=== PATIENT | male | born 1935 | race Caucasian/White ===

== ENCOUNTER 2017-04-30 13:37 | Emergency (ER) | payer OTHER, BC ==
[~2017-04-30] VITALS: Ht 167.6 cm; Wt 78.9 kg
[~2017-04-30 13:37] MED LIST: ALL300 PO; CARV12.5 PO
[2017-04-30 13:42] VITALS: Ht 167.6 cm; Wt 78.9 kg
[2017-04-30] MEDS ORDERED: CHOL1000 PO (14:23)
[2017-04-30] MEDS ORDERED: ASPI81TA28 PO (14:23)
--- NOTE | 2017-04-30 14:59 | DIAGNOSTIC IMAGING REPORT ---
RIGHT ANKLE MIN 3 VIEWS ROUTINE, RIGHT FOOT MIN 3 VIEWS ROUTINE HISTORY: 81 years Male Right anterior foot pain. No trauma. Hx gout Right COMPARISON: None available TECHNIQUE: 3 views of the right ankle and 3 views of the right foot FINDINGS: ANKLE: Neck mortises well maintained and anatomically positioned. Talar dome is smooth without osteochondral defect. There is mild marginal spurring about the tibiotalar joint. There is prominent spurring of the calcaneus at the plantar insertion site. No acute fracture or dislocation. Vascular calcifications are seen. FOOT: There is severe joint space narrowing with subchondral sclerosis and marginal spurring involving the first metatarsal-phalangeal joint. The bones are mildly demineralized. Interphalangeal degenerative changes are also seen. No evidence of erosive arthropathy. There is however mild soft tissue swelling about the first MTP joint. Vascular calcifications are seen. IMPRESSION: 1. No acute fracture or dislocation. 2. No evidence of erosive arthropathy . 3. 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 4. Peripheral vascular disease. The above report was generated using voice recognition software. It may contain grammatical, syntax or spelling errors. Electronically signed by: Winston Hernandes M.D. 04/30/2017 2:58 PM Dictated Date/Time: 04/30/2017 2:55 PM
--- NOTE | 2017-04-30 15:20 | EMERGENCY ROOM VISIT NOTE ---
ED Visit Note First contact with patient: 14:19 Patient was seen by our PA/[employer] APPLICATIONS MANAGER. I was involved in the patient's care and did evaluate the patient myself. I was involved in the care throughout the ER stay. The patient presents with right foot pain feeling as if he may have a gout flare. Films do not show fracture, there is some arthritis. On exam, there was no evidence for neurovascular compromise or cellulitis. The patient is going to be treated with some prednisone for presumed gout. If worsening, he can return.
[2017-04-30] MEDS ORDERED: PRED20TA2 PO (15:24)
--- NOTE | 2017-04-30 15:26 | EMERGENCY ROOM VISIT NOTE ---
History First contact with patient: 14:19 Chief Complaint: FOOT PAIN Stated Complaint: SWELLING/PAIN TO RIGHT FOOT History of Present Illness The patient is a 81 year old male who presents to the Emergency Room via private vehicle accompanied by with complaints of "swelling/pain in the right foot". The patient states that he has a history of gout, and takes 300 mg of allopurinol daily. He states that about a week ago he developed pain in the top of the right foot and swelling in the right ankle. He states this feels like his typical gout flare, but has never had in this region. He states it is typically in his great toe. He denies any history of blood clot, fevers, chills, chest pain, shortness of breath, calf pain. He has taken Tylenol with some relief. He rates the pain as a 8/10. Review of Systems A complete 10-point Review of Systems was discussed with the patient, with pertinent positives and negatives listed in the History of Present Illness. All remaining Review of Systems questions can be considered negative unless otherwise specified. Past Medical/Surgical History Medical Problems: (1) Heart disease (2) Hypertension Family History FH: cancer FH: hypertension Heart disease Social History Smoking Status: Never Smoker Alcohol Use: occasionally Drug Use: none Marital Status: Housing Status: lives with roommate Occupation Status: retired Current/Historical Medications Scheduled Allopurinol (Allopurinol), 300 MG PO DAILY Aspirin (Aspirin Ec), 81 MG PO DAILY Carvedilol (Coreg), 12.5 MG PO BID Cholecalciferol (Vitamin D3), 1,000 INTER.UNIT PO DAILY Prednisone (Prednisone Tab), 1 TAB PO BID Allergies Coded Allergies: No Known Allergies (Unverified , 04/30/17) Physical Exam Vital Signs Date Time Temp Pulse Resp B/P (MAP) Pulse Ox O2 Delivery O2 Flow Rate FiO2 04/30/17 13:42 36.9 78 18 116/59 94 Room Air Physical Exam VITAL SIGNS - Vital signs and nursing notes were reviewed. Patient is afebrile , normotensive, non-tachycardic and is saturating well on room air 94%. GENERAL -81-year-old male appearing his stated age who is in no acute distress. Communicates well with provider and answers questions appropriately. SKIN - Without rashes. Skin overlying the right ankle and foot is unremarkable. EXTREMITIES - No clubbing or peripheral cyanosis. No pretibial edema present. No excessive warmth or erythema of the right lower extremity. He is neurovascularly intact in this region. +5/5 strength noted in UE/LE bilaterally. Medical Decision & Procedures ER Provider Diagnostic Interpretation: RIGHT ANKLE MIN 3 VIEWS ROUTINE, RIGHT FOOT MIN 3 VIEWS ROUTINE HISTORY: 81 years Male Right anterior foot pain. No trauma. Hx gout Right COMPARISON: None available TECHNIQUE: 3 views of the right ankle and 3 views of the right foot FINDINGS: ANKLE: Neck mortises well maintained and anatomically positioned. Talar dome is smooth without osteochondral defect. There is mild marginal spurring about the tibiotalar joint. There is prominent spurring of the calcaneus at the plantar insertion site. No acute fracture or dislocation. Vascular calcifications are seen. FOOT: There is severe joint space narrowing with subchondral sclerosis and marginal spurring involving the first metatarsal-phalangeal joint. The bones are mildly demineralized. Interphalangeal degenerative changes are also seen. No evidence of erosive arthropathy. There is however mild soft tissue swelling about the first MTP joint. Vascular calcifications are seen. IMPRESSION: 1. No acute fracture or dislocation. 2. No evidence of erosive arthropathy . 3. 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 4. Peripheral vascular disease. The above report was generated using voice recognition software. It may contain grammatical, syntax or spelling errors. Electronically signed by: Winston Hernandse M.D. 04/30/2017 2:58 PM Dictated Date/Time: 04/30/2017 2:55 PM Medical Decision Patient was seen and evaluated as above. After obtaining a thorough history and physical examination radiographs were obtained of the foot and ankle. Results as above. No acute fracture or dislocation. No joint effusion. I suspect the patient is likely experiencing a gout flare, and will add prednisone 20 mg twice a day 7 days to his regimen. He is to take this with food. He is to follow up with his family doctor regarding today's visits. His vital signs are stable. There is no evidence of infection or septic joint. No evidence of blood clot. He was educated upon worrisome symptoms in which to return, had questions as to discharge, and was discharged home in good condition. Patient was also seen and evaluated by my attending, of which the case was also discussed with. In the evaluation and treatment of this patient following differential diagnoses entertained: Degenerative change, gout flare, septic joint, among others. Impression Primary Impression: Gout flare Departure Information Dispostion Home / Self-Care Condition GOOD Prescriptions Prednisone (Prednisone Tab) 20 Mg Tab 1 TAB PO BID for 7 Days, #14 TAB Prov: Osmar Kathleen PA-C 04/30/17 Referrals Sophie Bourne PA-C (PCP) Patient Instructions My [facility] Additional Instructions You have been treated in the Emergency Department for a right foot and ankle pain believed to be a gout flare. You have been prescribed Prednisone 20 mg to be taken orally twice a day for the next 7 days. This is an anti-inflammatory medicine to be used to help minimize your symptoms. You should take the COMPLETE course of the medication. For pain control, you can use the following lwag-bfz-eqinufp medicines (if >12 yo): - Regular strength (325mg/tab) Tylenol (acetaminophen) 2 tabs every 4-6 hours as needed. Do not exceed 12 tablets in a 24 hour period. Avoid taking more than 3 grams (3000 mg) of Tylenol per day. This includes any other sources of acetaminophen you may take on a regular basis. If this is a recent injury (<24 hrs), ice can be applied to the area of pain for the first 3 days to help decrease pain and inflammation. Please schedule follow-up with your family doctor regarding today's visit. Please call them first thing tomorrow morning to schedule appointment. They may need to adjust the steroid dose. Return to the Emergency Department if your current symptoms worsen despite treatment course outlined above, or if you develop any of the following symptoms : Fevers, chills, intractable pain despite aforementioned treatment course or new onset of numbness or tingling of the foot. Please return to emergency department with any new/concerning symptoms.
[2017-04-30 15:51] VITALS: BP 121/57; PULSE 74; TEMP 36.9; O2SAT 94
== END 2017-04-30 15:51 | disposition home or self-care (01) ==
LOC: C.EDB 13:38 → C.EDD 15:51
DX: M10.9 Gout, unspecified (principal); Z79.899 Other long term (current) drug therapy; Z79.82 Long term (current) use of aspirin; I10 Essential (primary) hypertension; Z80.9 Family history of malignant neoplasm, unspecified; Z82.49 Family history of ischemic heart disease and other diseases of the circulatory system

== ENCOUNTER 2024-01-26 20:05 | Observation (INO) ==
--- OUTSIDE RECORDS SUMMARY | 2024-01-26 20:12 | External Medical Summary | Summary of Care ---
Author Name Unknown Organization [facility] Address [address] [place] [address] Phone [phone] Care Team Providers Care Music Autographer Name Role Phone Sophie Bourne Leonid PEOPLES Primary Care Provider [phone] Encounter Details Date Type Department Care Team (Late st Contact Info) Description 08/23/2023 Result Scan Unspecified Department Aashish Boyer MD [address] [place] [address] <No scans attached> Allergies Active Allergy Reactions Criticality Noted Date Comments Miguel Inhibitors Cough 06/10/2002 Losartan 06/21/2021 Dizziness Sulfa Antibiotics Itching 08/16/1999 Sulfamethoxazole-Trimethopr im 06/11/2023 Other Reaction(s): Not available documented as of this encounter (statuses as of 08/23/2023) Medications Medication Sig Dispensed Refills Start Date End Date Status omeprazole (PRILOSEC) 20 MG CPDR Take 1 Capsule by mouth in the morning. 0 Active Aspirin 81 MG TabletIndications: Gout of big toe Take 1 Tablet by mouth in the morning. 0 Active Cholecalciferol 1000 UNITS TBDP Take 2,000 Units by mouth every other day. 0 Active vitamin b 12 (CYANOCOBALAMIN) 1000 MCG TABS Take 1 Tablet by mouth every other day. 0 Active Magnesium Oxide 420 MG TABS Take 1 Tab by mouth daily. 0 Active atorvaSTATin (LIPITOR) 80 MG Tablet Take 0.5 Tablets by mouth in the morning. 30 Tab 0 03/08/2017 Active Fish Oil 1200 MG Oral Capsule Take 1 Cap by mouth 2 times a day. 0 Active Allopurinol 300 MG Oral Tablet (Zyloprim)Indicati ons:Gout of big toe TAKE 1 TABLET BY MOUTH EVERY DAY 90 Tablet 0 05/28/2022 Active Diclofenac Sodium 1 % External Gel (Voltaren) diclofenac 1 % topical gel 0 Active Fluticasone Propionate 50 MCG/ACT Nasal Suspension (Flonase) fluticasone propionate 50 mcg/actuation nasal spray,suspension 0 Active Triamcinolone Acetonide 0.5 % External Cream (Aristocort) Apply topically to affected area 2 times a day. To affected area. 60 g 5 03/01/2023 Active Tamsulosin HCl 0.4 MG Oral Capsule (Flomax) Take 2 Capsules by mouth in the morning. 120 Capsule 5 06/13/2023 Active Finasteride 5 MG Oral Tablet (Proscar) TAKE 1 TABLET BY MOUTH EVERY DAY IN THE MORNING 90 Tablet 1 07/13/2023 Active Metoprolol Succinate ER 25 MG Oral Tablet Extended Release 24 Hour (Toprol XL) Take 1 Tablet by mouth in the morning. 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 Left bundle branch block 11/17/2004 documented as of this encounter (statuses as of 08/23/2023) Resolved Problems Problem Noted Date Diagnosed Date Resolved Date Hypertensive kidney disease with chronic kidney disease stage III 04/08/2019 02/23/2021 Overview: Per CKD protocol Kidney disease, chronic, sta ge III (GFR 30-59 ml/min) 01/21/2018 04/23/2019 Overview: Per CKD protocol #1 Ischemic cardiomyopathy 05/30/201607/14 Chronic right sacroiliac pain 02/28/2013 04/10/2018 Benign neoplasm of colon 08/05/200711/2018 Overview: hyperplastic polyp, repeat in10 years ADVANCE DIRECTIVE INFORMATION 06/04/2005 06/06/2017 Overview: No, Advance Directive brochure offered , patient declined. Syncope and collapse 06/10/2002 017 Ischemic cardiomyopathy 06/10/200207/15 HYPERTENSION NOS 09/05/2009 Overview: Modified per HTN protocol #16. FM [id number] DIS NEC CHR ISCHEMIC HRT DIS NOS documented as of this encounter (statuses as of 08/23/2023) Immunizations Name Administration Dates Next Due COVID-19 mRNA, LNP-s, No Pre serve, 2-Dose Series (Moderna) 09/12/2021,12/12/2020,11/21/2020,2020 H1N1 2009 Influenza, IM 08/15/2009 Pneumococcal Conjugate Vacc, 13 Valent (Prevnar) 04/11/2018 Pneumococcal Vaccine, Unspec ified Formulation 09/21/2003 Seasonal Influenza Virus Vac cine, Unspecified Formulation 07/14/2018 Seasonal Influenza, Quadriva lent Hd (Fluzone Hd) 07/01/2023 Seasonal Influenza, Quadriva lent, No Preserve, IM 06/28/2020,12/12/2017 Seasonal Influenza, Recombin ant, RIV4, PF, (Flublock) 07/02/2020 Seasonal Influenza, Split, I IV3, With Preserve, Inj 07/14/2014,07/07/2013,09/13/2012,2006,07/23/2006 Seasonal Influenza, Trivalen t, Adjuvanted, 65+ yrs 07/22/2019 TD, Preservative Free 03/05/2008 Varicella Zoster Vaccine (Adult) 04/17/2012 documented as of this encounter Social History Tobacco Use Types Packs/Day Years Used Date Smoking Tobacco: Former Cigarettes 1.5 30 Q uit: 10/14/1982 Smokeless Tobacco: Never Alcohol Use Standard Drinks/Week Comments Yes 0 (1 standard drink = 0.6 oz pur e alcohol) very little PHQ-2 Answer Date Recorded PHQ-2 Score 0 03/25/2020 Sex and Gender Information Value Date Recorded Sex Assigned at Not on file Gender Identity Not on file Sexual Orientation Not on file Job Start Date Occupation Industry Not on file Not on file Not on file documented as of this encounter Plan of Treatment Upcoming Encounters Date Type Department Care Team (Late st Contact Info) Description 02/10/2024 11:20 AM EDT Office Visit Neurology [facility] [address] [facility] [place] [address] Srinivasa Whitaker MD [address] [facility] [place] [address] 02/26/2024 10:30 AM EDT Office Visit Urology, [place] [address] [place] [address] Joni Singh PA-C [address] [place], [place] [id number] 03/03/2024 10:30 AM EDT Office Visit Cardiology, [facility] [address] [facility] [place] [address] Sophie Melendez CRNP [address] [facility] [place] [address] 06/26/2024 11:00 AM EDT Cardiac Studies Cardiology, [facility] [address] [facility] [place] [address] Reyes Arriola [address] [place] [address] Health Maintenance Due Date Last Done Comments DTaP,Tdap,and Td Vaccines (1 - Tdap) 03/06/2008 03/05/2008 Zoster Vaccines (2 of 3) 06/12/2012 04/17/2012 Albumin/Creatinine Ratio 03/18/2016 03/18/2015 Pneumococcal Vaccine: 65+ Years (2 - PPSV23 or PCV20) 06/06/2018 04/11/2018 Depression Screening 03/25/2021 03/25/2020 CKD PHOS USE SMARTSET 55023 02/09/2022 02/09/2021 COVID-19 Vaccine ( season) 2023 09/12/2021, 12/12/2020, 11/21/2020, Additional history exists CKD HGB USE SMARTSET 26054 05/21/202405/21, 12/31/2022, 04/11/2021, Additional history exists Influenza Vaccine (FLU shot) Completed , 07/02/2020, 06/28/2020, Additional history exists GARDASIL-HPV IMMUNIZATION SERIES Aged Out No longer eligible based on patient's age to complete this topic Hepatitis B Aged Out No longer eligi ble based on patient's age to complete this topic MENINGOCOCCAL (MENACTRA/MENVEO) Aged Out No longer eligible based on patient's age to complete this topic documented as of this encounter Medical Devices Implanted Type Area Rotary Cutter Feeder Device Identifier Shelf Expiration Date Model / Serial / Lot Lens 21.0 Sn60wf - [id number] Implanted:Qty: 1 on 06/24/2014 at OR [facility] Right: Eye 04/12/2019 SN60WF.210 / [id number] / Lens 21.5 Sn60wf - [id number] Implanted:Qty: 1 on 07/07/2014 at OR [facility] Left: Eye [employer] 04/12/2019 SN60WF.215 / [id number] / [id number] documented as of this encounter Procedures Procedure Name Priority Date/Time Associated Diagnosis Comments CARDIOLOGY SCANNED RESULT 08/23/2023 documented in this encounter Results * CARDIOLOGY SCANNED RESULT (08/23/2023) 08/23/2023 Aashish Boyer MD OTHER documented in this encounter Advance Directives Latest Code Status on File Code Status Date Activated Date Inactivated Comments Full Code 07/07/2014 8:58 AM 07/07/2014 4:23 PM This order reflects the patients wishes and were consensually agreed upon. Code Status History Code Status Date Activated Date Inactivated Comments Full Code 06/24/2014 7:12 AM 06/24/2014 3:01 PM This order reflects the patients wishes and were consensually agreed upon. Care Teams Music Autographer Relationship Specialty Start Date End Date Sophie Bourne PA-C [address] [place] [address] [place] [address] PCP - General Physician Visiting Housekeeper 02/04/19 documented as of this encounter
--- OUTSIDE RECORDS SUMMARY | 2024-01-26 20:12 | External Medical Summary | Summary of Care ---
Author Name Unknown Organization [facility] Address [address] [place] [address] Phone [phone] Care Team Providers Care Bull Ladle Tender Name Role Phone Sophie Bourne Leonid PEOPLES Primary Care Provider [phone] Encounter Details Date Type Department Care Team (Late st Contact Info) Description 12/19/2023 Result Scan Unspecified Department Aashish Boyer MD [address] [place] [address] <No scans attached> Allergies Active Allergy Reactions Criticality Noted Date Comments Miguel Inhibitors Cough 06/10/2002 Losartan 06/21/2021 Dizziness Sulfa Antibiotics Itching 08/16/1999 Sulfamethoxazole-Trimethopr im 06/11/2023 Other Reaction(s): Not available documented as of this encounter (statuses as of 12/19/2023) Medications Medication Sig Dispensed Refills Start Date [...] as of this encounter (statuses as of 12/19/2023) Active Problems Problem Noted Date Diagnosed Date [...] as of this encounter (statuses as of 12/19/2023) Resolved Problems Problem Noted Date Diagnosed Date [...] Overview: Modified per HTN protocol #16. FM [id number] DIS NEC CHR ISCHEMIC HRT DIS NOS documented as of this encounter (statuses as of 12/19/2023) Immunizations Name Administration Dates Next Due COVID-19 [...] Date Smoking Tobacco: Former Cigarettes 1.5 30 0 10/14/1952 - 10/14/1982 Smokeless Tobacco: Never Alcohol Use Standard [...] 02/10/2024 11:20 AM EDT Office Visit Neurology [facility] [address] [facility] [place] [address] Srinivasa Whitaker MD [address] [facility] [place] [address] 02/26/2024 2:30 PM EDT Office Visit Urology, [place] [address] [place] [address] Dilan Pisano PA-C [address] [place] [address] 03/03/2024 10:30 AM EDT Office Visit Cardiology, [facility] [address] [facility] [place] [address] Sophie Melendez CRNP [address] [place] [address] 06/26/2024 11:00 AM EDT Cardiac Studies Cardiology, [facility] [address] [facility] [place] [address] [place], [employer] [address] [place] [address] Health Maintenance Due Date Last Done Comments DTaP,Tdap,and Td Vaccines (1 - Tdap) 03/06/2008 03/05/2008 Zoster Vaccines (2 of 3) 06/12/2012 04/17/2012 Albumin/Creatinine Ratio 03/18/2016 03/18/2015 Pneumococcal Vaccine: 65+ Years (2 of 2 - PPSV23 or PCV20) 06/06/2018 04/11/2018 Depression Screening 03/25/2021 03/25/2020 CKD PHOS USE SMARTSET 12117 02/09/2022 02/09/2021 COVID-19 Vaccine ( season) 2023 09/12/2021, 12/12/2020, 11/21/2020, Additional history exists CKD HGB USE SMARTSET 07650 05/21/202405/21, 12/31/2022, 04/11/2021, Additional history exists Influenza [...] this encounter Medical Devices Implanted Type Area Relocation Commissioner Device Identifier Shelf Expiration Date Model / Serial / Lot Lens 21.0 Sn60wf - [id number] Implanted:Qty: 1 on 06/24/2014 at OR [facility] Right: Eye 04/12/2019 SN60WF.210 / [id number] / Lens 21.5 Sn60wf - [id number] Implanted:Qty: 1 on 07/07/2014 at OR [facility] Left: Eye [employer] 04/12/2019 SN60WF.215 / [id number] / [id number] documented as of this encounter Procedures Procedure Name Priority Date/Time Associated Diagnosis Comments CARDIOLOGY SCANNED RESULT 12/19/2023 documented in this encounter Results * CARDIOLOGY SCANNED RESULT (12/19/2023) 12/19/2023 Aashish Boyer MD OTHER documented in this [...] and were consensually agreed upon. Care Teams Bull Ladle Tender Relationship Specialty Start Date End Date Steffen January RICHELLE Jaquez [address] [facility] [place] [address] PCP - General Physician Hide Sorter 02/04/19 documented as of this encounter
--- OUTSIDE RECORDS SUMMARY | 2024-01-26 20:12 | External Medical Summary | Summary of Care ---
Author Name Unknown Organization [facility] Address [address] [place] [address] Phone [phone] Care Team Providers Care Liquid Yeast Supervisor Name Role Phone Sophie Bourne PA-C Primary Care Provider Reason for Visit * Reason Comments Follow Up Encounter Details Date Type Department Care Team Description 07/30/2023 Office Visit Cardiology, 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 0 Active Aspirin 81 MG TabletIndication s:Gout of big toe Take 1 Tablet by [...] 0 Active Allopurinol 300 MG Oral Tablet (Zyloprim)Indica tions:Gout of big toe TAKE 1 TABLET BY [...] the morning. 90 Tablet 3 07/30/2023 Active Carvedilol 12.5 MG Oral Tablet (Coreg) Take 1 Tablet by mouth in the morning and 1 Tablet before bedtime. 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 Left bundle branch block 11/17/2004 documented as of this encounter (statuses as of 08/01/2023) Resolved Problems Problem Noted Date Resolved Date Hypertensive kidney disease with chronic kidney disease stage III 04/08/2019 02/23/2021 Overview: Per CKD protocol Kidney disease, chronic, stage III (GFR 30-59 ml /min) 01/21/2018 04/23/2019 Overview: Per CKD protocol #1 Ischemic cardiomyopathy 05/30/2016 07/24/20 17 Chronic right sacroiliac pain 02/28/2013 Benign neoplasm of colon 08/05/2007 019 Overview: hyperplastic polyp, repeat in10 years ADVANCE DIRECTIVE INFORMATION 06/04/2005 Overview: No, Advance Directive brochure offered , patient declined. Syncope and collapse 06/10/2002 06/06/2017 Ischemic cardiomyopathy 06/10/2002 08/11/20 12 HYPERTENSION NOS 09/05/2009 Overview: Modified per HTN protocol #16. FM [id number] DIS NEC 017 CHR ISCHEMIC HRT DIS NOS 017 documented as of this encounter (statuses as of 08/01/2023) Immunizations Name Administration Dates Next Due COVID-19 [...] 30 Q uit: 10/14/1982 Smokeless Tobacco: Never Tobacco Cessation:Counseling Given: Not Answered Alcohol Use Standard Drinks/Week Comments Yes 0 (1 standard drink = 0.6 oz pur e alcohol) very little Sex Assigned at Date Recorded Not on file Job Start Date Occupation Industry Not on file Not on file Not on file documented as of this encounter Last Filed Vital Signs Vital Sign Reading Time Taken Comments Blood Pressure 128/78 07/30/2023 11:45 AM EDT Pulse 76 07/30/2023 11:45 AM EDT Temperature - - Respiratory Rate 18 07/30/2023 11:45 AM EDT Oxygen Saturation - - Inhaled Oxygen Concentration - - Weight 70.9 kg (156 lb 3.2 oz) 07/30/2023 11:45 AM EDT Height - - Body Mass Index 27.67 02/12/2023 9:39 AM EDT documented in this encounter Patient Instructions * Patient Instructions* MIAH Flores - 07/30/2023 11:59 AM EDT Start Metoprolol 25 mg once per day in the morning Stop Coreg Switch the prostate medications Proscar and and Flomax to take daily in the evenings Please call if you need anything documented in this encounter Progress Notes * Ade Florence DO - 07/30/2023 12:51 PM EDT I have reviewed the advanced practitioner documentation and agree. I saw and evaluated the patient on date of service referenced in note and have performed the following medically appropriate historyand/or exam: Pt seen in routine EP f/u due to NICM. Pt presents with his today He was seen by general cardiology REEL TENDER and his coreg was slightly increased due to NICM on echo being45% Pt is having dizziness; recommend stopping coreg and starting toprol 25mg daily Recommend changing the proscar and flomax at night time Continue with routine device checks EP f/u in spring when he returns from [place] for the winter Ade Florence DO Department of Cardiology [facility] [place] [address] documented in this encounter Nursing Notes * Michelle Martin LPN - 07/30/2023 11:43 AM EDT Examination Room: 11 Name: Yovanny May Date of : (1935) Reason for Visit: Follow up Interim Hospitalization(s): Denies Problems/Concerns: Denies Chest Pain/SOB: Denies My [facility] is a way you can talk to your provider online through e-mail. Would you like to sign up? I can activate it for you? ALREADY ACTIVE Patient was instructed to not get up on the exam table until directed and assisted by their provider; patient is to remain seated in the chair/ wheelchair/ exam table for fall prevention and safety reasons. Patient is aware to have assistance to step down off exam table with personnel. Patient voiced full comprehension of instructions. documented in this encounter Plan of Treatment Upcoming Encounters Date Type Specialty Care Team Description 02/10/2024 Office Visit Neurology Srinivasa Whitaker MD [address] [place] [address] 02/26/2024 Office Visit Urology Joni Singh PA-Nicolle [address] [place] [address] 03/03/2024 Office Visit Cardiology Sophie Melendez CRNP [address] [facility] [place] [phone] 06/26/2024 Cardiac Studies Cardiology [facility] [address] [facility] [place] [address] Health Maintenance Due Date Last Done Comments DTaP,Tdap,and Td Vaccines (1 - Tdap) 03/06/2008 03/05/2008 Zoster Vaccines (2 of 3) 06/12/2012 04/17/2012 Albumin/Creatinine Ratio 03/18/2016 03/18/2015 Pneumococcal Vaccine: 65+ Years (2 - PPSV23 or PCV20) 06/06/2018 04/11/2018 Depression Screening 03/25/2021 03/25/2020 CKD PHOS USE SMARTSET 45582 02/09/2022 02/09/2021 COVID-19 Vaccine ( season) 2023 09/12/2021, 12/12/2020, 11/21/2020, Additional history exists CKD HGB USE SMARTSET 52506 05/21/202405/21, 12/31/2022, 04/11/2021, Additional history exists Influenza [...] this encounter Medical Devices Implanted Type Area Hand Cloth Cutter Device Identifier Shelf Expiration Date Model / Serial / Lot Lens 21.0 Sn60wf - [id number] Implanted:Qty: 1 on 06/24/2014 at OR [facility] Right: Eye 04/12/2019 SN60WF.210 / [id number] / Lens 21.5 Sn60wf - [id number] Implanted:Qty: 1 on 07/07/2014 at OR [facility] Left: Eye [employer] 04/12/2019 SN60WF.215 / [id number] / [id number] documented as of this encounter Visit Diagnoses Diagnosis Nonischemic cardiomyopathy (HCC)- Primary Other primary cardiomyopathies Biventricular ICD (implantable cardioverter-defibrillator) in place HTN, goal below 140/90 Unspecified essential hypertension Complete atrioventricular block (HCC) Atrioventricular block, complete ICD (implantable cardioverter-defibrillator) battery depletion documented in this encounter Advance Directives Latest [...] and were consensually agreed upon. Care Teams Liquid Yeast Supervisor Relationship Specialty Start Date End Date Sophie Bourne PA-C [address] [place] [address] PCP - General Physician Database Security Administrator 02/04/19 documented as of this encounter
--- OUTSIDE RECORDS SUMMARY | 2024-01-26 20:12 | External Medical Summary | Summary of Care ---
Author Name Unknown Organization [facility] Address [address] [place] [address] Phone [phone] Care Team Providers Care Window Assembler Name Role Phone Sophie Bourne PA-C Primary Care Provider [phone] Reason for Visit * Reason Onset Date Comments Hospital Follow-Up 06/14/2023 Encounter Details Date Type Department Care Team ([facility] st Contact Info) Description 06/14/2023 Telephone Cardiology [facility] [address] [place] [phone] [facility] [phone] [facility] Follow-Up Allergies Active Allergy Reactions Criticality Noted Date Comments Miguel Inhibitors Cough 06/10/2002 Losartan 06/21/2021 Dizziness Sulfa Antibiotics Itching 08/16/1999 Sulfamethoxazole-Trimethopr im 06/11/2023 Other Reaction(s): Not available documented as of this encounter (statuses as of 09/13/2023) Medications Medication Sig Dispensed Refills Start Date End Date Status omeprazole (PRILOSEC) 20 MG CPDR Take 1 Capsule by mouth in the morning. 0 Active Aspirin 81 MG TabletIndicatio ns:Gout of big toe Take 1 Tablet by mouth in the morning. 0 Active Cholecalciferol 1000 UNITS TBDP Take 2,000 Units by mouth every other day. 0 Active vitamin b 12 (CYANOCOBALAMIN ) 1000 MCG TABS Take 1 Tablet by [...] 0 Active Allopurinol 300 MG Oral Tablet (Zyloprim)Indic ations:Gout of big toe TAKE 1 TABLET BY [...] the morning. 120 Capsule 5 06/13/2023 Active Carvedilol 6.25 MG Oral Tablet (Coreg) Take 1 Tablet by mouth in the morning and 1 Tablet before bedtime. 180 Tablet 3 02/05/2023 3 Discontinued Gabapentin 300 MG Oral Capsule (Neurontin)Josephine cations:Post herpetic neuralgia Take 1 Capsule by mouth in the morning and 1 Capsule at noon and 1 Capsule before bedtime. 90 Capsule 11 02/12/2023 3 Discontinued Finasteride 5 MG Oral Tablet (Proscar) Take 1 Tablet by mouth in the morning. 90 Tablet 0 03/25/2023 3 Discontinued documented as of this encounter (statuses as of 09/13/2023) Active Problems Problem Noted Date Diagnosed Date [...] as of this encounter (statuses as of 09/13/2023) Resolved Problems Problem Noted Date Diagnosed Date [...] Overview: Modified per HTN protocol #16. FM [id number] DIS NEC CHR ISCHEMIC HRT DIS NOS documented as of this encounter (statuses as of 09/13/2023) Immunizations Name Administration Dates Next Due COVID-19 mRNA, LNP-s, No Pre serve, 2-Dose Series (Moderna) 09/12/2021,12/12/2020,11/21/2020,2020 H1N1 2009 Influenza, IM 08/15/2009 Pneumococcal Conjugate Vacc, 13 Valent (Prevnar) 04/11/2018 Pneumococcal Vaccine, Unspec ified Formulation 09/21/2003 Seasonal Influenza Virus Vac cine, Unspecified Formulation 07/14/2018 Seasonal Influenza, Quadriva lent, No Preserve, IM [...] on file documented as of this encounter Miscellaneous Notes * Telephone Encounter - Gala Greene OSA - 06/18/2023 3:06 PM EDT See other enc. * Telephone Encounter - Jayne Bean OSA - 06/14/2023 5:08 PM EDT Good Evening, Patient's calling again for a post op appointment with Dr. Florence only. Please advise for a sooner date/time to add patient. Thank you, LESTER Mendoza * Telephone Encounter - Nadja Scott OSA - 06/14/2023 10:46 AM EDT Pt called again looking for an appt with Dr Florence. Post op 06/11 * Telephone Encounter - Nadja Scott OSA - 06/14/2023 10:05 AM EDT Pt is post op 06/11/23 and needs an appt with Dr Florence. I was not able to secure an appt. Please advise, Thank You LESTER Carrasquillo documented in this encounter Plan of Treatment Upcoming Encounters Date Type Department Care Team (Late st Contact Info) Description 02/10/2024 11:20 AM EDT Office Visit Neurology [facility] [address] [facility] [place] [address] Srinivasa Whitaker MD [address] [facility] [place] [address] 02/26/2024 10:30 AM EDT Office Visit Urology, [place] [address] [place] [address] Joni Singh PA-C [address] [place] [address] 03/03/2024 10:30 AM EDT Office Visit Cardiology, [facility] [address] [facility] [place] [address] Sophie Melendez CRNP [address] [facility] [place] [address] 06/26/2024 11:00 AM EDT Cardiac Studies Cardiology, [facility] [address] [facility] [place] [address] [facility] [address] [facility] [place] [address] Health Maintenance Due Date Last Done Comments DTaP,Tdap,and Td Vaccines (1 - Tdap) 03/06/2008 03/05/2008 Zoster Vaccines (2 of 3) 06/12/2012 04/17/2012 Albumin/Creatinine Ratio 03/18/2016 03/18/2015 Pneumococcal Vaccine: 65+ Years (2 - PPSV23 or PCV20) 06/06/2018 04/11/2018 Depression Screening 03/25/2021 03/25/2020 CKD PHOS USE SMARTSET 93421 02/09/2022 02/09/2021 COVID-19 Vaccine ( season) 2023 09/12/2021, 12/12/2020, 11/21/2020, Additional history exists CKD HGB USE SMARTSET 94465 05/21/202405/21, 12/31/2022, 04/11/2021, Additional history exists Influenza [...] this encounter Medical Devices Implanted Type Area Sales Representative Womens Health Device Identifier Shelf Expiration Date Model / Serial / Lot Lens 21.0 Sn60wf - [id number] Implanted:Qty: 1 on 06/24/2014 at OR [facility] Right: Eye 04/12/2019 SN60WF.210 / [id number] / Lens 21.5 Sn60wf - [id number] Implanted:Qty: 1 on 07/07/2014 at OR [facility] Left: Eye [employer] 04/12/2019 SN60WF.215 / [id number] / [id number] documented as of this encounter Advance Directives Latest Code Status [...] and were consensually agreed upon. Care Teams Window Assembler Relationship Specialty Start Date End Date SteffenJanuary RICHELLE Jaquez [address] [place] [address] PCP - General Physician Reviewer Sales 02/04/19 documented as of this encounter
--- OUTSIDE RECORDS SUMMARY | 2024-01-26 20:12 | External Medical Summary | Summary of Care ---
Author Name Unknown Organization [facility] Address [address] [place] [address] Phone [phone] Care Team Providers Care It Program Manager Name Role Phone Sophie Bourne PA-C Primary Care Provider [phone] Reason for Visit * Reason Comments eRx-Medication Refill Encounter Details Date Type Department Care Team (Late st Contact Info) Description 12/27/2023 Refill Family Practice [facility] [place] [address] [facility] [place] [address] Sophie Bourne PA-C [address] [facility] [place] [address] Allergies Active Allergy Reactions Criticality Noted Date Comments Miguel Inhibitors Cough 06/10/2002 Losartan 06/21/2021 Dizziness Sulfa Antibiotics Itching 08/16/1999 Sulfamethoxazole-Trimethopr im 06/11/2023 Other Reaction(s): Not available documented as of this encounter (statuses as of 12/30/2023) Medications Medication Sig Dispensed Refills Start Date [...] the morning. 120 Capsule 5 06/13/2023 Active Metoprolol Succinate ER 25 MG Oral Tablet Extended Release 24 Hour (Toprol XL) Take 1 Tablet by mouth in the morning. 90 Tablet 3 07/30/2023 Active Finasteride 5 MG Oral Tablet (Proscar) TAKE 1 TABLET BY MOUTH EVERY DAY IN THE MORNING 90 Tablet 0 12/30/2023 Active Finasteride 5 MG Oral Tablet (Proscar) TAKE 1 TABLET BY MOUTH EVERY DAY IN THE MORNING 90 Tablet 1 07/13/2023 4 Discontinued documented as of this encounter (statuses as of 12/30/2023) Active Problems Problem Noted Date Diagnosed Date [...] as of this encounter (statuses as of 12/30/2023) Resolved Problems Problem Noted Date Diagnosed Date [...] Overview: Modified per HTN protocol #16. FM [id number] DIS NEC CHR ISCHEMIC HRT DIS NOS documented as of this encounter (statuses as of 12/30/2023) Immunizations Name Administration Dates Next Due COVID-19 [...] encounter Miscellaneous Notes * Telephone Encounter - Lyric Trammell RPh - 12/30/2023 8:52 AM EDT RX authorized. Zero refills given until upcoming OV needed 03/06. Thank you, Lyric Trammell [facility] Clinical Pharmacist TelePharmacy 12/30/23 8:52 AM [phone] * Telephone Encounter - Lyric Trammell RPh - 12/30/2023 8:52 AM EDTSigned Prescriptions: Disp Refills Finasteride 5 MG Oral Tablet (Proscar) 90 Tab*0 Sig: TAKE 1 TABLET BY MOUTH EVERY DAY IN THE MORNING Authorizing Provider: SOPHIE BOURNE Ordering User: LYRIC TRAMMELL documented in this encounter Plan of Treatment Upcoming Encounters Date Type Department Care Team (Late st Contact Info) Description 02/10/2024 11:20 AM EDT [facility] [address] [place] [address] Srinivasa Whitaker MD [address] [place] [address] 02/17/2024 10:30 AM EDT Office Visit Ophthalmology, [facility] [address] [facility] [place] [address] Ben Roberts DO [address] [facility] [place] [address] 02/26/2024 2:30 PM EDT Office Visit Urology, [place] [address] [place], [place] [phone] Dilan Pisano PA-C [address] [place] [address] 03/03/2024 10:30 AM EDT Office Visit Cardiology, [facility] [address] [facility] [place] [address] Sophie Melendez CRNP [address] [facility] [place] [address] 06/26/2024 11:00 AM EDT Cardiac Studies Cardiology, [facility] [address] [facility] [place] [address] [facility] [address] [facility] [place] [address] Health Maintenance Due Date Last Done Comments DTaP,Tdap,and Td Vaccines (1 - Tdap) 03/06/2008 03/05/2008 Zoster Vaccines (2 of 3) 06/12/2012 04/17/2012 Albumin/Creatinine Ratio 03/18/2016 03/18/2015 Pneumococcal Vaccine: 65+ Years (2 of 2 - PPSV23 or PCV20) 06/06/2018 04/11/2018 Depression Screening 03/25/2021 03/25/2020 CKD PHOS USE SMARTSET 93886 02/09/2022 02/09/2021 COVID-19 Vaccine ( season) 2023 09/12/2021, 12/12/2020, 11/21/2020, Additional history exists CKD HGB USE SMARTSET 82288 05/21/202405/21, 12/31/2022, 04/11/2021, Additional history exists Influenza [...] encounter Medical Devices Implanted Type Area Sales Development Associate Device Identifier Shelf Expiration Date Model / Serial / Lot Lens 21.0 Sn60wf - [id number] Implanted:Qty: 1 on 06/24/2014 at OR [facility] Right: Eye 04/12/2019 SN60WF.210 / [id number] / Lens 21.5 Sn60wf - [id number] Implanted:Qty: 1 on 07/07/2014 at OR [facility] Left: Eye [employer] 04/12/2019 SN60WF.215 / [id number] / [id number] documented as of this encounter Advance [...] and were consensually agreed upon. Care Teams It Program Manager Relationship Specialty Start Date End Date Steffen January RICHELLE Jaquez [address] [place] [address] PCP - General Physician Unemployment Benefits Claims Taker 02/04/19 documented as of this encounter
--- OUTSIDE RECORDS SUMMARY | 2024-01-26 20:12 | External Medical Summary | Summary of Care ---
Author Name Unknown Organization [facility] Address [address] [place] [address] Phone [phone] Care Team Providers Care Learning Support Services Director Name Role Phone KaylynSophie moreno Leonid PEOPLES Primary Care Provider [phone] Reason for Visit * Reason Onset Date Comments Advice 12/27/2023 Encounter Details Date Type Department Care Team (Late st Contact Info) Description 12/27/2023 Telephone Neurology [facility] [address] [place], [place] [id number] Specified, Zz No Resource [address] [place] [address] Advice Allergies Active Allergy Reactions Criticality Noted Date Comments Miguel Inhibitors Cough 06/10/2002 Losartan 06/21/2021 Dizziness Sulfa Antibiotics Itching 08/16/1999 Sulfamethoxazole-Trimethopr im 06/11/2023 Other Reaction(s): Not available documented as of this encounter (statuses as of 12/27/2023) Medications Medication Sig Dispensed Refills Start Date [...] as of this encounter (statuses as of 12/27/2023) Active Problems Problem Noted Date Diagnosed Date [...] as of this encounter (statuses as of 12/27/2023) Resolved Problems Problem Noted Date Diagnosed Date [...] Overview: Modified per HTN protocol #16. FM [id number] DIS NEC CHR ISCHEMIC HRT DIS NOS documented as of this encounter (statuses as of 12/27/2023) Immunizations Name Administration Dates Next Due COVID-19 [...] encounter Miscellaneous Notes * Telephone Encounter - Srinivasa Whitaker MD - 12/27/2023 2:39 PM EDT Spoke with patient is declining in terms of back pain gait and memory I have recommended that return from [place] they see their pcp and be assessed and then have appropriate referrals based upon that encounter may need pain management another ct of head cognitive testing etc but the history Iobtained is not indicating a single issue and neurology would only address the cognitive one and the small meningioma Srinivasa Whitaker MD * Telephone Encounter - Gala Camacho OSA - 12/27/2023 12:02 PM EDT Who is calling (not pt) name: manisha relationship: Provider patient is established with: Sherman What is the concern or issue they are having: She asking if repeat imaging is needed for L spine stenosis and head regarding the tumor he has. [place] early [place] How long has the issue been going on: Any additional details to add: no Pts phone number for nurse to call back: [phone] Please make sure you verify pharmacy for anything medication related. Form to be used for established patients only (not new patients) documented in this encounter Plan of Treatment Upcoming Encounters Date Type Department Care Team (Late st Contact Info) Description 02/10/2024 11:20 AM EDT [facility] [address] [place] [address] Srinivasa Whitaker MD 200 [facility] [place] [address] 02/17/2024 10:30 AM EDT Office Visit Ophthalmology, [facility] [address] [facility] [place] [address] Ben Roberts DO 132 [facility] [place] [address] 02/26/2024 2:30 PM EDT Office Visit Urology, [place] [address] [place], [place] [id number] Dilan Pisano PA-C [address] [place], [place] [id number] 03/03/2024 10:30 AM EDT Office Visit Cardiology, [facility] [address] [facility] [place] [address] Sophie Melendez CRNP [address] [place] [address] 06/26/2024 11:00 AM EDT Cardiac Studies Cardiology, [facility] [address] [facility] [place] [address] [facility] [address] [facility] [place] [address] Health Maintenance Due Date Last Done Comments DTaP,Tdap,and Td Vaccines (1 - Tdap) 03/06/2008 03/05/2008 Zoster Vaccines (2 of 3) 06/12/2012 04/17/2012 Albumin/Creatinine Ratio 03/18/2016 03/18/2015 Pneumococcal Vaccine: 65+ Years (2 of 2 - PPSV23 or PCV20) 06/06/2018 04/11/2018 Depression Screening 03/25/2021 03/25/2020 CKD PHOS USE SMARTSET 35008 02/09/2022 02/09/2021 COVID-19 Vaccine ( season) 2023 09/12/2021, 12/12/2020, 11/21/2020, Additional history exists CKD HGB USE SMARTSET 89851 05/21/202405/21, 12/31/2022, 04/11/2021, Additional history exists Influenza [...] this encounter Medical Devices Implanted Type Area Creative Technologist Device Identifier Shelf Expiration Date Model / Serial / Lot Lens 21.0 Sn60wf - [id number] Implanted:Qty: 1 on 06/24/2014 at OR [facility] Right: Eye 04/12/2019 SN60WF.210 / [id number] / Lens 21.5 Sn60wf - [id number] Implanted:Qty: 1 on 07/07/2014 at OR [facility] Left: Eye [employer] 04/12/2019 SN60WF.215 / [id number] / [id number] documented as of this encounter Advance [...] and were consensually agreed upon. Care Teams Learning Support Services Director Relationship Specialty Start Date End Date Steffen January Leonid, RICHELLE [facility] [place] [address] PCP - General Physician Potato Chip Cooker Machine 02/04/19 documented as of this encounter
[2024-01-26] MEDS: SODIUM CHLORIDE 0.9% 500 ML IV ONE (20:57)
[2024-01-26 21:01] LABS: Basophils # (auto) 0.02 K/uL (0.00-0.20); Basophils % (auto) 0.3 %; Eosinophils # (auto) 0.19 K/uL (0.00-0.50); Hematocrit (blood only) 41.2 % (42.0-52.0); Hemoglobin 13.6 g/dl (14.0-18.0); Immature Granulocytes # (auto) 0.02 K/uL (0.01-0.20); Immature Granulocytes % (auto) 0.3 %; Lymphocytes # (auto) 1.88 K/uL (1.20-3.40); Lymphocytes % (auto) 29.5 %; Mean Corpuscular Volume 90.9 fL (80.0-100.0); Mean Platelet Volume 11.8 fL (9.4-12.4); Monocytes # (auto) 0.66 K/uL (0.11-0.59); Monocytes % (auto) 10.3 %; Neutrophils # (auto) 3.61 K/uL (1.40-6.50); Neutrophils % (auto) 56.6 %; Platelet Count 166 K/uL (130-400); RDW Standard Deviation 53.2 fL (36.4-46.3); Red Blood Count 4.53 M/uL (4.70-6.10); White Blood Count 6.38 K/ul (4.8-10.8)
[2024-01-26 21:09] LABS: Albumin Globulin Ratio 1.5 (0.9-2); Albumin Level 4.1 gm/dl (3.4-5.0); Bilirubin,Total 0.4 mg/dl (0.2-1.0); Calcium 9.4 mg/dl (8.6-10.3); Creatinine Clr Calc Pharmacy 35.7 ml/min; Est GFR (Non-African American) 49.2 ml/min; Globulin 2.8 gm/dl (2.5-4.0); Magnesium 2.1 mg/dl (1.7-2.4); Potassium 3.8 mmol/L (3.5-5.1); Total Protein 6.9 gm/dl (6.0-8.3)
[2024-01-26 21:14] LABS: Troponin I High Sensitivity 34.9 pg/ml (0-20)
--- NOTE | 2024-01-26 21:21 | Emergency Department Note ---
Impression & Plan Visual disturbance, Hypertension, Elevated troponin, Carotid stenosis, Stroke- like symptoms ED Provider Note NAME: LILIANA LEON AGE: 88 SEX: M : 1935 ARRIVES VIA: Walk-In INFORMANT: [Patient][family] ED PROVIDER(S): [Anand Wilson MD] CHIEF COMPLAINT: Hypertension, visual disturbance HISTORY OF PRESENT ILLNESS: The patient is an 88-year-old male with macular degeneration. He was riding in a car today and about an hour ago, noticed some change in his vision. Objects were slanted and tilted and they seemed distorted. He noticed a mild headache. No speech slur or difficulty thinking. No arm or leg weakness. No chest pain or shortness of breath. The patient states that this has happened before when his blood pressure has been high. The patient is taking his medications as prescribed. He did take aspirin when the symptoms started. He states his symptoms now seem to be improved, he is seeing normal again. Things seemed to normalize when he arrived here, his blood pressure is now lower though at around 150 systolic. There has been no cough or cold or congestion. He has been in baseline health. He does have a pacemaker/defibrillator. PMHx/PSHx/Social Hx: See Below PHYSICAL EXAM: GENERAL: Patient is in no acute distress. HEENT: No acute trauma, normocephalic atraumatic, mucous membranes moist, no nasal congestion. NECK: No stridor, no adenopathy, no meningismus, trachea is midline. LUNGS: Clear to auscultation bilaterally, no wheeze, no rhonchi, breath sounds equal. HEART: 3/6 systolic murmur, regular rate and rhythm. ABDOMEN: Soft, nontender, no peritonitis. EXTREMITIES: No cyanosis, full range of motion of all the joints without pain or difficulty. NEUROLOGIC: Oriented x 3, no acute motor or sensory deficits, no focal weakness. No extremity drift or cerebellar dysfunction. No speech slur or facial droop. Excellent historian. SKIN: No jaundice, no diaphoresis. DIFFERENTIAL DIAGNOSIS: Stroke, TIA, electrolyte imbalance, dehydration, anemia, dysrhythmia, intracranial bleeding, among others. EMERGENCY DEPARTMENT PROCEDURES: MEDICAL DECISION MAKING: There is no leukocytosis or concerning anemia. There is a normal platelet count. No coagulopathy. No renal failure or significant electrolyte abnormality. ECG showed a ventricular pacemaker. Cardiac enzyme testing x 1 was slightly elevated. This troponin elevation could be secondary to cardiac injury or potentially just mismatch. No concerning liver enzyme elevation. Brain CT shows no acute bleed or mass effect. CTA of the brain and neck were performed. There was no aneurysm, significant stenosis or clot within the brain. There was 80-90% stenosis of the right internal carotid artery. Chest x-ray did not show pneumonia or CHF. Urinalysis result is still pending. On exam, the patient was mildly hypertensive. There were no focal neurologic findings. His lungs were clear. I did detect a cardiac murmur. As the patient's symptoms had resolved, as his stroke scale was 0, he was not a candidate for TNK. The patient given a 500 cc saline bolus. No aspirin was given as he had taken aspirin prior to arrival. The patient presents with some strokelike symptoms. He does have some narrowing of the right carotid artery. His symptoms seem to have resolved at the present but, he states he has had similar symptoms from time to time in the past. Given the possibility of TIA, given the troponin elevation, I do think further workup in the hospital would be warranted. I spoke with the patient and his family. I did speak with case management, the on-call hospitalist was consulted. Prior/Outside records/notes reviewed: None ECG per my interpretation: Indication was possible stroke. The ECG shows a ventricular pacemaker with atrial sensing. The rate is 77. No dysrhythmia, no concerning ST elevation, no PVCs. The QTc is 511. Continuous Cardiac Monitoring per my interpretation: An order was placed for continuous cardiac monitoring. The monitor shows a rate of 72 with a ventricular pacemaker. Imaging/x-ray results per my interpretation: Chest x-ray does not show pneumonia or CHF. Some cardiomegaly was seen. The film looks similar to previous films. Chronic Medical/Social conditions affecting care: Advanced age Care/Management discussed with: Case management, the on-call hospitalist. Level of care consideration(s): After review of the information above and other included data: --I believe the patient requires escalation of care to admission DISPOSITION: Admission Past Med/Surg History Medical History Macular degeneration Social History Smoking Status: Never smoker Tobacco Type: Cigarettes Second Hand Exposure: No; Do You Dip or Chew Tobacco: No; Hx Alcohol Use: Yes Alcohol type: beer Hx Substance Use: No Preferred Language: Paragu[place] Beliefs That Will Affect Care: None Current Living Situation: Spouse Feels Safe at Home: Yes Allergies Allergies Allergy/AdvReac Type Severity Reaction Status Date / Time No Known Allergies Allergy Unverified 04/30/17 14:23 Home Meds Home Medications Medication Instructions Recorded Confirmed Allopurinol 300 mg PO DAILY ##0 09/13/16 CARVEDILOL (COREG) 12.5 mg PO BID #0 tabs 09/13/16 ASPIRIN (ASPIRIN EC) 81 mg PO DAILY ##0 04/30/17 CHOLECALCIFEROL (VITAMIN D3) 1,000 inter.unit PO DAILY #0 tabs 04/30/17 Results & Data (ED) Vital Signs Vital Signs - 24 hr 01/26/24 20:09 01/26/24 20:44 01/26/24 20:59 Temperature 36.5 C Temperature Source Temporal Artery Scan Pulse Rate 83 79 Pulse Rate [Apical] 72 Respiratory Rate 18 21 Respiratory Effort / Characteristics Non-Labored Spontaneous Non-Labored Spontaneous Respiratory Depth Normal Normal Respiratory Pattern Regular Regular Blood Pressure 164/79 H Blood Pressure [Right Arm] 156/89 H Blood Pressure Mean 107 Blood Pressure Mean [Right Arm] 111 Pulse Oximetry 94 96 Oxygen Delivery Method Room Air Room Air Sepsis Recent Fever Within 48 Hours No Sepsis New/Unexplained Change in Mental Status N/A Sepsis Action Taken by Nursing No Action Required 01/26/24 22:00 Temperature Temperature Source Pulse Rate Pulse Rate [Apical] 71 Respiratory Rate 24 Respiratory Effort / Characteristics Non-Labored Spontaneous Respiratory Depth Normal Respiratory Pattern Regular Blood Pressure Blood Pressure [Right Arm] 152/83 H Blood Pressure Mean Blood Pressure Mean [Right Arm] 106 Pulse Oximetry 94 Oxygen Delivery Method Room Air Sepsis Recent Fever Within 48 Hours Sepsis New/Unexplained Change in Mental Status Sepsis Action Taken by [facility] Medications Current Medication List: was personally reviewed by me Laboratory Data Attestation: I reviewed the patient's lab results. 01/26/24 20:30 01/26/24 20:30 Lab Results 01/26/24 Range/Units 20:30 WBC 6.38 (4.8-10.8) K/ul RBC 4.53 L (4.70-6.10) M/uL Hgb 13.6 L (14.0-18.0) g/dl Hct 41.2 L (42.0-52.0) % MCV 90.9 (80.0-100.0) fL MCH 30.0 (25.0-34.0) pg MCHC 33.0 (32.0-36.0) g/dL RDW Std Deviation 53.2 H (36.4-46.3) fL RDW Coeff of Dmitriy 16.0 H (11.5-14.5) % Plt Count 166 (130-400) K/uL MPV 11.8 (9.4-12.4) fL Immature Gran % (Auto) 0.3 % Neut % (Auto) 56.6 % Lymph % (Auto) 29.5 % Maries % (Auto) 10.3 % Eos % (Auto) 3.0 % Baso % (Auto) 0.3 % Neut # (Auto) 3.61 (1.40-6.50) K/uL Lymph # (Auto) 1.88 (1.20-3.40) K/uL Maries # (Auto) 0.66 H (0.11-0.59) K/uL Eos # (Auto) 0.19 (0.00-0.50) K/uL Baso # (Auto) 0.02 (0.00-0.20) K/uL Immature Gran # (Auto) 0.02 (0.01-0.20) K/uL PT 11.4 (9.0-12.0) Seconds INR 1.0 (0.9-1.1) APTT 27 (21-31) Seconds PTT Ratio 1.0 Sodium 142 (136-145) mmol/L Potassium 3.8 (3.5-5.1) mmol/L Chloride 109 H (98-107) mmol/L Carbon Dioxide 24 (21-32) mmol/L Anion Gap 9 (3-11) BUN 31 H (6-23) mg/dl Creatinine 1.29 (0.6-1.4) mg/dl Est Cr Clr Drug Dosing 35.7 ml/min Est GFR ( Amer) 57.0 ml/min Est GFR (Non-Af Amer) 49.2 ml/min BUN/Creatinine Ratio 24.0 H (10-20) Glucose 125 H (70-99(Fasting)) mg/dl Calcium 9.4 (8.6-10.3) mg/dl Magnesium 2.1 (1.7-2.4) mg/dl Total Bilirubin 0.4 (0.2-1.0) mg/dl AST 17 (13-39) U/L ALT 11 (7-52) U/L Alkaline Phosphatase 86 (34-104) U/L Troponin I High Sens 34.9 H (0-20) pg/ml Total Protein 6.9 (6.0-8.3) gm/dl Albumin 4.1 (3.4-5.0) gm/dl Globulin 2.8 (2.5-4.0) gm/dl Albumin/Globulin Ratio 1.5 (0.9-2) Administered Medications Discontinued Medications Sodium Chloride (Nss) 500 mls @ 999 mls/hr IV .Q31M ONE Stop: 01/26/24 21:14 Last Infusion: 01/26/24 22:23 Dose: Infused Documented By: string top sealer: 01/26/24 20:57 Dose: 999 mls/hr Documented By: [employer] Ioversol (Optiray 320 125ml) 119 ml IV ONCE ONE Stop: 01/26/24 21:39 Last Admin: 01/26/24 21:38 Dose: 119 ml Documented By: EDK Imaging Data Radiologist's Impression: Head CT 01/26/24 20:44 Exam(s): CT HEAD Without Contrast EXAM: CT Head Without Intravenous Contrast CLINICAL HISTORY: Reason for exam: neuro deficit, acute stroke suspected. TECHNIQUE: Axial computed tomography images of the head/brain without intravenous contrast. CTDI is 22.8 mGy and DLP is 11.4 mGy-cm. Automated exposure control was utilized for the study. A dose lowering technique was utilized adhering to the principles of ALARA. COMPARISON: No relevant prior studies available. FINDINGS: Brain: No intracranial hemorrhage, mass-effect, or cerebral edema. Dural based mass along the cribriform plate measuring 3.7 x 4.3 x 3.0 cm. Atrophy and chronic microvascular ischemic changes. Ventricles: Unremarkable. Bones/joints: Unremarkable. No fracture. Soft tissues: Unremarkable. Sinuses: No acute sinusitis. Mastoid air cells: Unremarkable as visualized. IMPRESSION: 1. No acute intracranial abnormality. 2. Dural based mass along the cribriform plate measuring 3.7 x 4.3 x 3.0 cm. Meningioma considered most likely. Consider MRI with contrast for further evaluation. 3. Atrophy and chronic microvascular ischemic changes. Electronically signed by: Gio Caruso MD 01/26/24 22:08 PM Head CTA 01/26/24 20:44 Exam(s): CTA HEAD With Contrast IV Amt: 119ml opti 320 EXAM: CT Angiography Head With Intravenous Contrast CLINICAL HISTORY: Reason for exam: neuro deficit, acute stroke suspected. TECHNIQUE: Axial computed tomographic angiography images of the head with intravenous contrast. CTDI is 37.7 mGy and DLP is 997.4 mGy-cm. Automated exposure control was utilized for the study. A dose lowering technique was utilized adhering to the principles of ALARA. MIP reconstructed images were created and reviewed. CONTRAST: Patient received 119ml opti 320 of IV contrast COMPARISON: No relevant prior studies available. FINDINGS: Right internal carotid artery: Atherosclerotic calcifications within the right ICA causing less than 50% stenosis. No aneurysm. Right anterior cerebral artery: Unremarkable. No occlusion or significant stenosis. No aneurysm. Right middle cerebral artery: Unremarkable. No occlusion or significant stenosis. No aneurysm. Right posterior cerebral artery: Unremarkable. No occlusion or significant stenosis. No aneurysm. Right vertebral artery: Unremarkable as visualized. Left internal carotid artery: Atherosclerotic calcifications within the left ICA causing 50% stenosis. No aneurysm. Left anterior cerebral artery: Unremarkable. No occlusion or significant stenosis. No aneurysm. Left middle cerebral artery: Unremarkable. No occlusion or significant stenosis. No aneurysm. Left posterior cerebral artery: Unremarkable. No occlusion or significant stenosis. No aneurysm. Left vertebral artery: Unremarkable as visualized. Basilar artery: Unremarkable. No occlusion or significant stenosis. No aneurysm. IMPRESSION: No arterial occlusion or high-grade stenosis. Electronically signed by: Gio Caruso MD 01/26/24 22:06 PM Neck CTA 01/26/24 20:44 Exam(s): CTA NECK With Contrast IV Amt: 119ml opti 320 EXAM: CT Angiography Neck With Intravenous Contrast CLINICAL HISTORY: Reason for exam: neuro deficit, acute stroke suspected. TECHNIQUE: Routine carotid CT angiography protocol was performed with intravenous contrast. NASCET criteria using the distal ICAs for comparison were used for evaluation of stenoses. CTDI is 12.4 mGy and DLP is 433.5 mGy-cm. Automated exposure control was utilized for the study. A dose lowering technique was utilized adhering to the principles of ALARA. MIP reconstructed images were created and reviewed. CONTRAST: Patient received 119ml opti 320 of IV contrast COMPARISON: None. FINDINGS: VASCULATURE: Right common carotid artery: Unremarkable. No occlusion or significant stenosis. No dissection. Right internal carotid artery: Atherosclerotic calcifications within the right ICA causing 80-90% stenosis. No dissection. Right vertebral artery: Approximately 50% stenosis at the ostia of the right vertebral artery. No dissection. Left common carotid artery: Unremarkable. No occlusion or significant stenosis. No dissection. Left internal carotid artery: Atherosclerotic calcifications within the left ICA causing less than 50% stenosis. No dissection. Left vertebral artery: Unremarkable. No occlusion or significant stenosis. No dissection. NECK: Bones/joints: Severe degenerative changes within the cervical spine. No acute fracture. Soft tissues: Unremarkable. Lung apices: Clear. CAROTID STENOSIS REFERENCE USING NASCET CRITERIA: % ICA stenosis = (1 - narrowest ICA diameter/diameter of distal cervical ICA) x 100. Mild - <50% stenosis. Moderate - 50-69% stenosis. Severe - 70-94% stenosis. Near occlusion - 95-99% stenosis. Occluded - 100% stenosis. IMPRESSION: Atherosclerotic calcifications within the right ICA causing 80-90% stenosis. Electronically signed by: Gio Caruso MD 01/26/24 22:12 PM Discharge Plan Visit Data Chief Complaint: Hypertension Stated Complaint: HYPERTENTION, VISUAL DISTURBANCE/CROOKED ED Provider: Anand Wilson Discharge Problem: Visual disturbance, Hypertension, Elevated troponin, Carotid stenosis, Stroke- like symptoms Patient Disposition: Admitted As Inpatient Condition: Good Forms Stand Alone Forms: [facility] Prescriptions Prescriptions: No Action Allopurinol 300 MG tablet 300 mg PO DAILY Qty: 0 CARVEDILOL (COREG) 12.5 MG tablet 12.5 mg PO BID Qty: 0 ASPIRIN (ASPIRIN EC) 81 MG tablet 81 mg PO DAILY Qty: 0 CHOLECALCIFEROL (VITAMIN D3) 1,000 UNIT tablet 1,000 inter.unit PO DAILY Qty: 0 Referrals Referrals: Sophie Bourne PA-C [Primary Care Provider] - Discharge Problem: Hypertension Qualifiers: Hypertension type: unspecified Qualified Code(s): I10 - Essential (primary) hypertension Carotid stenosis Qualifiers: Laterality: right Qualified Code(s): I65.21 - Occlusion and stenosis of right carotid artery
[2024-01-26 21:29] LABS: Partial Thromboplastin Time 27 Seconds (21-31); Prothrombin Time 11.4 Seconds (9.0-12.0)
[2024-01-26] MEDS: OPTIRAY 320 125ml IV ONE (21:38)
--- NOTE | 2024-01-26 22:07 | CT Scan Report ---
Exam(s): CTA HEAD With Contrast IV Amt: 119ml opti 320 EXAM: CT Angiography Head With Intravenous Contrast CLINICAL HISTORY: Reason for exam: neuro deficit, acute stroke suspected. TECHNIQUE: Axial computed tomographic angiography images of the head with intravenous contrast. CTDI is 37.7 mGy and DLP is 997.4 mGy-cm. Automated exposure control was utilized for the study. A dose lowering technique was utilized adhering to the principles of ALARA. MIP reconstructed images were created and reviewed. CONTRAST: Patient received 119ml opti 320 of IV contrast COMPARISON: No relevant prior studies available. FINDINGS: Right internal carotid artery: Atherosclerotic calcifications within the right ICA causing less than 50% stenosis. No aneurysm. Right anterior cerebral artery: Unremarkable. No occlusion or significant stenosis. No aneurysm. Right middle cerebral artery: Unremarkable. No occlusion or significant stenosis. No aneurysm. Right posterior cerebral artery: Unremarkable. No occlusion or significant stenosis. No aneurysm. Right vertebral artery: Unremarkable as visualized. Left internal carotid artery: Atherosclerotic calcifications within the left ICA causing 50% stenosis. No aneurysm. Left anterior cerebral artery: Unremarkable. No occlusion or significant stenosis. No aneurysm. Left middle cerebral artery: Unremarkable. No occlusion or significant stenosis. No aneurysm. Left posterior cerebral artery: Unremarkable. No occlusion or significant stenosis. No aneurysm. Left vertebral artery: Unremarkable as visualized. Basilar artery: Unremarkable. No occlusion or significant stenosis. No aneurysm. IMPRESSION: No arterial occlusion or high-grade stenosis. Electronically signed by: Gio Caruso MD 01/26/24 22:06 PM
--- NOTE | 2024-01-26 22:08 | CT Scan Report ---
Exam(s): CT HEAD Without Contrast EXAM: CT Head Without Intravenous Contrast CLINICAL HISTORY: Reason for exam: neuro deficit, acute stroke suspected. TECHNIQUE: Axial computed tomography images of the head/brain without intravenous contrast. CTDI is 22.8 mGy and DLP is 11.4 mGy-cm. Automated exposure control was utilized for the study. A dose lowering technique was utilized adhering to the principles of ALARA. COMPARISON: No relevant prior studies available. FINDINGS: Brain: No intracranial hemorrhage, mass-effect, or cerebral edema. Dural based mass along the cribriform plate measuring 3.7 x 4.3 x 3.0 cm. Atrophy and chronic microvascular ischemic changes. Ventricles: Unremarkable. Bones/joints: Unremarkable. No fracture. Soft tissues: Unremarkable. Sinuses: No acute sinusitis. Mastoid air cells: Unremarkable as visualized. IMPRESSION: 1. No acute intracranial abnormality. 2. Dural based mass along the cribriform plate measuring 3.7 x 4.3 x 3.0 cm. Meningioma considered most likely. Consider MRI with contrast for further evaluation. 3. Atrophy and chronic microvascular ischemic changes. Electronically signed by: Gio Caruso MD 01/26/24 22:08 PM
--- NOTE | 2024-01-26 22:13 | CT Scan Report ---
Exam(s): CTA NECK With Contrast IV Amt: 119ml opti 320 EXAM: CT Angiography Neck With Intravenous Contrast CLINICAL HISTORY: Reason for exam: neuro deficit, acute stroke suspected. TECHNIQUE: Routine carotid CT angiography protocol was performed with intravenous contrast. NASCET criteria using the distal ICAs for comparison were used for evaluation of stenoses. CTDI is 12.4 mGy and DLP is 433.5 mGy-cm. Automated exposure control was utilized for the study. A dose lowering technique was utilized adhering to the principles of ALARA. MIP reconstructed images were created and reviewed. CONTRAST: Patient received 119ml opti 320 of IV contrast COMPARISON: None. FINDINGS: VASCULATURE: Right common carotid artery: Unremarkable. No occlusion or significant stenosis. No dissection. Right internal carotid artery: Atherosclerotic calcifications within the right ICA causing 80-90% stenosis. No dissection. Right vertebral artery: Approximately 50% stenosis at the ostia of the right vertebral artery. No dissection. Left common carotid artery: Unremarkable. No occlusion or significant stenosis. No dissection. Left internal carotid artery: Atherosclerotic calcifications within the left ICA causing less than 50% stenosis. No dissection. Left vertebral artery: Unremarkable. No occlusion or significant stenosis. No dissection. NECK: Bones/joints: Severe degenerative changes within the cervical spine. No acute fracture. Soft tissues: Unremarkable. Lung apices: Clear. CAROTID STENOSIS REFERENCE USING NASCET CRITERIA: % ICA stenosis = (1 - narrowest ICA diameter/diameter of distal cervical ICA) x 100. Mild - <50% stenosis. Moderate - 50-69% stenosis. Severe - 70-94% stenosis. Near occlusion - 95-99% stenosis. Occluded - 100% stenosis. IMPRESSION: Atherosclerotic calcifications within the right ICA causing 80-90% stenosis. Electronically signed by: Gio Caruso MD 01/26/24 22:12 PM
[2024-01-26 22:58] LABS: Appearance Urine Clear (Clear); Bacteria Urine Automated None Seen (None Seen); Bilirubin Urine Negative (Negative); Blood Urine Negative (Negative); Cast Urine Automated 0-2 /lpf (0-2); Color Urine Yellow; Epithelial Cell Urine Auto 0-2 /hpf (0-2); Glucose Urine UA Negative (Negative); Ketones Urine Negative (Negative); Leukocyte Esterase Urine Negative (Negative); Nitrite Urine Negative (Negative); Protein Urine 1+ (Negative); RBC Urine Automated 0-2 /hpf (0-2); Specific Gravity Urine > 1.045 (1.000-1.030); Urobilinogen Urine Negative (Negative); WBC Urine Automated 0-5 /hpf (0-5)
--- NOTE | 2024-01-27 01:04 | History & Physical Report ---
Date of Service January 27, 2024 Assessment & Plan (1) Stroke-like symptoms: Plan: 88-year-old male with past medical history significant for gout, chronic systolic CHF, left bundle branch block, s/p biventricular ICD, hypertension, benign esophageal stricture, CKD stage III, cervical spinal stenosis of lumbar region, pseudophakia presents with visual disturbance. Patient was riding in car today around 8 PM he noticed change in his vision, objects started slanted and tilted and distorted. It happened a couple of months ago and thought to be from elevated blood pressure. So came to the ER and by time he came to the ER the symptoms resolved. His blood pressure was okay in the ER. Denies any headache. He has some dizziness. Ambulates with a cane. During the episode his speech was okay. No difficulty swallowing. Vision is okay now. Once in a while he gets double vision. Appetite is okay. Sleeps okay. No chest pain or shortness of breath. No nausea. No abdominal pain. Normal bowel and bladder movements. Ambulates with cane. Current resting comfortably and hemodynamically stable. Family in the room. Strokelike symptoms Visual disturbance Currently resolved CT head no acute findings. Possible meningioma 3.7 x 4.3 x 3cm dural based mass along the cribriform plate. CTA head and neck shows right ICA stenosis 80 to 90% Patient had ICD not sure if it is compatible with MRI Will do full stroke workup with MRI, echo, neurochecks speech evaluation and PT OT evaluation Consult neurology in a.m. for further recommendations Patient received aspirin before coming to the hospital Continues home aspirin and statin Will follow lipid profile and HbA1c levels as per protocol Monitor hemodynamics Right ICA stenosis 80 to 90% Will consult vascular surgery Chronic systolic CHF EF was 45% echo done in June 2023 S/p ICD On metoprolol succinate Not on diuretics Monitor for volume overload Hyperlipidemia On statin Hypertension On metoprolol succinate Allow permissive hypertension BPH On finasteride and Flomax Monitor for urinary retention GERD On omeprazole Gout On allopurinol DVT prophylaxis SCDs for now Disposition Telemetry Full code History of Present Illness Chief Complaint: Visual disturbance Primary Care Provider: Sophie Bourne PA-C 88-year-old male with past medical history significant for gout, chronic systolic CHF, left bundle branch block, s/p biventricular ICD, hypertension, benign esophageal stricture, CKD stage III, cervical spinal stenosis of lumbar region, pseudophakia presents with visual disturbance. Patient was riding in car today around 8 PM he noticed change in his vision, objects started slanted and tilted and distorted. It happened a couple of months ago and thought to be from elevated blood pressure. So came to the ER and by time he came to the ER the symptoms resolved. His blood pressure was okay in the ER. Denies any headache. He has some dizziness. Ambulates with a cane. During the episode his speech was okay. No difficulty swallowing. Vision is okay now. Once in a while he gets double vision. Appetite is okay. Sleeps okay. No chest pain or shortness of breath. No nausea. No abdominal pain. Normal bowel and bladder movements. Ambulates with cane. Current resting comfortably and hemodynami harpal stable. Family in the room. Past medical history. As mentioned above Past surgical history. Colonoscopy with biopsy. EGD. S/p ICD placement. Cataract surgery. Social history. . Quit smoking 1982. Smoked 1.5 pack a day for 30 years. Alcohol little as per [facility] Family history. Mother had COPD. Hypertension. Allergies Allergy/AdvReac Type Severity Reaction Status Date / Time No Known Allergies Allergy Unverified 01/26/24 22:42 Home Medications Medication Instructions Recorded Confirmed Type allopurinol 300 mg tablet 300 mg PO DAILY 01/26/24 01/26/24 History aspirin 81 mg tablet,delayed 81 mg PO QAM 01/26/24 01/26/24 History release atorvastatin 80 mg tablet 40 mg PO QAM 01/26/24 01/26/24 History cholecalciferol (vitamin D3) 25 50 mcg PO Q OTHER DAY 01/26/24 01/26/24 History mcg (1,000 unit) tablet (Vitamin D3) cyanocobalamin (vitamin B-12) 1,000 mcg PO Q OTHER DAY 01/26/24 01/26/24 History 1,000 mcg tablet (Vitamin B-12) finasteride 5 mg tablet 5 mg PO QAM 01/26/24 01/26/24 History magnesium oxide 420 mg tablet 420 mg PO DAILY 01/26/24 01/26/24 History metoprolol succinate 25 mg 25 mg PO QAM 01/26/24 01/26/24 History tablet,extended release 24 hr omega [id number]-fish oil 1,200 mg 1 cap PO BID 01/26/24 01/26/24 History (144 mg-216 mg) capsule (Fish Oil) omeprazole 20 mg capsule,delayed 20 mg PO QAM 01/26/24 01/26/24 History release tamsulosin 0.4 mg capsule 0.8 mg PO QAM 01/26/24 01/26/24 History Past Med/Surg History Medical History Macular degeneration Social History Smoking Status: Former smoker Tobacco Type: Cigarettes Second Hand Exposure: No; Do You Dip or Chew Tobacco: No; Hx Alcohol Use: No Hx Substance Use: No Preferred Language: Uzbek Beliefs That Will Affect Care: None Current Living Situation: Spouse Feels Safe at Home: Yes Assistive Devices: Cane, Denture - Upper, Denture - Lower and Hearing Aid - Bilateral Review of Systems Review of Systems: All systems reviewed & are unremarkable except as noted in HPI & below Physical Exam Physical Exam: General- Not in distress Head- atraumatic Eyes- PERRL, EOMI, Vision is ok ENT- oropharynx clear Neck- supple, no JVD. Lungs- clear to auscultation no wheezing or crackles Heart- regular rate and rhythm; no murmur, no gallop. Abdomen- normal bowel sounds, soft, nontender, no distension. Extremities- no pretibial edema, no erythema seen. Neuro- alert, oriented PERRL, EOMI; no facial palsy; no dysarthria; motor 5/5 bilaterally; co ordination of movements normal, no pronator drift, can raise and hold lower extremities, sensations intact. Skin- warm & dry Results & Data Results & Data Vital Signs (Past 12 Hours) Vital Signs Temp Pulse Pulse Resp BP BP Pulse Ox 01/26/24 22:00 71 24 152/83 H 94 01/26/24 20:59 72 21 156/89 H 96 01/26/24 20:44 79 01/26/24 20:09 36.5 C 83 18 164/79 H 94 O2 Del Method 01/26/24 22:00 Room Air 01/26/24 20:59 Room Air 01/26/24 20:44 01/26/24 20:09 Room Air Diagnostic Findings Laboratory Results WBC 6.38 K/ul (4.8-10.8) 01/26/24 20:30 RBC 4.53 M/uL (4.70-6.10) L 01/26/24 20:30 Hgb 13.6 g/dl (14.0-18.0) L 01/26/24 20:30 Hct 41.2 % (42.0-52.0) L 01/26/24 20:30 MCV 90.9 fL (80.0-100.0) 01/26/24 20: MCH 30.0 pg (25.0-34.0) 01/26/24 20: MCHC 33.0 g/dL (32.0-36.0) 01/26/24 20: RDW Std Deviation 53.2 fL (36.4-46.3) H 01/26/24 20:30 RDW Coeff of Dmitriy 16.0 % (11.5-14.5) H 01/26/24 20:30 Plt Count 166 K/uL (130-400) 01/26/24 20:30 MPV 11.8 fL (9.4-12.4) 01/26/24 20:30 Immature Gran % (Auto) 0.3 % 01/26/24 20:30 Neut % (Auto) 56.6 % 01/26/24 20:30 Lymph % (Auto) 29.5 % 01/26/24 20:30 [place] % (Auto) 10.3 % 01/26/24 20:30 Eos % (Auto) 3.0 % 01/26/24 20:30 Baso % (Auto) 0.3 % 01/26/24 20:30 Neut # (Auto) 3.61 K/uL (1.40-6.50) 01/26/24 20:30 Lymph # (Auto) 1.88 K/uL (1.20-3.40) 01/26/24 20:30 [place] # (Auto) 0.66 K/uL (0.11-0.59) H 01/26/24 20:30 Eos # (Auto) 0.19 K/uL (0.00-0.50) 01/26/24 20:30 Baso # (Auto) 0.02 K/uL (0.00-0.20) 01/26/24 20:30 Immature Gran # (Auto) 0.02 K/uL (0.01-0.20) 01/26/24 20:30 PT 11.4 Seconds (9.0-12.0) 01/26/24 20:30 INR 1.0 (0.9-1.1) 01/26/24 20:30 APTT 27 Seconds (21-31) 01/26/24 20:30 PTT Ratio 1.0 01/26/24 20:30 Sodium 142 mmol/L (136-145) 01/26/24 20:30 Potassium 3.8 mmol/L (3.5-5.1) 01/26/24 20:30 Chloride 109 mmol/L (98-107) H 01/26/24 20:30 Carbon Dioxide 24 mmol/L (21-32) 01/26/24 20:30 Anion Gap 9 (3-11) 01/26/24 20:30 BUN 31 mg/dl (6-23) H 01/26/24 20:30 Creatinine 1.29 mg/dl (0.6-1.4) 01/26/24 20:30 Est Cr Clr Drug Dosing 35.7 ml/min 01/26/24 20:30 Est GFR ( Amer) 57.0 ml/min 01/26/24 20:30 Est GFR (Non-Af Amer) 49.2 ml/min 01/26/24 20:30 BUN/Creatinine Ratio 24.0 (10-20) H 01/26/24 20:30 Glucose 125 mg/dl (70-99(Fasting)) H 01/26/24 20:30 Calcium 9.4 mg/dl (8.6-10.3) 01/26/24 20:30 Magnesium 2.1 mg/dl (1.7-2.4) 01/26/24 20:30 Total Bilirubin 0.4 mg/dl (0.2-1.0) 01/26/24 20:30 AST 17 U/L (13-39) 01/26/24 20:30 ALT 11 U/L (7-52) 01/26/24 20:30 Alkaline Phosphatase 86 U/L (34-104) 01/26/24 20:30 Troponin I High Sens 34.9 pg/ml (0-20) H 01/26/24 20:30 Total Protein 6.9 gm/dl (6.0-8.3) 01/26/24 20:30 Albumin 4.1 gm/dl (3.4-5.0) 01/26/24 20:30 Globulin 2.8 gm/dl (2.5-4.0) 01/26/24 20:30 Albumin/Globulin Ratio 1.5 (0.9-2) 01/26/24 20:30 Urine Color Yellow 01/26/24 22:45 Urine Appearance Clear (Clear) 01/26/24 22:45 Urine pH 6.0 (4.5-7.5) 01/26/24 22:45 Ur Specific [place] > 1.045 (1.000-1.030) H 01/26/24 22:45 Urine Protein 1+ (Negative) H 01/26/24 22:45 Urine Glucose (UA) Negative (Negative) 01/26/24 22:45 Urine Ketones Negative (Negative) 01/26/24 22:45 Urine Blood Negative (Negative) 01/26/24 22:45 Urine Nitrite Negative (Negative) 01/26/24 22:45 Urine Bilirubin Negative (Negative) 01/26/24 22:45 Urine Urobilinogen Negative (Negative) 01/26/24 22:45 Ur Leukocyte Esterase Negative (Negative) 01/26/24 22:45 Urine WBC (Auto) 0-5 /hpf (0-5) 01/26/24 22:45 Urine RBC (Auto) 0-2 /hpf (0-2) 01/26/24 22:45 U Hyaline Cast (Auto) 0-2 /lpf (0-2) 01/26/24 22:45 U Epithel Cells (Auto) 0-2 /hpf (0-2) 01/26/24 22:45 Urine Bacteria (Auto) None Seen (None Seen) 01/26/24 22:[address] 01/26/24 20:44 Exam(s): CT HEAD Without Contrast EXAM: CT Head Without Intravenous Contrast CLINICAL HISTORY: Reason for exam: neuro deficit, acute stroke suspected. TECHNIQUE: Axial computed tomography images of the head/brain without intravenous contrast. CTDI is 22.8 mGy and DLP is 11.4 mGy-cm. Automated exposure control was utilized for the study. A dose lowering technique was utilized adhering to the principles of ALARA. COMPARISON: No relevant prior studies available. FINDINGS: Brain: No intracranial hemorrhage, mass-effect, or cerebral edema. Dural based mass along the cribriform plate measuring 3.7 x 4.3 x 3.0 cm. Atrophy and chronic microvascular ischemic changes. Ventricles: Unremarkable. Bones/joints: Unremarkable. No fracture. Soft tissues: Unremarkable. Sinuses: No acute sinusitis. Mastoid air cells: Unremarkable as visualized. IMPRESSION: 1. No acute intracranial abnormality. 2. Dural based mass along the cribriform plate measuring 3.7 x 4.3 x 3.0 cm. Meningioma considered most likely. Consider MRI with contrast for further evaluation. 3. Atrophy and chronic microvascular ischemic changes. Electronically signed by: Gio Caruso MD 01/26/24 22:08 PM Head CTA 01/26/24 20:44 Exam(s): CTA HEAD With Contrast IV Amt: 119ml opti 320 EXAM: CT Angiography Head With Intravenous Contrast CLINICAL HISTORY: Reason for exam: neuro deficit, acute stroke suspected. TECHNIQUE: Axial computed tomographic angiography images of the head with intravenous contrast. CTDI is 37.7 mGy and DLP is 997.4 mGy-cm. Automated exposure control was utilized for the study. A dose lowering technique was utilized adhering to the principles of ALARA. MIP reconstructed images were created and reviewed. CONTRAST: Patient received 119ml opti 320 of IV contrast COMPARISON: No relevant prior studies available. FINDINGS: Right internal carotid artery: Atherosclerotic calcifications within the right ICA causing less than 50% stenosis. No aneurysm. Right anterior cerebral artery: Unremarkable. No occlusion or significant stenosis. No aneurysm. Right middle cerebral artery: Unremarkable. No occlusion or significant stenosis. No aneurysm. Right posterior cerebral artery: Unremarkable. No occlusion or significant stenosis. No aneurysm. Right vertebral artery: Unremarkable as visualized. Left internal carotid artery: Atherosclerotic calcifications within the left ICA causing 50% stenosis. No aneurysm. Left anterior cerebral artery: Unremarkable. No occlusion or significant stenosis. No aneurysm. Left middle cerebral artery: Unremarkable. No occlusion or significant stenosis. No aneurysm. Left posterior cerebral artery: Unremarkable. No occlusion or significant stenosis. No aneurysm. Left vertebral artery: Unremarkable as visualized. Basilar artery: Unremarkable. No occlusion or significant stenosis. No aneurysm. IMPRESSION: No arterial occlusion or high-grade stenosis. Electronically signed by: Gio Caruso MD 01/26/24 22:06 PM Neck CTA 01/26/24 20:44 Exam(s): CTA NECK With Contrast IV Amt: 119ml opti 320 EXAM: CT Angiography Neck With Intravenous Contrast CLINICAL HISTORY: Reason for exam: neuro deficit, acute stroke suspected. TECHNIQUE: Routine carotid CT angiography protocol was performed with intravenous contrast. NASCET criteria using the distal ICAs for comparison were used for evaluation of stenoses. CTDI is 12.4 mGy and DLP is 433.5 mGy-cm. Automated exposure control was utilized for the study. A dose lowering technique was utilized adhering to the principles of ALARA. MIP reconstructed images were created and reviewed. CONTRAST: Patient received 119ml opti 320 of IV contrast COMPARISON: None. FINDINGS: VASCULATURE: Right common carotid artery: Unremarkable. No occlusion or significant stenosis. No dissection. Right internal carotid artery: Atherosclerotic calcifications within the right ICA causing 80-90% stenosis. No dissection. Right vertebral artery: Approximately 50% stenosis at the ostia of the right vertebral artery. No dissection. Left common carotid artery: Unremarkable. No occlusion or significant stenosis. No dissection. Left internal carotid artery: Atherosclerotic calcifications within the left ICA causing less than 50% stenosis. No dissection. Left vertebral artery: Unremarkable. No occlusion or significant stenosis. No dissection. NECK: Bones/joints: Severe degenerative changes within the cervical spine. No acute fracture. Soft tissues: Unremarkable. Lung apices: Clear. CAROTID STENOSIS REFERENCE USING NASCET CRITERIA: % ICA stenosis = (1 - narrowest ICA diameter/diameter of distal cervical ICA) x 100. Mild - <50% stenosis. Moderate - 50-69% stenosis. Severe - 70-94% stenosis. Near occlusion - 95-99% stenosis. Occluded - 100% stenosis. IMPRESSION: Atherosclerotic calcifications within the right ICA causing 80-90% stenosis. Electronically signed by: Gio Caruso MD 01/26/24 22:12 PM ECG Additional Comments: ECG atrial sensed ventricular paced rhythm with rate of 77. Code Status & VTE Plan VTE Prophylaxis Plan VTE Prophylaxis will be ordered: Yes
[2024-01-27] MEDS ORDERED: ACETAMINOPHEN 325 MG TAB PO PRN (01:14)
[2024-01-27] MEDS ORDERED: PHARMACIST DISCHARGE MED REC CONSULT PRN (01:14)
[2024-01-27] MEDS ORDERED: NITROGLYCERIN SL 0.4 MG/TAB TAB SL PRN (01:14)
[2024-01-27] MEDS: SODIUM CHLORIDE 0.9% 1,000 ML IV SCH (03:37)
[2024-01-27 06:52] LABS: Basophils # (auto) 0.02 K/uL (0.00-0.20); Basophils % (auto) 0.3 %; Eosinophils # (auto) 0.24 K/uL (0.00-0.50); Eosinophils % (auto) 3.5 %; Hematocrit (blood only) 38.8 % (42.0-52.0); Hemoglobin 12.5 g/dl (14.0-18.0); Immature Granulocytes # (auto) 0.03 K/uL (0.01-0.20); Immature Granulocytes % (auto) 0.4 %; Lymphocytes # (auto) 1.93 K/uL (1.20-3.40); Lymphocytes % (auto) 28.2 %; Mean Corpuscular Hemoglobin 29.2 pg (25.0-34.0); Mean Corpuscular Hgb Conc 32.2 g/dL (32.0-36.0); Mean Corpuscular Volume 90.7 fL (80.0-100.0); Mean Platelet Volume 11.7 fL (9.4-12.4); Monocytes # (auto) 0.68 K/uL (0.11-0.59); Monocytes % (auto) 9.9 %; Neutrophils # (auto) 3.94 K/uL (1.40-6.50); Neutrophils % (auto) 57.7 %; Platelet Count 153 K/uL (130-400); RDW Standard Deviation 53.4 fL (36.4-46.3); Red Blood Count 4.28 M/uL (4.70-6.10); White Blood Count 6.84 K/ul (4.8-10.8)
[2024-01-27 07:06] LABS: BUN Creatinine Ratio 21.2 (10-20); Calcium 9.1 mg/dl (8.6-10.3); Chol HDL Ratio 4.4 (0-5); Est GFR (African American) 63.5 ml/min; Est GFR (Non-African American) 54.8 ml/min; Potassium 3.6 mmol/L (3.5-5.1)
[2024-01-27 07:12] LABS: Troponin I High Sensitivity 40.9 pg/ml (0-20)
--- NOTE | 2024-01-27 07:17 | XRay Report ---
XR chest 1V portable HISTORY: Weakness. COMPARISON: Chest 09/13/2016. FINDINGS: No pneumothorax. No pleural effusions. Bibasilar linear densities consistent with subsegmen rigoberto atelectasis or scarring. This is similar to the prior study. The heart is borderline enlarged. Is also unchanged. Is left-sided pacemaker/defibrillator. No evidence for pulmonary edema. No pleural e ffusions. No pneumothorax. Right upper lobe nodular density may be due to the patient's overlapping s kinfold and/or calcified pleural plaques. No evidence for a pulmonary nodule within the right upper l obe on the same day neck CTA which likely include this area. IMPRESSION: No significant change compared to the prior study. No acute process. ACT 112: Negative or not required by law. Electronically signed by: Jermaine Roper M.D. 01/27/2024 7:15 AM
[2024-01-27 08:03] LABS: Estimated Average Glucose 126 mg/dl
[2024-01-27] MEDS: MAGNESIUM OXIDE 400 MG TAB PO SCH (08:31)
[2024-01-27] MEDS: FINASTERIDE 5 MG TAB PO SCH (08:31)
[2024-01-27] MEDS: CYANOCOBALAMIN (B-12) 500 MCG TABLET PO SCH (08:31)
[2024-01-27] MEDS: METOPROLOL SUCC 25MG EXT REL TAB PO SCH (08:31)
[2024-01-27] MEDS: CHOLECALCIFEROL 25 MCG (1000 UNITS) TAB PO SCH (08:31)
[2024-01-27] MEDS: TAMSULOSIN HCL 0.4 MG CAP PO SCH (08:32)
[2024-01-27] MEDS: PANTOprazole 40 MG TAB PO SCH (08:33)
[2024-01-27] MEDS: ASPIRIN 81 MG ECTAB PO SCH (08:33)
[2024-01-27] MEDS: allopurinoL 300 MG TAB PO SCH (08:33)
[2024-01-27] MEDS: ATORVASTATIN 40 MG TAB PO SCH (08:33)
--- NOTE | 2024-01-27 08:48 | Electrocardiogram Report ---
Test Reason : Blood Pressure : / mmHG Vent. Rate : 077 BPM Atrial Rate : 077 BPM P-R Int : 138 ms QRS Dur : 148 ms QT Int : 452 ms P-R-T Axes : 040 240 014 degrees QTc Int : 511 ms Atrial-sensed ventricular-paced rhythm Biventricular pacemaker detected Abnormal ECG When compared with ECG of 13-SEP-2016 16:28, Vent. rate has decreased BY 27 BPM Confirmed by Ben Holder ([id number]) on 01/27/2024 8:47:58 AM Referred By: REFERRED SELF Confirmed By:Tom Holder
--- NOTE | 2024-01-27 10:00 | Neurology Consultation ---
Date of Consultation January 27, 2024 Assessment & Plan (1) Stroke-like symptoms: Recommend continued stroke work up to include the following: MRI brain with and without contrast to eval for ischemia and mass type lesion Echocardiogram as part of complete stroke workup Continue frequent neurological assessments Obtain stat CT brain without contrast for any acute neurological decline Continue to monitor/control blood pressure & blood glucose Metabolic workup should include hgbA1c, fasting lipids, homocysteine, TSH, D Dimer Recommend DAPT for at least 3 weeks Recommend high dose statin therapy indefinitely if tolerated Ok from neurology perspective for VTE prophylaxis PT/OT/SLT to eval and treat (2) Visual disturbance: Recommend MRI brain with and without contrast to eval cribiform plate mass type lesion Recommend neurosurgery consultation Telehealth Consultation Telehealth Information Telehealth Information: I performed this visit using a real-time telehealth connection between my location and the patients location ([facility]). After connecting through interactive tele-video, patient was identified by name and date of and/or wristband check.Patient (or authorized healthcare lead generation representative) was informed that this was a telemedicine visit and it was being conducted confidentially over secure lines. My office door was closed and no one else was present in the room with me.Patient (or authorized healthcare lead generation representative) provided consent to proceed with the visit, expressed an understanding of privacy and security of the telemedicine visit, and gave permission to have a hospital lead generation representative in the room in order to assist with the visit and to conduct portions of the visit, as needed. I informed the patient (or authorized healthcare lead generation representative) that I reviewed their record and presented the opportunity for them to ask any questions regarding the visit today. The patient agreed to participate. History of Present Illness Reason for Consultation: Vision changes- concern for stroke like symptoms Requesting Physician: Dr. Ferro Attending Physician: Julio Hein MD History of Present Illness 88yo malewith significant stroke risk factors including HTN, hyperlipidemia, HF wiht implanted pacer device presented with reported visual changes. These changes occurred yesterday prior to arrival to ER he was driving and noticed distorted vision, altered depth perception per his own account and diplopia. Fortunately all symptoms have completely resolved. He has undergone stroke imaging including CT brain without contrast revealing no overt evidence of hemorrhage. On review of CT brain there is an area of mass type lesion highly suspicious for meningioma which could possible illicit visual symptoms. CTA head and neck reveal significant calcified right ICA stenosis. Performed televideo consultation. Able to observe patient eating entire breakfast without difficulty. Due to technical issues with camera/audio. Some of exam performed via assist of RN at bedside on telephone No reported cephalgia or cervicalgia Denies chest pain/palpitations or shortness of breath No reported changes in vision hearing dizziness syncope seizure like activity or paresthesia Denies recent fevers chills nausea vomiting changes in bowels or bladder Denies recent medication changes, recent illness or sick contacts, no reported recent travel Allergies Allergy/AdvReac Type Severity Reaction Status Date / Time No Known Allergies Allergy Unverified 01/26/24 22:42 Home Medications Medication Instructions Recorded Confirmed Type allopurinol 300 mg tablet 300 mg PO DAILY 01/26/24 01/26/24 History aspirin 81 mg tablet,delayed 81 mg PO QAM 01/26/24 01/26/24 History release atorvastatin 80 mg tablet 40 mg PO QAM 01/26/24 01/26/24 History cholecalciferol (vitamin D3) 25 50 mcg PO Q OTHER DAY 01/26/24 01/26/24 History mcg (1,000 unit) tablet (Vitamin D3) cyanocobalamin (vitamin B-12) 1,000 mcg PO Q OTHER DAY 01/26/24 01/26/24 History 1,000 mcg tablet (Vitamin B-12) finasteride 5 mg tablet 5 mg PO QAM 01/26/24 01/26/24 History magnesium oxide 420 mg tablet 420 mg PO DAILY 01/26/24 01/26/24 History metoprolol succinate 25 mg 25 mg PO QAM 01/26/24 01/26/24 History tablet,extended release 24 hr omega 1-ojz-jbu-fish oil 1,200 mg 1 cap PO BID 01/26/24 01/26/24 History (144 mg-216 mg) capsule (Fish Oil) omeprazole 20 mg capsule,delayed 20 mg PO QAM 01/26/24 01/26/24 History release tamsulosin 0.4 mg capsule 0.8 mg PO QAM 01/26/24 01/26/24 History Patient History Medical History Macular degeneration Social History Smoking Status: Former smoker Tobacco Type: Cigarettes Second Hand Exposure: No; Do You Dip or Chew Tobacco: No; Hx Alcohol Use: No Hx Substance Use: No Preferred Language: Mexican Beliefs That Will Affect Care: None Current Living Situation: Spouse Feels Safe at Home: Yes Assistive Devices: Cane, Denture - Upper, Denture - Lower and Hearing Aid - Bilateral Physical Exam Neurological Examination: Mental Status: Awake and alert. Oriented to person, place, and time. Fluency naming repetition and comprehension appear grossly intact. Affect remains appropriate. CN testing: I: Denies changes in ability to smell II:Reports no changes in visual acuity III/IV/: No evidence of gaze preference, hippus, nystagmus or roving eye movements V: Facial sensation reportedly grossly intact to light touch bilaterally VII: Facial movements appear without evidence of asymmetry VIII: Hearing appears grossly intact to loud voice bilaterally IX/X: Palate appears to elevate symmetrically XI: Shoulder shrug appears symmetric/ grossly intact bilaterally XII: Tongue protrudes midline without evidence of biting Motor exam: Strength appears grossly intact/symmetric in all extremities Sensory: Sensation is reportedly grossly intact throughout Coordination: Finger to nose and heel to lee were intact. No apparent evidence of dysmetria or dysdiadochokinesia Reflexes: Deferred Gait: Deferred Results & Data Vital Signs (Past 12 Hours) Vital Signs Pulse Pulse Resp BP BP Pulse Ox Pulse Ox 01/27/24 08:00 66 20 140/67 95 01/27/24 07:26 67 01/27/24 06:00 61 16 140/71 01/27/24 05:30 68 17 130/63 94 01/27/24 05:00 70 18 124/66 94 01/27/24 04:30 66 20 124/66 94 01/27/24 04:03 96 01/27/24 04:00 65 20 152/86 H 96 01/27/24 03:30 64 15 133/66 95 01/27/24 01:30 81 17 155/78 H 89 L 01/27/24 01:00 77 19 142/114 H 95 01/27/24 00:48 68 18 134/78 95 01/27/24 00:31 72 15 134/78 96 01/27/24 00:30 67 25 H 134/78 96 01/27/24 00:30 68 01/27/24 00:00 71 20 148/82 H 94 01/26/24 23:30 71 18 148/91 H 96 01/26/24 23:00 70 21 156/89 H 94 01/26/24 22:30 71 19 164/97 H 96 O2 Del Method O2 Del Method 01/27/24 08:00 Room Air 01/27/24 07:26 01/27/24 06:00 01/27/24 05:30 01/27/24 05:00 01/27/24 04:30 01/27/24 04:03 Room Air 01/27/24 04:00 01/27/24 03:30 Room Air 01/27/24 01:30 01/27/24 01:00 01/27/24 00:48 Room Air 01/27/24 00:31 Room Air 01/27/24 00:30 01/27/24 00:30 01/27/24 00:00 01/26/24 23:30 01/26/24 23:00 01/26/24 22:30 Laboratory Results Abnormal lab results 01/26/24 01/26/24 01/27/24 Range/Units 20:30 22:45 00:10 RBC 4.53 L (4.70-6.10) M/uL Hgb 13.6 L (14.0-18.0) g/dl Hct 41.2 L (42.0-52.0) % RDW Std Deviation 53.2 H (36.4-46.3) fL RDW Coeff of Dmitriy 16.0 H (11.5-14.5) % Emmet # (Auto) 0.66 H (0.11-0.59) K/uL Chloride 109 H (98-107) mmol/L BUN 31 H (6-23) mg/dl BUN/Creatinine Ratio 24.0 H (10-20) Glucose 125 H (70-99(Fasting)) mg/dl Hemoglobin A1c (4.5-5.6) % Troponin I High Sens 34.9 H 35.8 H (0-20) pg/ml Triglycerides (0-150) mg/dl VLDL Cholesterol, Calc (0-30) mg/dl Ur Specific [place] > 1.045 H (1.000-1.030) Urine Protein 1+ H (Negative) 01/27/24 Range/Units 06:17 RBC 4.28 L (4.70-6.10) M/uL Hgb 12.5 L (14.0-18.0) g/dl Hct 38.8 L (42.0-52.0) % RDW Std Deviation 53.4 H (36.4-46.3) fL RDW Coeff of Dmitriy 16.0 H (11.5-14.5) % Emmet # (Auto) 0.68 H (0.11-0.59) K/uL Chloride 112 H (98-107) mmol/L BUN 25 H (6-23) mg/dl BUN/Creatinine Ratio 21.2 H (10-20) Glucose (70-99(Fasting)) mg/dl Hemoglobin A1c 6.0 H (4.5-5.6) % Troponin I High Sens 40.9 H (0-20) pg/ml Triglycerides 231 H (0-150) mg/dl VLDL Cholesterol, Calc 46 H (0-30) mg/dl Ur Specific [place] (1.000-1.030) Urine Protein (Negative) Diagnostic Findings Head CT 01/26/24 20:44 Exam(s): CT HEAD Without Contrast EXAM: CT Head Without Intravenous Contrast CLINICAL HISTORY: Reason for exam: neuro deficit, acute stroke suspected. TECHNIQUE: Axial computed tomography images of the head/brain without intravenous contrast. CTDI is 22.8 mGy and DLP is 11.4 mGy-cm. Automated exposure control was utilized for the study. A dose lowering technique was utilized adhering to the principles of ALARA. COMPARISON: No relevant prior studies available. FINDINGS: Brain: No intracranial hemorrhage, mass-effect, or cerebral edema. Dural based mass along the cribriform plate measuring 3.7 x 4.3 x 3.0 cm. Atrophy and chronic microvascular ischemic changes. Ventricles: Unremarkable. Bones/joints: Unremarkable. No fracture. Soft tissues: Unremarkable. Sinuses: No acute sinusitis. Mastoid air cells: Unremarkable as visualized. IMPRESSION: 1. No acute intracranial abnormality. 2. Dural based mass along the cribriform plate measuring 3.7 x 4.3 x 3.0 cm. Meningioma considered most likely. Consider MRI with contrast for further evaluation. 3. Atrophy and chronic microvascular ischemic changes. Electronically signed by: Gio Caruso MD 01/26/24 22:08 PM Head CTA 01/26/24 20:44 Exam(s): CTA HEAD With Contrast IV Amt: 119ml opti 320 EXAM: CT Angiography Head With Intravenous Contrast CLINICAL HISTORY: Reason for exam: neuro deficit, acute stroke suspected. TECHNIQUE: Axial computed tomographic angiography images of the head with intravenous contrast. CTDI is 37.7 mGy and DLP is 997.4 mGy-cm. Automated exposure control was utilized for the study. A dose lowering technique was utilized adhering to the principles of ALARA. MIP reconstructed images were created and reviewed. CONTRAST: Patient received 119ml opti 320 of IV contrast COMPARISON: No relevant prior studies available. FINDINGS: Right internal carotid artery: Atherosclerotic calcifications within the right ICA causing less than 50% stenosis. No aneurysm. Right anterior cerebral artery: Unremarkable. No occlusion or significant stenosis. No aneurysm. Right middle cerebral artery: Unremarkable. No occlusion or significant stenosis. No aneurysm. Right posterior cerebral artery: Unremarkable. No occlusion or significant stenosis. No aneurysm. Right vertebral artery: Unremarkable as visualized. Left internal carotid artery: Atherosclerotic calcifications within the left ICA causing 50% stenosis. No aneurysm. Left anterior cerebral artery: Unremarkable. No occlusion or significant stenosis. No aneurysm. Left middle cerebral artery: Unremarkable. No occlusion or significant stenosis. No aneurysm. Left posterior cerebral artery: Unremarkable. No occlusion or significant stenosis. No aneurysm. Left vertebral artery: Unremarkable as visualized. Basilar artery: Unremarkable. No occlusion or significant stenosis. No aneurysm. IMPRESSION: No arterial occlusion or high-grade stenosis. Electronically signed by: Gio Caruso MD 01/26/24 22:06 PM Neck CTA 01/26/24 20:44 Exam(s): CTA NECK With Contrast IV Amt: 119ml opti 320 EXAM: CT Angiography Neck With Intravenous Contrast CLINICAL HISTORY: Reason for exam: neuro deficit, acute stroke suspected. TECHNIQUE: Routine carotid CT angiography protocol was performed with intravenous contrast. NASCET criteria using the distal ICAs for comparison were used for evaluation of stenoses. CTDI is 12.4 mGy and DLP is 433.5 mGy-cm. Automated exposure control was utilized for the study. A dose lowering technique was utilized adhering to the principles of ALARA. MIP reconstructed images were created and reviewed. CONTRAST: Patient received 119ml opti 320 of IV contrast COMPARISON: None. FINDINGS: VASCULATURE: Right common carotid artery: Unremarkable. No occlusion or significant stenosis. No dissection. Right internal carotid artery: Atherosclerotic calcifications within the right ICA causing 80-90% stenosis. No dissection. Right vertebral artery: Approximately 50% stenosis at the ostia of the right vertebral artery. No dissection. Left common carotid artery: Unremarkable. No occlusion or significant stenosis. No dissection. Left internal carotid artery: Atherosclerotic calcifications within the left ICA causing less than 50% stenosis. No dissection. Left vertebral artery: Unremarkable. No occlusion or significant stenosis. No dissection. NECK: Bones/joints: Severe degenerative changes within the cervical spine. No acute fracture. Soft tissues: Unremarkable. Lung apices: Clear. CAROTID STENOSIS REFERENCE USING NASCET CRITERIA: % ICA stenosis = (1 - narrowest ICA diameter/diameter of distal cervical ICA) x 100. Mild - <50% stenosis. Moderate - 50-69% stenosis. Severe - 70-94% stenosis. Near occlusion - 95-99% stenosis. Occluded - 100% stenosis. IMPRESSION: Atherosclerotic calcifications within the right ICA causing 80-90% stenosis. Electronically signed by: Gio Caruso MD 01/26/24 22:12 PM Chest X-Ray 01/26/24 22:09 XR chest 1V portable HISTORY: Weakness. COMPARISON: Chest 09/13/2016. FINDINGS: No pneumothorax. No pleural effusions. Bibasilar linear densities consistent with subsegmental atelectasis or scarring. This is similar to the prior study. The heart is borderline enlarged. Is also unchanged. Is left-sided pacemaker/defibrillator. No evidence for pulmonary edema. No pleural effusions. No pneumothorax. Right upper lobe nodular density may be due to the patient's overlapping skinfold and/or calcified pleural plaques. No evidence for a pulmonary nodule within the right upper lobe on the same day neck CTA which likely include this area. IMPRESSION: No significant change compared to the prior study. No acute process. ACT 112: Negative or not required by law. Electronically signed by: Jermaine Roper M.D. 01/27/2024 7:15 AM Medications Administered Home Medications Medication Instructions Recorded Confirmed Last Taken allopurinol 300 mg tablet 300 mg PO DAILY 01/26/24 01/26/24 Unknown aspirin 81 mg tablet,delayed 81 mg PO QAM 01/26/24 01/26/24 Unknown release atorvastatin 80 mg tablet 40 mg PO QAM 01/26/24 01/26/24 Unknown cholecalciferol (vitamin D3) 25 50 mcg PO Q OTHER DAY 01/26/24 01/26/24 Unknown mcg (1,000 unit) tablet (Vitamin D3) cyanocobalamin (vitamin B-12) 1,000 mcg PO Q OTHER DAY 01/26/24 01/26/24 Unknown 1,000 mcg tablet (Vitamin B-12) finasteride 5 mg tablet 5 mg PO QAM 01/26/24 01/26/24 Unknown magnesium oxide 420 mg tablet 420 mg PO DAILY 01/26/24 01/26/24 Unknown metoprolol succinate 25 mg 25 mg PO QAM 01/26/24 01/26/24 Unknown tablet,extended release 24 hr omega 9-sgn-ebl-fish oil 1,200 mg 1 cap PO BID 01/26/24 01/26/24 Unknown (144 mg-216 mg) capsule (Fish Oil) omeprazole 20 mg capsule,delayed 20 mg PO QA 01/26/24 01/26/24 Unknown release tamsulosin 0.4 mg capsule 0.8 mg PO QA 01/26/24 01/26/24 Unknown Active Medications Generic Name Dose Route Start Last Admin Trade Name Freq PRN Reason Stop Dose Admin Allopurinol 300 mg 01/27/24 09:00 01/27/24 08:33 Allopurinol 300 Mg Tab PO 02/26/24 08:59 300 mg DAILY CARLOTTA Administration Aspirin 81 mg 01/27/24 09:00 01/27/24 08:33 Aspirin 81 Mg Ectab PO 02/26/24 08:59 81 mg QAM CARLOTTA Administration Atorvastatin Calcium 40 mg 01/27/24 09:00 01/27/24 08:33 Atorvastatin 40 Mg Tab PO 02/26/24 08:59 40 mg QAM CARLOTTA Administration Cyanocobalamin 1,000 mcg 01/27/24 09:00 01/27/24 08:31 Cyanocobalamin (B-12) 500 Mcg Tablet PO 02/26/24 08:59 1,000 mcg Q48H CARLOTTA Administration Finasteride 5 mg 01/27/24 09:00 01/27/24 08:31 Finasteride 5 Mg Tab PO 02/26/24 08:59 5 mg QAM CARLOTTA Administration Sodium Chloride 1,000 mls @ 50 mls/hr 01/27/24 01:14 01/27/24 08:39 Nss IV 01/27/24 11:13 50 mls/hr .Q20H CARLOTTA Infusion Magnesium Oxide 400 mg 01/27/24 09:00 01/27/24 08:31 Magnesium Oxide 400 Mg Tab PO 02/26/24 08:59 400 mg DAILY CARLOTTA Administration Metoprolol Succinate 25 mg 01/27/24 09:00 01/27/24 08:31 Metoprolol Succ 25mg Ext Rel Tab PO 02/26/24 08:59 25 mg QAM CARLOTTA Administration Pantoprazole Sodium 40 mg 01/27/24 09:00 01/27/24 08:33 Pantoprazole 40 Mg Tab PO 02/26/24 08:59 40 mg QAM CARLOTTA Administration Tamsulosin HCl 0.8 mg 01/27/24 09:00 01/27/24 08:32 Tamsulosin Hcl 0.4 Mg Cap PO 02/26/24 08:59 0.8 mg QAM CARLOTTA Administration Vitamin D 50 mcg 01/27/24 09:00 01/27/24 08:31 Cholecalciferol 25 Mcg (1000 Units) Tab PO 02/26/24 08:59 50 mcg Q48H CARLOTTA Administration
--- NOTE | 2024-01-27 10:14 | Communication Note ---
Date of Service: January 27, 2024 Assessment & Plan (1) Stroke-like symptoms: Recommend continued stroke work up to include the following: MRI brain with and without contrast to eval for ischemia and mass type lesion Echocardiogram as part of complete stroke workup Continue frequent neurological assessments Obtain stat CT brain without contrast for any acute neurological decline Continue to monitor/control blood pressure & blood glucose Metabolic workup should include hgbA1c, fasting lipids, homocysteine, TSH, D Dimer Recommend DAPT for at least 3 weeks Recommend high dose statin therapy indefinitely if tolerated Ok from neurology perspective for VTE prophylaxis PT/OT/SLT to eval and treat (2) Visual disturbance: Recommend MRI brain with and without contrast to eval cribiform plate mass type lesion Recommend neurosurgery consultation (3)Right ICA stenosis Recommend vascular surgery or neuroendovascular consultation
[2024-01-27] MEDS: GADOBUTROL 65ML VIAL IV ONE (12:40)
--- NOTE | 2024-01-27 13:05 | Pharmacy Report ---
- Date of Service January 27, 2024 - Pharmacy CVA/TIA Medication Review Medications to Prevent Stroke handout has been added to the patients discharge packet. Antiplatelet(s) * aspirin 81 mg PO daily + clopidogrel 75 mg PO daily x 3 weeks at least Cholesterol * High intensity statin: atorvastatin 40 mg daily DVT Prophylaxis * SCD thigh Therapeutic Anticoagulation * No history of Afib/Aflutter noted Type 2 Diabetes * Patient does not have T2DM
--- NOTE | 2024-01-27 13:47 | Magnetic Resonance Report ---
MRI OF THE BRAIN WITHOUT AND WITH IV CONTRAST CLINICAL HISTORY: Stroke like symptoms. COMPARISON STUDY: Head CT September 13, 2016. Head CT and CTA head January 26, 2024. TECHNIQUE: Utilizing a 1.5 Doris magnet and dedicated coil, multiplanar, multiecho imaging of the br ain was performed pre and postcontrast administration. IV administration of 7.5 mL of Gadavist contr ast was uneventful. Thin cut T1 post contrast imaging was performed. FINDINGS: There are no foci of restricted diffusion to suggest acute infarct. No acute intracranial h emorrhage is present. Ventricular dilatation is due to central atrophy. Extensive white matter T2 hyp erintense foci suggest small vessel disease. The basal cisterns are patent. There are no extra-axial collections. A 4.1 x 3.6 x 3.1 cm midline extra-axial lesion along the cribriform plate has increased in size since head CT of September 13, 2016 when it measured 2.9 x 2.6 cm. No additional intracranial masses are present. Calvarial signal is normal. There is no evidence for sinusitis. Small mucous rete ntion cyst within the right maxillary sinus is present. There is no mastoid fluid. IMPRESSION: 1. No acute intracranial findings. 2. 4.1 x 3.6 x 3.1 cm midline extra-axial lesion along the cribriform plate, increased in size since head CT of June 14, 2016, as described above. 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 3. Moderate atrophy and small vessel disease. ACT 112: Negative or not required by law. Electronically signed by: Emerson Perez M.D. 01/27/2024 1:46 PM
[2024-01-27] MEDS: CLOPIDOGREL BISULFATE 75 MG TAB PO SCH (14:02)
--- NOTE | 2024-01-27 16:18 | Communication Note ---
Date of Service: January 27, 2024 Patient seen and examined at bedside He is lying on the bed comfortably; not in distress Denies any changes in vision at present time No focal weakness or numbness Vitals are stable. Neurology evaluation appreciated. Recommended DAPT for at least 3 weeks Brain MRI shows 4.1 x 3.6 x 3.1 cm midline extra-axial lesion along the cribriform plate, increased in size since head CT of June 14, 2016, as described above. This is suggestive of a planum sphenoidale meningioma. Discussed with neurology regarding the MRI findings; recommend neurosurgery consultation. Will call the transfer center at [facility] for neurosurgery consultation; awaiting callback. On physical exam; Constitutional: WD/WN, vitals as above, NAD, sitting up in bed, pleasant, conversing easily Respiratory: normal respiratory effort, lungs clear to auscultation, no wheeze, rales, rhonchi. Normal insp/exp effort, no accessory muscle use Cardiovascular: RRR, no murmur, no edema Vessels: no JVD or carotid bruit Chest: normal inspection of chest Abdomen: normal bowel sounds, soft, nontender, no hepatosplenomegaly Musculoskeletal: no cyanosis or clubbing, extremities motor strength 5/5 Skin: no rashes, warm and dry normal turgor Neurologic: Alert oriented x 3; no facial droop. EOMI intact. Grossly moves all extremities. No visual changes. Psychiatric: A+Ox3, euthymic affect
--- NOTE | 2024-01-28 07:48 | Ultrasound Report ---
BILATERAL CAROTID DOPPLER STUDY HISTORY: right ICA stenosis COMPARISON: Neck CTA 01/26/2024. TECHNIQUE: Real-time, grayscale, and color Doppler sonography of the carotid arteries was performed. Imaging reviewed in the transverse and longitudinal planes. All measurements were calculated based on NASCET criteria. FINDINGS: Antegrade flow is seen in the bilateral vertebral arteries. Moderate calcified plaque within the bilateral carotid bifurcations and proximal internal carotid art eries.. The peak systolic velocity within the right ICA is 126 cm/s. The right systolic ratio is 2.1. The peak systolic velocity within the left ICA is 60 cm/s. The left systolic ratio is 1.1. IMPRESSION: 1. Approximately 50-69% stenosis within the proximal right internal carotid artery due to the calcifi ed plaque. 2. No significant stenosis within the left carotid arteries. ACT 112: Negative or not required by law. Electronically signed by: Jermaine Roper M.D. 01/28/2024 7:46 AM
[2024-01-28 08:01] LABS: Basophils # (auto) 0.02 K/uL (0.00-0.20); Basophils % (auto) 0.3 %; Eosinophils # (auto) 0.35 K/uL (0.00-0.50); Eosinophils % (auto) 4.9 %; Hematocrit (blood only) 40.4 % (42.0-52.0); Hemoglobin 13.6 g/dl (14.0-18.0); Immature Granulocytes # (auto) 0.02 K/uL (0.01-0.20); Immature Granulocytes % (auto) 0.3 %; Lymphocytes # (auto) 2.04 K/uL (1.20-3.40); Lymphocytes % (auto) 28.4 %; Mean Corpuscular Hgb Conc 33.7 g/dL (32.0-36.0); Mean Platelet Volume 11.2 fL (9.4-12.4); Monocytes % (auto) 11.1 %; Neutrophils # (auto) 3.96 K/uL (1.40-6.50); Platelet Count 171 K/uL (130-400); RDW Coefficient of Variation 15.9 % (11.5-14.5); RDW Standard Deviation 51.4 fL (36.4-46.3); Red Blood Count 4.54 M/uL (4.70-6.10); White Blood Count 7.19 K/ul (4.8-10.8)
[2024-01-28 08:32] LABS: BUN Creatinine Ratio 18.7 (10-20); Calcium 9.8 mg/dl (8.6-10.3); Creatinine Clr Calc Pharmacy 34.4 ml/min; Est GFR (African American) 54.4 ml/min; Potassium 3.8 mmol/L (3.5-5.1)
--- NOTE | 2024-01-28 10:11 | Consultation ---
Date of Consultation January 28, 2024 Assessment & Plan (1) Carotid stenosis: We discussed the findings of his right internal carotid artery stenosis. He claims that his age unless he develops symptoms he does not want anything done for his carotid artery. Being that he declined either endarterectomy or TCAR at this time we will see him in 6 months for repeat ultrasound and follow-up. If he decides to seek go ahead with any intervention on his carotids we need to address the enlarging meningioma first to see if that needs any treatment prior to endarterectomy or TCAR. Thank you very much for letting us participate in the care of this patient. Laterality: right Qualified Code(s): I65.21 - Occlusion and stenosis of right carotid artery History of Present Illness Reason for Consultation: Right carotid stenosis Attending Physician: Julio Hein MD History of Present Illness This is an 88-year-old gentleman who was in his usual state of health when he developed some visual disturbances on the way up from [place]. He came to the emergency room. During his workup he was found to have a significant right internal carotid artery stenosis. He denies any focal findings of amaurosis fugax, TIAs, or strokes. His visual disturbance slowly cleared up and is much better today. He was also told that he had a mass which may be a meningioma which has enlarged since 2016. He denies any symptoms of claudication. He does have leg discomfort that causes him to use a walker but it is not consistent with claudication discomfort. He denies any ulcerations of his lower extremities. Allergies Allergy/AdvReac Type Severity Reaction Status Date / Time No Known Allergies Allergy Unverified 01/26/24 22:42 Home Medications Medication Instructions Recorded Confirmed Type allopurinol 300 mg tablet 300 mg PO DAILY 01/26/24 01/26/24 History aspirin 81 mg tablet,delayed 81 mg PO QAM 01/26/24 01/26/24 History release atorvastatin 80 mg tablet 40 mg PO QAM 01/26/24 01/26/24 History cholecalciferol (vitamin D3) 25 50 mcg PO Q OTHER DAY 01/26/24 01/26/24 History mcg (1,000 unit) tablet (Vitamin D3) cyanocobalamin (vitamin B-12) 1,000 mcg PO Q OTHER DAY 01/26/24 01/26/24 History 1,000 mcg tablet (Vitamin B-12) finasteride 5 mg tablet 5 mg PO QAM 01/26/24 01/26/24 History magnesium oxide 420 mg tablet 420 mg PO DAILY 01/26/24 01/26/24 History metoprolol succinate 25 mg 25 mg PO QAM 01/26/24 01/26/24 History tablet,extended release 24 hr omega 2-jty-oxd-fish oil 1,200 mg 1 cap PO BID 01/26/24 01/26/24 History (144 mg-216 mg) capsule (Fish Oil) omeprazole 20 mg capsule,delayed 20 mg PO QAM 01/26/24 01/26/24 History release tamsulosin 0.4 mg capsule 0.8 mg PO QAM 01/26/24 01/26/24 History clopidogrel 75 mg tablet 75 mg PO DAILY 20 days #20 tabs 01/28/24 Rx pantoprazole 40 mg tablet,delayed 40 mg PO QAM #20 tabs 01/28/24 Rx release Patient History Medical History Macular degeneration Social History Smoking Status: Former smoker Tobacco Type: Cigarettes Second Hand Exposure: No; Do You Dip or Chew Tobacco: No; Hx Alcohol Use: No Hx Substance Use: No Preferred Language: Georgian Beliefs That Will Affect Care: None Current Living Situation: Spouse Feels Safe at Home: Yes Assistive Devices: Cane, Denture - Upper, Denture - Lower and Hearing Aid - Bilateral Review of Systems Review of Systems: All systems reviewed & are unremarkable except as noted in HPI & below Physical Exam Constitutional: WD/WN, vitals as above Respiratory: normal respiratory effort; no respiratory distress Cardiovascular: Rate/Rhythm: regular rate and regular rhythm Vessels: + carotid bruit (bilateral) Extremities: normal capillary refill Neurologic: CN's II-XI intact bilaterally and moves all extremities Psychiatric: Orientation: alert and oriented x 3 Results & Data Vital Signs (Past 12 Hours) Vital Signs Temp Pulse Pulse Pulse Resp BP Pulse Ox 01/28/24 07:44 61 01/28/24 07:00 36.6 C 73 16 167/81 H 92 01/28/24 03:37 36.9 C 77 16 164/88 H 94 01/27/24 23:37 36.5 C 74 19 152/79 H 95 01/27/24 22:47 73 O2 Del Method 01/28/24 07:44 01/28/24 07:00 Room Air 01/28/24 03:37 Room Air 01/27/24 23:37 Room Air 01/27/24 22:47
[2024-01-28] MEDS ORDERED: STROKE PATIENT DISCHARGE STA (11:03)
--- NOTE | 2024-01-28 15:42 | Discharge Summary ---
Date of Service January 28, 2024 Admission HPI Per Admitting Provider 88-year-old male with past medical history significant for gout, chronic systolic CHF, left bundle branch block, s/p biventricular ICD, hypertension, benign esophageal stricture, CKD stage III, cervical spinal stenosis of lumbar region, pseudophakia presents with visual disturbance. Patient was riding in car today around 8 PM he noticed change in his vision, objects started slanted and tilted and distorted. It happened a couple of months ago and thought to be from elevated blood pressure. So came to the ER and by time he came to the ER the symptoms resolved. His blood pressure was okay in the ER. Denies any headache. He has some dizziness. Ambulates with a cane. During the episode his speech was okay. No difficulty swallowing. Vision is okay now. Once in a while he gets double vision. Appetite is okay. Sleeps okay. No chest pain or shortness of breath. No nausea. No abdominal pain. Normal bowel and bladder movements. Ambulates with cane. Current resting comfortably and hemodynamically stable. Family in the room. Past medical history. As mentioned above Past surgical history. Colonoscopy with biopsy. EGD. S/p ICD placement. Cataract surgery. Social history. . Quit smoking 1982. Smoked 1.5 pack a day for 30 years. Alcohol little as per [facility] Family history. Mother had COPD. Hypertension. Admission Exam Per Admitting Provider General- Not in distress Head- atraumatic Eyes- PERRL, EOMI, Vision is ok ENT- oropharynx clear Neck- supple, no JVD. Lungs- clear to auscultation no wheezing or crackles Heart- regular rate and rhythm; no murmur, no gallop. Abdomen- normal bowel sounds, soft, nontender, no distension. Extremities- no pretibial edema, no erythema seen. Neuro- alert, oriented PERRL, EOMI; no facial palsy; no dysarthria; motor 5/5 bilaterally; co ordination of movements normal, no pronator drift, can raise and hold lower extremities, sensations intact. 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 Cardiovascular: RRR, no murmur, no edema Vessels: no JVD or carotid bruit Chest: normal inspection of chest Abdomen: normal bowel sounds, soft, nontender, no hepatosplenomegaly Musculoskeletal: no cyanosis or clubbing, extremities motor strength 5/5 Skin: no rashes, warm and dry normal turgor Neurologic: PERRL, EOMI, accommodation nl, no face palsy, no dysarthria CN's II- XI intact bilaterally and moves all extremities Psychiatric: A+Ox3, euthymic affect Discharge Data Allergies Allergy/AdvReac Type Severity Reaction Status Date / Time No Known Allergies Allergy Unverified 01/26/24 22:42 Consultations 01/26/24 22:38 ED Decision to Admit Stat 01/27/24 08:00 Consult Neurology Routine Consult Vascular Surgery Routine Ordered Studies 01/26/24 20:44 CT angio head w con Stat CT angio neck with con Stat CT head/brain wo con Stat 01/27/24 01:14 MR brain wo/w con Routine 01/27/24 17:13 US carotid doppler BI Routine Hospital Course (1) Stroke-like symptoms: 88-year-old male with past medical history significant for gout, chronic systolic CHF, left bundle branch block, s/p biventricular ICD, hypertension, benign esophageal stricture, CKD stage III, cervical spinal stenosis of lumbar region, pseudophakia presents with visual disturbance. Patient reports diplopia for several months as well as transient visual loss intermittently. CTAhead no acute findings. Possible meningioma 3.7 x 4.3 x 3cm dural based mass along the cribriform plate. CTA head and neck shows right ICA stenosis 80 to 90% Brain MRI showed 4.1 x 3.6 x 3.1 cm midline extra-axial lesion along the cribriform plate, increased in size since head CT of June 14, 2016, as described above. This is suggestive of a planum sphenoidale meningioma. Neurology was consulted for comanagement. patient was started on Plavix for 3 weeks. Discussion was done with neurosurgery at [facility](Dr. Joseph Herrera); no urgent intervention required. Recommended to follow-up as outpatient Vascular surgery was also consulted for right ICA stenosis; suggested follow-up as outpatient in 6 months with ultrasound. Patient was started on aspirin and Plavix to be taken for 21 days. Patient to follow-up with PCP, neurosurgery and vascular surgery. No neurological deficit were present at discharge. Patient denied any vision loss or diplopia. Please note the above document was generated using voice recognition software. It may contain grammatical, syntax or spelling errors. Any formal questions or concerns about the content, text or information contained within the body of this dictation should be directly addressed to the provider for clarification Total Time Total Time Spent Total Time Spent (In Minutes): 34 Total Time Includes: Examination of the Patient, Discharge Planning, Medication Reconciliation, Communication With Other Providers and Other Discharge Plan Discharge Items Patient Disposition: Home - Self-Care Reason For Visit: STROKE LIKE SYMPTOMS Discharge Diagnosis: Strokelike symptoms planum sphenoidale meningioma. Right internal canal stenosis Condition on Discharge: Good Activity: Resume your previous activity Non-emergency contact: Primary Care Provider Call non-emergency contact if: you have any medication questions and your symptoms worsen Follow-up/Referrals: Srinivasa Whitaker MD [Physician] - (Date & Time 02/10/2024 11:20 AM Provider Srinivasa Whitaker MD Department Neurology [facility] ) Sophie Bourne PA-C [Primary Care Provider] - (Date & Time 01/29/2024 11:00 AM Provider Sophie Bourne PA-C Department Family Practice [facility] ) Ag Jose MD [Physician] - (call to schedule a 6month follow up with ultrasound of carotid arteries Spoke with Johanna at Dr. Jose's office, they will call Pt to schedule.) Diet: Regular Addtl Attending Provider Instructions: You were admitted to the hospital for strokelike symptoms. Your evaluated during the hospitalization with MRI of the brain. It showed 4.1 x 3.6 x 3.1 cm midline extra-axial lesion along the cribriform plate, increased in size since head CT of June 14, 2016, as described above. This finding was discussed with Dr. Joseph Herrera from [facility]. He suggested outpatient follow-up due to the slow-growing nature of the tumor to discuss further options. The CT angio head and neck showed stenosis of the neck vessel. Vascular surgery(Dr. Jose) recommended to see you in 6 months for repeat ultrasound and follow-up. The neurologist recommended Plavix 75 mg once a day for 20 more days. The omep razole has been stopped for the time being due to its interaction with Plavix. You are prescribed Protonix to be taken instead of omeprazole for 20 days while you are taking Plavix. Please follow-up with PCP as scheduled. Pending Studies at Discharge: No Stand-Alone Forms: My [facility], Smoking Cessation, Medications to Prevent Stroke Medications and DC Order Prescriptions: New clopidogrel 75 mg Tablet 75 mg PO DAILY 20 Days Qty: 20 0RF pantoprazole 40 mg Tablet,Delayed Release (Dr/Ec) 40 mg PO QAM Qty: 20 0RF Continued atorvastatin 80 mg tablet 40 mg PO QAM Rx Instructions: 1/2 tablet dose allopurinol 300 mg tablet 300 mg PO DAILY metoprolol succinate 25 mg tablet extended release 24 hr 25 mg PO QAM finasteride 5 mg tablet 5 mg PO QAM aspirin 81 mg Tablet,Delayed Release (Dr/Ec) 81 mg PO QAM cholecalciferol (vitamin D3) [Vitamin D3] 25 mcg (1,000 unit) Tablet 50 mcg PO Q OTHER DAY magnesium oxide 420 mg Tablet 420 mg PO DAILY tamsulosin 0.4 mg capsule 0.8 mg PO QAM omega 4-hui-rjr-fish oil [Fish Oil] 1,200 (144-216) mg Capsule 1 cap PO BID cyanocobalamin (vitamin B-12) [Vitamin B-12] 1,000 mcg Tablet 1,000 mcg PO Q OTHER DAY Discontinued omeprazole 20 mg capsule,delayed release(DR/EC) 20 mg PO QAM Discharge Orders: Discharge Order (Routine); Ordered 01/28/24 Ordered By: Julio Hein Admission Data Admit Date/Time: 01/27/24 00:16 Attending Provider: Julio Hein Admit Provider: Juan Miguel Ferro Primary Care Provider: Sophie Bourne Other Providers: Juan Miguel Ferro; Ade Sosa; Srinivasa Whitaker; Ade Beyer; Malik Huston; Rick Dougherty; Marty Lovell; Subhash Leonardo; Maritza Ferrell; Garfield Skinner; Jonathan Purdy; Alok Churchill; Jose Kang; Sophie Huff; Anna De La Cruz; Subhash Garrett; Ag Jose Other Interventions: Discharge Summary Assessment (RN) Last Done: 01/28/24 11:54
--- NOTE | 2024-01-28 17:00 | Communication Note ---
Date of Service: January 27 By CMS guidelines, a determination that the admission or continued stay is not medically necessary has been made by a member of the UR committee and a physician for this hospital stay, therefore a Code 44 will be completed and the Inpatient admission will be changed to outpatient. , 2023
--- NOTE | 2024-01-30 11:09 | Pharmacy Report ---
Pharmacist Stroke Counseling - Date of Service January 30, 2024 - Scope: Pharmacy has been consulted to provide medication discharge counseling for this patient admitted with internal canal stenosis, stroke like symptoms as per the Pharmacist Discharge Counseling for Stroke Patients Protocol. - Medications on Discharge: Home Medications Medication Instructions Recorded Confirmed allopurinol 300 mg tablet 300 mg PO DAILY 01/26/24 01/26/24 aspirin 81 mg tablet,delayed 81 mg PO QAM 01/26/24 01/26/24 release atorvastatin 80 mg tablet 40 mg PO QAM 01/26/24 01/26/24 cholecalciferol (vitamin D3) 25 50 mcg PO Q OTHER DAY 01/26/24 01/26/24 mcg (1,000 unit) tablet (Vitamin D3) cyanocobalamin (vitamin B-12) 1,000 mcg PO Q OTHER DAY 01/26/24 01/26/24 1,000 mcg tablet (Vitamin B-12) finasteride 5 mg tablet 5 mg PO QAM 01/26/24 01/26/24 magnesium oxide 420 mg tablet 420 mg PO DAILY 01/26/24 01/26/24 metoprolol succinate 25 mg 25 mg PO QAM 01/26/24 01/26/24 tablet,extended release 24 hr omega 3-hlt-tsn-fish oil 1,200 mg 1 cap PO BID 01/26/24 01/26/24 (144 mg-216 mg) capsule (Fish Oil) tamsulosin 0.4 mg capsule 0.8 mg PO QAM 01/26/24 01/26/24 New Rx's Medication Instructions Recorded clopidogrel 75 mg tablet 75 mg PO DAILY 20 days #20 tabs 01/28/24 pantoprazole 40 mg tablet,delayed 40 mg PO QAM #20 tabs 01/28/24 release - Action: The above medications, specifically ones for stroke treatment/prophylaxis, have been reviewed in detail with the patient's over phone call today. This includes indication, common adverse reactions, drug interactions, and medication administration. Medication counseling has been employed using the teach-back method to ensure understanding. - Outcome: The patient screening representative have demonstrated understanding of the medications. Additional comments: Spoke over the phone with patient's today. She said patient was in the shower and she helps to manage his meds. She was receptive to counseling. Reviewed new medications to prevent stroke including Plavix and stopping Prilosec for Protonix due to drug interaction. I briefly went over the discharge packet about the new meds and explained that the Plavix or Clopidogrel is only for 20 days then stop. Discussed why they are being used and common side effects. Reviewed common side effects especially since he will be on two blood thinners for 20 days. Patient's verbalized understanding. Thank you for allowing pharmacy to be involved in the care of this patient. Ple ase call [phone] with any additional questions
== END 2024-01-28 11:56 | disposition home or self-care (01) | DRG 55 ==
LOC: ED 20:05 → INTOOBSV 01-27 00:16 → EDINP 01-27 00:16 → 2S 01-27 01:14

== ENCOUNTER 2025-05-04 10:58 | Inpatient (IN) ==
--- NOTE | 2025-05-04 11:19 | Emergency Department Note ---
Impression & Plan Stroke-like symptoms, Elevated troponin, Acute confusion, CAMERON (acute kidney injury) ED Provider Note NAME: LILIANA LEON AGE: 89 SEX: M : 1935 ARRIVES VIA: Walk-In INFORMANT: [Patient][] ED PROVIDER(S): [Anand Wilson MD] CHIEF COMPLAINT: Stroke symptoms HISTORY OF PRESENT ILLNESS: Patient is an 89-year-old male who has been having months of issues with dizziness and some confusion. As per his , today is his worst day. [place] He believes a third person is living in the house and believes that person slept in the car last night. She states he is very confused. There has been no speech slur. He does cough from time to time but there has been no reported fever. No urinary complaints, no vomiting or diarrhea. The patient does not have any diagnosis of dementia. He does have a meningioma that is known. He has a pacer defibrillator in place. The patient was hospitalized last year for strokelike symptoms, although, no CVA was found. PMHx/PSHx/Social Hx: See Below PHYSICAL EXAM: GENERAL: Patient is in no acute distress. HEENT: No acute trauma, normocephalic atraumatic, mucous membranes moist, no nasal congestion. NECK: No stridor, no adenopathy, no meningismus, trachea is midline. LUNGS: Clear to auscultation bilaterally when listening anterior, no wheeze, no rhonchi, breath sounds equal. HEART: Normal rate, no obvious murmur, slightly irregular rhythm. ABDOMEN: Soft, nontender, no peritonitis. EXTREMITIES: No cyanosis, full range of motion of all the joints without pain or difficulty. NEUROLOGIC: Awake and alert, no speech slur, no obvious focal motor deficit. SKIN: No jaundice, no diaphoresis. DIFFERENTIAL DIAGNOSIS: Liver or renal disease, intracranial bleeding, stroke, intracranial mass, UTI, tickborne illness, dementia, among others. EMERGENCY DEPARTMENT PROCEDURES: MEDICAL DECISION MAKING: There is no leukocytosis or concerning anemia. Platelet count is elevated at 540. No bandemia. No coagulopathy. VBG did not show any acidosis or CO2 retention. Creatinine was elevated consistent with some acute kidney injury and dehydration. No electrolyte abnormality in need of emergent correction. No concerning liver enzyme elevation. Ammonia level was not elevated. ECG showed an AV pacemaker, no obvious ST elevation. Cardiac enzyme testing x 1 is somewhat elevated, this troponin elevation could be secondary to cardiac injury or mismatch. Urinalysis did suggest some dehydration, no infection. Anaplasmosis and Babesia smears were negative. Lyme disease testing was negative. Brain CT showed no acute bleed or mass effect. CT angio of the head and neck were performed. There was some stenosis seen, no clot. On exam, the patient did move all extremities equally. He was not toxic or febrile. There was no speech slur. The patient was clearly not a candidate for TNK as his symptoms have been going on for months. The patient was given IV saline, he received 1 L in total while in the ED. Given his confusion, given the acute kidney injury, given the arterial narrowing on brain and neck imaging, given his elevated troponin, I do think a hospital stay and further workup is warranted. I spoke with the patient and his family, I spoke with case management, the on- call hospitalist was consulted. At this point, the true cause for his complaints is not completely clear. Of note, the radiologist questioned the possibility of a right sided pneumonia. Clinically, the patient does not appear to have pneumonia. This potential finding can be worked up during the patient's stay. Prior/Outside records/notes reviewed: None ECG per my interpretation: Indication was confusion. The ECG shows an AV pacemaker with a rate of 66. There is no acute ST elevation, no PVCs. QTc is 528. Continuous Cardiac Monitoring per my interpretation: An order was placed for continuous cardiac monitoring. The monitor shows a rate of 67 with a paced rhythm. Imaging/x-ray results per my interpretation: Chest x-ray shows atelectasis and a poor inspiratory effort. No obvious focal infiltrate. No CHF. Chronic Medical/Social conditions affecting care: Advanced age. Care/Management discussed with: Case management, the on-call hospitalist. 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 Stenosis of right carotid artery LBBB (left bundle branch block) Chronic systolic CHF (congestive heart failure) Hypertension NICM (nonischemic cardiomyopathy) Carotid stenosis Hypertension Heart disease Macular degeneration Surgical History (Updated 05/04/25 @ 16:28 by Yesi Toledo PA-C) Hx of esophagogastroduodenoscopy Hx of colonoscopy Hx of cataract removal with insertion of prosthetic lens Biventricular ICD (implantable cardioverter-defibrillator) in place Family History (Updated 05/04/25 @ 16:28 by Yesi Toledo PA-C) Mother COPD (chronic obstructive pulmonary disease) Social History Smoking Status: Former smoker Tobacco Type: Cigarettes Second Hand Exposure: No; Do You Dip or Chew Tobacco: No; Hx Alcohol Use: No Hx Substance Use: No Preferred Language: Kazakh Communication Ability: Effective Circuit Design Engineer Required: No Beliefs That Will Affect Care: None Current Living Situation: Spouse Current Living Situation Comment: home with Feels Safe at Home: Yes Safety Concerns: Feels Safe At This Time Assistive Devices: Cane, Denture - Upper, Denture - Lower and Hearing Aid - Bilateral Allergies Allergies Allergy/AdvReac Type Severity Reaction Status Date / Time No Known Allergies Allergy Unverified 01/26/24 22:42 Home Meds Home Medications Medication Instructions Recorded Confirmed allopurinol 300 mg tablet 300 mg PO DAILY 01/26/24 05/04/25 aspirin 81 mg tablet,delayed 81 mg PO QAM 01/26/24 05/04/25 release atorvastatin 80 mg tablet 40 mg PO QAM 01/26/24 05/04/25 cholecalciferol (vitamin D3) 25 2,000 unit PO Q OTHER DAY 01/26/24 05/04/25 mcg (1,000 unit) tablet (Vitamin D3) cyanocobalamin (vitamin B-12) 1,000 mcg PO Q OTHER DAY 01/26/24 05/04/25 1,000 mcg tablet (Vitamin B-12) finasteride 5 mg tablet 5 mg PO QAM 01/26/24 05/04/25 metoprolol succinate 25 mg 25 mg PO QAM 01/26/24 05/04/25 tablet,extended release 24 hr omega 9-grx-flo-fish oil 1,200 mg 1 cap PO BID 01/26/24 05/04/25 (144 mg-216 mg) capsule (Fish Oil) tamsulosin 0.4 mg capsule 0.8 mg PO QAM 01/26/24 05/04/25 Results & Data (ED) Vital Signs Vital Signs - 24 hr 05/04/25 11:01 05/04/25 11:20 05/04/25 11:30 Temperature 36.9 C Temperature Source Temporal Artery Scan Pulse Rate 67 98 H Pulse Rate [Apical] 102 H Pulse Rate from SpO2 Sensor 98 H Pulse Rhythm Regular Respiratory Rate 20 16 20 Respiratory Effort / Characteristics Non-Labored Spontaneous Non-Labored Spontaneous Respiratory Depth Normal Normal Respiratory Pattern Regular Blood Pressure 131/59 L 122/80 Blood Pressure [Left Arm] 161/99 H Blood Pressure Mean 83 97 Blood Pressure Mean [Left Arm] 119 Blood Pressure Position Sitting Pulse Oximetry 92 93 92 Oxygen Delivery Method Room Air Room Air Sepsis Recent Fever Within 48 Hours No Sepsis New/Unexplained Change in Mental Status No Sepsis Action Taken by Nursing No Action Required 05/04/25 11:42 05/04/25 12:00 05/04/25 12:30 Temperature Temperature Source Pulse Rate 99 H 91 H 89 Pulse Rate [Apical] Pulse Rate from SpO2 Sensor 91 H 90 Pulse Rhythm Respiratory Rate 16 24 Respiratory Effort / Characteristics Respiratory Depth Respiratory Pattern Blood Pressure 133/84 130/77 Blood Pressure [Left Arm] Blood Pressure Mean 96 94 Blood Pressure Mean [Left Arm] Blood Pressure Position Pulse Oximetry 92 93 Oxygen Delivery Method Sepsis Recent Fever Within 48 Hours Sepsis New/Unexplained Change in Mental Status Sepsis Action Taken by Nursing 05/04/25 13:00 Temperature Temperature Source Pulse Rate 87 Pulse Rate [Apical] Pulse Rate from SpO2 Sensor 87 Pulse Rhythm Respiratory Rate 16 Respiratory Effort / Characteristics Respiratory Depth Respiratory Pattern Blood Pressure 153/90 H Blood Pressure [Left Arm] Blood Pressure Mean 94 Blood Pressure Mean [Left Arm] Blood Pressure Position Pulse Oximetry 93 Oxygen Delivery Method Sepsis Recent Fever Within 48 Hours Sepsis New/Unexplained Change in Mental Status Sepsis Action Taken by [facility] Medications Current Medication List: was personally reviewed by me Laboratory Data Attestation: I reviewed the patient's lab results. 05/04/25 11:15 05/04/25 11:15 Lab Results 05/04/25 05/04/25 05/04/25 Range/Units 11:14 11:15 11:23 WBC 10.09 (4.8-10.8) K/ul RBC 5.63 (4.70-6.10) M/uL Hgb 15.8 (14.0-18.0) g/dl Hct 47.4 (42.0-52.0) % MCV 84.2 (80.0-100.0) fL MCH 28.1 (25.0-34.0) pg MCHC 33.3 (32.0-36.0) g/dL RDW Std Deviation 50.3 H (36.4-46.3) fL RDW Coeff of Dmitriy 16.9 H (11.5-14.5) % Plt Count 540 H (130-400) K/uL MPV 10.8 (9.4-12.4) fL Immature Gran % (Auto) 0.5 % Neut % (Auto) 77.9 % Lymph % (Auto) 13.1 % [place] % (Auto) 5.1 % Eos % (Auto) 3.2 % Baso % (Auto) 0.2 % Neut # (Auto) 7.87 H (1.40-6.50) K/uL Lymph # (Auto) 1.32 (1.20-3.40) K/uL [place] # (Auto) 0.51 (0.11-0.59) K/uL Eos # (Auto) 0.32 (0.00-0.50) K/uL Baso # (Auto) 0.02 (0.00-0.20) K/uL Immature Gran # (Auto) 0.05 (0.01-0.20) K/uL Peripher Smr Path Cons Cancelled PT 12.1 H (9.0-12.0) Seconds INR 1.1 (0.9-1.1) APTT 29 (21-31) Seconds PTT Ratio 1.1 VBG pH 7.48 H (7.36-7.41) VBG pCO2 37 L (38-50) mmHg VBG pO2 45 mmHg VBG HCO3 28 mmol/L VBG O2 Saturation 79.3 % VBG Base Excess 4.1 mEq/L Sodium 142 (136-145) mmol/L Potassium 4.1 (3.5-5.1) mmol/L Chloride 107 (98-107) mmol/L Carbon Dioxide 26 (21-32) mmol/L Anion Gap 9 (3-11) BUN 23 (6-23) mg/dl Creatinine 1.75 H (0.6-1.4) mg/dl Est Cr Clr Drug Dosing Not Reportable eGFR 36.76 BUN/Creatinine Ratio 13.1 (10-20) Glucose 132 H (70-99(Fasting)) mg/dl POC Glucose 127 H (70-99) mg/dl Calcium 9.9 (8.6-10.3) mg/dl Magnesium 2.0 (1.7-2.4) mg/dl Total Bilirubin 1.1 H (0.2-1.0) mg/dl AST 23 (13-39) U/L ALT 20 (7-52) U/L Alkaline Phosphatase 91 (34-104) U/L Ammonia 35.0 (18-72) umol/L Troponin I High Sens 89.9 H* (0-20) pg/ml Total Protein 7.2 (6.0-8.3) gm/dl Albumin 4.7 (3.4-5.0) gm/dl Globulin 2.5 (2.5-4.0) gm/dl Albumin/Globulin Ratio 1.9 (0.9-2) Urine Color Urine Appearance (Clear) Urine pH (4.5-7.5) Ur Specific [place] (1.000-1.030) Urine Protein (Negative) Urine Glucose (UA) (Negative) Urine Ketones (Negative) Urine Blood (Negative) Urine Nitrite (Negative) Urine Bilirubin (Negative) Urine Urobilinogen (Negative) Ur Leukocyte Esterase (Negative) Urine WBC (Auto) (0-5) /hpf Urine RBC (Auto) (0-2) /hpf U Hyaline Cast (Auto) (0-2) /lpf U Epithel Cells (Auto) (0-2) /hpf Urine Bacteria (Auto) (None Seen) Urine Mucus (None Prsent) Urine Comment Anaplasma Smear See Comment Babesia Smear See Comment Lyme Disease Screen Negative (Negative) 05/04/25 05/04/25 Range/Units 12:58 13:21 WBC (4.8-10.8) K/ul RBC (4.70-6.10) M/uL Hgb (14.0-18.0) g/dl Hct (42.0-52.0) % MCV (80.0-100.0) fL MCH (25.0-34.0) pg MCHC (32.0-36.0) g/dL RDW Std Deviation (36.4-46.3) fL RDW Coeff of Dmitriy (11.5-14.5) % Plt Count (130-400) K/uL MPV (9.4-12.4) fL Immature Gran % (Auto) % Neut % (Auto) % Lymph % (Auto) % [place] % (Auto) % Eos % (Auto) % Baso % (Auto) % Neut # (Auto) (1.40-6.50) K/uL Lymph # (Auto) (1.20-3.40) K/uL [place] # (Auto) (0.11-0.59) K/uL Eos # (Auto) (0.00-0.50) K/uL Baso # (Auto) (0.00-0.20) K/uL Immature Gran # (Auto) (0.01-0.20) K/uL Peripher Smr Path Cons PT (9.0-12.0) Seconds INR (0.9-1.1) APTT (21-31) Seconds PTT Ratio VBG pH (7.36-7.41) VBG pCO2 (38-50) mmHg VBG pO2 mmHg VBG HCO3 mmol/L VBG O2 Saturation % VBG Base Excess mEq/L Sodium (136-145) mmol/L Potassium (3.5-5.1) mmol/L Chloride (98-107) mmol/L Carbon Dioxide (21-32) mmol/L Anion Gap (3-11) BUN (6-23) mg/dl Creatinine (0.6-1.4) mg/dl Est Cr Clr Drug Dosing eGFR BUN/Creatinine Ratio (10-20) Glucose (70-99(Fasting)) mg/dl POC Glucose (70-99) mg/dl Calcium (8.6-10.3) mg/dl Magnesium (1.7-2.4) mg/dl Total Bilirubin (0.2-1.0) mg/dl AST (13-39) U/L ALT (7-52) U/L Alkaline Phosphatase (34-104) U/L Ammonia (18-72) umol/L Troponin I High Sens 76.7 H* D (0-20) pg/ml Total Protein (6.0-8.3) gm/dl Albumin (3.4-5.0) gm/dl Globulin (2.5-4.0) gm/dl Albumin/Globulin Ratio (0.9-2) Urine Color Yellow Urine Appearance Clear (Clear) Urine pH 7.0 (4.5-7.5) Ur Specific [place] 1.039 H (1.000-1.030) Urine Protein 2+ H (Negative) Urine Glucose (UA) Negative (Negative) Urine Ketones Trace H (Negative) Urine Blood Negative (Negative) Urine Nitrite Negative (Negative) Urine Bilirubin Negative (Negative) Urine Urobilinogen Negative (Negative) Ur Leukocyte Esterase Negative (Negative) Urine WBC (Auto) 0-5 (0-5) /hpf Urine RBC (Auto) 0-2 (0-2) /hpf U Hyaline Cast (Auto) 6-10 H (0-2) /lpf U Epithel Cells (Auto) 0-2 (0-2) /hpf Urine Bacteria (Auto) None Seen (None Seen) Urine Mucus Present A (None Prsent) Urine Comment Anaplasma Smear Babesia Smear Lyme Disease Screen (Negative) Administered Medications Discontinued Medications Sodium Chloride (Nss) 500 mls @ 999 mls/hr IV .Q31M ONE Stop: 05/04/25 11:44 Last Infusion: 05/04/25 12:59 Dose: Infused Documented By: Admin: 05/04/25 11:35 Dose: 999 mls/hr Documented By: DARIAN Sodium Chloride (Nss) 500 mls @ 999 mls/hr IV .Q31M ONE Stop: 05/04/25 12:47 Last Infusion: 05/04/25 13:35 Dose: Infused Documented By: Admin: 05/04/25 12:59 Dose: 999 mls/hr Documented By: DARIAN Ioversol (Optiray 320 125ml) 118 ml IV ONCE ONE Stop: 05/04/25 12:15 Last Admin: 05/04/25 12:15 Dose: 118 ml Documented By: JAYLIN Imaging Data Radiologist's Impression: Head CT 05/04/25 11:05 CT head/brain wo con CLINICAL HISTORY: neuro deficit, acute stroke suspected. TECHNIQUE: Multiple axial CT images of the head were obtained without contrast. A dose lowering technique was utilized adhering to the principles of ALARA. COMPARISON: MRI of 01/27/[address] of 01/26/2024 FINDINGS: No intracranial hemorrhage seen. There is a stable 4 cm mass arising from the anterior lower falx consistent with meningioma. There is stable mild to moderate prominence of the ventricles out of proportion to the sulci which could represent cerebral atrophy or normal pressure hydrocephalus. There is stable severe chronic small vessel ischemic change. No midline shift. No skull fracture. Visualized paranasal sinuses and mastoid air cells are clear. IMPRESSION: 1. No acute findings seen. 2. Otherwise as described. ACT 112: Negative or not required by law. The above report was generated using voice recognition software. It may contain grammatical, syntax or spelling errors. Electronically signed by: Malik Desai M.D. 05/04/2025 12:40 PM Head CTA 05/04/25 11:05 CT angio head w con CLINICAL HISTORY: 89 years-old Male with neuro deficit, acute stroke suspected. 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 Images are reviewed in the axial, sagittal, and coronal planes. 3-D MIPS images are created and assessed. IV contrast was administered without complication. All measurements were obtained according to NASCET criteria. A dose lowering technique was utilized adhering to the principles of ALARA. CT DOSE: 1066.47 mGy.cm FINDINGS: CT BRAIN: Dictated separately. Large cribriform plate meningioma redemonstrated. Involutional changes with chronic microvascular ischemic disease. CT ANGIOGRAM OF THE BRAIN: There is atherosclerosis of the distal internal carotid arteries without high- grade stenosis or occlusion. 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 50% stenosis involves the supraclinoid segment left ICA on image 82 series 6. Mild multifocal stenoses of the patent middle cerebral arteries. The anterior cerebral arteries are widely patent. The distal vertebral arteries are patent. Multifocal high-grade stenoses of the bilateral posterior cerebral arteries has progressed from prior, predominantly involving the bilateral P1 segments (please see image 86 series 6 and image 93 series 6 for example). The visualized dural venous sinuses appear patent. IMPRESSION: 1. Age-indeterminate multifocal high-grade stenoses of the bilateral posterior cerebral arteries is new/progressed compared to the 01/26/2024 exam. 2. 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 3. Large cribriform plate meningioma redemonstrated. ACT 112: Negative or not required by law. The above report was generated using voice recognition software. It may contain grammatical, syntax or spelling errors. Electronically signed by: Carlito Hernandes M.D. 05/04/2025 12:51 PM Neck CTA 05/04/25 11:05 CT ANGIOGRAPHY OF THE NECK WITH CONTRAST CLINICAL HISTORY: Neuro deficit, acute stroke suspected. Confusion. Headache. Dizziness. COMPARISON STUDY: Carotid ultrasound January 27, 2024. CTA of the neck January 26, 2024. Technique: CT angiography of the carotid and vertebral arteries was obtained using Optiray and 3D reconstruction on an independent workstation. NASCET criteria was utilized. Automated exposure control was utilized for the study. A dose lowering technique was utilized adhering to the principles of ALARA. Findings: Visualized portions of the lung apices are unremarkable. There are no cervical spine fractures. There is no cervical lymphadenopathy. Left subclavian pacer leads are partially imaged. There is extensive atherosclerotic plaque within the proximal bilateral internal carotid arteries, greater on than right. This plaque results in 90% stenosis of the proximal right internal carotid artery which has mildly progressed since prior CTA of January 26, 2024. There is 50% stenosis of the proximal left internal carotid artery which is slightly progressed. There is moderate to severe stenosis at the origin of the right vertebral artery. Left vertebral artery is patent. No aneurysm or dissection within the neck. CTA of the head will be reported separately. IMPRESSION: 1. Severe (90%) stenosis of the proximal right internal carotid artery due to extensive atherosclerotic plaque. Findings have mildly progressed since prior CTA. 2. 50% stenosis of the proximal left internal carotid artery. 3. Moderate to severe stenosis at the origin of the right vertebral artery. ACT 112: Negative or not required by law. Electronically signed by: Emerson Perez M.D. 05/04/2025 12:49 PM Chest X-Ray 05/04/25 11:52 XR chest 1V portable CLINICAL HISTORY: cough COMPARISON STUDY: 01/26/2024 FINDINGS: Stable pacemaker. Stable cardiomegaly without pulmonary vascular congestion. There is interval faint patchy opacity at the right mid and lower lung. No lobar consolidation or pleural effusion. No pneumothorax. IMPRESSION: Early pneumonia on the right. ACT 112: Negative or not required by law. Electronically signed by: Malik Desai M.D. 05/04/2025 12:30 PM Discharge Plan Visit Data Chief Complaint: TIA Symptoms Stated Complaint: CONFUSED,BALANCE,HEADACHE,DIZZY, ED Provider: Anand Wilson Discharge Problem: Stroke-like symptoms, Elevated troponin, Acute confusion, CAMERON (acute kidney injury) Patient Disposition: Admitted As Inpatient Condition: Fair Discharge Instructions Interventions: ED Discharge Assessment Last Done: 05/04/25 16:09
[2025-05-04 11:31] LABS: Hematocrit (blood only) 47.4 % (42.0-52.0); Hemoglobin 15.8 g/dl (14.0-18.0); Immature Granulocytes # (auto) 0.05 K/uL (0.01-0.20); Immature Granulocytes % (auto) 0.5 %; Mean Corpuscular Hemoglobin 28.1 pg (25.0-34.0); Mean Corpuscular Volume 84.2 fL (80.0-100.0); Platelet Count 540 K/uL (130-400); RDW Standard Deviation 50.3 fL (36.4-46.3); Red Blood Count 5.63 M/uL (4.70-6.10); White Blood Count 10.09 K/ul (4.8-10.8)
[2025-05-04 11:33] LABS: Base Excess VBG 4.1 mEq/L; HCO3 VBG 28 mmol/L; Oxygen Saturation VBG 79.3 %; PCO2 VBG 37 mmHg (38-50); PO2 VBG 45 mmHg; pH VBG 7.48 (7.36-7.41)
[2025-05-04] MEDS: SODIUM CHLORIDE 0.9% 500 ML IV ONE ×2 (11:35→12:59)
[2025-05-04 11:50] LABS: Anion Gap 9 (3-11); Bilirubin,Total 1.1 mg/dl (0.2-1.0); Calcium 9.9 mg/dl (8.6-10.3); Carbon Dioxide 26 mmol/L (21-32); Chloride 107 mmol/L (98-107); Magnesium 2.0 mg/dl (1.7-2.4); Potassium 4.1 mmol/L (3.5-5.1); Sodium 142 mmol/L (136-145)
[2025-05-04 11:56] LABS: Alanine Aminotransferase 20 U/L (7-52); Albumin Globulin Ratio 1.9 (0.9-2); Alkaline Phosphatase 91 U/L (34-104); Blood Urea Nitrogen 23 mg/dl (6-23); Globulin 2.5 gm/dl (2.5-4.0); Glucose 132 mg/dl (70-99(Fasting)); Total Protein 7.2 gm/dl (6.0-8.3)
[2025-05-04 12:06] LABS: INR 1.1 (0.9-1.1); Partial Thromboplastin Time 29 Seconds (21-31); Prothrombin Time 12.1 Seconds (9.0-12.0)
[2025-05-04] MEDS: OPTIRAY 320 125ml IV ONE (12:15)
--- NOTE | 2025-05-04 12:31 | XRay Report ---
XR chest 1V portable CLINICAL HISTORY: cough COMPARISON STUDY: 01/26/2024 FINDINGS: Stable pacemaker. Stable cardiomegaly without pulmonary vascular congestion. There is inter jen faint patchy opacity at the right mid and lower lung. No lobar consolidation or pleural effusion. No pneumothorax. IMPRESSION: Early pneumonia on the right. ACT 112: Negative or not required by law. Electronically signed by: Malik Desai M.D. 05/04/2025 12:30 PM
--- NOTE | 2025-05-04 12:41 | CT Scan Report ---
CT head/brain wo con CLINICAL HISTORY: neuro deficit, acute stroke suspected. TECHNIQUE: Multiple axial CT images of the head were obtained without contrast. A dose lowering tech nique was utilized adhering to the principles of ALARA. COMPARISON: MRI of 01/27/[address] of 01/26/2024 FINDINGS: No intracranial hemorrhage seen. There is a stable 4 cm mass arising from the anterior lowe r falx consistent with meningioma. There is stable mild to moderate prominence of the ventricles out of proportion to the sulci which could represent cerebral atrophy or normal pressure hydrocephalus. T here is stable severe chronic small vessel ischemic change. No midline shift. No skull fracture. Visu alized paranasal sinuses and mastoid air cells are clear. IMPRESSION: 1. No acute findings seen. 2. Otherwise as described. ACT 112: Negative or not required by law. The above report was generated using voice recognition software. It may contain grammatical, syntax o r spelling errors. Electronically signed by: Malik Desai M.D. 05/04/2025 12:40 PM
--- NOTE | 2025-05-04 12:51 | CT Scan Report ---
CT ANGIOGRAPHY OF THE NECK WITH CONTRAST CLINICAL HISTORY: Neuro deficit, acute stroke suspected. Confusion. Headache. Dizziness. COMPARISON STUDY: Carotid ultrasound January 27, 2024. CTA of the neck January 26, 2024. Technique: CT angiography of the carotid and vertebral arteries was obtained using Optiray and 3D rec onstruction on an independent workstation. NASCET criteria was utilized. Automated exposure control was utilized for the study. A dose lowering technique was utilized adhering to the principles of ALA RA. Findings: Visualized portions of the lung apices are unremarkable. There are no cervical spine fractu res. There is no cervical lymphadenopathy. Left subclavian pacer leads are partially imaged. There is extensive atherosclerotic plaque within the proximal bilateral internal carotid arteries, greater on than right. This plaque results in 90% stenosis of the proximal right internal carotid artery which has mildly progressed since prior CTA of January 26, 2024. There is 50% stenosis of the proximal left i nternal carotid artery which is slightly progressed. There is moderate to severe stenosis at the orig in of the right vertebral artery. Left vertebral artery is patent. No aneurysm or dissection within t he neck. CTA of the head will be reported separately. IMPRESSION: 1. Severe (90%) stenosis of the proximal right internal carotid artery due to extensive atherosclerot ic plaque. Findings have mildly progressed since prior CTA. 2. 50% stenosis of the proximal left internal carotid artery. 3. Moderate to severe stenosis at the origin of the right vertebral artery. ACT 112: Negative or not required by law. Electronically signed by: Emerson Perez M.D. 05/04/2025 12:49 PM
--- NOTE | 2025-05-04 12:53 | CT Scan Report ---
CT angio head w con CLINICAL HISTORY: 89 years-old Male with neuro deficit, acute stroke suspected. 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 Images are reviewed in the axial, sagittal, and coronal planes . 3-D MIPS images are created and assessed. IV contrast was administered without complication. All me asurements were obtained according to NASCET criteria. A dose lowering technique was utilized adherin g to the principles of ALARA. CT DOSE: 1066.47 mGy.cm FINDINGS: CT BRAIN: Dictated separately. Large cribriform plate meningioma redemonstrated. 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 CT ANGIOGRAM OF THE BRAIN: There is atherosclerosis of the distal internal carotid arteries without high-grade stenosis or occlu anastasia. 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 50% stenosis involves the supraclinoid segment left ICA on image 82 series 6. M ild multifocal stenoses of the patent middle cerebral arteries. The anterior cerebral arteries are wi nikita patent. The distal vertebral arteries are patent. Multifocal high-grade stenoses of the bilatera l posterior cerebral arteries has progressed from prior, predominantly involving the bilateral P1 seg ments (please see image 86 series 6 and image 93 series 6 for example). The visualized dural venous s inuses appear patent. IMPRESSION: 1. Age-indeterminate multifocal high-grade stenoses of the bilateral posterior cerebral arteries is n ew/progressed compared to the 01/26/2024 exam. 2. 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 3. Large cribriform plate meningioma redemonstrated. ACT 112: Negative or not required by law. The above report was generated using voice recognition software. It may contain grammatical, syntax o r spelling errors. Electronically signed by: Carlito Hernandes M.D. 05/04/2025 12:51 PM
--- NOTE | 2025-05-04 13:24 | History & Physical Report ---
Date of Service May 04, 2025 Assessment & Plan (1) Stroke-like symptoms: (2) NICM (nonischemic cardiomyopathy): Plan Mr. May is an 89 year old gentleman with history of severe right ICA stenosis (followed neurology/neurosurgery historically), leukoencephalopathy, meningioma, lester noncompliant with cpap, polyneuropathy, NICM s/p BIV ICD, chronic LBBB, CAD, BPH who is admitted for evaluation of progressive cognitive decline and concern for stroke like symptoms. Patient is showing signs of progressive dementia given worsening of delirium in morning and evening, worsening short term memory; however, given progression of findings on CTA will order MRI and discuss case with Neuro to see if there is further intervention available or management recommended at this time. 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 #Stroke-like symptoms #Progressive cognitive disturbance #Severe Right ICA stenosis #Gait disturbance #Leukoencephalopathy #meningioma followed with neurosurgery previously, no surgical intervention appropriate CTA with mild progression to 90% Follow neurosurgery 2023, historically reported to not have symptoms related to this however, concern that lightheadedness may be contributory as well as headaches Will consult Neurology to assess if the OLEKSANDR is clinically significant or if there is possibility for any intervention in light of comorbidities MRI ordered PT/OT ordered, speech ordered admit med/tele Orthostats ordered lipid panel & A1C in am #Thrombocytosis noted as op as well smear ordered #Elevated troponin likely demand iso suspected dehydration #CAMERON on CKD reports poor po intake with fluids Cr at 1.75, baseline 1.4 s/p IVF, encourage Po trend BMP #Delirium #LESTER, noncompliant with cpap reported delirium at home, worse in mornings will order nocturnal pulse ox #NICM s/p BiV ICD in 05/2016 with last gent change 05/2023 #Chronic LBBB #CAD s/p C 2000 Continues on Metoprolol, ASA, and statin Device check ordered monitor on tele # BPH, urge incontinence. no taking mirabegron per on finasteride and tamsulosin will reduce flomax from 0.8 to 0.4 iso postural dizziness #HLD continue statin #gout continue allopurinol #polyneuropathy does not take gabapentin DVT ppx heparin DNR DNI per discussion with patient and at bedside Admit to med/tele Dispo likely contingent on PT/OT Admission and Anticipated Discharge Date Admission Date: Time spent evaluating patient, direct bedside care, chart review, placing orders, interpretation of diagnostic studies, discussion with consultants, patient, and family members, as well as other required patient management activities is 80 minutes. History of Present Illness Chief Complaint: Stroke like symptoms Primary Care Provider: Sophie Bourne PA-C Mr. May is an 89 year old gentleman with history of severe right ICA stenosis (followed neurology/neurosurgery historically), leukoencephalopathy, meningioma, lester noncompliant with cpap, polyneuropathy, NICM s/p BIV ICD, chronic LBBB, CAD, BPH who presented to the ED due stroke like symptoms. provided most of history at bedside, patient was able to contribute some as well. states that over the last few months patient has been demonstrating worsening confusion, predominately in the mornings. He is expressing delusions of people being in the home with he and his , of which is not true. He also frequently thinks he is in [place] (they do spend the nash there, but have been in [facility] for some months now). He endorses noticing that his "brain is just giving out" reporting that he is aware of his confusion, and loss of short term memory. states that in the last 2 weeks he has had more speech disturbances marked by word finding difficulty and slurring. also states that sometimes he does cough more with eating. He has history of falls but nothing recent. He uses a cane to ambulate. He denies cough, fevers/chills, chest pain, palpitations, unilateral weakness. He does endorse postural headaches and lightheadedness upon standing which is distressing. He denies syncope. He denies etoh, tobacco, or illicits. In the ED, vitals were notable for BP of 120-160s, HR of 80s, and O2 sat of mid 90s on room air Imaging revealed stable menigioma, no acute ICH, progression of OLEKSANDR to 90% ED interventions: 1L NS Patient to be admitted to med/tele for further evaluation and management of stroke like symptoms Allergies Allergy/AdvReac Type Severity Reaction Status Date / Time No Known Allergies Allergy Unverified 01/26/24 22:42 Home Medications Medication Instructions Recorded Confirmed Type allopurinol 300 mg tablet 300 mg PO DAILY 01/26/24 05/04/25 History aspirin 81 mg tablet,delayed 81 mg PO QAM 01/26/24 05/04/25 History release atorvastatin 80 mg tablet 40 mg PO QAM 01/26/24 05/04/25 History cholecalciferol (vitamin D3) 25 2,000 unit PO Q OTHER DAY 01/26/24 05/04/25 History mcg (1,000 unit) tablet (Vitamin D3) cyanocobalamin (vitamin B-12) 1,000 mcg PO Q OTHER DAY 01/26/24 05/04/25 History 1,000 mcg tablet (Vitamin B-12) finasteride 5 mg tablet 5 mg PO QAM 01/26/24 05/04/25 History metoprolol succinate 25 mg 25 mg PO QAM 01/26/24 05/04/25 History tablet,extended release 24 hr omega 6-van-hkv-fish oil 1,200 mg 1 cap PO BID 01/26/24 05/04/25 History (144 mg-216 mg) capsule (Fish Oil) tamsulosin 0.4 mg capsule 0.8 mg PO QAM 01/26/24 05/04/25 History Past Med/Surg History Problem List (Updated 05/04/25 @ 16:28 by Yesi Toledo PA-C) Stroke-like symptoms Elevated troponin (Acute) Visual disturbance (Acute) Medical History (Updated 05/04/25 @ 16:28 by Yesi Toledo PA-C) Benign esophageal stricture CKD stage 3b, GFR 30-44 ml/min Stenosis of right carotid artery LBBB (left bundle branch block) Chronic systolic CHF (congestive heart failure) Hypertension NICM (nonischemic cardiomyopathy) Carotid stenosis Hypertension Heart disease Macular degeneration Surgical History (Updated 05/04/25 @ 16:28 by Yesi Toledo PA-C) Hx of esophagogastroduodenoscopy Hx of colonoscopy Hx of cataract removal with insertion of prosthetic lens Biventricular ICD (implantable cardioverter-defibrillator) in place Family History (Updated 05/04/25 @ 16:28 by Yesi Toledo PA-C) Mother COPD (chronic obstructive pulmonary disease) Social History Smoking Status: Former smoker Tobacco Type: Cigarettes Second Hand Exposure: No; Do You Dip or Chew Tobacco: No; Hx Alcohol Use: No Hx Substance Use: No Preferred Language: Dutch Beliefs That Will Affect Care: None Current Living Situation: Spouse Feels Safe at Home: Yes Assistive Devices: Cane, Denture - Upper, Denture - Lower and Hearing Aid - Bilateral Review of Systems Review of Systems: Constitutional: (-) fever/chills, (-) recent loss of weight, (-) appetite changes, (-) night sweats. Head: (+) headache, (+) dizziness. Eye: (-) blurring of vision, (-) double vision, (-) redness. Ear: (-) hearing loss, (-) discharge, (-) vertigo Nose: (-) discharge, (-) bleeding, (-) congestion, (-) post nasal drip. Throat: (-) sore throat, (-) hoarseness of voice, (-) odynophagia. Cardiovascular: (-) chest pain, (-) palpitations, (-) syncope, (-) orthopnea, (- ) PND, (-) leg swelling. Respiratory: (-) shortness of breath, (-) cough, (-) wheezing, (-) hemoptysis. Neuro: (+) weakness in extremities, (-) numbness, (-) tingling, (-) tremor. Gastrointestinal: (-) belly pain, (-) belly distension, (-) nausea, (-) vomiting, (-) diarrhea, (-) constipation Genitourinary: (-) hematuria, (-) dysuria, (-) polyuria, (-) hesitancy, (-) frequency, (-) urinary incontinence. Musculoskeletal: (-) myalgia, (-) arthralgia. Skin: (-) rashes. Endocrine: (-) heat/cold intolerance. Psychiatry: (-) depression, (-) hallucination. Physical Exam Physical Exam: GENERAL APPEARANCE: AxOx4, well appearing for age no acute distress. HEENT: NC, AT. MMM. EOMI, clear conjunctiva, oropharynx clear. NECK: Supple without lymphadenopathy. No stiffness or restricted ROM. HEART: Normal rate and regular rhythm, LATASHA+, device pocket without signs of erythema or swelling LUNGS: CTAB, moving air well. No crackles or wheezes are heard. ABDOMEN: Soft, nontender, nondistended with good bowel sounds heard. BACK: No CVAT, no obvious deformity. EXTREMITIES: Without cyanosis, clubbing or edema. NEUROLOGICAL: Grossly nonfocal. Alert and oriented, moving all 4 extremities. CN II-XII intact strength 5/5 Skin: Warm and dry without any rash. Results & Data Results & Data Vital Signs (Past 12 Hours) Vital Signs Temp Pulse Pulse Resp BP BP Pulse Ox 05/04/25 13:00 87 16 153/90 H 93 05/04/25 12:30 89 24 130/77 93 05/04/25 12:00 91 H 16 133/84 92 05/04/25 11:42 99 H 05/04/25 11:30 98 H 20 122/80 92 05/04/25 11:20 102 H 16 161/99 H 93 05/04/25 11:01 36.9 C 67 20 131/59 L 92 O2 Del Method 05/04/25 13:00 05/04/25 12:30 05/04/25 12:00 05/04/25 11:42 05/04/25 11:30 05/04/25 11:20 Room Air 05/04/25 11:01 Room Air Laboratory Results Short CBC 05/04/25 Range/Units 11:15 WBC 10.09 (4.8-10.8) K/ul Hgb 15.8 (14.0-18.0) g/dl Hct 47.4 (42.0-52.0) % Plt Count 540 H (130-400) K/uL BMP 05/04/25 11:15 Sodium 142 Potassium 4.1 Chloride 107 Carbon Dioxide 26 BUN 23 Creatinine 1.75 H Glucose 132 H Calcium 9.9 Liver Function 05/04/25 Range/Units 11:15 Total Bilirubin 1.1 H (0.2-1.0) mg/dl AST 23 (13-39) U/L ALT 20 (7-52) U/L Alkaline Phosphatase 91 (34-104) U/L Albumin 4.7 (3.4-5.0) gm/dl Urine 05/04/25 Range/Units 13:21 Urine Color Yellow Urine Appearance Clear (Clear) Urine pH 7.0 (4.5-7.5) Ur Specific Richardson 1.039 H (1.000-1.030) Urine Protein 2+ H (Negative) Urine Glucose (UA) Negative (Negative) Diagnostic Findings Head CT 05/04/25 11:05 CT head/brain wo con CLINICAL HISTORY: neuro deficit, acute stroke suspected. TECHNIQUE: Multiple axial CT images of the head were obtained without contrast. A dose lowering technique was utilized adhering to the principles of ALARA. COMPARISON: MRI of 01/27/[address] of 01/26/2024 FINDINGS: No intracranial hemorrhage seen. There is a stable 4 cm mass arising from the anterior lower falx consistent with meningioma. There is stable mild to moderate prominence of the ventricles out of proportion to the sulci which could represent cerebral atrophy or normal pressure hydrocephalus. There is stable severe chronic small vessel ischemic change. No midline shift. No skull fracture. Visualized paranasal sinuses and mastoid air cells are clear. IMPRESSION: 1. No acute findings seen. 2. Otherwise as described. ACT 112: Negative or not required by law. The above report was generated using voice recognition software. It may contain grammatical, syntax or spelling errors. Electronically signed by: Malik Desai M.D. 05/04/2025 12:40 PM Head CTA 05/04/25 11:05 CT angio head w con CLINICAL HISTORY: 89 years-old Male with neuro deficit, acute stroke suspected. 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 Images are reviewed in the axial, sagittal, and coronal planes. 3-D MIPS images are created and assessed. IV contrast was administered without complication. All measurements were obtained according to NASCET criteria. A dose lowering technique was utilized adhering to the principles of ALARA. CT DOSE: 1066.47 mGy.cm FINDINGS: CT BRAIN: Dictated separately. Large cribriform plate meningioma redemonstrated. Involutional changes with chronic microvascular ischemic disease. CT ANGIOGRAM OF THE BRAIN: There is atherosclerosis of the distal internal carotid arteries without high- grade stenosis or occlusion. 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 50% stenosis involves the supraclinoid segment left ICA on image 82 series 6. Mild multifocal stenoses of the patent middle cerebral arteries. The anterior cerebral arteries are widely patent. The distal vertebral arteries are patent. Multifocal high-grade stenoses of the bilateral posterior cerebral arteries has progressed from prior, predominantly involving the bilateral P1 segments (please see image 86 series 6 and image 93 series 6 for example). The visualized dural venous sinuses appear patent. IMPRESSION: 1. Age-indeterminate multifocal high-grade stenoses of the bilateral posterior cerebral arteries is new/progressed compared to the 01/26/2024 exam. 2. 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 3. Large cribriform plate meningioma redemonstrated. ACT 112: Negative or not required by law. The above report was generated using voice recognition software. It may contain grammatical, syntax or spelling errors. Electronically signed by: Carlito Hernandes M.D. 05/04/2025 12:51 PM Neck CTA 05/04/25 11:05 CT ANGIOGRAPHY OF THE NECK WITH CONTRAST CLINICAL HISTORY: Neuro deficit, acute stroke suspected. Confusion. Headache. Dizziness. COMPARISON STUDY: Carotid ultrasound January 27, 2024. CTA of the neck January 26, 2024. Technique: CT angiography of the carotid and vertebral arteries was obtained using Optiray and 3D reconstruction on an independent workstation. NASCET criteria was utilized. Automated exposure control was utilized for the study. A dose lowering technique was utilized adhering to the principles of ALARA. Findings: Visualized portions of the lung apices are unremarkable. There are no cervical spine fractures. There is no cervical lymphadenopathy. Left subclavian pacer leads are partially imaged. There is extensive atherosclerotic plaque within the proximal bilateral internal carotid arteries, greater on than right. This plaque results in 90% stenosis of the proximal right internal carotid artery which has mildly progressed since prior CTA of January 26, 2024. There is 50% stenosis of the proximal left internal carotid artery which is slightly progressed. There is moderate to severe stenosis at the origin of the right vertebral artery. Left vertebral artery is patent. No aneurysm or dissection within the neck. CTA of the head will be reported separately. IMPRESSION: 1. Severe (90%) stenosis of the proximal right internal carotid artery due to extensive atherosclerotic plaque. Findings have mildly progressed since prior CTA. 2. 50% stenosis of the proximal left internal carotid artery. 3. Moderate to severe stenosis at the origin of the right vertebral artery. ACT 112: Negative or not required by law. Electronically signed by: Emerson Perez M.D. 05/04/2025 12:49 PM Chest X-Ray 05/04/25 11:52 XR chest 1V portable CLINICAL HISTORY: cough COMPARISON STUDY: 01/26/2024 FINDINGS: Stable pacemaker. Stable cardiomegaly without pulmonary vascular congestion. There is interval faint patchy opacity at the right mid and lower lung. No lobar consolidation or pleural effusion. No pneumothorax. IMPRESSION: Early pneumonia on the right. ACT 112: Negative or not required by law. Electronically signed by: Malik Desai M.D. 05/04/2025 12:30 PM Medications Administered Home Medications Medication Instructions Recorded Confirmed Last Taken allopurinol 300 mg tablet 300 mg PO DAILY 01/26/24 05/04/25 Unknown aspirin 81 mg tablet,delayed 81 mg PO QAM 01/26/24 05/04/25 Unknown release atorvastatin 80 mg tablet 40 mg PO QAM 01/26/24 05/04/25 Unknown cholecalciferol (vitamin D3) 25 2,000 unit PO Q OTHER DAY 01/26/24 05/04/25 Unknown mcg (1,000 unit) tablet (Vitamin D3) cyanocobalamin (vitamin B-12) 1,000 mcg PO Q OTHER DAY 01/26/24 05/04/25 Unknown 1,000 mcg tablet (Vitamin B-12) finasteride 5 mg tablet 5 mg PO QAM 01/26/24 05/04/25 Unknown metoprolol succinate 25 mg 25 mg PO QAM 01/26/24 05/04/25 Unknown tablet,extended release 24 hr omega 7-qvn-wpd-fish oil 1,200 mg 1 cap PO BID 01/26/24 05/04/25 Unknown (144 mg-216 mg) capsule (Fish Oil) tamsulosin 0.4 mg capsule 0.8 mg PO QAM 01/26/24 05/04/25 Unknown
[2025-05-04 13:53] LABS: Appearance Urine Clear (Clear); Bacteria Urine Automated None Seen (None Seen); Epithelial Cell Urine Auto 0-2 /hpf (0-2); Glucose Urine UA Negative (Negative); RBC Urine Automated 0-2 /hpf (0-2); WBC Urine Automated 0-5 /hpf (0-5)
[2025-05-04] MEDS ORDERED: ONDANSETRON INJ 2 MG/ML 2 ML VIAL IV PRN (16:40)
[2025-05-04] MEDS ORDERED: POLYETHYLENE (MIRALAX) 17 GM PACK PO PRN (16:40)
[2025-05-04] MEDS ORDERED: PHARMACIST DISCHARGE MED REC CONSULT PRN (16:40)
--- NOTE | 2025-05-04 18:51 | Neurology Consultation ---
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 Denies stroke symptoms. CTA read as >90% R ICA stenosis but of note this has traditionally been difficult to evaluate due to artifact from heavy calcification and DSA in July of last year found < 65% stenosis. Given his significant neurologic history would recommend MRI to r/o enlarging meningioma v stroke for cause of headache. Telehealth Consultation Telehealth Information Telehealth Information: I performed this visit using a real-time telehealth connection between my location and the patients location ([facility]). After connecting through interactive tele-video, patient was identified by name and date of and/or wristband check.Patient (or authorized healthcare hvac sales representative) was informed that this was a telemedicine visit and it was being conducted confidentially over secure lines. My office door was closed and no one else was present in the room with me.Patient (or authorized healthcare hvac sales representative) provided consent to proceed with the visit, expressed an understanding of privacy and security of the telemedicine visit, and gave permission to have a hospital hvac sales representative in the room in order to assist with the visit and to conduct portions of the visit, as needed. I informed the patient (or authorized healthcare hvac sales representative) that I reviewed their record and presented the opportunity for them to ask any questions regarding the visit today. The patient agreed to participate. History of Present Illness Reason for Consultation: Headache in setting of history of R ICA stenosis and meningioma Requesting Physician: Dr. Dumont Attending Physician: Cate Dumont MD History of Present Illness Pt has a history of R ICA stenosis, sphenoidal meningioma, CKD, NICM who presents for a day of headaches. Unfortunately tele visit was difficult to co mplete due to volume issues. He states he has had a headache all day, denies weakness associated with it. States this is atypical for him. No N/V, dizziness. He has been followed with [facility] with DSA 07/2024 to better evaluate the degree of R ICA stenosis - found at that time to be approximately 65%, A carotid ultrasound in February of this year found less than 50% stenosis. CTA today is read as greater than 90% stenosis. His carotid artery has traditionally been difficult to measure on CTA due to heavy calcified plaque. He had an MRI in March of this year that showed a stable size of meningioma. Allergies Allergy/AdvReac Type Severity Reaction Status Date / Time No Known Allergies Allergy Unverified 01/26/24 22:42 Home Medications Medication Instructions Recorded Confirmed Type allopurinol 300 mg tablet 300 mg PO DAILY 01/26/24 05/04/25 History aspirin 81 mg tablet,delayed 81 mg PO QAM 01/26/24 05/04/25 History release atorvastatin 80 mg tablet 40 mg PO QAM 01/26/24 05/04/25 History cholecalciferol (vitamin D3) 25 2,000 unit PO Q OTHER DAY 01/26/24 05/04/25 History mcg (1,000 unit) tablet (Vitamin D3) cyanocobalamin (vitamin B-12) 1,000 mcg PO Q OTHER DAY 01/26/24 05/04/25 History 1,000 mcg tablet (Vitamin B-12) finasteride 5 mg tablet 5 mg PO QAM 01/26/24 05/04/25 History metoprolol succinate 25 mg 25 mg PO QAM 01/26/24 05/04/25 History tablet,extended release 24 hr omega 7-qyv-uxk-fish oil 1,200 mg 1 cap PO BID 01/26/24 05/04/25 History (144 mg-216 mg) capsule (Fish Oil) tamsulosin 0.4 mg capsule 0.8 mg PO QAM 01/26/24 05/04/25 History Patient History Medical History (Updated 05/04/25 @ 18:59 by Sandra Scott MD) Benign esophageal stricture CKD stage 3b, GFR 30-44 ml/min Stenosis of right carotid artery LBBB (left bundle branch block) Chronic systolic CHF (congestive heart failure) Hypertension NICM (nonischemic cardiomyopathy) Carotid stenosis Hypertension Heart disease Macular degeneration Surgical History (Updated 05/04/25 @ 16:28 by Yesi Toledo PA-C) Hx of esophagogastroduodenoscopy Hx of colonoscopy Hx of cataract removal with insertion of prosthetic lens Biventricular ICD (implantable cardioverter-defibrillator) in place Family History (Updated 05/04/25 @ 16:28 by Yesi Toledo PA-C) Mother COPD (chronic obstructive pulmonary disease) Social History Smoking Status: Former smoker Tobacco Type: Cigarettes Second Hand Exposure: No; Do You Dip or Chew Tobacco: No; Hx Alcohol Use: No Hx Substance Use: No Preferred Language: Moroccan Communication Ability: Effective Commercial Singer Required: No Beliefs That Will Affect Care: None Current Living Situation: Spouse Current Living Situation Comment: home with Feels Safe at Home: Yes Safety Concerns: Feels Safe At This Time Assistive Devices: Cane, Denture - Upper, Denture - Lower and Hearing Aid - Bilateral Review of Systems negative aside from HPI Physical Exam Patient resting in bed comfortably, able to converse appropriately. Alert and oriented x 3, no aphasia. Pupils equal in size and symmetric, EOM intact, no facial droop. Able to lift all extremities against gravity.No ataxia on finger to nose. Results & Data Vital Signs (Past 12 Hours) Vital Signs Temp Pulse Pulse Pulse Resp BP BP 05/04/25 16:40 36.7 C 83 19 172/82 H 05/04/25 16:40 36.7 C 83 19 172/82 H 05/04/25 16:40 05/04/25 16:37 79 05/04/25 13:00 87 16 153/90 H 05/04/25 12:30 89 24 130/77 05/04/25 12:00 91 H 16 133/84 05/04/25 11:42 99 H 05/04/25 11:30 98 H 20 122/80 05/04/25 11:20 102 H 16 161/99 H 05/04/25 11:01 36.9 C 67 20 131/59 L Pulse Ox Pulse Ox O2 Del Method O2 Del Method 05/04/25 16:40 94 Room Air 05/04/25 16:40 94 Room Air 05/04/25 16:40 94 Room Air 05/04/25 16:37 05/04/25 13:00 93 05/04/25 12:30 93 05/04/25 12:00 92 05/04/25 11:42 05/04/25 11:30 92 05/04/25 11:20 93 Room Air 05/04/25 11:01 92 Room Air Laboratory Results Per Chart Diagnostic Findings CT/CTA: stable size of sphenoidal meningioma, heavily calcified R ICA with possibly >90% stenosis.
[2025-05-04] MEDS: GABAPENTIN 100 MG CAP PO SCH (21:27)
[2025-05-04] MEDS: OMEGA-3 (PURIFIED FISH OIL) 1 GM CAP PO SCH (21:28)
[2025-05-04] MEDS: HEPARIN SOD 5,000 UNIT/0.5 ML VIAL SQ SCH (21:28)
[2025-05-04] MEDS: MELATONIN 3 MG TAB PO PRN (21:28)
[2025-05-04] MEDS: ACETAMINOPHEN 325 MG TAB PO PRN (21:28)
[2025-05-05 07:18] LABS: Hematocrit (blood only) 41.4 % (42.0-52.0); Hemoglobin 13.8 g/dl (14.0-18.0); Immature Granulocytes # (auto) 0.04 K/uL (0.01-0.20); Immature Granulocytes % (auto) 0.5 %; Mean Corpuscular Hemoglobin 28.5 pg (25.0-34.0); Mean Corpuscular Volume 85.4 fL (80.0-100.0); Platelet Count 512 K/uL (130-400); RDW Standard Deviation 50.9 fL (36.4-46.3); Red Blood Count 4.85 M/uL (4.70-6.10); White Blood Count 8.04 K/ul (4.8-10.8)
[2025-05-05 07:31] LABS: Anion Gap 7.0 (3-11); Blood Urea Nitrogen 21.0 mg/dl (6-23); Calcium 9.0 mg/dl (8.6-10.3); Carbon Dioxide 26.0 mmol/L (21-32); Chloride 107.0 mmol/L (98-107); Cholesterol 74.0 mg/dl (0-200); Creatinine Clr Calc Pharmacy 33.7 ml/min; Glucose 87.0 mg/dl (70-99(Fasting)); HDL Cholesterol 20.0 mg/dl; Potassium 3.7 mmol/L (3.5-5.1); Sodium 140.0 mmol/L (136-145); Triglycerides 144.0 mg/dl (0-150)
[2025-05-05 07:37] LABS: Hemoglobin A1C 5.8 % (4.5-5.6)
[2025-05-05] MEDS: GADOBUTROL 65ML VIAL IV ONE (08:31)
[2025-05-05] MEDS: CYANOCOBALAMIN (B-12) 500 MCG TABLET PO SCH (09:25)
[2025-05-05] MEDS: ASPIRIN 81 MG ECTAB PO SCH (09:25)
[2025-05-05] MEDS: FINASTERIDE 5 MG TAB PO SCH (09:25)
[2025-05-05] MEDS: ATORVASTATIN 40 MG TAB PO SCH (09:25)
[2025-05-05] MEDS: METOPROLOL SUCC 25MG EXT REL TAB PO SCH (09:26)
[2025-05-05] MEDS: MAGNESIUM OXIDE 400 MG TAB PO SCH (09:26)
[2025-05-05] MEDS: TAMSULOSIN HCL 0.4 MG CAP PO SCH (09:26)
--- NOTE | 2025-05-05 09:28 | Magnetic Resonance Report ---
MR brain wo/w con CLINICAL HISTORY: headache COMPARISON STUDY: Head CTs yesterday and MRI of 01/27/2024 FINDINGS: There is motion artifact. No restricted diffusion seen to suggest acute infarction. Stable moderate diffuse cerebral atrophy. Stable severe patchy periventricular increased T2 signal intensity which is nonspecific but usually represents chronic small vessel ischemic change. Stable mild diffus e paranasal sinus mucosal thickening. There is an enhancing extra-axial mass arising from the anterio r lower falx and cribriform plate. The mass measures 4.1 cm AP by 3.7 cm transverse by 3 cm craniocau dad, stable. It exerts stable mild mass effect on the medial aspect of the lower frontal lobes. It león s morphology consistent with meningioma. No other abnormal enhancement seen at the brain. IMPRESSION: 1. No evidence of acute infarction. 2. 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 3. Otherwise as described. ACT 112: Negative or not required by law. Electronically signed by: Malki Desai M.D. 05/05/2025 9:26 AM
--- NOTE | 2025-05-05 11:50 | Hospitalist Progress Note ---
Date of Service May 05, 2025 Assessment & Plan (1) Stroke-like symptoms: (2) NICM (nonischemic cardiomyopathy): Plan 89 year old gentleman with history of severe right ICA stenosis (followed neurology/neurosurgery historically), leukoencephalopathy, meningioma, LESTER noncompliant with CPAP, polyneuropathy, NICM s/p BIV ICD, chronic LBBB, CAD, BPH who is admitted for evaluation of progressive cognitive decline and concern for stroke like symptoms. Patient is showing signs of progressive dementia given worsening of delirium in morning and evening, worsening short term memory; however, given progression of findings on CTA, MRI was ordered and neuro consulted to help w/ comanagement. 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 LDL 25, A1c 5.8. ECHO w/ EF of 40-45%, severe concentric LVH, no ASD detected. PT/OT/Speech eval. C/w tele. BP drop noted in ortho vitals, will repeat. Neuro evaled, d/w neuro 05/05 after MRI resulted. Recs are to f/u neuro sx and neuro as OP, migraine cocktail as need for headache. Encourage cpap compliance, if not atleast nocturnal O2 recommended (Nocturnal pulse ox from 05/04 reviewed) #Likely pneumonia: pt w/ cough productive of sputum for more than a week per pt's . CXR w/ concern of Rt pna. will initiate rocephin, repeat CXR in 6 weeks to document resolution. #Thrombocytosis: noted as op as well. PBS 05/04 s/o likely reactive thrombocytosis. monitor. 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 Pt denies chest pain. Cr at 1.75, baseline 1.4 s/p IVF, encourage Po Cr down to 1.34 today monitor. #Delirium #LESTER, noncompliant with cpap reported delirium at home, worse in mornings c/t encourage cpap, atleast needs be on nocturnal O2. #NICM s/p BiV ICD in 05/2016 with last gent change 05/2023 #Chronic LBBB #CAD s/p C 2000 Continues on Metoprolol, ASA, and statin monitor on tele # BPH, urge incontinence: no taking mirabegron per . on finasteride and tamsulosin. will reduce flomax from 0.8 to 0.4 iso postural dizziness #HLD: continue statin #gout: continue allopurinol #polyneuropathy: does not take gabapentin DVT ppx heparin DNR DNI Dispo likely contingent on PT/OT Admission and Anticipated Discharge Date Admission Date: May 04, 2025 Subjective Patient was seen and examined at bedside. Patient was lying in bed, on room air, NAD, resting comfortably. Patient's at bedside who was also updated on plan of care. Patient reports intermittent headache, denies currently any headache or dizziness. Patient's mentions that patient is having cough productive of sputum since last week or so. Patient denies any new symptoms since presentation to the hospital. Physical Exam Physical Exam: GENERAL APPEARANCE: AxOx3 (not to T), well appearing for age no acute distress. HEENT: NC, AT. MMM. EOMI, clear conjunctiva, oropharynx clear. NECK: Supple without lymphadenopathy. No stiffness or restricted ROM. HEART: Normal rate and regular rhythm, LATASHA+, device pocket without signs of erythema or swelling LUNGS: CTAB, moving air well. No crackles or wheezes are heard. ABDOMEN: Soft, nontender, nondistended with good bowel sounds heard. BACK: No CVAT, no obvious deformity. EXTREMITIES: Without cyanosis, clubbing or edema. NEUROLOGICAL: Grossly nonfocal. Alert and oriented, moving all 4 extremities. CN II-XII intact strength 5/5 Skin: Warm and dry without any rash. Results & Data Results & Data Vital Signs (Past 12 Hours) Vital Signs Temp Pulse Pulse Pulse Resp BP Pulse Ox 05/05/25 09:47 05/05/25 09:43 66 05/05/25 08:02 36.4 C L 75 20 150/68 H 94 05/05/25 03:46 59 L 05/05/25 03:43 36.3 C L 74 18 132/52 L 93 05/05/25 01:00 05/05/25 00:56 74 05/05/25 00:17 37.0 C 74 20 128/77 91 Pulse Ox O2 Del Method O2 Del Method 05/05/25 09:47 Room Air 05/05/25 09:43 05/05/25 08:02 Room Air 05/05/25 03:46 91 Room Air 05/05/25 03:43 Room Air 05/05/25 01:00 Room Air 05/05/25 00:56 05/05/25 00:17 Room Air
[2025-05-05] MEDS: cefTRIAXone SODIUM 2,000 MG/50 ML BAG IV SCH (12:51)
[2025-05-06 08:10] LABS: Hematocrit (blood only) 47.8 % (42.0-52.0); Hemoglobin 15.1 g/dl (14.0-18.0); Immature Granulocytes # (auto) 0.07 K/uL (0.01-0.20); Immature Granulocytes % (auto) 0.7 %; Mean Corpuscular Hemoglobin 27.5 pg (25.0-34.0); Mean Corpuscular Volume 87.1 fL (80.0-100.0); Platelet Count 525 K/uL (130-400); RDW Standard Deviation 52.2 fL (36.4-46.3); Red Blood Count 5.49 M/uL (4.70-6.10); White Blood Count 9.41 K/ul (4.8-10.8)
[2025-05-06 09:34] LABS: Anion Gap 9.0 (3-11); Blood Urea Nitrogen 30.0 mg/dl (6-23); Calcium 9.5 mg/dl (8.6-10.3); Carbon Dioxide 27.0 mmol/L (21-32); Chloride 106.0 mmol/L (98-107); Creatinine Clr Calc Pharmacy 31.2 ml/min; Glucose 74.0 mg/dl (70-99(Fasting)); Potassium 3.8 mmol/L (3.5-5.1); Sodium 142.0 mmol/L (136-145)
[2025-05-06] MEDS: CHOLECALCIFEROL 25 MCG (1000 UNITS) TAB PO SCH (10:35)
[2025-05-06 11:03] VITALS: BP 114/72; RESP 18; TEMP 98.2; O2SAT 92
--- NOTE | 2025-05-06 13:00 | Discharge Summary ---
Date of Service May 06, 2025 Admission HPI Per Admitting Provider Mr. May is an 89 year old gentleman with history of severe right ICA stenosis (followed neurology/neurosurgery historically), leukoencephalopathy, meningioma, lester noncompliant with cpap, polyneuropathy, NICM s/p BIV ICD, chronic LBBB, CAD, BPH who presented to the ED due stroke like symptoms. provided most of history at bedside, patient was able to contribute some as well. states that over the last few months patient has been demonstrating worsening confusion, predominately in the mornings. He is expressing delusions of people being in the home with he and his , of which is not true. He also frequently thinks he is in [place] (they do spend the nash there, but have been in [facility] for some months now). He endorses noticing that his "brain is just giving out" reporting that he is aware of his confusion, and loss of short term memory. states that in the last 2 weeks he has had more speech disturbances marked by word finding difficulty and slurring. also states that sometimes he does cough more with eating. He has history of falls but nothing recent. He uses a cane to ambulate. He denies cough, fevers/chills, chest pain, palpitations, unilateral weakness. He does endorse postural headaches and lightheadedness upon standing which is distressing. He denies syncope. He denies etoh, tobacco, or illicits. In the ED, vitals were notable for BP of 120-160s, HR of 80s, and O2 sat of mid 90s on room air Imaging revealed stable menigioma, no acute ICH, progression of OLEKSANDR to 90% ED interventions: 1L NS Patient to be admitted to med/tele for further evaluation and management of stroke like symptoms Admission Exam Per Admitting Provider GENERAL APPEARANCE: AxOx3 (not to T), well appearing for age no acute distress. HEENT: NC, AT. MMM. EOMI, clear conjunctiva, oropharynx clear. NECK: Supple without lymphadenopathy. No stiffness or restricted ROM. HEART: Normal rate and regular rhythm, LATASHA+, device pocket without signs of erythema or swelling LUNGS: CTAB, moving air well. No crackles or wheezes are heard. ABDOMEN: Soft, nontender, nondistended with good bowel sounds heard. BACK: No CVAT, no obvious deformity. EXTREMITIES: Without cyanosis, clubbing or edema. NEUROLOGICAL: Grossly nonfocal. Alert and oriented, moving all 4 extremities. CN II-XII intact strength 5/5 Skin: Warm and dry without any rash. Principal Diagnosis #Stroke-like symptoms #Progressive cognitive disturbance #Severe Right ICA stenosis #Gait disturbance #Leukoencephalopathy #Meningioma #Likely pneumonia #CAMERON on CKD Discharge Exam GENERAL APPEARANCE: AxOx4, well appearing for age no acute distress. HEENT: NC, AT. MMM. EOMI, clear conjunctiva, oropharynx clear. NECK: Supple without lymphadenopathy. No stiffness or restricted ROM. HEART: Normal rate and regular rhythm, LATASHA+, device pocket without signs of erythema or swelling LUNGS: CTAB, moving air well. No crackles or wheezes are heard. ABDOMEN: Soft, nontender, nondistended with good bowel sounds heard. BACK: No CVAT, no obvious deformity. EXTREMITIES: Without cyanosis, clubbing or edema. NEUROLOGICAL: Grossly nonfocal. Alert and oriented, moving all 4 extremities. CN II-XII intact strength 5/5 Skin: Warm and dry without any rash. Discharge Data Allergies Allergy/AdvReac Type Severity Reaction Status Date / Time No Known Allergies Allergy Unverified 01/26/24 22:42 Consultations 05/04/25 13:18 ED Decision to Admit Stat 05/04/25 15:52 Consult Neurology Routine Ordered Studies 05/04/25 11:05 CT angio head w con Stat CT angio neck with con Stat CT head/brain wo con Stat 05/05/25 18:59 MR brain wo/w con Routine Hospital Course (1) Stroke-like symptoms: (2) NICM (nonischemic cardiomyopathy): Plan 89 year old gentleman with history of severe right ICA stenosis (followed neurology/neurosurgery historically), leukoencephalopathy, meningioma, LESTER noncompliant with CPAP, polyneuropathy, NICM s/p BIV ICD, chronic LBBB, CAD, BPH who is admitted for evaluation of progressive cognitive decline and concern for stroke like symptoms. Patient is showing signs of progressive dementia given worsening of delirium in morning and evening, worsening short term memory; however, given progression of findings on CTA, MRI was ordered and neuro consulted to help w/ comanagement. 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 LDL 25, A1c 5.8. ECHO w/ EF of 40-45%, severe concentric LVH, no ASD detected. PT/OT/Speech eval. C/w tele. BP drop noted in ortho vitals check. Neuro evaled, d/w neuro 05/05 after MRI resulted. Recs are to f/u neuro sx and neuro as OP, migraine cocktail as need for headache. Encourage cpap compliance, reemphasized the importance, pt did wear CPAP last night. #Likely pneumonia: pt w/ cough productive of sputum for more than a week per pt's . CXR w/ concern of Rt pna. will initiate rocephin, plan for 5 d of atb rx, repeat CXR in 6 weeks to document resolution. #Thrombocytosis: noted as op as well. PBS 05/04 s/o likely reactive thrombocytosis. monitor. 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 Pt denies chest pain. Cr at 1.75, baseline 1.4 s/p IVF, encourage Po Cr down monitor during PCP visit in a week time. #Delirium #LESTER, noncompliant with cpap reported delirium at home, worse in mornings c/t encourage cpap, atleast needs be on nocturnal O2. #NICM s/p BiV ICD in 05/2016 with last gent change 05/2023 #Chronic LBBB #CAD s/p [facility] 2000 Continues on Metoprolol, ASA, and statin monitor on tele # BPH, urge incontinence: no taking mirabegron per . on finasteride and tamsulosin. will reduce flomax from 0.8 to 0.4 iso postural dizziness #HLD: continue statin #gout: continue allopurinol #polyneuropathy: does not take gabapentin DVT ppx heparin DNR DNI Dispo likely contingent on PT/OT Patient is being discharged to acute rehab w/ following instructions at the point of discharge: Follow-up with your primary care physician within a week time and likely you will need labs CBC/CMP/magnesium/phosphorus. You were evaluated for strokelike symptoms, neurology physician evaluated you while in hospital, they recommended that you continue to follow-up with outpatient neurology and neurosurgery. Maintain CPAP compliance upon discharge. You will be discharged on antibiotic to complete 5 days therapy for possible pneumonia. You will need repeat Chest X ray in about 6 weeks time to document resolution of pneumonia. Coordinate with your PCP office to set up the test. Take your medications as prescribed. Please make sure that you are able to get your medications today by calling your pharmacy before you leave the hospital so that your treatment continuity is not broken. Home Health Attestation I certify that this patient is under my care and that I, or a physicians senior assistant manager working with me, had a face to-face encounter that meets the home health [id number] encounter requirements with this patient. The encounter with the patient was in whole, or in part, for the following medical condition, which is the primary reason for home health care (list medical condition): I certify that, based on my findings, the following services are medically necessary home health services: My clinical findings support the need for the above services because: Further, I certify that my clinical findings support that this patient is homebound (i.e. absences from home require considerable and taxing effort and are for medical reasons or hoahaoism services or infrequently or of short duration when for other reasons) because: Certification for Home Health Services: Based on the above findings, I certify that this patient is confined to the home and needs intermittent intermediate care, physical therapy and/or speech therapy or continues to need occupational therapy. The patient is under my care, and I have initiated the establishment of the plan of care. This patient will be followed by a physician who will periodically review the plan of care. Total Time Total Time Spent Total Time Spent (In Minutes): 35 Discharge Plan Discharge Items Patient Disposition: Transfer Inpatient Rehab Fac Reason For Visit: STROKE LIKE SX VS PROGRESSIVE DEMENTIA Discharge Diagnosis: #Stroke-like symptoms #Progressive cognitive disturbance #Severe Right ICA stenosis #Gait disturbance #Leukoencephalopathy #Meningioma #Likely pneumonia #CAMERON on CKD Condition on Discharge: Fair Activity: As commented below Activity Comment: continue w/ physical therapy at rehab Non-emergency contact: Primary Care Provider Call non-emergency contact if: you have any medication questions Follow-up/Referrals: Srinivasa Whitaker MD [Physician] - (Date & Time 05/31/2025 10:00 AM Provider: Srinivasa Whitaker MD Neurology [facility] ) Sophie Bourne PA-C [Primary Care Provider] - Diet: Heart Healthy Addtl Attending Provider Instructions: Follow-up with your primary care physician within a week time and likely you will need labs CBC/CMP/magnesium/phosphorus. You were evaluated for strokelike symptoms, neurology physician evaluated you while in hospital, they recommended that you continue to follow-up with outpatient neurology and neurosurgery. Maintain CPAP compliance upon discharge. You will be discharged on antibiotic to complete 5 days therapy for possible pneumonia. You will need repeat Chest X ray in about 6 weeks time to document resolution of pneumonia. Coordinate with your PCP office to set up the test. Take your medications as prescribed. Please make sure that you are able to get your medications today by calling your pharmacy before you leave the hospital so that your treatment continuity is not broken. Pending Studies at Discharge: No Stand-Alone Forms: [facility], Medications to Prevent Stroke Skilled Items Patient informed of condition?: Yes DNR: Yes Discharge Level of Care: Acute rehab Communicable Disease: No Discharge Prognosis: Stable Lines: None Urinary Catheter: No Medications and DC Order Prescriptions: New tamsulosin 0.4 mg Capsule 0.4 mg PO QAM Qty: 30 0RF magnesium oxide 400 mg (241.3 mg magnesium) Tablet 400 mg PO DAILY Qty: 30 0RF gabapentin 100 mg Capsule 200 mg PO TID Qty: 180 0RF cefdinir 300 mg capsule 300 mg PO BID 3 Days Qty: 6 0RF Continued atorvastatin 80 mg tablet 40 mg PO QAM Rx Instructions: 1/2 tablet dose allopurinol 300 mg tablet 300 mg PO DAILY metoprolol succinate 25 mg tablet extended release 24 hr 25 mg PO QAM finasteride 5 mg tablet 5 mg PO QAM aspirin 81 mg Tablet,Delayed Release (Dr/Ec) 81 mg PO QAM cholecalciferol (vitamin D3) [Vitamin D3] 25 mcg (1,000 unit) Tablet 2,000 unit PO Q OTHER DAY omega 8-wnp-cfl-fish oil [Fish Oil] 1,200 (144-216) mg Capsule 1 cap PO BID cyanocobalamin (vitamin B-12) [Vitamin B-12] 1,000 mcg Tablet 1,000 mcg PO Q OTHER DAY Discontinued tamsulosin 0.4 mg capsule 0.8 mg PO QAM Discharge Orders: Discharge Order (Routine); Ordered 05/06/25 Ordered By: Ama Wong Admission Data Admit Date/Time: 05/04/25 14:27 Attending Provider: Ama Wong Admit Provider: Cate Dumont Primary Care Provider: Sophie Bourne Other Providers: Cate Dumont; Sandra Scott; [facility]
[2025-05-06 14:23] VITALS: PULSE 93
--- NOTE | 2025-05-08 07:00 | Electrocardiogram Report ---
Test Reason : Blood Pressure : */* mmHG Vent. Rate : 66 BPM Atrial Rate : 66 BPM P-R Int : * ms QRS Dur : 126 ms QT Int : 504 ms P-R-T Axes : * 246 73 degrees QTcB Int : 528 ms AV dual-paced rhythm Biventricular pacemaker detected Abnormal ECG When compared with ECG of 26-Jan-2024 20:21, Vent. rate has decreased by 11 bpm Confirmed by Marcus Pratt ([id number]) on 05/08/2025 7:00:41 AM Referred By: REFERRED SELF Confirmed By: Marcus Pratt
== END 2025-05-06 15:10 | DRG 91 ==
LOC: ED 10:58 → SUATTDRO 14:27 → 2W 14:27 → UNDODISIN 05-06 13:44

== ENCOUNTER 2025-06-13 19:44 | Inpatient (IN) ==
[2025-06-13] MEDS: SODIUM CHLORIDE 0.9% 500 ML IV ONE (20:18)
[2025-06-13 20:21] LABS: Hematocrit (blood only) 46.7 % (42.0-52.0); Hemoglobin 15.4 g/dl (14.0-18.0); Immature Granulocytes # (auto) 0.02 K/uL (0.01-0.20); Immature Granulocytes % (auto) 0.2 %; Mean Corpuscular Hemoglobin 27.4 pg (25.0-34.0); Mean Corpuscular Volume 82.9 fL (80.0-100.0); Platelet Count 208 K/uL (130-400); RDW Standard Deviation 51.6 fL (36.4-46.3); Red Blood Count 5.63 M/uL (4.70-6.10); White Blood Count 8.49 K/ul (4.8-10.8)
[2025-06-13 20:37] LABS: Alanine Aminotransferase 14.0 U/L (7-52); Albumin Globulin Ratio 1.4 (0.9-2); Alkaline Phosphatase 94.0 U/L (34-104); Anion Gap 12.0 (3-11); Bilirubin,Total 0.9 mg/dl (0.2-1.0); Blood Urea Nitrogen 31.0 mg/dl (6-23); Calcium 9.8 mg/dl (8.6-10.3); Carbon Dioxide 23.0 mmol/L (21-32); Chloride 102.0 mmol/L (98-107); Creatinine Clr Calc Pharmacy 27.7 ml/min; Globulin 3.2 gm/dl (2.5-4.0); Glucose 141.0 mg/dl (70-99(Fasting)); Lipase 60.0 U/L (11-82); Magnesium 2.1 mg/dl (1.7-2.4); Potassium 3.9 mmol/L (3.5-5.1); Sodium 137.0 mmol/L (136-145); Total Protein 7.6 gm/dl (6.0-8.3)
--- NOTE | 2025-06-13 20:40 | Emergency Department Note ---
Impression & Plan Hypoxia, Aspiration pneumonia, Intractable nausea and vomiting, Generalized weakness ED Provider Note NAME: LILIANA LOEN AGE: 89 SEX: M : 1935 ARRIVES VIA: Ambulance INFORMANT: Patient ED PROVIDER(S): Nghia Fernandez MD CHIEF COMPLAINT: Weakness, nausea vomiting. PLAN: Disposition: Admit MEDICAL DECISION MAKING: The patient is a pleasant 89-year-old gentleman with a past medical history of dementia, hypertension, hyperlipidemia, CVA, GERD, BPH who presents to the emergency department via EMS and accompanied by his and son for evaluation of generalized weakness with nausea vomiting that began this afternoon into the evening. They deny any recent fevers. He has a mild cough which is unclear if it is new or not. Patient has had reported intermittent dizziness and upset stomach over the past week. He had been eating normally up until today. Patient was recently admitted to this facility in April and [facility]. The patient's son notes that the patient has since followed with [facility] and had testing performed related to the patient's elevated platelets in the 500s from his April admission. He understands that a new medication was initiated a couple of weeks ago but that he does not recall the name. On my evaluation the patient is ill-appearing in no distress, afebrile. O2 saturation was low to 86% placed on nasal canula and otherwise with stable vital signs. Appears clinically dry. He exhibits diminished breath sounds of bilateral lung armendariz with lungs otherwise clear with normal respiratory effort. Abdomen is benign. He exhibits generalized weakness without focal deficits. EKG demonstrates paced rhythm without overt acute ischemia. Chest x-ray demonstrates bibasilar infiltrates suspicious for pneumonia per my preliminary independent or potation. WBC within normal limits without neutrophilia or left shift. H/H and platelets within normal limits. Chemistry without metabolic acidosis. Creatinine 1.6, similar to recent range of values. Lactic acid 1.3, within normal limits. Electrolytes and LFTs unremarkable. Initial high-sensitivity troponin 72.5, nonspecific. Lipase is not elevated. Procalcitonin is not elevated. TSH within normal limits. Respiratory BioFire is negative. CT of the head was negative for acute rhinitis. CT of the abdomen pelvis demonstrates lower lung armendariz and further characterizes chest there are findings of bilateral lower lobe pneumonia. Otherwise no acute intra-abdominal process. The patient was treated with gentle IV fluid hydration. Blood cultures were obtained and empiric treatment for possible aspiration pneumonia initiated with IV Zosyn. Case was [facility] with Dr[facility] Fer[facility], [facility], who will evaluate the patient for admission. Further management per admitting team. Triage Nursing notes reviewed and agree them. Prior/external medical records reviewed Vital Signs: reviewed Differential diagnosis: Gastroenteritis, food borne illness, infections, appendicitis, diverticulitis, inflammatory bowel disease, obstruction, GI bleed, biliary pathology, volvulus, as well as other pathologies. ER treatment provided: See below. Diagnostics interpreted by me: ECG: Atrial sensed, ventricular paced rhythm, 105 bpm, no overt acute ischemia. Cardiac Monitoring: An order for continuous cardiac monitoring was placed and demonstrated Atrial sensed, ventricular paced rhythm, 105 bpm, no ectopy. Laboratory studies: See below Imaging studies: See below Consultation(s): Case was discussed with Dr. Ferro, [facility], who will evaluate the patient for admission. HPI: Per MDM. ROS: See above HPI for pertinent positives & negatives. A total of 10 systems reviewed and were otherwise negative. VITALS:See Below PHYSICAL EXAMINATION: GENERAL: Awake, alert, ill-appearing, in no distress HENT: Normocephalic, atraumatic. Oropharynx unremarkable. EYES: Normal conjunctiva. Sclera non-icteric. NECK: Supple. No nuchal rigidity. FROM. No JVD. RESPIRATORY: Diminished breath sounds at base and otherwise clear. CARDIAC: Regular rate, normal rhythm. Extremities warm and well perfused. Pulses equal. ABDOMEN: Soft, non-distended. No tenderness to palpation. No rebound or guarding. No masses. MUSCULOSKELETAL: Chest examination reveals no tenderness. The back is symmetrical on inspection without obvious abnormality. There is no CVA tenderness to palpation. No joint edema. LOWER EXTREMITIES: Calves are equal size bilaterally and non-tender. No edema. No discoloration. NEURO: Generalized weakness without focal extremity weakness. SKIN: No rash or jaundice noted. Nghia Fernandez MD Past Med/Surg History Problem List (Updated 06/14/25 @ 00:30 by Nghia Fernandez MD) Generalized weakness (Acute) Intractable nausea and vomiting (Acute) Aspiration pneumonia (Acute) Hypoxia (Acute) Pneumonia CAMERON (acute kidney injury) (Acute) Acute confusion (Acute) Elevated troponin (Acute) Stroke-like symptoms (Acute) Headache Stroke-like symptoms Elevated troponin (Acute) Visual disturbance (Acute) Medical History Benign esophageal stricture CKD stage 3b, GFR 30-44 ml/min Stenosis of right carotid artery LBBB (left bundle branch block) Chronic systolic CHF (congestive heart failure) Hypertension NICM (nonischemic cardiomyopathy) Carotid stenosis Hypertension Heart disease Macular degeneration Surgical History Hx of esophagogastroduodenoscopy Hx of colonoscopy Hx of cataract removal with insertion of prosthetic lens Biventricular ICD (implantable cardioverter-defibrillator) in place Family History Mother COPD (chronic obstructive pulmonary disease) Social History Smoking Status: Never smoker Tobacco Type: Cigarettes Second Hand Exposure: No; Do You Dip or Chew Tobacco: No; Hx Alcohol Use: No Hx Substance Use: No Preferred Language: Welsh Communication Ability: Effective Search Manager Required: No Beliefs That Will Affect Care: None Current Living Situation: Spouse Current Living Situation Comment: home with Feels Safe at Home: Yes Assistive Devices: Cane and Walker Allergies Allergies Allergy/AdvReac Type Severity Reaction Status Date / Time codeine Allergy Intermediate Hives Verified 06/13/25 21:05 Sulfa (Sulfonamide Allergy Intermediate Itching Verified 06/13/25 21:05 Antibiotics) sulfamethoxazole Allergy Intermediate Itching Verified 06/13/25 21:05 [From Bactrim] trimethoprim [From Bactrim] Allergy Intermediate Itching Verified 06/13/25 21:05 IZABELA Inhibitors AdvReac Intermediate Cough Verified 06/13/25 21:05 losartan AdvReac Intermediate Dizziness Verified 06/13/25 21:05 Home Meds Home Medications Medication Instructions Recorded Confirmed allopurinol 300 mg tablet 300 mg PO DAILY 01/26/24 06/13/25 aspirin 81 mg tablet,delayed 81 mg PO QAM 01/26/24 06/13/25 release cholecalciferol (vitamin D3) 25 2,000 unit PO Q OTHER DAY 01/26/24 06/13/25 mcg (1,000 unit) tablet (Vitamin D3) cyanocobalamin (vitamin B-12) 1,000 mcg PO Q OTHER DAY 01/26/24 06/13/25 1,000 mcg tablet (Vitamin B-12) finasteride 5 mg tablet 5 mg PO QAM 01/26/24 06/13/25 metoprolol succinate 25 mg 25 mg PO QAM 01/26/24 06/13/25 tablet,extended release 24 hr omega 9-fir-kgu-fish oil 1,200 mg 1 cap PO BID 01/26/24 06/13/25 (144 mg-216 mg) capsule (Fish Oil) albendazole 200 mg tablet 400 mg PO QAM 06/13/25 06/13/25 atorvastatin 40 mg tablet 40 mg PO DAILY 06/13/25 06/13/25 diclofenac sodium 1 % topical gel 2 g topical QID PRN Pain 06/13/25 06/13/25 escitalopram oxalate 5 mg tablet 5 mg PO DAILY 06/13/25 06/13/25 (Lexapro) hydroxyurea 500 mg capsule 500 mg PO DAILY 06/13/25 06/13/25 magnesium oxide 420 mg tablet 420 mg PO DAILY 06/13/25 06/13/25 mirabegron 50 mg tablet,extended 50 mg PO DAILY 06/13/25 06/13/25 release 24 hr (Myrbetriq) omeprazole 20 mg capsule,delayed 20 mg PO DAILY 06/13/25 06/13/25 release Previous Rx's Medication Instructions Recorded gabapentin 100 mg capsule 200 mg (2 x 100 mg) PO TID #180 05/06/25 caps tamsulosin 0.4 mg capsule 0.4 mg PO QAM #30 caps 05/06/25 Results & Data (ED) Vital Signs Vital Signs - 24 hr 06/13/25 19:50 06/13/25 19:50 06/13/25 19:52 Temperature 37.0 C Temperature Source Oral Pulse Rate 102 H 103 H Pulse Rate [Apical] Pulse Rhythm Regular Pulse Rhythm [Apical] Pulse Strength Normal Pulse Strength [Apical] Respiratory Rate 22 Respiratory Effort / Characteristics Non-Labored Spontaneous Respiratory Depth Normal Respiratory Pattern Regular Blood Pressure 153/96 H Blood Pressure [Right Arm] Blood Pressure Mean 115 Blood Pressure Mean [Right Arm] Blood Pressure Position Semi-fowlers Blood Pressure Position [Right Arm] Pulse Oximetry 94 86 L Oxygen Delivery Method Nasal Cannula Room Air Oxygen Flow Rate 4 Sepsis Recent Fever Within 48 Hours Yes Sepsis New/Unexplained Change in Mental Status Yes Sepsis Action Taken by Nursing Physician Notified Oxygen Flow Rate - Titration 4 Pulse Oximetry Post Tiitration 95 06/13/25 19:58 06/13/25 21:32 06/13/25 23:00 Temperature 37.3 C Temperature Source Oral Pulse Rate 102 H Pulse Rate [Apical] 94 H 86 Pulse Rhythm Regular Pulse Rhythm [Apical] Regular Regular Pulse Strength Pulse Strength [Apical] Normal Normal Respiratory Rate 22 18 18 Respiratory Effort / Characteristics Non-Labored Spontaneous Non-Labored Spontaneous Respiratory Depth Normal Normal Respiratory Pattern Regular Regular Blood Pressure Blood Pressure [Right Arm] 134/74 136/74 Blood Pressure Mean Blood Pressure Mean [Right Arm] 94 94 Blood Pressure Position Blood Pressure Position [Right Arm] Semi-fowlers Semi-fowlers Pulse Oximetry 95 96 99 Oxygen Delivery Method Nasal Cannula Room Air Nasal Cannula Oxygen Flow Rate 4 4 Sepsis Recent Fever Within 48 Hours Sepsis New/Unexplained Change in Mental Status Sepsis Action Taken by Nursing Oxygen Flow Rate - Titration Pulse Oximetry Post Tiitration 06/13/25 23:42 06/14/25 00:22 Temperature Temperature Source Pulse Rate 84 Pulse Rate [Apical] Pulse Rhythm Pulse Rhythm [Apical] Pulse Strength Pulse Strength [Apical] Respiratory Rate Respiratory Effort / Characteristics Respiratory Depth Respiratory Pattern Blood Pressure Blood Pressure [Right Arm] Blood Pressure Mean Blood Pressure Mean [Right Arm] Blood Pressure Position Blood Pressure Position [Right Arm] Pulse Oximetry Oxygen Delivery Method Nasal Cannula Oxygen Flow Rate 4 Sepsis Recent Fever Within 48 Hours Sepsis New/Unexplained Change in Mental Status Sepsis Action Taken by Nursing Oxygen Flow Rate - Titration Pulse Oximetry Post Tiitration Laboratory Data Attestation: I reviewed the patient's lab results. 06/13/25 19:50 06/13/25 19:50 Lab Results 06/13/25 06/13/25 06/13/25 Range/Units 19:50 20:11 21:48 WBC 8.49 (4.8-10.8) K/ul RBC 5.63 (4.70-6.10) M/uL Hgb 15.4 (14.0-18.0) g/dl POC Hgb 15.6 (14.0-18.0) g/dl Hct 46.7 (42.0-52.0) % POC Hct 46 (42-52) % MCV 82.9 (80.0-100.0) fL MCH 27.4 (25.0-34.0) pg MCHC 33.0 (32.0-36.0) g/dL RDW Std Deviation 51.6 H (36.4-46.3) fL RDW Coeff of Dmitriy 18.6 H (11.5-14.5) % Plt Count 208 (130-400) K/uL MPV 10.8 (9.4-12.4) fL Immature Gran % (Auto) 0.2 % Neut % (Auto) 74.4 % Lymph % (Auto) 18.8 % Mercer % (Auto) 4.7 % Eos % (Auto) 1.8 % Baso % (Auto) 0.1 % Neut # (Auto) 6.31 (1.40-6.50) K/uL Lymph # (Auto) 1.60 (1.20-3.40) K/uL Mercer # (Auto) 0.40 (0.11-0.59) K/uL Eos # (Auto) 0.15 (0.00-0.50) K/uL Baso # (Auto) 0.01 (0.00-0.20) K/uL Immature Gran # (Auto) 0.02 (0.01-0.20) K/uL PT 12.1 H (9.0-12.0) Seconds INR 1.1 (0.9-1.1) POC Sodium 139 (135-144) mmol/L Sodium 137 (136-145) mmol/L POC Potassium 3.8 (3.3-5.0) mmol/L Potassium 3.9 (3.5-5.1) mmol/L POC Chloride 102 (101-112) mmol/L Chloride 102 (98-107) mmol/L Carbon Dioxide 23 (21-32) mmol/L POC Total CO2 22 L (24-31) mmol/L Anion Gap 12 H (3-11) POC Anion Gap 19.0 (16-25) mmol/L POC BUN 29 H (7-18) mg/dl BUN 31 H (6-23) mg/dl Creatinine 1.63 H (0.6-1.4) mg/dl POC Creatinine 2.5 H (0.6-1.3) mg/dl Est Cr Clr Drug Dosing 27.7 ml/min eGFR 40.03 BUN/Creatinine Ratio 19.0 (10-20) Glucose 141 H (70-99(Fasting)) mg/dl POC Glucose (other) 144 H (70-99) mg/dl Lactate (0.4-2.0) mmol/L Calcium 9.8 (8.6-10.3) mg/dl POC Ioniz Calcium Solange 1.16 (1.12-1.32) mmol/l Phosphorus 3.3 (2.5-4.9) mg/dl Magnesium 2.1 (1.7-2.4) mg/dl Total Bilirubin 0.9 (0.2-1.0) mg/dl AST 23 (13-39) U/L ALT 14 (7-52) U/L Alkaline Phosphatase 94 (34-104) U/L Troponin I High Sens 72.5 H* (0-20) pg/ml Total Protein 7.6 (6.0-8.3) gm/dl Albumin 4.4 (3.4-5.0) gm/dl Globulin 3.2 (2.5-4.0) gm/dl Albumin/Globulin Ratio 1.4 (0.9-2) Lipase 60 (11-82) U/L Procalcitonin 0.04 (0-0.5) ng/ml TSH 0.690 (0.300-4.500) uIu/ml Adenovirus (PCR) Not Detected (NotDetected) B. pertussis DNA (PCR) Not Detected (NotDetected) B.parapertussis DNA PCR Not Detected (NotDetected) C. pneumoniae DNA (PCR) Not Detected (NotDetected) Coronavirus OC43 (PCR) Not Detected (NotDetected) Coronavirus HKU1 (PCR) Not Detected (NotDetected) Coronavirus 229E (PCR) Not Detected (NotDetected) SARS-CoV-2 (PCR) Not Detected (NotDetected) Coronavirus NL63 (PCR) Not Detected (NotDetected) Human Metapneumovir PCR Not Detected (NotDetected) Influenza Type A (PCR) Not Detected (NotDetected) Influenza Type B (PCR) Not Detected (NotDetected) M. pneumoniae (PCR) Not Detected (NotDetected) Parainfluenza 1 (PCR) Not Detected (NotDetected) Parainfluenza 2 (PCR) Not Detected (NotDetected) Parainfluenza 3 (PCR) Not Detected (NotDetected) Parainfluenza 4 (PCR) Not Detected (NotDetected) RSV (PCR) Not Detected (NotDetected) Entero/Rhino (PCR) Not Detected (NotDetected) 06/13/25 Range/Units 22:20 WBC (4.8-10.8) K/ul RBC (4.70-6.10) M/uL Hgb (14.0-18.0) g/dl POC Hgb (14.0-18.0) g/dl Hct (42.0-52.0) % POC Hct (42-52) % MCV (80.0-100.0) fL MCH (25.0-34.0) pg MCHC (32.0-36.0) g/dL RDW Std Deviation (36.4-46.3) fL RDW Coeff of Dmitriy (11.5-14.5) % Plt Count (130-400) K/uL MPV (9.4-12.4) fL Immature Gran % (Auto) % Neut % (Auto) % Lymph % (Auto) % Mercer % (Auto) % Eos % (Auto) % Baso % (Auto) % Neut # (Auto) (1.40-6.50) K/uL Lymph # (Auto) (1.20-3.40) K/uL Mercer # (Auto) (0.11-0.59) K/uL Eos # (Auto) (0.00-0.50) K/uL Baso # (Auto) (0.00-0.20) K/uL Immature Gran # (Auto) (0.01-0.20) K/uL PT (9.0-12.0) Seconds INR (0.9-1.1) POC Sodium (135-144) mmol/L Sodium (136-145) mmol/L POC Potassium (3.3-5.0) mmol/L Potassium (3.5-5.1) mmol/L POC Chloride (101-112) mmol/L Chloride (98-107) mmol/L Carbon Dioxide (21-32) mmol/L POC Total CO2 (24-31) mmol/L Anion Gap (3-11) POC Anion Gap (16-25) mmol/L POC BUN (7-18) mg/dl BUN (6-23) mg/dl Creatinine (0.6-1.4) mg/dl POC Creatinine (0.6-1.3) mg/dl Est Cr Clr Drug Dosing ml/min eGFR BUN/Creatinine Ratio (10-20) Glucose (70-99(Fasting)) mg/dl POC Glucose (other) (70-99) mg/dl Lactate 1.3 (0.4-2.0) mmol/L Calcium (8.6-10.3) mg/dl POC Ioniz Calcium Solange (1.12-1.32) mmol/l Phosphorus (2.5-4.9) mg/dl Magnesium (1.7-2.4) mg/dl Total Bilirubin (0.2-1.0) mg/dl AST (13-39) U/L ALT (7-52) U/L Alkaline Phosphatase (34-104) U/L Troponin I High Sens 87.7 H* D (0-20) pg/ml Total Protein (6.0-8.3) gm/dl Albumin (3.4-5.0) gm/dl Globulin (2.5-4.0) gm/dl Albumin/Globulin Ratio (0.9-2) Lipase (11-82) U/L Procalcitonin (0-0.5) ng/ml TSH (0.300-4.500) uIu/ml Adenovirus (PCR) (NotDetected) B. pertussis DNA (PCR) (NotDetected) B.parapertussis DNA PCR (NotDetected) C. pneumoniae DNA (PCR) (NotDetected) Coronavirus OC43 (PCR) (NotDetected) Coronavirus HKU1 (PCR) (NotDetected) Coronavirus 229E (PCR) (NotDetected) SARS-CoV-2 (PCR) (NotDetected) Coronavirus NL63 (PCR) (NotDetected) Human Metapneumovir PCR (NotDetected) Influenza Type A (PCR) (NotDetected) Influenza Type B (PCR) (NotDetected) M. pneumoniae (PCR) (NotDetected) Parainfluenza 1 (PCR) (NotDetected) Parainfluenza 2 (PCR) (NotDetected) Parainfluenza 3 (PCR) (NotDetected) Parainfluenza 4 (PCR) (NotDetected) RSV (PCR) (NotDetected) Entero/Rhino (PCR) (NotDetected) Administered Medications Discontinued Medications Sodium Chloride (Nss) 500 mls @ 999 mls/hr IV .Q31M ONE Stop: 06/13/25 20:29 Last Infusion: 06/13/25 21:35 Dose: Infused Documented By: Admin: 06/13/25 20:18 Dose: 999 mls/hr Documented By: IDD Famotidine (Pepcid 20mg Iv Push) 20 mg in 5 mls @ 2.5 mls/min IV NOW STA Stop: 06/13/25 21:18 Last Admin: 06/13/25 21:34 Dose: 2.5 mls/min Documented By: IDD Acetaminophen (Ofirmev) 1,000 mg in 100 mls @ 400 mls/hr IV NOW STA Stop: 06/13/25 21:31 Last Infusion: 06/13/25 21:54 Dose: Infused Documented By: Admin: 06/13/25 21:35 Dose: 400 mls/hr Documented By: IDD Piperacillin Sod/Tazobactam Sod (Zosyn) 4.5 gm in 100 mls @ 200 mls/hr IV NOW ONE; Protocol Stop: 06/13/25 22:34 Last Infusion: 06/13/25 22:54 Dose: Infused Documented By: Admin: 06/13/25 22:24 Dose: 200 mls/hr Documented By: IDD Ondansetron HCl (Ondansetron Inj 2 Mg/Ml 2 Ml Vial) 4 mg IV NOW STA Stop: 06/13/25 21:18 Last Admin: 06/13/25 21:34 Dose: 4 mg Documented By: IDD Imaging Data Radiologist's Impression: Chest X-Ray 06/13/25 19:58 CR Exam(s): XR CXR 1 VIEW EXAM: XR Chest, 1 View CLINICAL HISTORY: Reason for exam: weakness. TECHNIQUE: Frontal view of the chest. COMPARISON: Prior chest x-ray from May 04, 2025 5. FINDINGS: There is an MR-compatible AICD in the left chest wall distal leads in the right atrium, right ventricle and coronary sinus. Lungs: Moderate to heavy peribronchial thickening of the central lower lobe bronchi with bilateral lower lobe patchy opacities. Low lung volumes, limiting evaluation of the lung bases. Pleural space: Unremarkable. No pneumothorax. Heart: Unremarkable. No cardiomegaly. Mediastinum: Unremarkable. Normal mediastinal contour. Bones/joints: Unremarkable. No acute fracture. IMPRESSION: Bronchitis with bilateral lobe infiltrates. Communications: Verify Receipt Electronically signed by: Shayy Richards MD 06/13/25 22:09 PM Abdomen/Pelvis CT 06/13/25 21:16 Exam(s): CT ABDOMEN + PELVIS Without Contrast EXAM: CT Abdomen and Pelvis Without Intravenous Contrast CLINICAL HISTORY: Reason for exam: n/v. TECHNIQUE: Axial computed tomography images of the abdomen and pelvis without intravenous contrast. CTDI is 23.59 mGy and DLP is 1717.76 mGy-cm. Automated exposure control was utilized for the study. A dose lowering technique was utilized adhering to the principles of ALARA. COMPARISON: No relevant prior studies available. FINDINGS: Lung bases: Consolidation in the lower lobes bilaterally consistent with pneumonia. ABDOMEN: Liver: Unremarkable. Gallbladder and bile ducts: Unremarkable. Pancreas: Unremarkable. Spleen: Unremarkable. Adrenals: Unremarkable. Kidneys and ureters: Cortical cysts in the left kidney. No ureteral stones. No hydronephrosis. Stomach and bowel: No bowel obstruction or inflammatory changes. Sigmoid diverticulosis without diverticulitis. PELVIS: Appendix: No findings to suggest acute appendicitis. Bladder: Unremarkable. Reproductive: Prostate enlarged up to 5 cm. ABDOMEN and PELVIS: Intraperitoneal space: Unremarkable. No free air. No significant fluid collection. Bones/joints: Severe degenerative changes in the lumbar spine. Soft tissues: Unremarkable. Vasculature: Aortobiiliac atherosclerotic calcifications. Lymph nodes: Unremarkable. IMPRESSION: 1. Consolidation in the lower lobes bilaterally consistent with pneumonia. 2. No acute abnormality along the GI tract. Electronically signed by: Gio Caruso MD 06/13/25 22:[address] 06/13/25 21:16 Exam(s): CT HEAD Without Contrast EXAM: CT Head Without Intravenous Contrast CLINICAL HISTORY: Reason for exam: weakness, n/v. TECHNIQUE: Axial computed tomography images of the head/brain without intravenous contrast. CTDI is 23.59 mGy and DLP is 1717.76 mGy-cm. Automated exposure control was utilized for the study. A dose lowering technique was utilized adhering to the principles of ALARA. 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 Atrophy and chronic microvascular ischemic changes. No intracranial hemorrhage, mass-effect, or cerebral edema. Ventricles: Unremarkable. Bones/joints: Unremarkable. No fracture. Soft tissues: Unremarkable. Sinuses: No acute sinusitis. Mastoid air cells: Unremarkable as visualized. IMPRESSION: 1. No acute intracranial abnormality. 2. Unchanged inferior frontal dural based mass. 3. Atrophy and chronic microvascular ischemic changes. Electronically signed by: Gio Caruso MD 06/13/25 22:30 PM Discharge Plan Visit Data Chief Complaint: Lethargic Stated Complaint: LETHARGIC, VOMITING ED Provider: Nghia Fernandez Discharge Problem: Hypoxia, Aspiration pneumonia, Intractable nausea and vomiting, Generalized weakness Patient Disposition: Admitted As Inpatient Condition: Fair Discharge Instructions Interventions: ED Discharge Assessment Last Done: 06/14/25 00:22 Forms Stand Alone Forms: [facility] Prescriptions Prescriptions: No Action hydroxyurea 500 mg capsule 500 mg PO DAILY atorvastatin 40 mg tablet 40 mg PO DAILY magnesium oxide 420 mg Tablet 420 mg PO DAILY albendazole 200 mg Tablet 400 mg PO QAM omeprazole 20 mg Capsule,Delayed Release(Dr/Ec) 20 mg PO DAILY escitalopram oxalate [Lexapro] 5 mg Tablet 5 mg PO DAILY diclofenac sodium [Voltaren] 1 % Gel 2 g TOPICAL QID PRN (Reason: Pain) mirabegron [Myrbetriq] 50 mg Tablet Extended Release 24 Hr 50 mg PO DAILY allopurinol 300 mg tablet 300 mg PO DAILY metoprolol succinate 25 mg tablet extended release 24 hr 25 mg PO QAM finasteride 5 mg tablet 5 mg PO QAM aspirin 81 mg Tablet,Delayed Release (Dr/Ec) 81 mg PO QAM cholecalciferol (vitamin D3) [Vitamin D3] 25 mcg (1,000 unit) Tablet 2,000 unit PO Q OTHER DAY omega [id number]-[id number]-fish oil [Fish Oil] 1,200 (144-216) mg Capsule 1 cap PO BID cyanocobalamin (vitamin B-12) [Vitamin B-12] 1,000 mcg Tablet 1,000 mcg PO Q OTHER DAY tamsulosin 0.4 mg Capsule 0.4 mg PO QAM Qty: 30 0RF Rx Instructions: PER EXT MED HX, PER [facility] 0.8 MG DAILY. gabapentin 100 mg Capsule 200 mg PO TID Qty: 180 0RF Referrals Referrals: Sophie Bourne PA-C [Primary Care Provider] - Discharge Problem: Aspiration pneumonia Qualifiers: Aspiration pneumonia type: unspecified Laterality: bilateral Lung location: l ower lobe of lung Qualified Code(s): J69.0 - Pneumonitis due to inhalation of food and vomit
[2025-06-13 20:51] LABS: INR 1.1 (0.9-1.1); Prothrombin Time 12.1 Seconds (9.0-12.0)
[2025-06-13 20:54] LABS: Thyroid Stimulating Hormone 0.69 uIu/ml (0.300-4.500)
[2025-06-13] MEDS: ONDANSETRON INJ 2 MG/ML 2 ML VIAL IV STA (21:34)
[2025-06-13] MEDS: FAMOTIDINE 20MG IV PUSH 20 MG/5 ML SYR IV STA (21:34)
[2025-06-13] MEDS: ACETAMINOPHEN 1,000 MG/100 ML VIAL IV STA (21:35)
--- NOTE | 2025-06-13 22:10 | XRay Report ---
Exam(s): XR CXR 1 VIEW EXAM: XR Chest, 1 View CLINICAL HISTORY: Reason for exam: weakness. TECHNIQUE: Frontal view of the chest. COMPARISON: Prior chest x-ray from May 04, 2025 5. FINDINGS: There is an MR-compatible AICD in the left chest wall distal leads in the right atrium, right ventricle and coronary sinus. Lungs: Moderate to heavy peribronchial thickening of the central lower lobe bronchi with bilateral lower lobe patchy opacities. Low lung volumes, limiting evaluation of the lung bases. Pleural space: Unremarkable. No pneumothorax. Heart: Unremarkable. No cardiomegaly. Mediastinum: Unremarkable. Normal mediastinal contour. Bones/joints: Unremarkable. No acute fracture. IMPRESSION: Bronchitis with bilateral lobe infiltrates. Communications: Verify Receipt Electronically signed by: Shayy Richards MD 06/13/25 22:09 PM
[2025-06-13] MEDS: PIPERACILLIN/TAZOBACTAM 4.5 GM/100 ML BAG IV ONE (22:24)
--- NOTE | 2025-06-13 22:31 | CT Scan Report ---
Exam(s): CT HEAD Without Contrast EXAM: CT Head Without Intravenous Contrast CLINICAL HISTORY: Reason for exam: weakness, n/v. TECHNIQUE: Axial computed tomography images of the head/brain without intravenous contrast. CTDI is 23.59 mGy and DLP is 1717.76 mGy-cm. Automated exposure control was utilized for the study. A dose lowering technique was utilized adhering to the principles of ALARA. 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 Atrophy and chronic microvascular ischemic changes. No intracranial hemorrhage, mass-effect, or cerebral edema. Ventricles: Unremarkable. Bones/joints: Unremarkable. No fracture. Soft tissues: Unremarkable. Sinuses: No acute sinusitis. Mastoid air cells: Unremarkable as visualized. IMPRESSION: 1. No acute intracranial abnormality. 2. Unchanged inferior frontal dural based mass. 3. Atrophy and chronic microvascular ischemic changes. Electronically signed by: Gio Caruso MD 06/13/25 22:30 PM
--- NOTE | 2025-06-13 22:38 | CT Scan Report ---
Exam(s): CT ABDOMEN + PELVIS Without Contrast EXAM: CT Abdomen and Pelvis Without Intravenous Contrast CLINICAL HISTORY: Reason for exam: n/v. TECHNIQUE: Axial computed tomography images of the abdomen and pelvis without intravenous contrast. CTDI is 23.59 mGy and DLP is 1717.76 mGy-cm. Automated exposure control was utilized for the study. A dose lowering technique was utilized adhering to the principles of ALARA. COMPARISON: No relevant prior studies available. FINDINGS: Lung bases: Consolidation in the lower lobes bilaterally consistent with pneumonia. ABDOMEN: Liver: Unremarkable. Gallbladder and bile ducts: Unremarkable. Pancreas: Unremarkable. Spleen: Unremarkable. Adrenals: Unremarkable. Kidneys and ureters: Cortical cysts in the left kidney. No ureteral stones. No hydronephrosis. Stomach and bowel: No bowel obstruction or inflammatory changes. Sigmoid diverticulosis without diverticulitis. PELVIS: Appendix: No findings to suggest acute appendicitis. Bladder: Unremarkable. Reproductive: Prostate enlarged up to 5 cm. ABDOMEN and PELVIS: Intraperitoneal space: Unremarkable. No free air. No significant fluid collection. Bones/joints: Severe degenerative changes in the lumbar spine. Soft tissues: Unremarkable. Vasculature: Aortobiiliac atherosclerotic calcifications. Lymph nodes: Unremarkable. IMPRESSION: 1. Consolidation in the lower lobes bilaterally consistent with pneumonia. 2. No acute abnormality along the GI tract. Electronically signed by: Gio Caruso MD 06/13/25 22:37 PM
[2025-06-13 22:59] LABS: Chlamydia pneumoniae PCR Not Detected (NotDetected); Coronavirus 229E PCR Not Detected (NotDetected); Coronavirus CoV-2 (COVID19)PCR Not Detected (NotDetected); Coronavirus HKU1 PCR Not Detected (NotDetected); Coronavirus NL63 PCR Not Detected (NotDetected); Coronavirus OC43PCR Not Detected (NotDetected); Human Metapneumovirus PCR Not Detected (NotDetected); Parainfluenza Virus 1 PCR Not Detected (NotDetected); Parainfluenza Virus 2 PCR Not Detected (NotDetected); Parainfluenza Virus 3 PCR Not Detected (NotDetected); Parainfluenza Virus 4 PCR Not Detected (NotDetected); Respiratory Syncytial VirusPCR Not Detected (NotDetected); Rhinovirus/Enterovirus PCR Not Detected (NotDetected)
--- NOTE | 2025-06-13 23:49 | History & Physical Report ---
Date of Service June 13, 2025 Assessment & Plan (1) Pneumonia: Plan: 89-year-old male with past medical history significant for gout, chronic systolic heart failure, nonischemic cardiomyopathy, status post biventricular ICD, left bundle branch block, hypertension, symptomatic stenosis of right carotid artery, benign esophageal stricture, CKD stage IIIb, spinal stenosis, pseudophakia who lives at home with his and ambulates with rollator walker for short distances was brought in because of nausea vomiting and weakness. and son in the room. Nausea and vomiting started today. No diarrhea. Had fevers at home. For last couple of days he is having cough and sometimes bringing up phlegm. No chest pain or shortness of breath. No headache. Has some runny nose. No sore throat. Eats and drinks okay and swallows okay as per . Currently sleepy. Could tell his name. Knows that he is in the hospital. But could not tell current dates. As per patient during nighttime gets confused and gets hallucinations. Hemodynamics are okay. Bilateral lower lobe pneumonia Has cough and fever Has nausea and vomiting CT abdomen pelvis showing bilateral lower lobe pneumonia Possible aspiration Empiric Zosyn and Doxy Will keep him n.p.o. History of benign esophageal stricture Speech consult Close monitor Possible metabolic encephalopathy From above Will Monitor Nausea and vomiting Possible from ongoing infection Respiratory BioFire negative Will follow UA N.p.o. for now Gentle fluids Elevated troponin Initial troponin 72 and repeat is 87 Most likely demand ischemia Will follow serial exams and echo Chronic systolic and diastolic CHF Echo in April 2025 shows EF of 40 to 45% and grade 2 diastolic dysfunction(previous EF 21 to 40%) Left bundle branch block Status post ICD Not on diuretics Getting gentle fluids Monitor for volume overload History of gout On allopurinol History of hyperlipidemia On statin History of CAD On aspirin, statin and metoprolol succinate History of symptomatic stenosis of right carotid artery Aspirin and statin Follows with neurosurgery CAMERON on CKD stage III Baseline creatinine 1.4 Presented with creatinine of 1.6 Continue gentle fluids Will follow labs Thrombocytosis As per son couple of weeks ago he [facility] He is wondering if it is causing any reaction Says he [facility] with labs Platelets are okay today at 208 Obstructive sleep apnea Noncompliant with CPAP Can check for nocturnal pulse ox study if he qualifies for night oxygen BPH On Flomax and finasteride monitor for retention Urge incontinence On mirabegron Polyneuropathy On gabapentin Depression Lexapro DVT prophylaxis Heparin subcu Disposition Med/telemetry CODE STATUS full code only if there is chance of recovery as per my discussion with the History of Present Illness Chief Complaint: Nausea ,vomiting and weakness Primary Care Provider: Sophie Bourne PA-C 89-year-old male with past medical history significant for gout, chronic systolic heart failure, nonischemic cardiomyopathy, status post biventricular ICD, left bundle branch block, hypertension, symptomatic stenosis of right carotid artery, benign esophageal stricture, CKD stage IIIb, spinal stenosis, pseudophakia who lives at home with his and ambulates with rollator walker for short distances was brought in because of nausea vomiting and weakness. and son in the room. Nausea and vomiting started today. No diarrhea. Had fevers at home. For last couple of days he is having cough and sometimes bringing up phlegm. No chest pain or shortness of breath. No headache. Has some runny nose. No sore throat. Eats and drinks okay and swallows okay as per . Currently sleepy. Could tell his name. Knows that he is in the hospital. But could not tell current dates. As per patient during n ighttime gets confused and gets hallucinations. Hemodynamics are okay. Past medical history. As mentioned above Past surgical history. Bilateral carotic artery catheter placement. Colonoscopy with biopsy. EGD. Cataracts. Biventricular ICD. Social history. . Quit smoking 1982. Smoked 1.5 pack a day for 30 years. No alcohol currently. No drug use. Family history. Mother had COPD. Hypertension. Smoking. Allergies Allergy/AdvReac Type Severity Reaction Status Date / Time codeine Allergy Intermediate Hives Verified 06/13/25 21:05 Sulfa (Sulfonamide Allergy Intermediate Itching Verified 06/13/25 21:05 Antibiotics) sulfamethoxazole Allergy Intermediate Itching Verified 06/13/25 21:05 [From Bactrim] trimethoprim [From Bactrim] Allergy Intermediate Itching Verified 06/13/25 21:05 IZABELA Inhibitors AdvReac Intermediate Cough Verified 06/13/25 21:05 losartan AdvReac Intermediate Dizziness Verified 06/13/25 21:05 Home Medications Medication Instructions Recorded Confirmed Type allopurinol 300 mg tablet 300 mg PO DAILY 01/26/24 06/13/25 History aspirin 81 mg tablet,delayed 81 mg PO QAM 01/26/24 06/13/25 History release cholecalciferol (vitamin D3) 25 2,000 unit PO Q OTHER DAY 01/26/24 06/13/25 History mcg (1,000 unit) tablet (Vitamin D3) cyanocobalamin (vitamin B-12) 1,000 mcg PO Q OTHER DAY 01/26/24 06/13/25 History 1,000 mcg tablet (Vitamin B-12) finasteride 5 mg tablet 5 mg PO QAM 01/26/24 06/13/25 History metoprolol succinate 25 mg 25 mg PO QAM 01/26/24 06/13/25 History tablet,extended release 24 hr omega [id number]-wee-cbx-fish oil 1,200 mg 1 cap PO BID 01/26/24 06/13/25 History (144 mg-216 mg) capsule (Fish Oil) gabapentin 100 mg capsule 200 mg (2 x 100 mg) PO TID #180 05/06/25 06/13/25 Rx caps tamsulosin 0.4 mg capsule 0.4 mg PO QAM #30 caps 05/06/25 06/13/25 Rx albendazole 200 mg tablet 400 mg PO QAM 06/13/25 06/13/25 History atorvastatin 40 mg tablet 40 mg PO DAILY 06/13/25 06/13/25 History diclofenac sodium 1 % topical gel 2 g topical QID PRN Pain 06/13/25 06/13/25 History escitalopram oxalate 5 mg tablet 5 mg PO DAILY 06/13/25 06/13/25 History (Lexapro) hydroxyurea 500 mg capsule 500 mg PO DAILY 06/13/25 06/13/25 History magnesium oxide 420 mg tablet 420 mg PO DAILY 06/13/25 06/13/25 History mirabegron 50 mg tablet,extended 50 mg PO DAILY 06/13/25 06/13/25 History release 24 hr (Myrbetriq) omeprazole 20 mg capsule,delayed 20 mg PO DAILY 06/13/25 06/13/25 History release Past Med/Surg History Problem List (Updated 06/14/25 @ 00:30 by Nghia Fernandez MD) Generalized weakness (Acute) Intractable nausea and vomiting (Acute) Aspiration pneumonia (Acute) Hypoxia (Acute) Pneumonia CAMERON (acute kidney injury) (Acute) Acute confusion (Acute) Elevated troponin (Acute) Stroke-like symptoms (Acute) Headache Stroke-like symptoms Elevated troponin (Acute) Visual disturbance (Acute) Medical History Benign esophageal stricture CKD stage 3b, GFR 30-44 ml/min Stenosis of right carotid artery LBBB (left bundle branch block) Chronic systolic CHF (congestive heart failure) Hypertension NICM (nonischemic cardiomyopathy) Carotid stenosis Hypertension Heart disease Macular degeneration Surgical History Hx of esophagogastroduodenoscopy Hx of colonoscopy Hx of cataract removal with insertion of prosthetic lens Biventricular ICD (implantable cardioverter-defibrillator) in place Family History Mother COPD (chronic obstructive pulmonary disease) Social History Smoking Status: Former smoker Tobacco Type: Cigarettes Second Hand Exposure: No; Do You Dip or Chew Tobacco: No; Hx Alcohol Use: No Hx Substance Use: No Preferred Language: Mohawk Communication Ability: Effective Cash Room Clerk Required: No Beliefs That Will Affect Care: None Current Living Situation: Spouse Current Living Situation Comment: lives at home with Other Information That Helps Us Care for You: No Feels Safe at Home: Yes Safety Concerns: Feels Safe At This Time Assistive Devices: Cane, Denture - Upper, Denture - Lower and Walker Review of Systems Review of Systems: Unobtainable due to reduced consciousness Physical Exam Physical Exam: General- Sleepy Head- atraumatic Eyes- Pupils pinpoint and sluggish to react ENT- oropharynx clear Neck- supple, no JVD. Lungs- clear to auscultation no wheezing or crackles Heart- regular rhythm; no murmur, no gallop. Abdomen- normal bowel sounds, soft, nontender, no distension Extremities- no pretibial edema, no erythema seen Neuro-sleepy oriented x 2; ; no facial palsy; no dysarthria; moves extremities Results & Data Results & Data Vital Signs (Past 12 Hours) Vital Signs Temp Pulse Pulse Resp BP BP Pulse Ox 06/13/25 21:32 37.3 C 94 H 18 134/74 96 06/13/25 19:58 102 H 22 95 06/13/25 19:52 103 H 06/13/25 19:50 86 L 06/13/25 19:50 37.0 C 102 H 22 153/96 H 94 O2 Del Method O2 Flow Rate 06/13/25 21:32 Room Air 06/13/25 19:58 Nasal Cannula 4 06/13/25 19:52 06/13/25 19:50 Room Air 06/13/25 19:50 Nasal Cannula 4 Diagnostic Findings Laboratory Results WBC 8.49 K/ul (4.8-10.8) 06/13/25 19:50 RBC 5.63 M/uL (4.70-6.10) 06/13/25 19:50 Hgb 15.4 g/dl (14.0-18.0) 06/13/25 19:50 POC Hgb 15.6 g/dl (14.0-18.0) 06/13/25 20:11 Hct 46.7 % (42.0-52.0) 06/13/25 19:50 POC Hct 46 % (42-52) 06/13/25 20:11 MCV 82.9 fL (80.0-100.0) 06/13/25 19:50 MCH 27.4 pg (25.0-34.0) 06/13/25 19:50 MCHC 33.0 g/dL (32.0-36.0) 06/13/25 19:50 RDW Std Deviation 51.6 fL (36.4-46.3) H 06/13/25 19:50 RDW Coeff of Dmitriy 18.6 % (11.5-14.5) H 06/13/25 19:50 Plt Count 208 K/uL (130-400) 06/13/25 19:50 MPV 10.8 fL (9.4-12.4) 06/13/25 19:50 Immature Gran % (Auto) 0.2 % 06/13/25 19:50 Neut % (Auto) 74.4 % 06/13/25 19:50 Lymph % (Auto) 18.8 % 06/13/25 19:50 Kings % (Auto) 4.7 % 06/13/25 19:50 Eos % (Auto) 1.8 % 06/13/25 19:50 Baso % (Auto) 0.1 % 06/13/25 19:50 Neut # (Auto) 6.31 K/uL (1.40-6.50) 06/13/25 19:50 Lymph # (Auto) 1.60 K/uL (1.20-3.40) 06/13/25 19:50 Kings # (Auto) 0.40 K/uL (0.11-0.59) 06/13/25 19:50 Eos # (Auto) 0.15 K/uL (0.00-0.50) 06/13/25 19:50 Baso # (Auto) 0.01 K/uL (0.00-0.20) 06/13/25 19:50 Immature Gran # (Auto) 0.02 K/uL (0.01-0.20) 06/13/25 19:50 PT 12.1 Seconds (9.0-12.0) H 06/13/25 19:50 INR 1.1 (0.9-1.1) 06/13/25 19:50 POC Sodium 139 mmol/L (135-144) 06/13/25 20:11 Sodium 137 mmol/L (136-145) 06/13/25 19:50 POC Potassium 3.8 mmol/L (3.3-5.0) 06/13/25 20:11 Potassium 3.9 mmol/L (3.5-5.1) 06/13/25 19:50 POC Chloride 102 mmol/L (101-112) 06/13/25 20:11 Chloride 102 mmol/L (98-107) 06/13/25 19:50 Carbon Dioxide 23 mmol/L (21-32) 06/13/25 19:50 POC Total CO2 22 mmol/L (24-31) L 06/13/25 20:11 Anion Gap 12 (3-11) H 06/13/25 19:50 POC Anion Gap 19.0 mmol/L (16-25) 06/13/25 20:11 POC BUN 29 mg/dl (7-18) H 06/13/25 20:11 BUN 31 mg/dl (6-23) H 06/13/25 19:50 Creatinine 1.63 mg/dl (0.6-1.4) H 06/13/25 19:50 POC Creatinine 2.5 mg/dl (0.6-1.3) H 06/13/25 20:11 Est Cr Clr Drug Dosing 27.7 ml/min 06/13/25 19:50 eGFR 40.03 06/13/25 19:50 BUN/Creatinine Ratio 19.0 (10-20) 06/13/25 19:50 Glucose 141 mg/dl (70-99(Fasting)) H 06/13/25 19:50 POC Glucose (other) 144 mg/dl (70-99) H 06/13/25 20:11 Lactate 1.3 mmol/L (0.4-2.0) 06/13/25 22:20 Calcium 9.8 mg/dl (8.6-10.3) 06/13/25 19:50 POC Ioniz Calcium Solange 1.16 mmol/l (1.12-1.32) 06/13/25 20:11 Phosphorus 3.3 mg/dl (2.5-4.9) 06/13/25 19:50 Magnesium 2.1 mg/dl (1.7-2.4) 06/13/25 19:50 Total Bilirubin 0.9 mg/dl (0.2-1.0) 06/13/25 19:50 AST 23 U/L (13-39) 06/13/25 19:50 ALT 14 U/L (7-52) 06/13/25 19:50 Alkaline Phosphatase 94 U/L (34-104) 06/13/25 19:50 Troponin I High Sens 87.7 pg/ml (0-20) H* D 06/13/25 22:20 Total Protein 7.6 gm/dl (6.0-8.3) 06/13/25 19:50 Albumin 4.4 gm/dl (3.4-5.0) 06/13/25 19:50 Globulin 3.2 gm/dl (2.5-4.0) 06/13/25 19:50 Albumin/Globulin Ratio 1.4 (0.9-2) 06/13/25 19:50 Lipase 60 U/L (11-82) 06/13/25 19:50 Procalcitonin 0.04 ng/ml (0-0.5) 06/13/25 19:50 TSH 0.690 uIu/ml (0.300-4.500) 06/13/25 19:50 Adenovirus (PCR) Not Detected (NotDetected) 06/13/25 21:48 B. pertussis DNA (PCR) Not Detected (NotDetected) 06/13/25 21:48 B.parapertussis DNA PCR Not Detected (NotDetected) 06/13/25 21:48 C. pneumoniae DNA (PCR) Not Detected (NotDetected) 06/13/25 21:48 Coronavirus OC43 (PCR) Not Detected (NotDetected) 06/13/25 21:48 Coronavirus HKU1 (PCR) Not Detected (NotDetected) 06/13/25 21:48 Coronavirus 229E (PCR) Not Detected (NotDetected) 06/13/25 21:48 SARS-CoV-2 (PCR) Not Detected (NotDetected) 06/13/25 21:48 Coronavirus NL63 (PCR) Not Detected (NotDetected) 06/13/25 21:48 Human Metapneumovir PCR Not Detected (NotDetected) 06/13/25 21:48 Influenza Type A (PCR) Not Detected (NotDetected) 06/13/25 21:48 Influenza Type B (PCR) Not Detected (NotDetected) 06/13/25 21:48 M. pneumoniae (PCR) Not Detected (NotDetected) 06/13/25 21:48 Parainfluenza 1 (PCR) Not Detected (NotDetected) 06/13/25 21:48 Parainfluenza 2 (PCR) Not Detected (NotDetected) 06/13/25 21:48 Parainfluenza 3 (PCR) Not Detected (NotDetected) 06/13/25 21:48 Parainfluenza 4 (PCR) Not Detected (NotDetected) 06/13/25 21:48 RSV (PCR) Not Detected (NotDetected) 06/13/25 21:48 Entero/Rhino (PCR) Not Detected (NotDetected) 06/13/25 21:48 Impressions Chest X-Ray 06/13/25 19:58 CR Exam(s): XR CXR 1 VIEW EXAM: XR Chest, 1 View CLINICAL HISTORY: Reason for exam: weakness. TECHNIQUE: Frontal view of the chest. COMPARISON: Prior chest x-ray from May 04, 2025 5. FINDINGS: There is an MR-compatible AICD in the left chest wall distal leads in the right atrium, right ventricle and coronary sinus. Lungs: Moderate to heavy peribronchial thickening of the central lower lobe bronchi with bilateral lower lobe patchy opacities. Low lung volumes, limiting evaluation of the lung bases. Pleural space: Unremarkable. No pneumothorax. Heart: Unremarkable. No cardiomegaly. Mediastinum: Unremarkable. Normal mediastinal contour. Bones/joints: Unremarkable. No acute fracture. IMPRESSION: Bronchitis with bilateral lobe infiltrates. Communications: Verify Receipt Electronically signed by: Shayy Richards MD 06/13/25 22:09 PM Abdomen/Pelvis CT 06/13/25 21:16 Exam(s): CT ABDOMEN + PELVIS Without Contrast EXAM: CT Abdomen and Pelvis Without Intravenous Contrast CLINICAL HISTORY: Reason for exam: n/v. TECHNIQUE: Axial computed tomography images of the abdomen and pelvis without intravenous contrast. CTDI is 23.59 mGy and DLP is 1717.76 mGy-cm. Automated exposure control was utilized for the study. A dose lowering technique was utilized adhering to the principles of ALARA. COMPARISON: No relevant prior studies available. FINDINGS: Lung bases: Consolidation in the lower lobes bilaterally consistent with pneumonia. ABDOMEN: Liver: Unremarkable. Gallbladder and bile ducts: Unremarkable. Pancreas: Unremarkable. Spleen: Unremarkable. Adrenals: Unremarkable. Kidneys and ureters: Cortical cysts in the left kidney. No ureteral stones. No hydronephrosis. Stomach and bowel: No bowel obstruction or inflammatory changes. Sigmoid diverticulosis without diverticulitis. PELVIS: Appendix: No findings to suggest acute appendicitis. Bladder: Unremarkable. Reproductive: Prostate enlarged up to 5 cm. ABDOMEN and PELVIS: Intraperitoneal space: Unremarkable. No free air. No significant fluid collection. Bones/joints: Severe degenerative changes in the lumbar spine. Soft tissues: Unremarkable. Vasculature: Aortobiiliac atherosclerotic calcifications. Lymph nodes: Unremarkable. IMPRESSION: 1. Consolidation in the lower lobes bilaterally consistent with pneumonia. 2. No acute abnormality along the GI tract. Electronically signed by: Gio Caruso MD 06/13/25 22:[address] 06/13/25 21:16 Exam(s): CT HEAD Without Contrast EXAM: CT Head Without Intravenous Contrast CLINICAL HISTORY: Reason for exam: weakness, n/v. TECHNIQUE: Axial computed tomography images of the head/brain without intravenous contrast. CTDI is 23.59 mGy and DLP is 1717.76 mGy-cm. Automated exposure control was utilized for the study. A dose lowering technique was utilized adhering to the principles of ALARA. 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 Atrophy and chronic microvascular ischemic changes. No intracranial hemorrhage, mass-effect, or cerebral edema. Ventricles: Unremarkable. Bones/joints: Unremarkable. No fracture. Soft tissues: Unremarkable. Sinuses: No acute sinusitis. Mastoid air cells: Unremarkable as visualized. IMPRESSION: 1. No acute intracranial abnormality. 2. Unchanged inferior frontal dural based mass. 3. Atrophy and chronic microvascular ischemic changes. Electronically signed by: Gio Caruso MD 06/13/25 22:30 PM ECG Additional Comments: ECG. Atrial sensed ventricular paced rhythm rate of 105. QTc 523. Code Status & VTE Plan VTE Prophylaxis Plan VTE Prophylaxis will be ordered: Yes
[2025-06-14] MEDS ORDERED: NITROGLYCERIN SL 0.4 MG/TAB TAB SL PRN (00:59)
[2025-06-14] MEDS ORDERED: ACETAMINOPHEN 325 MG TAB PO PRN (00:59)
[2025-06-14] MEDS: SODIUM CHLORIDE 0.9% 1,000 ML IV SCH (01:59)
[2025-06-14] MEDS: DOXYCYCLINE HYCLATE 100 MG in DEXTROSE 5% MINI-B 100 ML IV SCH (01:59)
[2025-06-14] MEDS: PIPERACILLIN/TAZOBACTAM 4.5 GM/100 ML BAG IV SCH (04:14)
[2025-06-14 06:18] LABS: Hematocrit (blood only) 45.1 % (42.0-52.0); Hemoglobin 14.8 g/dl (14.0-18.0); Immature Granulocytes # (auto) 0.06 K/uL (0.01-0.20); Immature Granulocytes % (auto) 0.6 %; Mean Corpuscular Hemoglobin 27.7 pg (25.0-34.0); Mean Corpuscular Volume 84.3 fL (80.0-100.0); Platelet Count 178 K/uL (130-400); RDW Standard Deviation 53.9 fL (36.4-46.3); Red Blood Count 5.35 M/uL (4.70-6.10); White Blood Count 10.35 K/ul (4.8-10.8)
[2025-06-14] MEDS: HEPARIN SOD 5,000 UNIT/0.5 ML VIAL SQ SCH (06:18)
[2025-06-14 06:36] LABS: Anion Gap 12.0 (3-11); Blood Urea Nitrogen 28.0 mg/dl (6-23); Calcium 9.0 mg/dl (8.6-10.3); Carbon Dioxide 22.0 mmol/L (21-32); Chloride 101.0 mmol/L (98-107); Creatinine Clr Calc Pharmacy 26.6 ml/min; Glucose 175.0 mg/dl (70-99(Fasting)); Magnesium 1.9 mg/dl (1.7-2.4); Potassium 4.4 mmol/L (3.5-5.1); Sodium 135.0 mmol/L (136-145)
--- NOTE | 2025-06-14 08:27 | Communication Note ---
Called son, patient declining, could not reach , per son patient DNRDNI at this time. Order updated in chart. Date of Service: June 14, 2025
[2025-06-14 08:31] LABS: iSTAT Art Bld Gas Base Excess -4.0 meg/L (-9-1.8); iSTAT Art Bld Gas pCO2 Correct 33 mmHg (35-46); iSTAT Art Bld Gas pH Corrected 7.407 (7.35-7.45); iSTAT Arterial Blood Gas pO2 C 46
[2025-06-14] MEDS: OPTIRAY 320 125ml IV ONE (08:39)
[2025-06-14] MEDS ORDERED: GABAPENTIN 100 MG CAP PO SCH (09:00)
--- NOTE | 2025-06-14 09:06 | CT Scan Report ---
EXAM: CT Angiography Head and Neck With Intravenous Contrast INDICATION: Left-sided weakness and unresponsive. TECHNIQUE: [place] [facility]/head and neck CT angiography protocol performed with intravenous contrast. Sagittal and coronal reformatted images were created and reviewed. This CT exam was performed using one or more of the following dose reduction techniques: automated exposure control, adjustment of the mA and/or kV according to patient size, and/or use of iterative reconstruction technique. MIP reconstructed images were created and reviewed. CONTRAST: 119 ml of Optiray 320 was administered intravenously. COMPARISON: None. FINDINGS: HEAD: Right anterior cerebral artery: No abnormality noted. No occlusion or significant stenosis. Anterior communicating artery is present. No aneurysm. Right middle cerebral artery: No abnormality noted. No occlusion or significant stenosis. No aneurysm. Right posterior cerebral artery: No abnormality noted. No occlusion or significant stenosis. No aneurysm. Right intracranial internal carotid artery: No abnormality noted. No significant stenosis. No dissection or occlusion. Right intracranial vertebral artery: Mild scattered calcific plaque. No stenosis, dissection or occlusion. Left anterior cerebral artery: No abnormality noted. No occlusion or significant stenosis. No aneurysm. Left middle cerebral artery: No abnormality noted. No occlusion or significant stenosis. No aneurysm. Left posterior cerebral artery: No abnormality noted. No occlusion or significant stenosis. No aneurysm. Left intracranial internal carotid artery: No abnormality noted. No significant stenosis. No dissection or occlusion. Left intracranial vertebral artery: No abnormality noted. No significant stenosis. No dissection or occlusion. Basilar artery: No abnormality noted. No occlusion or significant stenosis. No aneurysm. Other vasculature: No vascular malformation. NECK: Right common carotid artery: Minimal scattered plaque. No significant stenosis. No dissection or occlusion. Right extracranial internal carotid artery: There is marked atherosclerosis of the bulb and proximal segment with stenosis of up to 80%. No dissection. Right external carotid artery: No abnormality noted. No occlusion. Right extracranial vertebral artery: No abnormality noted. No significant stenosis. No dissection or occlusion. Left common carotid artery: Minimal scattered plaque. No significant stenosis. No dissection or occlusion. Left extracranial internal carotid artery: There is moderate calcific plaque with up to 50% stenosis of the bulb and proximal segment. No dissection or occlusion. Left external carotid artery: No abnormality noted. No occlusion. Left extracranial vertebral artery: No abnormality noted. No significant stenosis. No dissection or occlusion. Lung apices: Bilateral moderate airspace consolidation noted in the upper lobes and superior segment of the left lower lobe left greater than right. There is a small layering left pleural effusion. No pneumothorax. Reactive mildly enlarged upper mediastinal nodes present. HEAD and NECK: Brain: Midline interhemispheric and inferior frontal meningioma grossly stable measuring 4.1 x 3.8 cm. Moderate chronic ischemic and atrophic changes. Bones/joints: No significant abnormality. Soft tissues: No abnormality noted. CAROTID STENOSIS REFERENCE USING NASCET CRITERIA: % ICA stenosis = (1 - narrowest ICA diameter/diameter of distal cervical ICA) x 100. Mild - <50% stenosis. Moderate - 50-69% stenosis. Severe - 70-94% stenosis. Near occlusion - 95-99% stenosis. Occluded - 100% stenosis. IMPRESSION: 1. No large vessel occlusion, aneurysm or dissection in the head or neck. 2. High-grade stenosis cervical right internal carotid bulb and proximal segment of at least 80%. 3. Left cervical internal carotid stenosis of up to 50%. 4. Stable midline meningioma. ACT 112: N/A Electronically signed by Piper Landa 06-14-2025 09:05 AM
--- NOTE | 2025-06-14 09:08 | CT Scan Report ---
EXAM: CT Head Without Intravenous Contrast INDICATION: Left-sided weakness. Stroke alert. TECHNIQUE: Axial computed tomography images of the head/brain without intravenous contrast. Sagittal and/or coronal reformats are provided. Sagittal and coronal reformatted images were created and reviewed. This CT exam was performed using one or more of the following dose reduction techniques: automated exposure control, adjustment of the mA and/or kV according to patient size, and/or use of iterative reconstruction technique. COMPARISON: 05/04/2025 FINDINGS: Limitations: None. Brain and extra-axial spaces: Midline anterior parafalcine slightly echogenic mass likely meningioma measures 3.9 cm transverse by 4.3 cm AP by 2.9 cm long unchanged. There is moderate to marked diffuse chronic small vessel ischemic gliosis and cortical atrophy. No acute territorial infarct. No hemorrhage. No extra-axial fluid collection. Bones/joints: No acute changes. Soft tissues: No significant abnormality noted. Vasculature: No acute abnormality noted. Sinuses: There is trace chronic mucosal thickening right maxillary sinus. Mastoid air cells: No mastoid effusion. Orbits: No significant abnormality noted. IMPRESSION: 1. No acute abnormality. 2. Stable midline anterior parafalcine mass most likely meningioma. ACT 112: N/A Electronically signed by Piper Landa 06-14-2025 09:08 AM
[2025-06-14] MEDS: SODIUM CHLORIDE 0.9% 500 ML IV ONE (09:18)
[2025-06-14] MEDS: ASPIRIN 81 MG ECTAB PO SCH (09:20)
[2025-06-14] MEDS: CHOLECALCIFEROL 25 MCG (1000 UNITS) TAB PO SCH (09:20)
[2025-06-14] MEDS: MAGNESIUM OXIDE 400 MG TAB PO SCH (09:20)
[2025-06-14] MEDS: ESCITALOPRAM OXALATE 10 MG TAB PO SCH (09:20)
[2025-06-14] MEDS: ATORVASTATIN 40 MG TAB PO SCH (09:20)
[2025-06-14] MEDS: HYDROXYUREA 500 MG CAP PO SCH (09:20)
[2025-06-14] MEDS: FINASTERIDE 5 MG TAB PO SCH (09:20)
[2025-06-14] MEDS: CYANOCOBALAMIN (B-12) 500 MCG TABLET PO SCH (09:20)
[2025-06-14] MEDS: TAMSULOSIN HCL 0.4 MG CAP PO SCH (09:21)
[2025-06-14] MEDS: METOPROLOL SUCC 25MG EXT REL TAB PO SCH (09:21)
[2025-06-14] MEDS: VIBEGRON 75 MG TAB PO SCH (09:21)
[2025-06-14 09:46] LABS: Hematocrit (blood only) 44.8 % (42.0-52.0); Hemoglobin 14.6 g/dl (14.0-18.0); Mean Corpuscular Hemoglobin 27.3 pg (25.0-34.0); Mean Corpuscular Volume 83.9 fL (80.0-100.0); Platelet Count 154 K/uL (130-400); RDW Standard Deviation 52.8 fL (36.4-46.3); Red Blood Count 5.34 M/uL (4.70-6.10); White Blood Count 10.21 K/ul (4.8-10.8)
[2025-06-14 10:04] LABS: Alanine Aminotransferase 18.0 U/L (7-52); Albumin Globulin Ratio 1.4 (0.9-2); Alkaline Phosphatase 81.0 U/L (34-104); Anion Gap 10.0 (3-11); Bilirubin,Total 1.3 mg/dl (0.2-1.0); Blood Urea Nitrogen 30.0 mg/dl (6-23); Calcium 8.6 mg/dl (8.6-10.3); Carbon Dioxide 23.0 mmol/L (21-32); Chloride 101.0 mmol/L (98-107); Creatinine Clr Calc Pharmacy 24.6 ml/min; Globulin 2.7 gm/dl (2.5-4.0); Glucose 186.0 mg/dl (70-99(Fasting)); Magnesium 1.8 mg/dl (1.7-2.4); Potassium 4.2 mmol/L (3.5-5.1); Sodium 134.0 mmol/L (136-145); Total Protein 6.4 gm/dl (6.0-8.3)
[2025-06-14 10:13] LABS: Immature Granulocytes # (auto) 0.09 K/uL (0.01-0.20); Immature Granulocytes % (auto) 0.9 %
[2025-06-14 10:24] LABS: INR 1.2 (0.9-1.1); Partial Thromboplastin Time 31 Seconds (21-31); Prothrombin Time 13.2 Seconds (9.0-12.0)
[2025-06-14 13:17] LABS: Appearance Urine Clear (Clear); Bacteria Urine Automated None Seen (None Seen); Cast Urine Automated 0-2 /lpf (0-2); Epithelial Cell Urine Auto 0-2 /hpf (0-2); Glucose Urine UA Negative (Negative); RBC Urine Automated 0-2 /hpf (0-2); WBC Urine Automated 0-5 /hpf (0-5)
[2025-06-14] MEDS: ACETAMINOPHEN 1,000 MG/100 ML VIAL IV STA (13:34)
--- NOTE | 2025-06-14 15:43 | Communication Note ---
Long conversation with family, would like to transition patient to comfort care at this time. Prognosis on scale of hours to days. Full note coming later. Date of Service: June 14, 2025
[2025-06-14] MEDS ORDERED: GLYCOPYRROLATE 0.2 MG/ML VIAL IV PRN (15:46)
[2025-06-14] MEDS ORDERED: HYDROmorphone INJ 0.5 MG/0.5 ML SYR IV PRN (15:46)
--- NOTE | 2025-06-14 17:03 | Hospitalist Progress Note ---
Date of Service June 14, 2025 Assessment & Plan (1) Pneumonia: Plan: 89-year-old male with past medical history significant for gout, chronic systolic heart failure, nonischemic cardiomyopathy, status post biventricular ICD, left bundle branch block, hypertension, symptomatic stenosis of right carotid artery, benign esophageal stricture, CKD stage IIIb, spinal stenosis, pseudophakia who lives at home with his and ambulates with rollator walker for short distances was brought in because of nausea vomiting and weakness. Neuro: #Metabolic Encephalopathy #Complex Partial Seizure -left arm twitching improved with keppra -likely in setting of overwhelming sepsis, perhaps underlying seizure activity, vtach, hypoxia Plan: -comfort care ordered: -dilaudid pushes 0.5 mg for dyspnea, pain -ativan for agitation -zofran for nausea/vomiting -bisacodyl suppository for consitpation -mouth and eye care ordered -loaded with keppra, continue bid keppra at 500mg bid Respiratory: #Acute Hypoxic Respiratory Failure #Aspiration Pneumonitis #CAP -comfort care -was on broad spectrum abx, IS, flutter valve, MRSA swab Cardiac: #Ventricular Tachycardia #Type 2 AR #S/p Pacemaker and ICD #HFrEF (EF 40%) -discussed with family, ICD being deactivated via magnet -numerous, frequent vtach on monitor, family does not want further shocks due to not being in line of care -troponins elevated -comfort care GI: -continue protonix Renal: #CAMERON on CKD -comfort care -CAMERON in setting of shock and prerenal etiologies ID: #Septic Shock -as indicated by uptrending lactic acid, severe bilateral CAP in setting of aspiration -given fluid resuscitation and broad spectrum abx -now on comfort care Transitioned to comfort care, see advanced care planning note in chart. I spent a total of 75 minutes in direct patient care, including [id number] time with the patient and/or family, reviewing medical records, ordering and reviewing diagnostic tests, and coordinating care with other healthcare providers. This time includes: history taking, physical examination, medical decision making, counseling, ECG interpretation, imaging interpretation, lab interpretation, orders, and education, excluding time spent in the performance of separately billed services. I spent a total of 60 minutes providing advanced care planning to the patient and/or family, including [id number] time discussing the patient's health status, prognosis, and treatment options. This time includes specific activities such as: discussing advance directives, goals of care, prognostication, and end-of-life planning. Admission and Anticipated Discharge Date Admission Date: June 13, 2025 Subjective Patient seen and examined at bedside. Patient unresponsive. Called to bedside by RN for code purple at 7:30 am, patient unresponsive, noted left arm twitching, called code stroke, did not give ativan due to tenuous respiratory status and confirming code status with son (DNRDNI), talked to [place] who noticed no acute hemorrhage, transferred patient to PCU on high flow nasal cannula, loaded patient with keppra to avoid declining respiratory status. Review of Systems Review of Systems: -unable to answer due to mental status Physical Exam Physical Exam: Gen: A&O 0 in respiratory distress HEENT: NCAT, EOMI, not icteric. External ears normal. No rhinorrhea. Moist mucous membranes. Neck: Supple, full range of motion, no observable masses, No meningeal sign. Lungs: diffuse rhonchi bilaterally CV: tachycardic, regular rhythm Abdomen: Soft, nondistended, No rebound tenderness. MSK: No joint swelling, no redness. Skin: No rashes, petechiae, lesions. Normal color per patient. Neuro: left arm twitching noted, improved with keppra Results & Data Results & Data Vital Signs (Past 12 Hours) Vital Signs Temp Pulse Pulse Resp BP Pulse Ox O2 Del Method 06/14/25 15:36 37.7 C H 101 H 20 97/51 L 98 High Flow Nasal Cannula 06/14/25 14:31 101 H 20 95 High Flow Nasal Cannula 06/14/25 14:09 116 H 06/14/25 11:43 122 H 20 96 High Flow Nasal Cannula 06/14/25 11:24 39.2 C H 123 H 20 147/84 H 98 High Flow Nasal Cannula 06/14/25 09:42 High Flow Nasal Cannula 06/14/25 09:35 119 H 18 97 High Flow Nasal Cannula 06/14/25 08:54 121 H 16 170/90 H 96 High Flow Nasal Cannula O2 Flow Rate FiO2 06/14/25 15:36 06/14/25 14:31 40 60 06/14/25 14:09 06/14/25 11:43 40 80 06/14/25 11:24 06/14/25 09:42 06/14/25 09:35 60 100 06/14/25 08:54 60 100 Laboratory Results -personally reviewed, uptrending lactic acid consistent with shock, uptrending creatininine in setting of shock, uptrending troponin in setting of vtach Medications Administered Escitalopram Oxalate (Escitalopram Oxalate 10 Mg Tab) 5 mg PO DAILY [facility] Stop: 07/14/25 08:59 Last Admin: 06/14/25 09:20 Dose: Not Given Documented By: LILIAN Metoprolol Succinate (Metoprolol Succ 25mg Ext Rel Tab) [facility] Stop: 07/14/25 08:59 Last Admin: 06/14/25 09:21 Dose: Not Given Documented By: LILIAN Tamsulosin HCl (Tamsulosin Hcl 0.4 Mg Cap) 0.4 mg PO [facility] Stop: 07/14/25 08:59 Last Admin: 06/14/25 09:21 Dose: Not Given Documented By: LILIAN
--- NOTE | 2025-06-14 17:18 | Advance Care Plan Prog Note ---
Advanced Care Planning Note Date of Discussion June 14, 2025 ACP Discussion Diagnoses requiring ACP discussion: septic shock, ventricular tachycardia, complex partial seizures A [id number] discussion with the , son regarding the patient's advanced care planning took place during this hospitalization on the above date. The discussion included the explanation and discussion of advance directives and associated forms/documents, as well as the patient's current code status. We also discussed at length the patient's medical conditions (both acute and chronic), general prognosis, treatment options, and goals of care. The following summarizes the discussion: Initial conversation with son over phone during acute setting to discuss code status given seizure like activity in left arm and nonresponsiveness and choking on vomit, son informed me his father is DNRDNI. Conversation began in person in room after code stroke called, I introduced myself and my role on care team. and son present at bedside. DIscussed critical nature of patients condition, including likely complex partial seizures in left arm, septic shock, ICD discharge in setting of ventricular tachycardia, aspiration pneumonia. Discussed goals and values. states he has indicated he would never want artificial life support, and that he has been declining over the past month. Current quality of life was spending most of time in bed, occasionally using walker, holding some conversations but overall declining. Discussed best and worst case scenarios, best case scenario would be a prolonged hospitalization with high liklihood of him spending the rest of his life in and out of nursing homes and hospitals even with most aggressive care, worst case scenario being dying in hospital. Discussed ICD at length. ICD discharged during vtach episode caught on monitor, patient was bucked forward, visibily uncomfortable as witnessed by nursing staff. Discussed risks and benefits of ICD. Discussed that he would likely have ongoing ICD discharges which would continue to be very uncomfortable. indicates she does not want him to be uncomfortable and would like to turn off ICD. We discussed comfort care at length. states that given a very low chance of survival to an acceptable quality of life (acceptable quality of life is how he was prior), that she would like to focus on comfort at this time. Hospice discussed at length. We discussed seeing how he does overnight, and if he surv taylor we will engage hospice agencies for next steps. and son appreciative of the decision making and agreeable with plan. DPOA-HC/Surrogate Decision Maker -, son Status Resuscitation Status DNR/DNI No Resuscitation Total Time I spent a total of 60 minutes was spent on this discussion, including counseling, answering questions, and completing, if any, pertinent advanced care planning forms/documents.
--- NOTE | 2025-06-14 20:41 | XCELERA ---
[id number] \\[id number]
[2025-06-15] MEDS: D5W AND NSS 1,000 ML IV SCH (00:21)
[2025-06-15] MEDS: DOXYCYCLINE HYCLATE 100 MG in DEXTROSE 5% MINI-B 100 ML IV SCH (00:29)
[2025-06-15] MEDS: PIPERACILLIN/TAZOBACTAM 4.5 GM/100 ML BAG IV SCH (02:37)
--- NOTE | 2025-06-15 09:12 | Cardiology Consultation ---
Date of Consultation June 15, 2025 Assessment & Plan (1) Aspiration pneumonia: (2) Hypoxia: (3) Elevated troponin: (4) Ventricular tachycardia: (5) ICD (implantable cardioverter-defibrillator) discharge: Plan Patient is a complex 89 year old male admitted for acute respiratory distress after episode of nausea/vomiting, likely aspiration event/pneumonia. Yesterday morning when patient was acutely hypoxic he developed VT/VF and resulted in ICD discharge x1 with latter day of ventricular paced rhythm. Patient remained unresponsive/obtunded all day yesterday and there was discussion of patient being made comfort care only. However last night, mental status improved. Cardiology consulted to help with med management of HF and NSTEMI. Elevated troponin noted on admission trending slightly upward at 337 this morning. No reported chest pain Echo yesterday with reduced LVEF at 35%, consistent with his history. Variable LVEF overtime 25-50% Elevated troponin likely NSTEMI due to acute hypoxic event/respiratory failure and ICD discharge. Findings not indicative of ACS. When patient able to resume oral meds, continue ASA, statin, metoprolol. If he has recurrent VT, could consider amiodarone. Continue antibiotics for aspiration pneumonia. No family was present at time of evaluation. Patient has [employer]onic BIV AICD There was discussion yesterday about deactivating his ICD to avoid further ICD discharges. patient is DNR/DNI [employer] rep notified but will need to await further discussion with patients family. Case discussed with Dr. Khan I spent a total of 60 minutes on the date of service in preparation, delivery, and documentation of the care provided to this patient, excluding any time spent in the performance of separately billed services. Jayne Hughes PA-C Department of Cardiology, [facility] This chart was completed in part utilizing Speech Voice Recognition Software. Grammatical errors, random word insertions, pronoun errors, and incomplete sentences are an occasional consequence of this system due to software limitat ions, ambient noise, and hardware issues. Any formal questions or concerns about the content, text, or information contained within the body of this dictation should be directly addressed to the provider for clarification. Supervising Physician Co-Signing Physician Notes I have personally performed a history and physical examination on the patient. I have reviewed the advance practitioner's documentation, and I agree with, and take responsibility for the plan of care. 89-year-old male admitted with cough, fever, and bilateral lower lobe pneumonia. Overnight patient developed episode of ventricular fibrillation requiring ICD discharge. Patient was made DNR/DNI and family is contemplating deactivation of ICD therapies. Patient is a poor historian. Unable to offer meaningful history or make medical decisions. Repeat echocardiogram demonstrating cardiomyopathym, LVEF similar to prior studies. High-sensitivity troponin mildly elevated, however, patient denies anginal symptoms prior to admission. I suspect troponin elevation more likely due to demand ischemia in the setting of acute pneumonia, possible aspiration, and ventricular fibrillation arrest. Son at bedside requesting conservative medical management. Prefer to avoid invasive treatment at this time. Recommendations: * IV amiodarone infusion. * Continue aspirin, statin, and metoprolol. * Family considering deactivation of ICD therapies and possible palliative care. * DNR/DNI I spent a total of 40 minutes on the date of service in preparation, delivery, and documentation of the care provided to this patient, excluding any time spent in the performance of separately billed services. Eugene Khan DO, [facility] History of Present Illness Reason for Consultation: Hx of NICM Requesting Physician: Daljit Fajardo Attending Physician: Dr. Khan History of Present Illness Patient is an 89 year old male admitted to [facility] with nausea/vomiting/progressive weakness. Diagnosed with pneumonia. Likely aspiration pneumonia. Per notes yesterday, patient was unresponsive/obtunded. He was hypoxic and developed VT/VF and was appropriate shocked with his ICD, converted back to paced rhythm. He was unresponsive during this time. Throughout the day, family decided on comfort care measures. however last evening, metnal status began to improve and patient was awake and alert. Cardiology was consulted for med management of NSTEMI and to consider turning off ICD. He is DNR/DNI. He has a Medtronic BIV ICD. No family was present at time of evaluation this morning. After discussion with nurse, patient wanted to continue medications and see if status would continue to improve. At time of consult, patient was resting in bed. Alert but remains confused. No acute distress. Review of systems unreliable. History includes: NICM, diagnosed 2000, s/p BiV ICD 05/30/2016; EF normalized post BiV ICD, gen change 05/2023 LBBB Chronic heart failure with reduced EF, NYHA class II CAD s/p cath 2001 HLD HTN CKD stage III Right ICA stenosis Allergies Allergy/AdvReac Type Severity Reaction Status Date / Time codeine Allergy Intermediate Hives Verified 06/13/25 21:05 Sulfa (Sulfonamide Allergy Intermediate Itching Verified 06/13/25 21:05 Antibiotics) sulfamethoxazole Allergy Intermediate Itching Verified 06/13/25 21:05 [From Bactrim] trimethoprim [From Bactrim] Allergy Intermediate Itching Verified 06/13/25 21:05 IZABELA Inhibitors AdvReac Intermediate Cough Verified 06/13/25 21:05 losartan AdvReac Intermediate Dizziness Verified 06/13/25 21:05 Home Medications Medication Instructions Recorded Confirmed Type allopurinol 300 mg tablet 300 mg PO DAILY 01/26/24 06/13/25 History aspirin 81 mg tablet,delayed 81 mg PO QAM 01/26/24 06/13/25 History release cholecalciferol (vitamin D3) 25 2,000 unit PO Q OTHER DAY 01/26/24 06/13/25 History mcg (1,000 unit) tablet (Vitamin D3) cyanocobalamin (vitamin B-12) 1,000 mcg PO Q OTHER DAY 01/26/24 06/13/25 History 1,000 mcg tablet (Vitamin B-12) finasteride 5 mg tablet 5 mg PO QAM 01/26/24 06/13/25 History metoprolol succinate 25 mg 25 mg PO QAM 01/26/24 06/13/25 History tablet,extended release 24 hr omega 8-cre-ikr-fish oil 1,200 mg 1 cap PO BID 01/26/24 06/13/25 History (144 mg-216 mg) capsule (Fish Oil) gabapentin 100 mg capsule 200 mg (2 x 100 mg) PO TID #180 05/06/25 06/13/25 Rx caps tamsulosin 0.4 mg capsule 0.4 mg PO QAM #30 caps 05/06/25 06/13/25 Rx albendazole 200 mg tablet 400 mg PO QAM 06/13/25 06/13/25 History atorvastatin 40 mg tablet 40 mg PO DAILY 06/13/25 06/13/25 History diclofenac sodium 1 % topical gel 2 g topical QID PRN Pain 06/13/25 06/13/25 History escitalopram oxalate 5 mg tablet 5 mg PO DAILY 06/13/25 06/13/25 History (Lexapro) hydroxyurea 500 mg capsule 500 mg PO DAILY 06/13/25 06/13/25 History magnesium oxide 420 mg tablet 420 mg PO DAILY 06/13/25 06/13/25 History mirabegron 50 mg tablet,extended 50 mg PO DAILY 06/13/25 06/13/25 History release 24 hr (Myrbetriq) omeprazole 20 mg capsule,delayed 20 mg PO DAILY 06/13/25 06/13/25 History release Patient History Medical History Benign esophageal stricture CKD stage 3b, GFR 30-44 ml/min Stenosis of right carotid artery LBBB (left bundle branch block) Chronic systolic CHF (congestive heart failure) Hypertension NICM (nonischemic cardiomyopathy) Carotid stenosis Hypertension Heart disease Macular degeneration Surgical History Hx of esophagogastroduodenoscopy Hx of colonoscopy Hx of cataract removal with insertion of prosthetic lens Biventricular ICD (implantable cardioverter-defibrillator) in place Family History Mother COPD (chronic obstructive pulmonary disease) Social History Smoking Status: Former smoker Tobacco Type: Cigarettes Second Hand Exposure: No; Do You Dip or Chew Tobacco: No; Hx Alcohol Use: No Hx Substance Use: No Preferred Language: Armenian Communication Ability: Effective Finisher Merchant Products Required: No Beliefs That Will Affect Care: None Current Living Situation: Spouse Current Living Situation Comment: lives at home with Other Information That Helps Us Care for You: No Feels Safe at Home: Yes Safety Concerns: Feels Safe At This Time Assistive Devices: Cane, Denture - Upper, Denture - Lower and Walker Review of Systems Review of Systems: Unobtainable due to cognitive status Physical Exam Constitutional: WD/WN, vitals as above + frail appearing; no acute distress Respiratory: + cough; no respiratory distress Ausc ultation: + diminished lung sounds and + crackles Cardiovascular: Rate/Rhythm: regular rate and regular rhythm Heart Sounds: normal S1, normal S2 and + murmur (II/ systolic murmur) Vessels: no JVD Extremities: no edema Gastrointestinal (Abdomen): normal bowel sounds, soft, nontender, no hepatosplenomegaly Psychiatric: Orientation: oriented to person Results & Data Vital Signs (Past 12 Hours) Vital Signs Temp Pulse Resp BP Pulse Ox O2 Del Method O2 Flow Rate 06/15/25 07:49 Nasal Cannula 2 06/15/25 07:00 36.6 C 60 18 110/63 94 Nasal Cannula 3 06/14/25 23:19 36.3 C L 85 16 135/77 97 Nasal Cannula 6.0 Laboratory Results Cardiac Enzymes 06/14/25 06/14/25 06/14/25 Range/Units 09:27 09:33 11:21 AST 23 (13-39) U/L Troponin I High Sens 123.2 H* D 133.0 H* 247.3 H* D (0-20) pg/ml Coagulation 06/14/25 Range/Units 09:27 PT 13.2 H (9.0-12.0) Seconds APTT 31 (21-31) Seconds CBC 06/14/25 Range/Units 09:27 WBC 10.21 (4.8-10.8) K/ul RBC 5.34 (4.70-6.10) M/uL Hgb 14.6 (14.0-18.0) g/dl Hct 44.8 (42.0-52.0) % Plt Count 154 (130-400) K/uL Neut # (Auto) 9.70 H (1.40-6.50) K/uL Lymph # (Auto) 0.23 L (1.20-3.40) K/uL [place] # (Auto) 0.17 (0.11-0.59) K/uL Eos # (Auto) 0.01 (0.00-0.50) K/uL Baso # (Auto) 0.01 (0.00-0.20) K/uL Comprehensive Metabolic Panel 06/14/25 Range/Units 09:27 Sodium 134 L (136-145) mmol/L Potassium 4.2 (3.5-5.1) mmol/L Chloride 101 (98-107) mmol/L Carbon Dioxide 23 (21-32) mmol/L BUN 30 H (6-23) mg/dl Creatinine 1.84 H (0.6-1.4) mg/dl Glucose 186 H (70-99(Fasting)) mg/dl Calcium 8.6 (8.6-10.3) mg/dl AST 23 (13-39) U/L ALT 18 (7-52) U/L Alkaline Phosphatase 81 (34-104) U/L Total Protein 6.4 (6.0-8.3) gm/dl Albumin 3.7 (3.4-5.0) gm/dl Intake and Output 06/14/25 06/15/25 06/15/25 22:59 06:59 14:59 Intake Total 200 / 1982.334 200 / 1982.334 Output Total 475 / 475 Balance 200 / 1508.334 -275 / 1508.334 Intake: IV 200 / 1982.334 1982. Doxycycline Hyclate 100 mg In 100 / 200 100 / 200 Dextrose 5% Mini-B 100 ml @ 50 mls/hr IV Q12H [facility] Rx#:[id number] Piperacillin/Tazobactam 4.5 gm 100 / 300 100 / 300 In 100 ml @ 25 mls/hr IV Q8H [facility] Rx#:[id number] Output: Urine Amount (Catheter) 475 / 475 External 475 / 475 Other: Other Intake Source NPO Diagnostic Findings Telemetry reviewed: ventricular paced; yesterday morning patient had VT/VF with 1 ICD shock with latter day of ventricular paced rhythm Echo reviewed from 06/14/25: LVEF is moderately to severely reduced at 35-40% Grade I diastolic dysfunction Moderate Mild MR Mild TR Akinesis of the basal and mid inferolateral and inferior vuong. Severe hypokinesis to akinesis of the basal and mid anterolateral vuong. Medications Administered Current Inpatient Medications Acetaminophen (Acetaminophen 500 Mg Tab) 1,000 mg PO Q8H PRN PRN Reason: Pain Stop: 07/15/25 08:29 Aspirin (Aspirin 81 Mg Ectab) 81 mg PO QAM [facility] Stop: 07/15/25 08:59 Last Admin: 06/15/25 09:27 Dose: 81 mg Atorvastatin Calcium (Atorvastatin 40 Mg Tab) 80 mg PO QAM [facility] Stop: 07/15/25 08:59 Last Admin: 06/15/25 09:26 Dose: 80 mg Bisacodyl (Bisacodyl 10 Mg Supp) 10 mg [place] DAILY PRN PRN Reason: Constipation Stop: 07/14/25 17:02 Escitalopram Oxalate (Escitalopram Oxalate 10 Mg Tab) 5 mg PO DAILY [facility] Stop: 07/14/25 08:59 Last Admin: 06/15/25 09:31 Dose: 5 mg Glycopyrrolate (Glycopyrrolate 0.2 Mg/Ml Vial) 0.4 mg IV Q4H PRN PRN Reason: Rattling Secretions or Pulm Congestion Stop: 07/14/25 15:45 Piperacillin Sod/Tazobactam Sod (Zosyn) 4.5 gm in 100 mls @ 25 mls/hr IV Q8H [facility]; Protocol Stop: 06/20/25 00:59 Last Admin: 06/15/25 09:29 Dose: 25 mls/hr Doxycycline Hyclate 100 mg/ (Dextrose) 100 mls @ 50 mls/hr IV Q12H [facility] Stop: 06/20/25 00:14 Last Infusion: 06/15/25 02:43 Dose: Infused Dextrose/Sodium Chloride (D5w And Nss) 1,000 mls @ 100 mls/hr IV .Q10H [facility] Stop: 06/18/25 00:14 Last Admin: 06/15/25 00:21 Dose: 75 mls/hr Levetiracetam (Levetiracetam 500 Mg Tab) 500 mg PO Q12H [facility] Stop: 07/15/25 08:59 Last Admin: 06/15/25 09:26 Dose: 500 mg Metoprolol Succinate (Metoprolol Succ 25mg Ext Rel Tab) 25 mg PO QAM [facility] Stop: 07/14/25 08:59 Last Admin: 06/15/25 09:28 Dose: 25 mg Ondansetron HCl (Ondansetron Inj 2 Mg/Ml 2 Ml Vial) 4 mg IV Q6H PRN PRN Reason: Nausea Stop: 07/14/25 00:58 Pantoprazole Sodium (Pantoprazole 40 Mg Tab) 40 mg PO [facility] Stop: 07/15/25 08:59 Last Admin: 06/15/25 09:26 Dose: 40 mg Tamsulosin HCl (Tamsulosin Hcl 0.4 Mg Cap) 0.4 mg PO QAM [facility] Stop: 07/14/25 08:59 Last Admin: 06/15/25 09:29 Dose: 0.4 mg PG Care Time/CCT Total # of Minutes Spent Total Time Spent with Patient: Total time spent is greater than 50% in coordination of care (as documented) at patient's floor/unit and/or counseling patient: 60 minutes Coding Level of Care Code 18612 OFFICE CONSULT LVL Diagnoses Aspiration pneumonia J69.0 Aspiration pneumonia type: unspecified Laterality: bilateral Lung location: lower lobe of lung Hypoxia R09.02 Elevated troponin R79.89 Ventricular tachycardia I47.20 ICD (implantable cardioverter-defibrillator) discharge Z45.02 (1) Aspiration pneumonia Aspiration pneumonia type: unspecified Laterality: bilateral Lung location: lower lobe of lung Qualified Code(s): J69.0 - Pneumonitis due to inhalation of food and vomit
[2025-06-15] MEDS: levETIRAcetam 500 MG TAB PO SCH (09:26)
[2025-06-15] MEDS: ATORVASTATIN 40 MG TAB PO SCH (09:26)
[2025-06-15] MEDS: ASPIRIN 81 MG ECTAB PO SCH (09:27)
[2025-06-15 09:28] LABS: Hematocrit (blood only) 45.4 % (42.0-52.0); Hemoglobin 14.9 g/dl (14.0-18.0); Immature Granulocytes # (auto) 0.04 K/uL (0.01-0.20); Immature Granulocytes % (auto) 0.3 %; Mean Corpuscular Hemoglobin 28.0 pg (25.0-34.0); Mean Corpuscular Volume 85.3 fL (80.0-100.0); Platelet Count 145 K/uL (130-400); RDW Standard Deviation 57.0 fL (36.4-46.3); Red Blood Count 5.32 M/uL (4.70-6.10); White Blood Count 11.84 K/ul (4.8-10.8)
[2025-06-15 09:45] LABS: Anion Gap 9.0 (3-11); Blood Urea Nitrogen 37.0 mg/dl (6-23); Calcium 9.2 mg/dl (8.6-10.3); Carbon Dioxide 23.0 mmol/L (21-32); Chloride 106.0 mmol/L (98-107); Creatine Kinase 72.0 U/L (30-223); Creatinine Clr Calc Pharmacy 23.8 ml/min; Glucose 112.0 mg/dl (70-99(Fasting)); Magnesium 2.1 mg/dl (1.7-2.4); Potassium 4.1 mmol/L (3.5-5.1); Sodium 138.0 mmol/L (136-145)
[2025-06-15 09:59] LABS: INR 1.2 (0.9-1.1); Prothrombin Time 12.7 Seconds (9.0-12.0)
--- NOTE | 2025-06-15 10:00 | XRay Report ---
XR chest 1V portable HISTORY: 89 years-old Male hypoxia acute hypoxia COMPARISON: Chest An CT abdomen and pelvis 06/13/2025 TECHNIQUE: AP view of the chest FINDINGS: Cardiomegaly. Left subclavian pacer/AICD. A circular device projects over the battery pack. Only vasc ular congestion with interstitial coarsening. No pneumothorax. Probable trace pleural effusions with mild bibasilar densities. Calcified pleural plaques are better seen on prior CT. Degenerative changes of the shoulders and spine. IMPRESSION: 1. Cardiomegaly with interstitial pulmonary edema. 2. Probable trace pleural effusions with bibasilar opacities favoring atelectasis. A mild pneumonitis could appear similarly. 3. Evidence of asbestos-related pleural disease. ACT 112: Negative or not required by law. The above report was generated using voice recognition software. It may contain grammatical, syntax o r spelling errors. Electronically signed by: Carlito Hernandes M.D. 06/15/2025 9:59 AM
--- NOTE | 2025-06-15 10:39 | Electrocardiogram Report ---
Test Reason : Blood Pressure : */* mmHG Vent. Rate : 105 BPM Atrial Rate : 105 BPM P-R Int : 146 ms QRS Dur : 134 ms QT Int : 396 ms P-R-T Axes : -23 172 -22 degrees QTcB Int : 523 ms Atrial-sensed ventricular-paced rhythm Abnormal ECG When compared with ECG of 04-May-2025 11:08, Vent. rate has increased by 39 bpm Confirmed by Ben Holder ([id number]) on 06/15/2025 10:39:23 AM Referred By: REFERRED SELF Confirmed By: Ben Holder
--- NOTE | 2025-06-15 10:47 | Electrocardiogram Report ---
Test Reason : Blood Pressure : */* mmHG Vent. Rate : 97 BPM Atrial Rate : 97 BPM P-R Int : 140 ms QRS Dur : 138 ms QT Int : 436 ms P-R-T Axes : 50 226 28 degrees QTcB Int : 553 ms Atrial-sensed ventricular-paced rhythm Abnormal ECG When compared with ECG of 13-Jun-2025 19:50, (unconfirmed) Vent. rate has decreased by 8 bpm Confirmed by Ben Holder ([id number] on 06/15/2025 10:47:30 AM Referred By: REFERRED SELF Confirmed By: Ben Holder
[2025-06-15] MEDS: ACETAMINOPHEN 500 MG TAB PO PRN (13:17)
[2025-06-15] MEDS ORDERED: 0.2 MICRON FILTER SET 1 EACH IV STA (15:42)
[2025-06-15] MEDS ORDERED: AMIODARONE IV BOLUS & DRIP IV STA (15:42)
--- NOTE | 2025-06-15 16:33 | Neurology Consultation ---
Date of Consultation June 15, 2025 Assessment & Plan (1) Acute confusion: Reported episode of unresponsiveness/confusion=resolved Recommend obtain EEG Provide seizure precautions Utilize benzodiazepines emergently for any breakthrough clinical seizure like activity Recommend MRI brain with and without contrast if able to tolerate Continue frequent neurological assessments Obtain stat CT brain without contrast for any acute neurological decline Continue to monitor/control blood pressure & blood glucose Continue to monitor telemetry closely Continue to monitor renal and hepatic function, keep euvolemic Ok from neurology perspective for VTE prophylaxis PT/OT/SLT to eval and treat Recommend eval for LESTER and consider outpatient polysomnography Telehealth Consultation Telehealth Information Telehealth Information: I performed this visit using a real-time telehealth connection between my location and the patients location ([facility]). After connecting through interactive tele-video, patient was identified by name and date of and/or wristband check.Patient (or authorized healthcare textile designs sales representative) was informed that this was a telemedicine visit and it was being conducted confidentially over secure lines. My office door was closed and no one else was present in the room with me.Patient (or authorized healthcare textile designs sales representative) provided consent to proceed with the visit, expressed an understanding of privacy and security of the telemedicine visit, and gave permission to have a hospital textile designs sales representative in the room in order to assist with the visit and to conduct portions of the visit, as needed. I informed the patient (or authorized healthcare textile designs sales representative) that I reviewed their record and presented the opportunity for them to ask any questions regarding the visit today. The patient agreed to participate. History of Present Illness Reason for Consultation: Shaking/seizure like activity Requesting Physician: Dr Teague Attending Physician: Terry Teague MD History of Present Illness 89yo male presented with weakness N/V concern of aspiration pneumonia. He has a hx of HF status post ICD implant, HTN, carotid stenosis, CKD and unfortunately had episode of unresponsiveness and was reported to have demonstrated shaking and possible seizure like activity, Today he is reportedly at baseline. I have performed televideo consultation. He is alert & able to answer questions appropriately, name objects on televideo monitor, repeat phrases and perform simple commands without deficit. Neurological exam is non lateralizing/nonfocal in terms of motor strength and coordination. He appears in no apparent distress or discomfort. Allergies Allergy/AdvReac Type Severity Reaction Status Date / Time codeine Allergy Intermediate Hives Verified 06/13/25 21:05 Sulfa (Sulfonamide Allergy Intermediate Itching Verified 06/13/25 21:05 Antibiotics) sulfamethoxazole Allergy Intermediate Itching Verified 06/13/25 21:05 [From Bactrim] trimethoprim [From Bactrim] Allergy Intermediate Itching Verified 06/13/25 21:05 IZABELA Inhibitors AdvReac Intermediate Cough Verified 06/13/25 21:05 losartan AdvReac Intermediate Dizziness Verified 06/13/25 21:05 Home Medications Medication Instructions Recorded Confirmed Type allopurinol 300 mg tablet 300 mg PO DAILY 01/26/24 06/13/25 History aspirin 81 mg tablet,delayed 81 mg PO QAM 01/26/24 06/13/25 History release cholecalciferol (vitamin D3) 25 2,000 unit PO Q OTHER DAY 01/26/24 06/13/25 History mcg (1,000 unit) tablet (Vitamin D3) cyanocobalamin (vitamin B-12) 1,000 mcg PO Q OTHER DAY 01/26/24 06/13/25 History 1,000 mcg tablet (Vitamin B-12) finasteride 5 mg tablet 5 mg PO QAM 01/26/24 06/13/25 History metoprolol succinate 25 mg 25 mg PO QAM 01/26/24 06/13/25 History tablet,extended release 24 hr omega 6-ipp-kaq-fish oil 1,200 mg 1 cap PO BID 01/26/24 06/13/25 History (144 mg-216 mg) capsule (Fish Oil) gabapentin 100 mg capsule 200 mg (2 x 100 mg) PO TID #180 05/06/25 06/13/25 Rx caps tamsulosin 0.4 mg capsule 0.4 mg PO QAM #30 caps 05/06/25 06/13/25 Rx albendazole 200 mg tablet 400 mg PO QAM 06/13/25 06/13/25 History atorvastatin 40 mg tablet 40 mg PO DAILY 06/13/25 06/13/25 History diclofenac sodium 1 % topical gel 2 g topical QID PRN Pain 06/13/25 06/13/25 History escitalopram oxalate 5 mg tablet 5 mg PO DAILY 06/13/25 06/13/25 History (Lexapro) hydroxyurea 500 mg capsule 500 mg PO DAILY 06/13/25 06/13/25 History magnesium oxide 420 mg tablet 420 mg PO DAILY 06/13/25 06/13/25 History mirabegron 50 mg tablet,extended 50 mg PO DAILY 06/13/25 06/13/25 History release 24 hr (Myrbetriq) omeprazole 20 mg capsule,delayed 20 mg PO DAILY 06/13/25 06/13/25 History release Patient History Medical History Benign esophageal stricture CKD stage 3b, GFR 30-44 ml/min Stenosis of right carotid artery LBBB (left bundle branch block) Chronic systolic CHF (congestive heart failure) Hypertension NICM (nonischemic cardiomyopathy) Carotid stenosis Hypertension Heart disease Macular degeneration Surgical History Hx of esophagogastroduodenoscopy Hx of colonoscopy Hx of cataract removal with insertion of prosthetic lens Biventricular ICD (implantable cardioverter-defibrillator) in place Family History Mother COPD (chronic obstructive pulmonary disease) Social History Smoking Status: Former smoker Tobacco Type: Cigarettes Second Hand Exposure: No; Do You Dip or Chew Tobacco: No; Hx Alcohol Use: No Hx Substance Use: No Preferred Language: Citizen Of [place] Communication Ability: Effective Corporate Director Required: No Beliefs That Will Affect Care: Anabaptist Current Living Situation: Spouse Current Living Situation Comment: lives at home with Other Information That Helps Us Care for You: No Feels Safe at Home: Yes Safety Concerns: Feels Safe At This Time Assistive Devices: Cane, Denture - Upper, Denture - Lower and Walker Physical Exam Neurological Examination: Mental Status: Awake and able to answer most questions appropriately Fluency naming and comprehension appear reportedly at baseline Affect remains appropriate. CN testing: I: Deferred II: Reports no changes in visual acuity III/IV/: No evidence of gaze preference, hippus, nystagmus or roving eye movements V: Facial sensation reportedly grossly intact to light touch bilaterally VII: Facial movements appear without evidence of asymmetry VIII: Hearing appears grossly intact to loud voice bilaterally IX/X: Palate is unable to be accurately visualized XI: Shoulder shrug appears symmetric/ grossly intact bilaterally XII: Tongue protrudes midline without evidence of biting Motor exam: Strength appears grossly intact in all extremities Tone: Unable to accurately assess via telemedicine Sensory: Sensation is reportedly grossly intact throughout Coordination: No apparent evidence of dysmetria or dysdiadochokinesia Reflexes: Unable to accurately assess via telemedicine Gait: Deferred Results & Data Vital Signs (Past 12 Hours) Vital Signs Temp Pulse Pulse Resp BP Pulse Ox O2 Del Method 06/15/25 14:03 60 06/15/25 11:00 36.5 C 59 L 18 114/58 L 96 Room Air 06/15/25 07:49 Nasal Cannula 06/15/25 07:00 36.6 C 60 18 110/63 94 Nasal Cannula O2 Flow Rate 06/15/25 14:03 06/15/25 11:00 06/15/25 07:49 2 06/15/25 07:00 3 Laboratory Results Abnormal lab results 06/15/25 06/15/25 Range/Units 08:48 11:27 WBC 11.84 H (4.8-10.8) K/ul RDW Std Deviation 57.0 H (36.4-46.3) fL RDW Coeff of Dmitriy 19.5 H (11.5-14.5) % Neut # (Auto) 10.20 H (1.40-6.50) K/uL PT 12.7 H (9.0-12.0) Seconds INR 1.2 H (0.9-1.1) BUN 37 H (6-23) mg/dl Creatinine 1.90 H (0.6-1.4) mg/dl Glucose 112 H (70-99(Fasting)) mg/dl Ionized Calcium 1.10 L (1.12-1.32) mmol/L Troponin I High Sens 337.8 H* D 357.7 H* (0-20) pg/ml Diagnostic Findings Chest X-Ray 06/15/25 08:38 XR chest 1V portable HISTORY: 89 years-old Male hypoxia acute hypoxia COMPARISON: Chest An CT abdomen and pelvis 06/13/2025 TECHNIQUE: AP view of the chest FINDINGS: Cardiomegaly. Left subclavian pacer/AICD. A circular device projects over the battery pack. Only vascular congestion with interstitial coarsening. No pneumothorax. Probable trace pleural effusions with mild bibasilar densities. Calcified pleural plaques are better seen on prior CT. Degenerative changes of the shoulders and spine. IMPRESSION: 1. Cardiomegaly with interstitial pulmonary edema. 2. Probable trace pleural effusions with bibasilar opacities favoring atelectasis. A mild pneumonitis could appear similarly. 3. Evidence of asbestos-related pleural disease. ACT 112: Negative or not required by law. The above report was generated using voice recognition software. It may contain grammatical, syntax or spelling errors. Electronically signed by: Carlito Hernandes M.D. 06/15/2025 9:59 AM Medications Administered Home Medications Medication Instructions Recorded Confirmed Last Taken allopurinol 300 mg tablet 300 mg PO DAILY 01/26/24 06/13/25 06/13/25 aspirin 81 mg tablet,delayed 81 mg PO QAM 01/26/24 06/13/25 06/13/25 release cholecalciferol (vitamin D3) 25 2,000 unit PO Q OTHER DAY 01/26/24 06/13/25 06/12/25 mcg (1,000 unit) tablet (Vitamin D3) cyanocobalamin (vitamin B-12) 1,000 mcg PO Q OTHER DAY 01/26/24 06/13/25 06/12/25 1,000 mcg tablet (Vitamin B-12) finasteride 5 mg tablet 5 mg PO QAM 01/26/24 06/13/25 06/13/25 metoprolol succinate 25 mg 25 mg PO QAM 01/26/24 06/13/25 06/13/25 tablet,extended release 24 hr omega 8-vyg-pxa-fish oil 1,200 mg 1 cap PO BID 01/26/24 06/13/25 06/13/25 (144 mg-216 mg) capsule (Fish Oil) gabapentin 100 mg capsule 200 mg (2 x 100 mg) PO TID #180 05/06/25 06/13/25 06/13/25 12:00 caps tamsulosin 0.4 mg capsule 0.4 mg PO QAM #30 caps 05/06/25 06/13/25 06/13/25 0.4 MG DAILY albendazole 200 mg tablet 400 mg PO QAM 06/13/25 06/13/25 06/13/25 atorvastatin 40 mg tablet 40 mg PO DAILY 06/13/25 06/13/25 06/13/25 diclofenac sodium 1 % topical gel 2 g topical QID PRN Pain 06/13/25 06/13/25 Unknown escitalopram oxalate 5 mg tablet 5 mg PO DAILY 06/13/25 06/13/25 06/13/25 (Lexapro) hydroxyurea 500 mg capsule 500 mg PO DAILY 06/13/25 06/13/25 06/13/25 magnesium oxide 420 mg tablet 420 mg PO DAILY 06/13/25 06/13/25 06/13/25 mirabegron 50 mg tablet,extended 50 mg PO DAILY 06/13/25 06/13/25 06/13/25 release 24 hr (Myrbetriq) omeprazole 20 mg capsule,delayed 20 mg PO DAILY 06/13/25 06/13/25 06/13/25 release Active Medications Generic Name Dose Route Start Last Admin Trade Name Jaquanq PRN Reason Stop Dose Admin Acetaminophen 1,000 mg 06/15/25 08:30 06/15/25 13:17 Acetaminophen 500 Mg Tab PO 07/15/25 08:29 1,000 mg Q8H PRN Administration Pain Aspirin 81 mg 06/15/25 09:00 06/15/25 09:27 Aspirin 81 Mg Ectab PO 07/15/25 08:59 81 mg QAM CARLOTTA Administration Atorvastatin Calcium 80 mg 06/15/25 09:00 06/15/25 09:26 Atorvastatin 40 Mg Tab PO 07/15/25 08:59 80 mg QAM CARLOTTA Administration Escitalopram Oxalate 5 mg 06/14/25 09:00 06/15/25 09:31 Escitalopram Oxalate 10 Mg Tab PO 07/14/25 08:59 5 mg DAILY CARLOTTA Administration Piperacillin Sod/Tazobactam Sod 4.5 gm in 100 mls @ 25 mls/hr 06/15/25 01:00 06/15/25 13:43 Zosyn IV 06/20/25 00:59 Infused Q8H CARLOTTA Infusion Protocol Doxycycline Hyclate 100 mg/ 100 mls @ 50 mls/hr 06/15/25 00:15 06/15/25 15:11 Dextrose IV 06/20/25 00:14 Infused Q12H [facility] Infusion Dextrose/Sodium Chloride 1,000 mls @ 100 mls/hr 06/15/25 00:15 06/15/25 12:08 D5w And Nss IV 06/18/25 00:14 75 mls/hr .Q10H CARLOTTA Administration Metoprolol Succinate 25 mg 06/14/25 09:00 06/15/25 09:28 Metoprolol Succ 25mg Ext Rel Tab PO 07/14/25 08:59 25 mg QAM CARLOTTA Administration Pantoprazole Sodium 40 mg 06/15/25 09:00 06/15/25 09:26 Pantoprazole 40 Mg Tab PO 07/15/25 08:59 40 mg QAM CARLOTTA Administration Tamsulosin HCl 0.4 mg 06/14/25 09:00 06/15/25 09:29 Tamsulosin Hcl 0.4 Mg Cap PO 07/14/25 08:59 0.4 mg QAM CARLOTTA Administration
--- NOTE | 2025-06-15 16:35 | Hospitalist Progress Note ---
Date of Service June 15, 2025 Assessment & Plan (1) Pneumonia: Plan: 89-year-old male with past medical history significant for gout, chronic systolic heart failure, nonischemic cardiomyopathy, status post biventricular ICD, left bundle branch block, hypertension, symptomatic stenosis of right carotid artery, benign esophageal stricture, CKD stage IIIb, spinal stenosis, pseudophakia who lives at home with his and ambulates with rollator walker for short distances was brought in because of nausea vomiting and weakness. Neuro: #Metabolic Encephalopathy #R/o Complex Partial Seizure -left arm twitching improved with keppra -likely in setting of overwhelming sepsis, perhaps underlying seizure activity, vtach, hypoxia -much improved today Plan: -deliriuim precautions -neurology consult, appreciate recs -hold keppra per neurology -EEG ordered, pending Respiratory: #Acute Hypoxic Respiratory Failure #Aspiration Pneumonitis #CAP -in setting of ongoing aspiration -downtitrating oxygen steadily Plan: -continue zosyn/doxy -check blood cultures, sputum culture -check xr chest give improvements Cardiac: #Ventricular Tachycardia #Type 2 VT #S/p Pacemaker and ICD #HFrEF (EF 40%) -discussed with family, ICD being deactivated via magnet -numerous, frequent vtach on monitor, family does not want further shocks due to not being in line of care -troponins elevated Plan: -cardiology consult, appreciate recs -increase metoprolol to 50 PO daily -reengage discussion regarding ICD, appreciate cardiology assistance -amiodarone drip, appreciate cardiology assistance GI: -continue protonix Renal: #CAMERON on CKD -likely in setting of ATN -no obstruction noted on abdomen/pelvis Plan: -continue fluid resuscitation -likely will continue until it plateaus and decrease ID: #Septic Shock -significantly improved with fluids and abx Plan: -continue abx -continue fluids -rechecked lactic acid which has downtrended GOC discussion at bedside, given rapid improvement, to return to reversing underlying conditions and moving away from comfort care. I spent a total of 60 minutes in direct patient care, including [id number] time with the patient and/or family, reviewing medical records, ordering and reviewing diagnostic tests, and coordinating care with other healthcare providers. This time includes: history taking, physical examination, medical decision making, counseling, ECG interpretation, imaging interpretation, lab interpretation, orders, and education, excluding time spent in the performance of separately billed services. Admission and Anticipated Discharge Date Admission Date: June 13, 2025 Subjective Patient seen and examined at bedside. Patient awake this morning, responding well. Has recovered well from initial change. Discussed with son and , given patient improved significantly, will change focus of care back to treating underlying illnesses without taking aggressive measures. Review of Systems Review of Systems: CONSTITUTIONAL: Patient denies fevers, chills, sweats and weight changes. EYES: Patient denies any visual symptoms. EARS, NOSE, AND THROAT: No difficulties with hearing. No symptoms of rhinitis or sore throat. CARDIOVASCULAR: Patient denies chest pains, palpitations, orthopnea and paroxysmal nocturnal dyspnea. RESPIRATORY: No dyspnea on exertion, no wheezing or cough. GI: No nausea, vomiting, diarrhea, constipation, abdominal pain, hematochezia or melena. : No urinary hesitancy or dribbling. No nocturia or urinary frequency. No abnormal urethral discharge. MUSCULOSKELETAL: No myalgias or arthralgias. NEUROLOGIC: No chronic headaches, no seizures. Patient denies numbness, tingling or weakness. PSYCHIATRIC: Patient denies problems with mood disturbance. No problems with anxiety. ENDOCRINE: No excessive urination or excessive thirst. DERMATOLOGIC: Patient denies any rashes or skin changes. Physical Exam Physical Exam: Gen: A&O 1 comfortable HEENT: NCAT, EOMI, not icteric. External ears normal. No rhinorrhea. Moist mucous membranes. Neck: Supple, full range of motion, no observable masses, No meningeal sign. Lungs: diffuse rhonchi bilaterally, improved from yesterday CV: RRR Abdomen: Soft, nondistended, No rebound tenderness. MSK: No joint swelling, no redness. Skin: No rashes, petechiae, lesions. Normal color per patient. Neuro: no evidence of seizure activity Results & Data Results & Data Vital Signs (Past 12 Hours) Vital Signs Temp Pulse Pulse Resp BP Pulse Ox O2 Del Method 06/15/25 14:03 60 06/15/25 11:00 36.5 C 59 L 18 114/58 L 96 Room Air 06/15/25 07:49 Nasal Cannula 06/15/25 07:00 36.6 C 60 18 110/63 94 Nasal Cannula O2 Flow Rate 06/15/25 14:03 06/15/25 11:00 06/15/25 07:49 2 06/15/25 07:00 3 Laboratory Results -personally reviewed, elevated WBC, uptrending creatinine likely in setting of ATN Medications Administered Acetaminophen (Acetaminophen 500 Mg Tab) 1,000 mg PO Q8H PRN PRN Reason: Pain Stop: 07/15/25 08:29 Last Admin: 06/15/25 13:17 Dose: 1,000 mg Documented By: LILIAN Aspirin (Aspirin 81 Mg Ectab) 81 mg PO QAM [facility] Stop: 07/15/25 08:59 Last Admin: 06/15/25 09:27 Dose: 81 mg Documented By: ILLIAN Atorvastatin Calcium (Atorvastatin 40 Mg Tab) 80 mg PO QAM [facility] Stop: 07/15/25 08:59 Last Admin: 06/15/25 09:26 Dose: 80 mg Documented By: LILIAN Escitalopram Oxalate (Escitalopram Oxalate 10 Mg Tab) 5 mg PO DAILY [facility] Stop: 07/14/25 08:59 Last Admin: 06/15/25 09:31 Dose: 5 mg Documented By: Admin: 06/14/25 09:20 Dose: Not Given Documented By: LILIAN Piperacillin Sod/Tazobactam Sod (Zosyn) 4.5 gm in 100 mls @ 25 mls/hr IV Q8H [facility]; Protocol Stop: 06/20/25 00:59 Last Infusion: 06/15/25 13:43 Dose: Infused Documented By: Admin: 06/15/25 09:29 Dose: 25 mls/hr Documented By: Infusion: 06/15/25 06:40 Dose: Infused Documented By: Admin: 06/15/25 02:37 Dose: 25 mls/hr Documented By: DEDRICK Doxycycline Hyclate 100 mg/ (Dextrose) 100 mls @ 50 mls/hr IV Q12H [facility] Stop: 06/20/25 00:14 Last Infusion: 06/15/25 15:11 Dose: Infused Documented By: Admin: 06/15/25 13:09 Dose: 50 mls/hr Documented By: Infusion: 06/15/25 02:43 Dose: Infused Documented By: Admin: 06/15/25 00:29 Dose: 50 mls/hr Documented By: DEDRICK Dextrose/Sodium Chloride (D5w And Nss) 1,000 mls @ 100 mls/hr IV .Q10H [facility] Stop: 06/18/25 00:14 Last Admin: 06/15/25 12:08 Dose: 75 mls/hr Documented By: Infusion: 06/15/25 12:08 Dose: Infused Documented By: Admin: 06/15/25 00:21 Dose: 75 mls/hr Documented By: DEDRICK Metoprolol Succinate (Metoprolol Succ 25mg Ext Rel Tab) 25 mg PO [facility] Stop: 07/14/25 08:59 Last Admin: 06/15/25 09:28 Dose: 25 mg Documented By: Admin: 06/14/25 09:21 Dose: Not Given Documented By: LILIAN Pantoprazole Sodium (Pantoprazole 40 Mg Tab) 40 mg PO [facility] Stop: 07/15/25 08:59 Last Admin: 06/15/25 09:26 Dose: 40 mg Documented By: LILIAN Tamsulosin HCl (Tamsulosin Hcl 0.4 Mg Cap) 0.4 mg PO [facility] Stop: 07/14/25 08:59 Last Admin: 06/15/25 09:29 Dose: 0.4 mg Documented By: Admin: 06/14/25 09:21 Dose: Not Given Documented By: LILIAN
[2025-06-15] MEDS: AMIODARONE / D5W 150 MG/100 ML BAG IV STA (16:54)
[2025-06-15] MEDS: STAT IV Infusion **Titration per Protocol STA (16:54)
[2025-06-15] MEDS: AMIODARONE / D5W 360 MG/200 ML BAG IV ONE (17:00)
[2025-06-15] MEDS: AMIODARONE / D5W 360 MG/200 ML BAG IV SCH (22:46)
[2025-06-16 09:06] LABS: Hematocrit (blood only) 42.1 % (42.0-52.0); Hemoglobin 13.4 g/dl (14.0-18.0); Mean Corpuscular Hemoglobin 27.2 pg (25.0-34.0); Mean Corpuscular Volume 85.6 fL (80.0-100.0); Platelet Count 138 K/uL (130-400); RDW Standard Deviation 56.9 fL (36.4-46.3); Red Blood Count 4.92 M/uL (4.70-6.10); White Blood Count 8.36 K/ul (4.8-10.8)
[2025-06-16 09:54] LABS: Anion Gap 8.0 (3-11); Blood Urea Nitrogen 35.0 mg/dl (6-23); Calcium 8.8 mg/dl (8.6-10.3); Carbon Dioxide 26.0 mmol/L (21-32); Chloride 104.0 mmol/L (98-107); Creatinine Clr Calc Pharmacy 24.6 ml/min; Glucose 118.0 mg/dl (70-99(Fasting)); Magnesium 2.1 mg/dl (1.7-2.4); Potassium 3.4 mmol/L (3.5-5.1); Sodium 138.0 mmol/L (136-145)
[2025-06-16] MEDS ORDERED: POTASSIUM PHOS 3 MMOL/1 ML INFUSION IV ONE (12:08)
--- NOTE | 2025-06-16 12:54 | XRay Report ---
SINGLE VIEW CHEST CLINICAL HISTORY: Dyspnea FINDINGS: An AP, portable, upright chest radiograph is compared to study dated 06/15/2025 and correlate d with abdominal CT dated 06/13/2025. A 3-lead cardiac AICD is unchanged in position and largely obscu res the left mid chest. The heart is enlarged noting atherosclerotic calcification of the thoracic ao rta. There is pulmonary vascular congestion. There are small pleural effusions with bibasilar consoli dation. Calcified pleural plaque is again seen on the right. No pneumothorax is identified. The skele rigoberto structures are osteopenic. The bony thorax is grossly intact. IMPRESSION: 1. Cardiomegaly and AICD with pulmonary vascular congestion. 2. Small pleural effusions with bibasilar consolidation. This is similar to the 06/13/2025 abdominal C T and likely represents pneumonia/aspiration pneumonitis. Clinical correlation will be required and r adiographic follow-up to resolution is recommended. ACT 112: Negative or not required by law. Electronically signed by: Anand Roa M.D. 06/16/2025 12:52 PM
--- NOTE | 2025-06-16 14:04 | Cardiology Progress Note ---
Date of Service June 16, 2025 Assessment & Plan (1) Aspiration pneumonia: (2) Hypoxia: (3) Elevated troponin: (4) Ventricular tachycardia: (5) ICD (implantable cardioverter-defibrillator) discharge: Plan Patient is a complex 89 year old male admitted for acute respiratory distress after episode of nausea/vomiting, likely aspiration event/pneumonia. Yesterday morning when patient was acutely hypoxic he developed VT/VF and resulted in ICD discharge x1 with yazidi of ventricular paced rhythm. Patient remained unresponsive/obtunded all day yesterday and there was discussion of patient being made comfort care only. However, after treatments, mental status slowly improved. Cardiology consulted to help with med management of HF and NSTEMI. Elevated troponin noted consistent with demand ischemia. No reported chest pain Echo with reduced LVEF at 35%, consistent with his history. Variable LVEF overtime 25-50% Findings not indicative of ACS. When patient able to resume oral meds, continue ASA, statin, metoprolol. IV amiodarone initiated due to VT and ICD discharge. No recurrent arrhythmias. Magnet taped to chest Family still considering deactivating ICD. Family left before cardio could see patient today. Will address tomorrow. Continue antibiotics for aspiration pneumonia. Patient is DNR/DNI [employer] rep notified but will need to await further discussion with family. Case discussed with Dr. Khan I spent a total of 30 minutes on the date of service in preparation, delivery, and documentation of the care provided to this patient, excluding any time spent in the performance of separately billed services. Jayne Hughes PA-C Department of Cardiology, [facility] This chart was completed in part utilizing Speech Voice Recognition Software. Grammatical errors, random word insertions, pronoun errors, and incomplete sentences are an occasional consequence of this system due to software limitations, ambient noise, and hardware issues. Any formal questions or concerns about the content, text, or information contained within the body of this dictation should be directly addressed to the provider for clarification. Admission and Anticipated Discharge Date Admission Date: June 13, 2025 Supervising Physician Co-Signing Physician Notes I have personally performed a history and physical examination on the patient. I have reviewed the advance practitioner's documentation, and I agree with, and take responsibility for the plan of care. 89-year-old male admitted with cough, fever, nausea, vomiting, possible aspiration with bilateral lower lobe pneumonia. Ventricular fibrillation on telemetry 06/15/2025 requiring ICD discharge. Patient was made DNR/DNI and family is contemplating deactivation of ICD therapies. Patient is a poor historian. Unable to offer meaningful history or make medical decisions. Repeat echocardiogram demonstrating cardiomyopathy, LVEF similar to prior studies. Remains mildly hypoxic with crackles/Rales on physical exam. X-ray confirming right lower lobe infiltrate and vascular congestion. Recommendations: * Lasix 40 mg IV x 1 now. * Repeat basic metabolic panel. * Supplement potassium and magnesium as indicated. * Monitor fluid balance, daily weight, and GFR. * Continue IV amiodarone infusion. * Continue aspirin, statin, and metoprolol. * Family considering deactivation of ICD therapies and possible palliative care. * DNR/DNI I spent a total of 30 minutes on the date of service in preparation, delivery, and documentation of the care provided to this patient, excluding any time spent in the performance of separately billed services. Eugene Khan DO, FACC Subjective Patient resting in bed. Sleeping. Does not awaken to voice. Nurse reports patient was awake and ate lunch without issue. Voiced no complaints this morning. Family was in earlier but now gone. Had additional questions about ICD. Magnet still in place. Review of Systems Review of Systems: Unobtainable due to cognitive status Physical Exam Constitutional: WD/WN, vitals as above + frail appearing; no acute distress Respiratory: + cough; no respiratory distress Ausc ultation: + diminished lung sounds and + crackles Cardiovascular: Rate/Rhythm: regular rate and regular rhythm Heart Sounds: normal S1, normal S2 and + murmur (II/ systolic murmur) Vessels: no JVD Extremities: no edema Gastrointestinal (Abdomen): normal bowel sounds, soft, nontender, no hepatosplenomegaly Psychiatric: Orientation: oriented to person Results & Data Vital Signs (Past 12 Hours) Vital Signs Temp Pulse Pulse Resp BP Pulse Ox Pulse Ox 06/16/25 12:28 89 L 06/16/25 08:30 90 20 135/85 93 06/16/25 07:02 76 06/16/25 02:37 36.3 C L 86 22 145/85 H 92 O2 Del Method O2 Flow Rate O2 Flow Rate 06/16/25 12:28 2 06/16/25 08:30 Nasal Cannula 4 06/16/25 07:02 06/16/25 02:37 Nasal Cannula 4 Laboratory Results CBC 06/16/25 Range/Units 07:57 WBC 8.36 (4.8-10.8) K/ul RBC 4.92 (4.70-6.10) M/uL Hgb 13.4 L (14.0-18.0) g/dl Hct 42.1 (42.0-52.0) % Plt Count 138 (130-400) K/uL Comprehensive Metabolic Panel 06/16/25 Range/Units 07:57 Sodium 138 (136-145) mmol/L Potassium 3.4 L (3.5-5.1) mmol/L Chloride 104 (98-107) mmol/L Carbon Dioxide 26 (21-32) mmol/L BUN 35 H (6-23) mg/dl Creatinine 1.84 H (0.6-1.4) mg/dl Glucose 118 H (70-99(Fasting)) mg/dl Calcium 8.8 (8.6-10.3) mg/dl Intake and Output 06/15/25 06/16/25 06/16/25 22:59 06:59 14:59 Intake Total 300 / 2683.75 1400 / 2683.75 850.077 / 850.077 Output Total 225 / 525 300 / 525 Balance 75 / 2158.75 1100 / 2158.75 850.077 / 850.077 Intake: IV 300 / 2683.75 1400 / 2683.75 850.077 / 850.077 Amiodarone / D5w 150 mg In 100 100 / 100 ml @ 600 mls/hr IV NOW STA Rx#: [id number] Amiodarone / D5w 360 mg In 200 200 / 200 177.577 / 177.577 ml @ 0.5 MG/MIN 16.667 mls/hr IV .Q12H [facility] Rx#:[id number] D5w and Nss 1,000 ml @ 100 mls/ 1000 / 1883.75 572.5 / 572.5 hr IV .Q10H [facility] Rx#:[id number] Doxycycline Hyclate 100 mg In 100 / 200 100 / 200 Dextrose 5% Mini-B 100 ml @ 50 mls/hr IV Q12H [facility] Rx#:[id number] Piperacillin/Tazobactam 4.5 gm 100 / 300 100 / 300 100 / 100 In 100 ml @ 25 mls/hr IV Q8H [facility] Rx#:[id number] Output: Urine Amount (Catheter) 225 / 525 300 / 525 External 225 / 525 300 / 525 Other: Other Intake Source Sips # Unmeasured Voids 1 Diagnostic Findings Telemetry reviewed: Chronic V pacing. No arrhythmias. no VT Medications Administered Current Inpatient Medications Acetaminophen (Acetaminophen 500 Mg Tab) 1,000 mg PO Q8H PRN PRN Reason: Pain Stop: 07/15/25 08:29 Last Admin: 06/15/25 13:17 Dose: 1,000 mg Amoxicillin/Clavulanate Potassium (Amoxicillin/Clavulanate 500 Mg Tab) 1 tab PO BIDM [facility]; Protocol Stop: 06/21/25 16:59 Aspirin (Aspirin 81 Mg Ectab) 81 mg PO [facility] Stop: 07/15/25 08:59 Last Admin: 06/16/25 08:06 Dose: 81 mg Atorvastatin Calcium (Atorvastatin 40 Mg Tab) 80 mg PO [facility] Stop: 07/15/25 08:59 Last Admin: 06/16/25 08:07 Dose: 80 mg Bisacodyl (Bisacodyl 10 Mg Supp) 10 mg [place] DAILY PRN PRN Reason: Constipation Stop: 07/14/25 17:02 Doxycycline Hyclate (Doxycycline Hyclate 100 Mg Cap) 100 mg PO BID [facility] Stop: 06/21/25 20:59 Escitalopram Oxalate (Escitalopram Oxalate 10 Mg Tab) 5 mg PO DAILY [facility] Stop: 07/14/25 08:59 Last Admin: 06/16/25 08:09 Dose: 5 mg Amiodarone HCl/Dextrose (Nexterone / D5w) 360 mg in 200 mls @ 16.667 mls/hr IV .Q12H [facility] Stop: 07/15/25 21:59 Last Admin: 06/16/25 09:24 Dose: 0.5 mg/min, 16.7 mls/hr Potassium Phosphate 15 mmol/ (Sodium Chloride) 255 mls @ 88 mls/hr IV ONE ONE Stop: 06/17/25 15:08 Metoprolol Succinate (Metoprolol Succ 25mg Ext Rel Tab) 25 mg PO [facility] Stop: 07/14/25 08:59 Last Admin: 06/16/25 08:10 Dose: 25 mg Ondansetron HCl (Ondansetron Inj 2 Mg/Ml 2 Ml Vial) 4 mg IV Q6H PRN PRN Reason: Nausea Stop: 07/14/25 00:58 Pantoprazole Sodium (Pantoprazole 40 Mg Tab) 40 mg PO QAM [facility] Stop: 07/15/25 08:59 Last Admin: 06/16/25 08:08 Dose: 40 mg Tamsulosin HCl (Tamsulosin Hcl 0.4 Mg Cap) 0.4 mg PO QAM [facility] Stop: 07/14/25 08:59 Last Admin: 06/16/25 08:10 Dose: 0.4 mg PG Care Time/CCT Total # of Minutes Spent Total Time Spent with Patient: Total time spent is greater than 50% in coordination of care (as documented) at patient's floor/unit and/or counseling patient: 30 minutes Coding Level of Care Code 53037 SUB INP/OBS CARE 3/50MIN Diagnoses Aspiration pneumonia J69.0 Aspiration pneumonia type: unspecified Laterality: bilateral Lung location: lower lobe of lung Hypoxia R09.02 Elevated troponin R79.89 Ventricular tachycardia I47.20 ICD (implantable cardioverter-defibrillator) discharge Z45.02 (1) Aspiration pneumonia Aspiration pneumonia type: unspecified Laterality: bilateral Lung location: lower lobe of lung Qualified Code(s): J69.0 - Pneumonitis due to inhalation of food and vomit
--- NOTE | 2025-06-16 16:03 | Hospitalist Progress Note ---
Date of Service June 16, 2025 Assessment & Plan (1) Pneumonia: Plan: 89-year-old male with past medical history significant for gout, chronic systolic heart failure, nonischemic cardiomyopathy, status post biventricular ICD, left bundle branch block, hypertension, symptomatic stenosis of right carotid artery, benign esophageal stricture, CKD stage IIIb, spinal stenosis, pseudophakia who lives at home with his and ambulates with rollator walker for short distances was brought in because of nausea vomiting and weakness. Acute Metabolic Encephalopathy Less likely Seizure DD: Secondary to hypoxia Chronic meningioma Peripheral artery disease --Head/Neck CTA:No large vessel occlusion, aneurysm or dissection in the head or neck. High-grade stenosis cervical right internal carotid bulb and proximal segment of at least 80%. Left cervical internal carotid stenosis of up to 50%. Stable midline meningioma. -- EEG pending --MRI brain:pending Mental status seemed to be back to baseline Consideration for outpatient polysomnography Appreciate neurology input Delirium precautions Acute Hypoxic Respiratory Failure Aspiration Pneumonitis CAP --CXR:Cardiomegaly with interstitial pulmonary edema.Probable trace pleural effusions with bibasilar opacities favoring atelectasis. A mild pneumonitis could appear similarly. Evidence of asbestos-related pleural disease. 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 EF 35 to 40%. Grade 1 diastolic dysfunction. Moderate aortic stenosis. Grade 1 diastolic dysfunction. Moderate valvular aortic stenosis. Trace pulmonic valvular regurgitation. Mild mitral and tricuspid regurgitation. Akinesis of the basal and mid inferolateral and inferior vuong. Severe hypokinesis to akinesis of the basal and mid anterolateral vuong. --Continue amiodarone drip -- Continue metoprolol Monitor and replete electrolytes as needed Appreciate cardiology input IV Lasix as needed Continue aspirin, statin Family considering deactivation of ICD to prevent shocks Hypokalemia Hypophosphatemia Replace and monitor GERD continue pantoprazole CAMERON on CKD -likely in setting of ATN Bladder scan as needed Received IV fluids Monitor volume status closely Avoid nephrotoxic agents as able Septic Shock Continue antibiotics as above Received IV fluid DVT Px: Heparin SQ CODE STATUS DNR/DNI Disposition PT OT prior to discharge Admission and Anticipated Discharge Date Admission Date: June 13, 2025 Subjective Patient is seen and examined at bedside Offers no specific complaints during my encounter this morning Family at bedside Seem to be tolerating current diet Informed RN that he was feeling short of breath later today Requiring supplemental oxygen to maintain saturation Review of Systems Review of Systems: All systems reviewed & are unremarkable except as noted in Subjective Physical Exam Physical Exam: Physical Exam: Vitals signs as noted above General Appearance:Moderately built and nourished, Chronic ill appearing, no apparent distress, Elderly Head: normocephalic, Atraumatic Eyes: normal inspection, EOMI Neck: supple, Trachea midline Respiratory/Chest: Decreased breath sounds, +crackles, No accessory muscle use Cardiovascular: S1, S2, + murmur Abdomen/GI:Soft, Non tender, Bowel sounds present Extremities/Musculoskeletal:normal inspection, no edema Neurologic/Psych:AAOX3, grossly no focal neurological deficits Skin: normal color, warm Results & Data Results & Data Vital Signs (Past 12 Hours) Vital Signs Pulse Pulse Resp BP Pulse Ox Pulse Ox O2 Del Method 06/16/25 14:10 74 06/16/25 12:28 89 L 06/16/25 08:30 90 20 135/85 93 Nasal Cannula 06/16/25 07:02 76 O2 Flow Rate O2 Flow Rate 06/16/25 14:10 06/16/25 12:28 2 06/16/25 08:30 4 06/16/25 07:02 Laboratory Results Short CBC 06/16/25 Range/Units 07:57 WBC 8.36 (4.8-10.8) K/ul Hgb 13.4 L (14.0-18.0) g/dl Hct 42.1 (42.0-52.0) % Plt Count 138 (130-400) K/uL BMP 06/16/25 07:57 Sodium 138 Potassium 3.4 L Chloride 104 Carbon Dioxide 26 BUN 35 H Creatinine 1.84 H Glucose 118 H Calcium 8.8
[2025-06-16] MEDS: AMOXICILLIN/CLAVULANATE 500 MG TAB PO SCH (16:08)
[2025-06-16] MEDS: FUROSEMIDE 40 MG/4 ML VIAL IV ONE (16:11)
[2025-06-16] MEDS: POTASSIUM CHLORIDE 20 MEQ/15 ML UDC PO ONE (17:38)
[2025-06-16] MEDS ORDERED: DOXYCYCLINE HYCLATE 100 MG CAP PO SCH (21:00)
[2025-06-16] MEDS: HEPARIN SOD 5,000 UNIT/0.5 ML VIAL SQ SCH (21:35)
[2025-06-17 06:10] LABS: Hematocrit (blood only) 41.9 % (42.0-52.0); Hemoglobin 14.4 g/dl (14.0-18.0); Mean Corpuscular Hemoglobin 28.4 pg (25.0-34.0); Mean Corpuscular Volume 82.6 fL (80.0-100.0); Platelet Count 144 K/uL (130-400); RDW Standard Deviation 53.1 fL (36.4-46.3); Red Blood Count 5.07 M/uL (4.70-6.10); White Blood Count 9.45 K/ul (4.8-10.8)
[2025-06-17 06:27] LABS: Anion Gap 11.0 (3-11); Blood Urea Nitrogen 25.0 mg/dl (6-23); Calcium 9.3 mg/dl (8.6-10.3); Carbon Dioxide 25.0 mmol/L (21-32); Chloride 104.0 mmol/L (98-107); Creatinine Clr Calc Pharmacy 32.7 ml/min; Glucose 105.0 mg/dl (70-99(Fasting)); Magnesium 1.9 mg/dl (1.7-2.4); Potassium 3.1 mmol/L (3.5-5.1); Sodium 140.0 mmol/L (136-145)
[2025-06-17] MEDS: POTASSIUM CHLORIDE CRTAB 20 MEQ TABCR PO ONE (10:36)
[2025-06-17] MEDS: POTASSIUM CHLORIDE 20 MEQ/15 ML UDC PO ONE (11:04)
[2025-06-17] MEDS ORDERED: POTASSIUM PHOSPHATE 15 MMOL in SODIUM CHLORIDE 0.9% 250 ML IV ONE (12:15)
[2025-06-17] MEDS: POTASSIUM PHOSPHATE 15 MMOL in SODIUM CHLORIDE 0.9% 250 ML IV ONE (13:06)
--- NOTE | 2025-06-17 16:55 | Cardiology Progress Note ---
Date of Service June 17, 2025 Assessment & Plan (1) Aspiration pneumonia: (2) Hypoxia: (3) Elevated troponin: (4) Ventricular tachycardia: (5) ICD (implantable cardioverter-defibrillator) discharge: Plan Patient is a complex 89 year old male admitted for acute respiratory distress after episode of nausea/vomiting, likely aspiration event/pneumonia. Earlier this admission, when patient was acutely hypoxic he developed VT/VF and resulted in ICD discharge x1 with yazidism of ventricular paced rhythm. Patient was then unresponsive/obtunded all day yesterday and there was discussion of patient being made comfort care only. Over the next 24 hours, mental status slowly improved and ongoing treatment was requested by the family Cardiology consulted to help with med management of HF and NSTEMI. Elevated troponin noted consistent with demand ischemia. No reported chest pain Echo with reduced LVEF at 35%, consistent with his history. Variable LVEF overtime 25-50% Findings not indicative of ACS. When patient able to resume oral meds, continue ASA, statin, metoprolol. IV amiodarone initiated due to VT and ICD discharge. No recurrent arrhythmias. will transition to oral amiodarone prior to discharge. Magnet taped to chest Family still considering deactivating ICD. Long discussion again today about therapies. Family had a lot of questions about [employer] device settings. attempted to have [employer] rep come speak to family but by the time he arrived, family was gone. Will attempt again tomorrow Continue antibiotics for aspiration pneumonia. Patient is DNR/DNI Case discussed with Dr. Khan I spent a total of 40 minutes on the date of service in preparation, delivery, and documentation of the care provided to this patient, excluding any time spent in the performance of separately billed services. Jayne Hughes PA-C Department of Cardiology, [facility] This chart was completed in part utilizing Speech Voice Recognition Software. Grammatical errors, random word insertions, pronoun errors, and incomplete sentences are an occasional consequence of this system due to software limitations, ambient noise, and hardware issues. Any formal questions or concerns about the content, text, or information contained within the body of th is dictation should be directly addressed to the provider for clarification. Admission and Anticipated Discharge Date Admission Date: June 13, 2025 Supervising Physician Co-Signing Physician Notes I have personally performed a history and physical examination on the patient. I have reviewed the advance practitioner's documentation, and I agree with, and take responsibility for the plan of care. 89-year-old male admitted with cough, fever, nausea, vomiting, possible aspiration with bilateral lower lobe pneumonia. Ventricular fibrillation on telemetry 06/15/2025 requiring ICD discharge. Patient was made DNR/DNI and family is contemplating deactivation of ICD therapies. Patient is a poor historian. Unable to offer meaningful history or make medical decisions. Repeat echocardiogram demonstrating cardiomyopathy, LVEF similar to prior studies. Respiratory status / hypoxia improved with 40mg IV lasix. Fluid balance negative 2.4 L. Recommendations: * Add lasix 20mg daily * Repeat basic metabolic panel in AM. * Supplement potassium and magnesium as indicated. * Monitor fluid balance, daily weight, and GFR. * Continue IV amiodarone infusion. * Continue aspirin, statin, and metoprolol. * Family considering deactivation of ICD therapies and possible palliative care. * DNR/DNI I spent a total of 30 minutes on the date of service in preparation, delivery, and documentation of the care provided to this patient, excluding any time spent in the performance of separately billed services. Eugene Khan DO, [facility] Subjective Patient resting in bed. Family at bedside. He is sleeping. Respiratory status improved after IV lasix yesterday. Potassium was low this morning. patient unable to take potassium tablets per nursing. Family still considering ICD deactivation. Had lots of questions. Wants to meet with [employer] rep. Family was gone when [employer] came to hospital. Review of Systems Review of Systems: All systems reviewed & are unremarkable except as noted in HPI & below Physical Exam Constitutional: WD/WN, vitals as above + frail appearing; no acute distress Respiratory: + cough; no respiratory distress Ausc ultation: + diminished lung sounds; no crackles Cardiovascular: Rate/Rhythm: regular rate and regular rhythm Heart Sounds: normal S1, normal S2 and + murmur (II/ systolic murmur) Vessels: no JVD Extremities: no edema Gastrointestinal (Abdomen): normal bowel sounds, soft, nontender, no hepatosplenomegaly Psychiatric: Orientation: oriented to person Results & Data Vital Signs (Past 12 Hours) Vital Signs Temp Pulse Pulse Resp BP Pulse Ox O2 Del Method 06/17/25 15:45 36.9 C 89 18 149/80 H 90 Room Air 06/17/25 15:00 85 06/17/25 11:27 36.6 C 84 18 150/71 H 90 Room Air 06/17/25 08:44 37.4 C 81 18 154/79 H 90 Room Air 06/17/25 07:50 Room Air Laboratory Results CBC 06/17/25 Range/Units 05:36 WBC 9.45 (4.8-10.8) K/ul RBC 5.07 (4.70-6.10) M/uL Hgb 14.4 (14.0-18.0) g/dl Hct 41.9 L (42.0-52.0) % Plt Count 144 (130-400) K/uL Comprehensive Metabolic Panel 06/17/25 Range/Units 05:36 Sodium 140 (136-145) mmol/L Potassium 3.1 L (3.5-5.1) mmol/L Chloride 104 (98-107) mmol/L Carbon Dioxide 25 (21-32) mmol/L BUN 25 H (6-23) mg/dl Creatinine 1.38 D (0.6-1.4) mg/dl Glucose 105 H (70-99(Fasting)) mg/dl Calcium 9.3 (8.6-10.3) mg/dl Intake and Output 06/17/25 06/17/25 06/17/25 06:59 14:59 22:59 Intake Total 199.565 / 454.565 255 / 454.565 Output Total 1103 / 2704 402 / 402 Balance -1103 / -1653.923 199.565 / 52.565 -147 / 52.565 Intake: IV 199.565 / 454.565 255 / 454.565 Amiodarone / D5w 360 mg In 200 199.565 / 199.565 ml @ 0.5 MG/MIN 16.667 mls/hr IV .Q12H [facility] Rx#:[id number] Potassium Phosphate 15 mmol In 255 / 255 Sodium Chloride 0.9% 250 ml @ 88 mls/hr IV ONE ONE Rx#: [id number] Output: Urine Amount (Catheter) 1100 / 2700 400 / 400 Perea/Indwelling 1100 / 1100 400 / 400 # Bowel Movements 3 / 4 2 / 2 Other: # Unmeasured Voids 4 Diagnostic Findings Telemetry reviewed: paced rhythm. No recurrent VT Medications Administered Current Inpatient Medications Acetaminophen (Acetaminophen 500 Mg Tab) 1,000 mg PO Q8H PRN PRN Reason: Pain Stop: 07/15/25 08:29 Last Admin: 06/15/25 13:17 Dose: 1,000 mg Amoxicillin/Clavulanate Potassium (Amoxicillin/Clavulanate 500 Mg Tab) 1 tab PO BIDM [facility]; Protocol Stop: 06/21/25 16:59 Last Admin: 06/17/25 07:57 Dose: 1 tab Aspirin (Aspirin 81 Mg Ectab) 81 mg PO [facility] Stop: 07/15/25 08:59 Last Admin: 06/17/25 07:58 Dose: 81 mg Atorvastatin Calcium ([facility] 40 Mg Tab) [facility]: 07/15/25 08:59 Last Admin: 06/17/25 07:59 Dose: 80 mg Bisacodyl (Bisacodyl 10 Mg Supp) 10 mg IN DAILY PRN PRN Reason: Constipation Stop: 07/14/25 17:02 Escitalopram Oxalate (Escitalopram Oxalate 10 Mg Tab) 5 mg PO DAILY [facility] Stop: 07/14/25 08:59 Last Admin: 06/17/25 07:58 Dose: 5 mg Heparin Sodium (Porcine) (Heparin Sod 5,000 Unit/0.5 Ml Vial) 5,000 units SQ Q12 [facility] Stop: 07/16/25 20:59 Last Admin: 06/17/25 07:59 Dose: Not Given Amiodarone HCl/Dextrose (Nexterone / D5w) 360 mg in 200 mls @ 16.667 mls/hr IV .Q12H [facility] Stop: 07/15/25 21:59 Last Admin: 06/17/25 09:32 Dose: 0.5 mg/min, 16.7 mls/hr Metoprolol Succinate (Metoprolol Succ 25mg Ext Rel Tab) [facility] [place] Stop: 07/14/25 08:59 Last Admin: 06/17/25 07:58 Dose: 25 mg Olanzapine (Olanzapine 10 Mg/2.1 Ml Sdv) 2.5 mg IM Q4H PRN PRN Reason: Agitation Stop: 07/17/25 01:08 Ondansetron HCl (Ondansetron Inj 2 Mg/Ml 2 Ml Vial) 4 mg IV Q6H PRN PRN Reason: Nausea Stop: 07/14/25 00:58 Pantoprazole Sodium (Pantoprazole 40 Mg Tab) 40 mg PO QAM [facility] Stop: 07/15/25 08:59 Last Admin: 06/17/25 07:58 Dose: 40 mg Tamsulosin HCl (Tamsulosin Hcl 0.4 Mg Cap) 0.4 mg PO QAM [facility] Stop: 07/14/25 08:59 Last Admin: 06/17/25 07:59 Dose: 0.4 mg PG Care Time/CCT Total # of Minutes Spent Total Time Spent with Patient: Total time spent is greater than 50% in coordination of care (as documented) at patient's floor/unit and/or counseling patient: 40 minutes Coding Level of Care Code 41698 SUB INP/OBS CARE 3/50MIN Diagnoses Aspiration pneumonia J69.0 Aspiration pneumonia type: unspecified Laterality: bilateral Lung location: lower lobe of lung Hypoxia R09.02 Elevated troponin R79.89 Ventricular tachycardia I47.20 ICD (implantable cardioverter-defibrillator) discharge Z45.02 (1) Aspiration pneumonia Aspiration pneumonia type: unspecified Laterality: bilateral Lung location: lower lobe of lung Qualified Code(s): J69.0 - Pneumonitis due to inhalation of food and vomit
--- NOTE | 2025-06-17 16:57 | Hospitalist Progress Note ---
Date of Service June 17, 2025 Assessment & Plan (1) Pneumonia: Plan: 89-year-old male with past medical history significant for gout, chronic systolic heart failure, nonischemic cardiomyopathy, status post biventricular ICD, left bundle branch block, hypertension, symptomatic stenosis of right carotid artery, benign esophageal stricture, CKD stage IIIb, spinal stenosis, pseudophakia who lives at home with his and ambulates with rollator walker for short distances was brought in because of nausea vomiting and weakness. Acute Metabolic Encephalopathy Less likely Seizure DD: Secondary to hypoxia Chronic meningioma Peripheral artery disease --Head/Neck CTA:No large vessel occlusion, aneurysm or dissection in the head or neck. High-grade stenosis cervical right internal carotid bulb and proximal segment of at least 80%. Left cervical internal carotid stenosis of up to 50%. Stable midline meningioma. -- EEG pending --MRI brain: Could not obtain MRI due to magnet being attached to ICD Intermittently confused Consideration for outpatient polysomnography Appreciate neurology input Delirium precautions Reorient frequently Will consider repeat CT head if needed Acute Hypoxic Respiratory Failure Aspiration Pneumonitis CAP --CXR:Cardiomegaly with interstitial pulmonary edema.Probable trace pleural effusions with bibasilar opacities favoring atelectasis. A mild pneumonitis could appear similarly. Evidence of asbestos-related pleural disease. 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 EF 35 to 40%. Grade 1 diastolic dysfunction. Moderate aortic stenosis. Grade 1 diastolic dysfunction. Moderate valvular aortic stenosis. Trace pulmonic valvular regurgitation. Mild mitral and tricuspid regurgitation. Akinesis of the basal and mid inferolateral and inferior vuong. Severe hypokinesis to akinesis of the basal and mid anterolateral vuong. --Continue amiodarone drip -- Continue metoprolol Monitor and replete electrolytes as needed Appreciate cardiology input IV Lasix as needed Continue aspirin, statin Family considering deactivation of ICD to prevent shocks Cardiology following Hypokalemia Hypophosphatemia Replace and monitor GERD continue pantoprazole 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 -likely in setting of ATN Bladder scan as needed Received IV fluids Monitor volume status closely Avoid nephrotoxic agents as able Creatinine levels better today Septic Shock Continue antibiotics as above Received IV fluid DVT Px: Heparin SQ CODE STATUS DNR/DNI Disposition PT OT prior to discharge Admission and Anticipated Discharge Date Admission Date: June 13, 2025 Subjective Patient is seen and examined at bedside Pleasantly confused this morning during my encounter Discussed in detail with patient's family at bedside Also discussed with cardiology today Patient states feeling tired States having right arm pain cough much improved Poor oral intake Saturating low 90s on room air Review of Systems Review of Systems: All systems reviewed & are unremarkable except as noted in Subjective Physical Exam Physical Exam: Physical Exam: Vitals signs as noted above General Appearance:Moderately built and nourished, Chronic ill appearing, no apparent distress, Elderly Head: normocephalic, Atraumatic Eyes: normal inspection, EOMI Neck: supple, Trachea midline Respiratory/Chest: Decreased breath sounds, +crackles, No accessory muscle use Cardiovascular: S1, S2, + murmur Abdomen/GI:Soft, Non tender, Bowel sounds present Extremities/Musculoskeletal:normal inspection, no edema Neurologic/Psych:AAOX1, grossly no focal neurological deficits Skin: normal color, warm Results & Data Results & Data Vital Signs (Past 12 Hours) Vital Signs Temp Pulse Pulse Resp BP Pulse Ox O2 Del Method 06/17/25 15:45 36.9 C 89 18 149/80 H 90 Room Air 06/17/25 15:00 85 06/17/25 11:27 36.6 C 84 18 150/71 H 90 Room Air 06/17/25 08:44 37.4 C 81 18 154/79 H 90 Room Air 06/17/25 07:50 Room Air Laboratory Results Short CBC 06/17/25 Range/Units 05:36 WBC 9.45 (4.8-10.8) K/ul Hgb 14.4 (14.0-18.0) g/dl Hct 41.9 L (42.0-52.0) % Plt Count 144 (130-400) K/uL BMP 06/17/25 05:36 Sodium 140 Potassium 3.1 L Chloride 104 Carbon Dioxide 25 BUN 25 H Creatinine 1.38 D Glucose 105 H Calcium 9.3
[2025-06-18 07:05] LABS: Anion Gap 12.0 (3-11); Calcium 9.1 mg/dl (8.6-10.3); Carbon Dioxide 22.0 mmol/L (21-32); Chloride 103.0 mmol/L (98-107); Magnesium 1.9 mg/dl (1.7-2.4); Potassium 3.4 mmol/L (3.5-5.1); Sodium 137.0 mmol/L (136-145)
[2025-06-18 07:07] LABS: Hematocrit (blood only) 43.5 % (42.0-52.0); Hemoglobin 14.8 g/dl (14.0-18.0); Mean Corpuscular Hemoglobin 27.8 pg (25.0-34.0); Mean Corpuscular Volume 81.8 fL (80.0-100.0); Platelet Count 150 K/uL (130-400); RDW Standard Deviation 53.3 fL (36.4-46.3); Red Blood Count 5.32 M/uL (4.70-6.10); White Blood Count 13.91 K/ul (4.8-10.8)
[2025-06-18 07:11] LABS: Blood Urea Nitrogen 20.0 mg/dl (6-23); Creatinine Clr Calc Pharmacy 42.6 ml/min; Glucose 112.0 mg/dl (70-99(Fasting))
[2025-06-18] MEDS: FUROSEMIDE 20 MG TAB PO SCH (08:38)
[2025-06-18] MEDS: ONDANSETRON INJ 2 MG/ML 2 ML VIAL IV PRN (08:40)
[2025-06-18] MEDS ORDERED: POTASSIUM PHOS 3 MMOL/1 ML INFUSION IV ONE (09:15)
[2025-06-18] MEDS: SODIUM CHLORIDE 0.65% NA SOLN 45 ML (OCEAN) ONE (09:20)
[2025-06-18] MEDS: AMIODARONE 200 MG TAB PO SCH (09:53)
[2025-06-18] MEDS: POTASSIUM CHLORIDE 20 MEQ/15 ML UDC PO ONE (09:54)
[2025-06-18] MEDS: POTASSIUM PHOSPHATE 15 MMOL in SODIUM CHLORIDE 0.9% 250 ML IV ONE (09:55)
[2025-06-18] MEDS: MAGNESIUM SULFATE / D5W 1 GM/100 ML BAG IV ONE (09:55)
[2025-06-18] MEDS: ADVANCED PROBIOTIC 625 MG CAPSULE PO SCH (10:32)
--- NOTE | 2025-06-18 12:14 | Cardiology Progress Note ---
Date of Service June 18, 2025 Assessment & Plan (1) Aspiration pneumonia: (2) Hypoxia: (3) Elevated troponin: (4) Ventricular tachycardia: (5) ICD (implantable cardioverter-defibrillator) discharge: Plan Patient is a complex 89 year old male admitted for acute respiratory distress after episode of nausea/vomiting, likely aspiration event/pneumonia. Earlier this admission, when patient was acutely hypoxic he developed VT/VF and resulted in ICD discharge x1 with protestant of ventricular paced rhythm. Patient was then unresponsive/obtunded all day yesterday and there was discussion of patient being made comfort care only. Over the next 24 hours, mental status slowly improved and ongoing treatment was requested by the family Cardiology consulted to help with med management of HF and NSTEMI. Elevated troponin noted consistent with demand ischemia. No reported chest pain Echo with reduced LVEF at 35%, consistent with his history. Variable LVEF overtime 25-50% Findings not indicative of ACS. Due to VT and ICD discharge, patient was started on IV amiodarone over the last 48 hours. He had one brief episode of non sustained VT this morning. No symptoms. Potassium low and supplemented. Mag low and supplemented. Patient now able to take PO meds. Stop IV amiodarone - transition to oral amiodarone 200 mg BID Continue ASA, statin, metoprolol, lasix. After long discussion with family about goals of care, declining health, mental status, all are in agreement to deactivate ICD. With [employer] assistance, ICD shock protocols were deactivated. BIV pacing remains unchanged. Family emotional about making these decisions. They would may benefit from palliative care consult to really discuss goals of care. Continue antibiotics for aspiration pneumonia. Patient is DNR/DNI Case discussed with Dr. Khan I spent a total of 45 minutes on the date of service in preparation, delivery, and documentation of the care provided to this patient, excluding any time spent in the performance of separately billed services. Jayne Hughes PA-C Department of Cardiology, [facility] This chart was completed in part utilizing Speech Voice Recognition Software. Grammatical errors, random word insertions, pronoun errors, and incomplete sentences are an occasional consequence of this system due to software limitations, ambient noise, and hardware issues. Any formal questions or concerns about the content, text, or information contained within the body of this dictation should be directly addressed to the provider for clarification. Admission and Anticipated Discharge Date Admission Date: June 13, 2025 Supervising Physician Co-Signing Physician Notes I have personally performed a history and physical examination on the patient. I have reviewed the advance practitioner's documentation, and I agree with, and take responsibility for the plan of care. 89-year-old male admitted with cough, fever, nausea, vomiting, possible aspiration with bilateral lower lobe pneumonia. Ventricular fibrillation on telemetry 06/15/2025 requiring ICD discharge. Patient was made DNR/DNI and family is contemplating deactivation of ICD therapies. Patient is a poor historian. Unable to offer meaningful history or make medical decisions. Denies chest pain or shortness of breath. No palpitations, lightheadedness, or dizziness. Repeat echocardiogram demonstrating cardiomyopathy, LVEF similar to prior studies. Respiratory status / hypoxia improved with gentle diuresis. Nonsustained VT on monitor overnight night with hypokalemia per a.m. labs. Recommendations: * Lasix 20mg PO daily * Supplement potassium and magnesium as indicated. * Monitor fluid balance, daily weight, and GFR. * Oral amiodarone 200 mg twice daily x 10 days then reduce to 200mg daily * Continue aspirin, statin, and metoprolol. * ICD shock protocol is deactivated per family request * BiV pacing settings unchanged * DNR/DNI * Cardiology will sign off. Please call with additional concerns/questions. I spent a total of 30 minutes on the date of service in preparation, delivery, and documentation of the care provided to this patient, excluding any time spent in the performance of separately billed services. Eugene Khan DO, [facility] Subjective Patient resting in bed. Sleeping. Family at bedside. [employer] rep at bedside and we all had long discussion about goals of care and DNR/DNI status. Family does not want patient to be shocked again or repeatedly shocked. Review of Systems Review of Systems: All systems reviewed & are unremarkable except as noted in HPI & below Physical Exam Constitutional: WD/WN, vitals as above + frail appearing; no acute distress Respiratory: + cough; no respiratory distress Ausc ultation: + diminished lung sounds; no crackles Cardiovascular: Rate/Rhythm: regular rate and regular rhythm Heart Sounds: normal S1, normal S2 and + murmur (II/ systolic murmur) Vessels: no JVD Extremities: no edema Gastrointestinal (Abdomen): normal bowel sounds, soft, nontender, no hepatosplenomegaly Psychiatric: Orientation: oriented to person Results & Data Vital Signs (Past 12 Hours) Vital Signs Temp Pulse Pulse Resp BP Pulse Ox O2 Del Method 06/18/25 11:53 36.9 C 85 20 128/81 93 Nasal Cannula 06/18/25 09:00 89 06/18/25 04:04 36.7 C 84 18 164/80 H 92 Nasal Cannula O2 Flow Rate 06/18/25 11:53 06/18/25 09:00 06/18/25 04:04 2 Laboratory Results CBC 06/18/25 Range/Units 06:13 WBC 13.91 H (4.8-10.8) K/ul RBC 5.32 (4.70-6.10) M/uL Hgb 14.8 (14.0-18.0) g/dl Hct 43.5 (42.0-52.0) % Plt Count 150 (130-400) K/uL Comprehensive Metabolic Panel 06/18/25 Range/Units 06:13 Sodium 137 (136-145) mmol/L Potassium 3.4 L (3.5-5.1) mmol/L Chloride 103 (98-107) mmol/L Carbon Dioxide 22 (21-32) mmol/L BUN 20 (6-23) mg/dl Creatinine 1.06 D (0.6-1.4) mg/dl Glucose 112 H (70-99(Fasting)) mg/dl Calcium 9.1 (8.6-10.3) mg/dl Intake and Output 06/17/25 06/18/25 06/18/25 22:59 06:59 14:59 Intake Total 440.927 / 640.492 200 / 200 Output Total 403 / 603 200 / 603 Balance 37.927 / 37.492 -200 / 37.492 200 / 200 Intake: IV 440.927 / 640.492 200 / 200 Amiodarone / D5w 360 mg In 200 185.927 / 385.492 200 / 200 ml @ 0.5 MG/MIN 16.667 mls/hr IV .Q12H [facility] Rx#:[id number] Potassium Phosphate 15 mmol In 255 / 255 Sodium Chloride 0.9% 250 ml @ 88 mls/hr IV ONE ONE Rx#: [id number] Output: Urine 200 / 200 Urine Amount (Catheter) 400 / 400 Perea/Indwelling 400 / 400 # Bowel Movements 3 / 3 Diagnostic Findings Telemetry reviewed: Paced rhythm. One short burst of non sustained VT lasting about 10 beats. No symptoms. Medications Administered Current Inpatient Medications Acetaminophen (Acetaminophen 500 Mg Tab) 1,000 mg PO Q8H PRN PRN Reason: Pain Stop: 07/15/25 08:29 Last Admin: 06/15/25 13:17 Dose: 1,000 mg Amiodarone HCl (Amiodarone 200 Mg Tab) 200 mg PO BIDM [facility] Stop: 07/18/25 09:29 Last Admin: 06/18/25 09:53 Dose: 200 mg Amoxicillin/Clavulanate Potassium (Amoxicillin/Clavulanate 500 Mg Tab) 1 tab PO BIDM [facility]; Protocol Stop: 06/21/25 16:59 Last Admin: 06/18/25 08:38 Dose: 1 tab Aspirin (Aspirin 81 Mg Ectab) 81 mg PO [facility] Stop: 07/15/25 08:59 Last Admin: 06/18/25 08:39 Dose: 81 mg Atorvastatin Calcium (Atorvastatin 40 Mg Tab) 80 mg PO QAM [facility] Stop: 07/15/25 08:59 Last Admin: 06/18/25 08:38 Dose: 80 mg Bisacodyl (Bisacodyl 10 Mg Supp) 10 mg VT DAILY PRN PRN Reason: Constipation Stop: 07/14/25 17:02 Escitalopram Oxalate (Escitalopram Oxalate 10 Mg Tab) 5 mg PO DAILY [facility] Stop: 07/14/25 08:59 Last Admin: 06/18/25 08:39 Dose: 5 mg Furosemide (Furosemide 20 Mg Tab) 20 mg PO QAM [facility] Stop: 07/18/25 08:59 Last Admin: 06/18/25 08:38 Dose: 20 mg Heparin Sodium (Porcine) (Heparin Sod 5,000 Unit/0.5 Ml Vial) 5,000 units SQ Q12 [facility] Stop: 07/16/25 20:59 Last Admin: 06/18/25 08:40 Dose: 5,000 units Potassium Phosphate 15 mmol/ (Sodium Chloride) 255 mls @ 88 mls/hr IV ONE ONE Stop: 06/18/25 12:23 Last Admin: 06/18/25 09:55 Dose: 88 mls/hr Lactobacillus Acidophilus (Advanced Probiotic 625 Mg Capsule) 1,250 mg PO DAILY [facility] Stop: 07/18/25 09:59 Last Admin: 06/18/25 10:32 Dose: 1,250 mg Metoprolol Succinate (Metoprolol Succ 25mg Ext Rel Tab) [facility] Stop: 07/14/25 08:59 Last Admin: 06/18/25 08:39 Dose: 25 mg Olanzapine (Olanzapine 10 Mg/2.1 Ml Sdv) 2.5 mg IM Q4H PRN PRN Reason: Agitation Stop: 07/17/25 01:08 Ondansetron HCl (Ondansetron Inj 2 Mg/Ml 2 Ml Vial) 4 mg IV Q6H PRN PRN Reason: Nausea Stop: 07/14/25 00:58 Last Admin: 06/18/25 08:40 Dose: 4 mg Pantoprazole Sodium (Pantoprazole 40 Mg Tab) 40 mg PO [facility] Stop: 07/15/25 08:59 Last Admin: 06/18/25 08:39 Dose: 40 mg Tamsulosin HCl (Tamsulosin Hcl 0.4 Mg Cap) 0.4 mg PO [facility] Stop: 07/14/25 08:59 Last Admin: 06/18/25 08:39 Dose: 0.4 mg PG Care Time/CCT Total # of Minutes Spent Total Time Spent with Patient: Total time spent is greater than 50% in coordination of care (as documented) at patient's floor/unit and/or counseling patient: 45 minutes Coding Level of Care Code 09678 SUB INP/OBS CARE 3/50MIN Diagnoses Aspiration pneumonia J69.0 Aspiration pneumonia type: unspecified Laterality: bilateral Lung location: lower lobe of lung Hypoxia R09.02 Elevated troponin R79.89 Ventricular tachycardia I47.20 ICD (implantable cardioverter-defibrillator) discharge Z45.02 (1) Aspiration pneumonia Aspiration pneumonia type: unspecified Laterality: bilateral Lung location: lower lobe of lung Qualified Code(s): J69.0 - Pneumonitis due to inhalation of food and vomit
[2025-06-18 14:56] LABS: Cdiff Toxin B Gene (2yr or >) Negative Cdiff Gene (Neg)
--- NOTE | 2025-06-18 15:09 | Hospitalist Progress Note ---
Date of Service June 18, 2025 Assessment & Plan (1) Pneumonia: Plan: 89-year-old male with past medical history significant for gout, chronic systolic heart failure, nonischemic cardiomyopathy, status post biventricular ICD, left bundle branch block, hypertension, symptomatic stenosis of right carotid artery, benign esophageal stricture, CKD stage IIIb, spinal stenosis, pseudophakia who lives at home with his and ambulates with rollator walker for short distances was brought in because of nausea vomiting and weakness. Acute Metabolic Encephalopathy Less likely Seizure DD: Secondary to hypoxia Chronic meningioma Peripheral artery disease --Head/Neck CTA:No large vessel occlusion, aneurysm or dissection in the head or neck. High-grade stenosis cervical right internal carotid bulb and proximal segment of at least 80%. Left cervical internal carotid stenosis of up to 50%. Stable midline meningioma. -- EEG pending --MRI brain: Could not obtain MRI due to magnet being attached to ICD Intermittently confused Consideration for outpatient polysomnography Appreciate neurology input Delirium precautions Reorient frequently Will consider repeat CT head if needed Mental status much better when compared to yesterday Acute Hypoxic Respiratory Failure Aspiration Pneumonitis CAP --CXR:Cardiomegaly with interstitial pulmonary edema.Probable trace pleural effusions with bibasilar opacities favoring atelectasis. A mild pneumonitis could appear similarly. Evidence of asbestos-related pleural disease. 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 EF 35 to 40%. Grade 1 diastolic dysfunction. Moderate aortic stenosis. Grade 1 diastolic dysfunction. Moderate valvular aortic stenosis. Trace pulmonic valvular regurgitation. Mild mitral and tricuspid regurgitation. Akinesis of the basal and mid inferolateral and inferior vuong. Severe hypokinesis to akinesis of the basal and mid anterolateral vuong. --Cardiology discussed with patient and patient's family and are in agreement to deactivate ICD. BiV pacing remains unchanged. --Continue amiodarone drip>> transition to amiodarone 200 mg twice a day -- Continue metoprolol Monitor and replete electrolytes as needed Appreciate cardiology input IV Lasix as needed Continue aspirin, statin Continue Lasix 20 mg daily May need to address goals of care/involve palliative care if no improvement Diarrhea Likely secondary to antibiotics Stool for C. difficile negative Imodium as needed Hypokalemia Hypophosphatemia Replace and monitor GERD continue pantoprazole 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 -likely in setting of ATN Bladder scan as needed Received IV fluids Monitor volume status closely Avoid nephrotoxic agents as able Creatinine back to baseline Septic Shock Continue antibiotics as above Received IV fluid DVT Px: Heparin SQ CODE STATUS DNR/DNI Disposition To be determined Admission and Anticipated Discharge Date Admission Date: June 13, 2025 Subjective Patient is seen and examined at bedside Discussed with patient's family in detail Was informed by RN that patient has been having diarrhea Oral intake remains poor Discussed with cardiology as well Mental status better when compared to yesterday Patient denies any chest pain, dyspnea, abdominal pain Review of Systems Review of Systems: All systems reviewed & are unremarkable except as noted in Subjective Physical Exam Physical Exam: Physical Exam: Vitals signs as noted above General Appearance:Moderately built and nourished, Chronic ill appearing, no apparent distress, Elderly Head: normocephalic, Atraumatic Eyes: normal inspection, EOMI Neck: supple, Trachea midline Respiratory/Chest: Decreased breath sounds, +crackles, No accessory muscle use Cardiovascular: S1, S2, + murmur Abdomen/GI:Soft, Non tender, Bowel sounds present Extremities/Musculoskeletal:normal inspection, no edema Neurologic/Psych:AAOX1, grossly no focal neurological deficits Skin: normal color, warm Results & Data Results & Data Vital Signs (Past 12 Hours) Vital Signs Temp Pulse Pulse Resp BP Pulse Ox O2 Del Method 06/18/25 11:53 36.9 C 85 20 128/81 93 Nasal Cannula 06/18/25 09:00 89 06/18/25 07:30 Oxymask 06/18/25 04:04 36.7 C 84 18 164/80 H 92 Nasal Cannula O2 Flow Rate 06/18/25 11:53 06/18/25 09:00 06/18/25 07:30 2 06/18/25 04:04 2 Laboratory Results Short CBC 06/18/25 Range/Units 06:13 WBC 13.91 H (4.8-10.8) K/ul Hgb 14.8 (14.0-18.0) g/dl Hct 43.5 (42.0-52.0) % Plt Count 150 (130-400) K/uL BMP 06/18/25 06:13 Sodium 137 Potassium 3.4 L Chloride 103 Carbon Dioxide 22 BUN 20 Creatinine 1.06 D Glucose 112 H Calcium 9.1
[2025-06-18] MEDS: LOPERAMIDE HCL 2 MG CAP PO PRN (15:12)
[2025-06-19] MEDS: ALBUMIN 25% 12.5 GM/50 ML VIAL IV ONE ×2 (01:39→06:40)
[2025-06-19 07:01] LABS: Hematocrit (blood only) 41.3 % (42.0-52.0); Hemoglobin 13.4 g/dl (14.0-18.0); Mean Corpuscular Hemoglobin 26.7 pg (25.0-34.0); Mean Corpuscular Volume 82.4 fL (80.0-100.0); Platelet Count 152 K/uL (130-400); RDW Standard Deviation 53.0 fL (36.4-46.3); Red Blood Count 5.01 M/uL (4.70-6.10); White Blood Count 15.83 K/ul (4.8-10.8)
[2025-06-19 07:26] LABS: Anion Gap 8.0 (3-11); Blood Urea Nitrogen 25.0 mg/dl (6-23); Calcium 9.0 mg/dl (8.6-10.3); Carbon Dioxide 25.0 mmol/L (21-32); Chloride 105.0 mmol/L (98-107); Creatinine Clr Calc Pharmacy 34.2 ml/min; Glucose 107.0 mg/dl (70-99(Fasting)); Magnesium 2.1 mg/dl (1.7-2.4); Potassium 4.0 mmol/L (3.5-5.1); Sodium 138.0 mmol/L (136-145)
[2025-06-19] MEDS ORDERED: SODIUM PHOSPHATE 3 MMOL/1 ML INFUSION IV ONE (09:34)
[2025-06-19] MEDS ORDERED: PIPERACILLIN/TAZOBACTAM 4.5 GM/100 ML BAG IV SCH (09:45)
[2025-06-19] MEDS: SODIUM PHOSPHATE 12 MMOL in SODIUM CHLORIDE 0.9% 250 ML IV ONE (10:08)
[2025-06-19] MEDS: PIPERACILLIN/TAZOBACTAM 4.5 GM/100 ML BAG IV STA (10:09)
[2025-06-19] MEDS: PIPERACILLIN/TAZOBACTAM 4.5 GM/100 ML BAG IV SCH (16:22)
--- NOTE | 2025-06-19 16:24 | Hospitalist Progress Note ---
Date of Service June 19, 2025 Assessment & Plan (1) Pneumonia: Plan: 89-year-old male with past medical history significant for gout, chronic systolic heart failure, nonischemic cardiomyopathy, status post biventricular ICD, left bundle branch block, hypertension, symptomatic stenosis of right carotid artery, benign esophageal stricture, CKD stage IIIb, spinal stenosis, pseudophakia who lives at home with his and ambulates with rollator walker for short distances was brought in because of nausea vomiting and weakness. Acute Metabolic Encephalopathy Less likely Seizure DD: Secondary to hypoxia Chronic meningioma Peripheral artery disease --Head/Neck CTA:No large vessel occlusion, aneurysm or dissection in the head or neck. High-grade stenosis cervical right internal carotid bulb and proximal segment of at least 80%. Left cervical internal carotid stenosis of up to 50%. Stable midline meningioma. -- EEG pending --MRI brain: Could not obtain MRI due to magnet being attached to ICD Intermittently confused Consideration for outpatient polysomnography Appreciate neurology input Delirium precautions Reorient frequently Will consider repeat CT head if needed Mental status seem to be much improved today Consider palliative care evaluation if no improvement Acute Hypoxic Respiratory Failure Aspiration Pneumonitis CAP --CXR:Cardiomegaly with interstitial pulmonary edema.Probable trace pleural effusions with bibasilar opacities favoring atelectasis. A mild pneumonitis could appear similarly. Evidence of asbestos-related pleural disease. --Blood cultures negative to date --Elevated procalcitonin -- Continue IV Zosyn given low-grade fever, worsening leukocytosis Continue aspiration precaution Appreciate speech therapy Saturating low 90s on room air Will repeat chest x-ray tomorrow Ventricular Tachycardia Type 2 W[place] S/p Pacemaker and ICD HFrEF --ECHO: Left ventricular systolic function is moderate to severely reduced. EF 35 to 40%. Grade 1 diastolic dysfunction. Moderate aortic stenosis. Grade 1 diastolic dysfunction. Moderate valvular aortic stenosis. Trace pulmonic valvular regurgitation. Mild mitral and tricuspid regurgitation. Akinesis of the basal and mid inferolateral and inferior vuong. Severe hypokinesis to akinesis of the basal and mid anterolateral vuong. --Cardiology discussed with patient and patient's family and are in agreement to deactivate ICD. BiV pacing remains unchanged. --Continue amiodarone drip>> transition to amiodarone 200 mg twice a day -- Continue metoprolol Monitor and replete electrolytes as needed Appreciate cardiology input IV Lasix as needed Continue aspirin, statin Continue Lasix 20 mg daily May need to address goals of care/involve palliative care if no improvement Diarrhea Likely secondary to antibiotics Stool for C. difficile negative Imodium as needed Hypokalemia Hypophosphatemia Replace and monitor GERD continue pantoprazole 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 -likely in setting of ATN Bladder scan as needed Received IV fluids Monitor volume status closely Avoid nephrotoxic agents as able Creatinine 1.3 today Septic Shock Continue antibiotics as above Received IV fluid DVT Px: Heparin SQ CODE STATUS DNR/DNI Disposition To be determined Admission and Anticipated Discharge Date Admission Date: June 13, 2025 Subjective Patient is seen and examined at bedside Mental status more clear today Patient offers no specific complaint Oral intake remains poor Low-grade fever today Patient denies any chest pain, dyspnea, abdominal pain Review of Systems Review of Systems: All systems reviewed & are unremarkable except as noted in Subjective Physical Exam Physical Exam: Physical Exam: Vitals signs as noted above General Appearance:Moderately built and nourished, Chronic ill appearing, no apparent distress, Elderly Head: normocephalic, Atraumatic Eyes: normal inspection, EOMI Neck: supple, Trachea midline Respiratory/Chest: Decreased breath sounds, +crackles, No accessory muscle use Cardiovascular: S1, S2, + murmur Abdomen/GI:Soft, Non tender, Bowel sounds present Extremities/Musculoskeletal:normal inspection, no edema Neurologic/Psych:AAOX1, grossly no focal neurological deficits Skin: normal color, warm Results & Data Results & Data Vital Signs (Past 12 Hours) Vital Signs Temp Pulse Pulse Pulse Resp BP BP 06/19/25 15:42 36.4 C L 80 20 128/77 06/19/25 15:36 97 H 06/19/25 13:52 81 06/19/25 11:37 37.0 C 82 17 126/62 06/19/25 07:46 37.8 C H 88 19 147/77 H 06/19/25 04:33 37.1 C 89 19 156/82 H Pulse Ox O2 Del Method O2 Flow Rate 06/19/25 15:42 93 Room Air 06/19/25 15:36 06/19/25 13:52 06/19/25 11:37 94 Nasal Cannula 2.0 06/19/25 07:46 88 L Room Air 06/19/25 04:33 91 Room Air Laboratory Results Short CBC 06/19/25 Range/Units 06:30 WBC 15.83 H (4.8-10.8) K/ul Hgb 13.4 L (14.0-18.0) g/dl Hct 41.3 L (42.0-52.0) % Plt Count 152 (130-400) K/uL BMP 06/19/25 06:30 Sodium 138 Potassium 4.0 Chloride 105 Carbon Dioxide 25 BUN 25 H Creatinine 1.32 Glucose 107 H Calcium 9.0
--- NOTE | 2025-06-20 04:14 | Communication Note ---
Date of Service: June 20, 2025 Patient found to be new itchy rash on his back as per RN. Family brought in outside food last night as per RN. No prior reactions to oral amiodarone and IV Zosyn antibiotic. AP Hypersensitivity reaction Unclear precipitant for now Loratadine 1 dose Monitor recurrence with subsequent amiodarone and Zosyn administration
[2025-06-20] MEDS: diphenhydrAMINE 2%/ZINC 0.1% CREAM 28.4GM TUBE EXT PRN (04:50)
[2025-06-20] MEDS: LORATADINE 10 MG TAB PO ONE (04:51)
[2025-06-20 07:30] LABS: Hematocrit (blood only) 39.0 % (42.0-52.0); Hemoglobin 13.2 g/dl (14.0-18.0); Mean Corpuscular Hemoglobin 27.8 pg (25.0-34.0); Mean Corpuscular Volume 82.3 fL (80.0-100.0); Platelet Count 158 K/uL (130-400); RDW Standard Deviation 52.3 fL (36.4-46.3); Red Blood Count 4.74 M/uL (4.70-6.10); White Blood Count 12.35 K/ul (4.8-10.8)
[2025-06-20 07:45] LABS: Anion Gap 8.0 (3-11); Blood Urea Nitrogen 27.0 mg/dl (6-23); Calcium 8.7 mg/dl (8.6-10.3); Carbon Dioxide 26.0 mmol/L (21-32); Chloride 105.0 mmol/L (98-107); Creatinine Clr Calc Pharmacy 34.5 ml/min; Glucose 115.0 mg/dl (70-99(Fasting)); Magnesium 2.0 mg/dl (1.7-2.4); Potassium 3.7 mmol/L (3.5-5.1); Sodium 139.0 mmol/L (136-145)
--- NOTE | 2025-06-20 08:18 | XRay Report ---
XR chest 1V portable CLINICAL HISTORY: Pneumonia. COMPARISON STUDY: Chest radiograph June 16, 2025. FINDINGS: Left subclavian pacer/AICD remains in place. Cardiomegaly is noted. There is no pneumothora x. Trace bilateral pleural effusions are again noted. Interstitial thickening persists. Bibasilar and right perihilar opacities persist. IMPRESSION: 1. Cardiomegaly with mild interstitial pulmonary edema, similar to prior exam. 2. Persistent bibasilar and right perihilar opacities suggestive of pneumonia. Radiographic follow-up to ensure resolution is recommended. ACT 112: Negative or not required by law. Electronically signed by: Emerson Perez M.D. 06/20/2025 8:16 AM
--- NOTE | 2025-06-20 12:40 | XRay Report ---
KUB CLINICAL HISTORY: Abdominal pain. COMPARISON STUDY: CT of the abdomen and pelvis June 13, 2025. FINDINGS: Pacer/AICD leads are partially imaged. There is extensive atherosclerotic plaque within the abdominal aorta. The bowel gas pattern is normal. There is no radiographic evidence for free air on supine exam. The amount of stool is within normal limits. IMPRESSION: No evidence for a bowel obstruction. ACT 112: Negative or not required by law. Electronically signed by: Emerson Perez M.D. 06/20/2025 12:39 PM
--- NOTE | 2025-06-20 14:44 | Hospitalist Progress Note ---
Date of Service June 20, 2025 Assessment & Plan (1) Pneumonia: Plan: 89-year-old male with past medical history significant for gout, chronic systolic heart failure, nonischemic cardiomyopathy, status post biventricular ICD, left bundle branch block, hypertension, symptomatic stenosis of right carotid artery, benign esophageal stricture, CKD stage IIIb, spinal stenosis, pseudophakia who lives at home with his and ambulates with rollator walker for short distances was brought in because of nausea vomiting and weakness. Acute Metabolic Encephalopathy Less likely Seizure DD: Secondary to hypoxia Chronic meningioma Peripheral artery disease --Head/Neck CTA:No large vessel occlusion, aneurysm or dissection in the head or neck. High-grade stenosis cervical right internal carotid bulb and proximal segment of at least 80%. Left cervical internal carotid stenosis of up to 50%. Stable midline meningioma. -- EEG pending --MRI brain: Could not obtain MRI due to magnet being attached to ICD Intermittently confused Consideration for outpatient polysomnography Appreciate neurology input Delirium precautions Reorient frequently Mental status seem to be back to baseline Palliative care consulted to address goals of care Acute Hypoxic Respiratory Failure Aspiration Pneumonitis CAP --CXR:Cardiomegaly with interstitial pulmonary edema.Probable trace pleural effusions with bibasilar opacities favoring atelectasis. A mild pneumonitis could appear similarly. Evidence of asbestos-related pleural disease. --Blood cultures negative to date --Elevated procalcitonin -- Continue IV Zosyn for now Continue aspiration precaution Appreciate speech therapy Saturating low 90s on room air CXR today showed persistent mild interstitial pulmonary edema, opacities suggestive of pneumonia Leukocytosis trending down Ventricular Tachycardia Type 2 DC S/p Pacemaker and ICD HFrEF --ECHO: Left ventricular systolic function is moderate to severely reduced. EF 35 to 40%. Grade 1 diastolic dysfunction. Moderate aortic stenosis. Grade 1 diastolic dysfunction. Moderate valvular aortic stenosis. Trace pulmonic valvular regurgitation. Mild mitral and tricuspid regurgitation. Akinesis of the basal and mid inferolateral and inferior vuong. Severe hypokinesis to akinesis of the basal and mid anterolateral vuong. --Cardiology discussed with patient and patient's family and are in agreement to deactivate ICD. BiV pacing remains unchanged. --Continue amiodarone drip>> transition to amiodarone 200 mg twice a day -- Continue metoprolol Monitor and replete electrolytes as needed Appreciate cardiology input IV Lasix as needed Continue aspirin, statin Continue Lasix 20 mg daily May need to address goals of care/involve palliative care if no improvement Diarrhea Likely secondary to antibiotics Stool for C. difficile negative Imodium as needed Hypokalemia Hypophosphatemia Replace and monitor GERD continue pantoprazole 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 -likely in setting of ATN Bladder scan as needed Received IV fluids Monitor volume status closely Avoid nephrotoxic agents as able Creatinine 1.3 today Septic Shock Continue antibiotics as above Received IV fluid Contact dermatitis Started on low-dose prednisone Monitor DVT Px: Heparin SQ CODE STATUS DNR/DNI Disposition To be determined Admission and Anticipated Discharge Date Admission Date: June 13, 2025 Subjective Patient is seen and examined at bedside Sitting in chair during my encounter States having itchy rash over his back Poor appetite Oriented during my encounter Afebrile today Minimal cough but otherwise no other complaints Denies any chest pain, dyspnea, nausea, vomiting, abdominal pain Review of Systems Review of Systems: All systems reviewed & are unremarkable except as noted in Subjective Physical Exam Physical Exam: Physical Exam: Vitals signs as noted above General Appearance:Moderately built and nourished, Chronic ill appearing, no apparent distress, Elderly Head: normocephalic, Atraumatic Eyes: normal inspection, EOMI Neck: supple, Trachea midline Respiratory/Chest: Decreased breath sounds, +crackles, No accessory muscle use Cardiovascular: S1, S2, + murmur Abdomen/GI:Soft, Non tender, Bowel sounds present Extremities/Musculoskeletal:normal inspection, no edema Neurologic/Psych:AAOX1, grossly no focal neurological deficits Skin: normal color, warm Results & Data Results & Data Vital Signs (Past 12 Hours) Vital Signs Temp Pulse Pulse Resp BP BP Pulse Ox 06/20/25 13:48 77 06/20/25 10:34 37.2 C 75 18 152/77 H 91 06/20/25 08:21 37.1 C 81 20 165/84 H 89 L 06/20/25 07:40 80 O2 Del Method 06/20/25 13:48 06/20/25 10:34 Room Air 06/20/25 08:21 Room Air 06/20/25 07:40 Laboratory Results Short CBC 06/20/25 Range/Units 06:41 WBC 12.35 H (4.8-10.8) K/ul Hgb 13.2 L (14.0-18.0) g/dl Hct 39.0 L (42.0-52.0) % Plt Count 158 (130-400) K/uL BMP 06/20/25 06:41 Sodium 139 Potassium 3.7 Chloride 105 Carbon Dioxide 26 BUN 27 H Creatinine 1.31 Glucose 115 H Calcium 8.7
[2025-06-21 08:51] LABS: Hematocrit (blood only) 43.8 % (42.0-52.0); Hemoglobin 14.2 g/dl (14.0-18.0); Mean Corpuscular Hemoglobin 26.6 pg (25.0-34.0); Mean Corpuscular Volume 82.0 fL (80.0-100.0); Platelet Count 214 K/uL (130-400); RDW Standard Deviation 52.9 fL (36.4-46.3); Red Blood Count 5.34 M/uL (4.70-6.10); White Blood Count 9.40 K/ul (4.8-10.8)
[2025-06-21 09:07] LABS: Anion Gap 10.0 (3-11); Blood Urea Nitrogen 23.0 mg/dl (6-23); Calcium 9.4 mg/dl (8.6-10.3); Carbon Dioxide 27.0 mmol/L (21-32); Chloride 104.0 mmol/L (98-107); Creatinine Clr Calc Pharmacy 35.0 ml/min; Glucose 106.0 mg/dl (70-99(Fasting)); Potassium 3.6 mmol/L (3.5-5.1); Sodium 141.0 mmol/L (136-145)
--- NOTE | 2025-06-21 09:09 | Palliative Care Consultation ---
Date of Consultation June 21, 2025 Assessment & Plan (1) Palliative care by specialist: Met with pt at bedside, spouse Manisha was present. Introduced Palliative Medicine and explained our role in advanced care planning, symptom management and navigation through the progression of life limiting disease. Patient and/or family were receptive to palliative services for goals of care discussions. Reviewed we are different from hospice, a home health nurse visiting service. (2) Counseling regarding goals of care: Met with pt and his spouse Manisha at bedside. Lengthy discussion of ACP hlep from 11:00 - 11:40 Manisha shared concern that her has undiagnosed dementia and has had cognitive decline with memory lapses for several months. She shared that she has seen some improvement intermittently but that he has not returned to what she would consider his baseline cognitive function. 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 She shared that he has recently been forgetful and impulsive and she cannot safely care for him at home any longer. She shared that she feels that he has shown some cognitive improvement since admission and she is hopeful that he will continue to improve. She did confirm DNR/DNI status and that she would not want his ICD to fire again. We discussed the pt's heart disease and advanced CKD and difficulty treating HF iso CKD. Discussed and helped Manisha differentiate delirium vs dementia. Explained that unfortunately there are no known medications to cure or shorten the duration of delirium; rather PRN antipsychotics are recommended to help with sleep/appetite/psychomotor agitation and hallucinations if these symptoms are causing significant distress and/or interfering with acute safety. Encouraged frequent reorientation and consistency in daily routine to minimize effect fo delirium. Duration of delirium varies broadly with persistent delirium (defined as lasting for weeks or months) occurring frequently with many patients exhibiting some symptoms of delirium at 6 months after symptom onset. Discussed the option of continuing on current course of treatment vs transition to comfort directed care where quality of life is valued over length of life. Manisha was appreciative of information and requests time to discuss with her son this evening. Will revisit [facility] tomorrow. Plan DNR/DNI, continue all other life prolonging treatments. History of Present Illness Reason for Consultation: goals of care Requesting Physician: Darryn Mcdonough MD Attending Physician: Darryn Mcdonough MD History of Present Illness 89-year-old male with past medical history significant for gout, chronic systol ic heart failure, nonischemic cardiomyopathy, status post biventricular ICD, left bundle branch block, hypertension, symptomatic stenosis of right carotid artery, benign esophageal stricture, CKD stage IIIb, spinal stenosis, pseudophakia who lives at home with his and ambulates with rollator walker for short distances was brought in 06/13/25 because of nausea vomiting and weakness. Allergies Allergy/AdvReac Type Severity Reaction Status Date / Time codeine Allergy Intermediate Hives Verified 06/13/25 21:05 Sulfa (Sulfonamide Allergy Intermediate Itching Verified 06/13/25 21:05 Antibiotics) sulfamethoxazole Allergy Intermediate Itching Verified 06/13/25 21:05 [From Bactrim] trimethoprim [From Bactrim] Allergy Intermediate Itching Verified 06/13/25 21:05 IZABELA Inhibitors AdvReac Intermediate Cough Verified 06/13/25 21:05 losartan AdvReac Intermediate Dizziness Verified 06/13/25 21:05 Home Medications Medication Instructions Recorded Confirmed Type allopurinol 300 mg tablet 300 mg PO DAILY 01/26/24 06/13/25 History aspirin 81 mg tablet,delayed 81 mg PO QAM 01/26/24 06/13/25 History release cholecalciferol (vitamin D3) 25 2,000 unit PO Q OTHER DAY 01/26/24 06/13/25 History mcg (1,000 unit) tablet (Vitamin D3) cyanocobalamin (vitamin B-12) 1,000 mcg PO Q OTHER DAY 01/26/24 06/13/25 History 1,000 mcg tablet (Vitamin B-12) finasteride 5 mg tablet 5 mg PO QAM 01/26/24 06/13/25 History metoprolol succinate 25 mg 25 mg PO QAM 01/26/24 06/13/25 History tablet,extended release 24 hr omega 0-wiu-vsg-fish oil 1,200 mg 1 cap PO BID 01/26/24 06/13/25 History (144 mg-216 mg) capsule (Fish Oil) gabapentin 100 mg capsule 200 mg (2 x 100 mg) PO TID #180 05/06/25 06/13/25 Rx caps tamsulosin 0.4 mg capsule 0.4 mg PO QAM #30 caps 05/06/25 06/13/25 Rx albendazole 200 mg tablet 400 mg PO QAM 06/13/25 06/13/25 History atorvastatin 40 mg tablet 40 mg PO DAILY 06/13/25 06/13/25 History diclofenac sodium 1 % topical gel 2 g topical QID PRN Pain 06/13/25 06/13/25 History escitalopram oxalate 5 mg tablet 5 mg PO DAILY 06/13/25 06/13/25 History (Lexapro) hydroxyurea 500 mg capsule 500 mg PO DAILY 06/13/25 06/13/25 History magnesium oxide 420 mg tablet 420 mg PO DAILY 06/13/25 06/13/25 History mirabegron 50 mg tablet,extended 50 mg PO DAILY 06/13/25 06/13/25 History release 24 hr (Myrbetriq) omeprazole 20 mg capsule,delayed 20 mg PO DAILY 06/13/25 06/13/25 History release Patient History Medical History Benign esophageal stricture CKD stage 3b, GFR 30-44 ml/min Stenosis of right carotid artery LBBB (left bundle branch block) Chronic systolic CHF (congestive heart failure) Hypertension NICM (nonischemic cardiomyopathy) Carotid stenosis Hypertension Heart disease Macular degeneration Surgical History Hx of esophagogastroduodenoscopy Hx of colonoscopy Hx of cataract removal with insertion of prosthetic lens Biventricular ICD (implantable cardioverter-defibrillator) in place Family History Mother COPD (chronic obstructive pulmonary disease) Social History Smoking Status: Former smoker Tobacco Type: Cigarettes Second Hand Exposure: No; Do You Dip or Chew Tobacco: No; Hx Alcohol Use: No Hx Substance Use: No Preferred Language: Cypriot Communication Ability: Effective [employer] Required: No Beliefs That Will Affect Care: Shinto Current Living Situation: Spouse Current Living Situation Comment: lives at home with Other Information That Helps Us Care for You: No Feels Safe at Home: Yes Safety Concerns: Feels Safe At This Time Assistive Devices: Cane and Walker Review of Systems Review of Systems: Unobtainable due to cognitive status Physical Exam Constitutional: WD/WN, vitals as above + frail appearing; no acute distress Respiratory: + cough; no respiratory distress Ausc ultation: + diminished lung sounds; no crackles Cardiovascular: Rate/Rhythm: regular rate and regular rhythm Heart Sounds: normal S1, normal S2 and + murmur (II/ systolic murmur) Vessels: no JVD Extremities: no edema Gastrointestinal (Abdomen): normal bowel sounds, soft, nontender, no hepatos plenomegaly Psychiatric: Orientation: oriented to person Results & Data Vital Signs (Past 12 Hours) Vital Signs Temp Pulse Pulse Resp BP BP Pulse Ox 06/21/25 07:39 36.5 C 83 16 174/82 H 91 06/21/25 03:14 36.8 C 84 18 159/84 H 94 06/21/25 00:00 06/20/25 22:58 36.6 C 81 20 161/84 H 91 06/20/25 21:42 89 Pulse Ox O2 Del Method O2 Del Method 06/21/25 07:39 Room Air 06/21/25 03:14 Room Air 06/21/25 00:00 91 Room Air 06/20/25 22:58 Room Air 06/20/25 21:42 Laboratory Results Abnormal lab results 06/21/25 Range/Units 07:01 RDW Std Deviation 52.9 H (36.4-46.3) fL RDW Coeff of Dmitriy 19.5 H (11.5-14.5) % Glucose 106 H (70-99(Fasting)) mg/dl Diagnostic Findings Abdomen/Pelvis CT 06/13/25 21:16 Exam(s): CT ABDOMEN + PELVIS Without Contrast EXAM: CT Abdomen and Pelvis Without Intravenous Contrast CLINICAL HISTORY: Reason for exam: n/v. TECHNIQUE: Axial computed tomography images of the abdomen and pelvis without intravenous contrast. CTDI is 23.59 mGy and DLP is 1717.76 mGy-cm. Automated exposure control was utilized for the study. A dose lowering technique was utilized adhering to the principles of ALARA. COMPARISON: No relevant prior studies available. FINDINGS: Lung bases: Consolidation in the lower lobes bilaterally consistent with pneumonia. ABDOMEN: Liver: Unremarkable. Gallbladder and bile ducts: Unremarkable. Pancreas: Unremarkable. Spleen: Unremarkable. Adrenals: Unremarkable. Kidneys and ureters: Cortical cysts in the left kidney. No ureteral stones. No hydronephrosis. Stomach and bowel: No bowel obstruction or inflammatory changes. Sigmoid diverticulosis without diverticulitis. PELVIS: Appendix: No findings to suggest acute appendicitis. Bladder: Unremarkable. Reproductive: Prostate enlarged up to 5 cm. ABDOMEN and PELVIS: Intraperitoneal space: Unremarkable. No free air. No significant fluid collection. Bones/joints: Severe degenerative changes in the lumbar spine. Soft tissues: Unremarkable. Vasculature: Aortobiiliac atherosclerotic calcifications. Lymph nodes: Unremarkable. IMPRESSION: 1. Consolidation in the lower lobes bilaterally consistent with pneumonia. 2. No acute abnormality along the GI tract. Electronically signed by: Gio Caruso MD 06/13/25 22:[address] 06/14/25 08:25 EXAM: CT Head Without Intravenous Contrast INDICATION: Left-sided weakness. Stroke alert. TECHNIQUE: Axial computed tomography images of the head/brain without intravenous contrast. Sagittal and/or coronal reformats are provided. Sagittal and coronal reformatted images were created and reviewed. This CT exam was performed using one or more of the following dose reduction techniques: automated exposure control, adjustment of the mA and/or kV according to patient size, and/or use of iterative reconstruction technique. COMPARISON: 05/04/2025 FINDINGS: Limitations: None. Brain and extra-axial spaces: Midline anterior parafalcine slightly echogenic mass likely meningioma measures 3.9 cm transverse by 4.3 cm AP by 2.9 cm long unchanged. There is moderate to marked diffuse chronic small vessel ischemic gliosis and cortical atrophy. No acute territorial infarct. No hemorrhage. No extra-axial fluid collection. Bones/joints: No acute changes. Soft tissues: No significant abnormality noted. Vasculature: No acute abnormality noted. Sinuses: There is trace chronic mucosal thickening right maxillary sinus. Mastoid air cells: No mastoid effusion. Orbits: No significant abnormality noted. IMPRESSION: 1. No acute abnormality. 2. Stable midline anterior parafalcine mass most likely meningioma. ACT 112: N/A Electronically signed by Piper Landa 06-14-2025 09:08 AM Head CTA 06/14/25 08:25 EXAM: CT Angiography Head and Neck With Intravenous Contrast INDICATION: Left-sided weakness and unresponsive. TECHNIQUE: [place] [facility] [place]/head and neck CT angiography protocol performed with intravenous contrast. Sagittal and coronal reformatted images were created and reviewed. This CT exam was performed using one or more of the following dose reduction techniques: automated exposure control, adjustment of the mA and/or kV according to patient size, and/or use of iterative reconstruction technique. MIP reconstructed images were created and reviewed. CONTRAST: 119 ml of Optiray 320 was administered intravenously. COMPARISON: None. FINDINGS: HEAD: Right anterior cerebral artery: No abnormality noted. No occlusion or significant stenosis. Anterior communicating artery is present. No aneurysm. Right middle cerebral artery: No abnormality noted. No occlusion or significant stenosis. No aneurysm. Right posterior cerebral artery: No abnormality noted. No occlusion or significant stenosis. No aneurysm. Right intracranial internal carotid artery: No abnormality noted. No significant stenosis. No dissection or occlusion. Right intracranial vertebral artery: Mild scattered calcific plaque. No stenosis, dissection or occlusion. Left anterior cerebral artery: No abnormality noted. No occlusion or significant stenosis. No aneurysm. Left middle cerebral artery: No abnormality noted. No occlusion or significant stenosis. No aneurysm. Left posterior cerebral artery: No abnormality noted. No occlusion or significant stenosis. No aneurysm. Left intracranial internal carotid artery: No abnormality noted. No significant stenosis. No dissection or occlusion. Left intracranial vertebral artery: No abnormality noted. No significant stenosis. No dissection or occlusion. Basilar artery: No abnormality noted. No occlusion or significant stenosis. No aneurysm. Other vasculature: No vascular malformation. NECK: Right common carotid artery: Minimal scattered plaque. No significant stenosis. No dissection or occlusion. Right extracranial internal carotid artery: There is marked atherosclerosis of the bulb and proximal segment with stenosis of up to 80%. No dissection. Right external carotid artery: No abnormality noted. No occlusion. Right extracranial vertebral artery: No abnormality noted. No significant stenosis. No dissection or occlusion. Left common carotid artery: Minimal scattered plaque. No significant stenosis. No dissection or occlusion. Left extracranial internal carotid artery: There is moderate calcific plaque with up to 50% stenosis of the bulb and proximal segment. No dissection or occlusion. Left external carotid artery: No abnormality noted. No occlusion. Left extracranial vertebral artery: No abnormality noted. No significant stenosis. No dissection or occlusion. Lung apices: Bilateral moderate airspace consolidation noted in the upper lobes and superior segment of the left lower lobe left greater than right. There is a small layering left pleural effusion. No pneumothorax. Reactive mildly enlarged upper mediastinal nodes present. HEAD and NECK: Brain: Midline interhemispheric and inferior frontal meningioma grossly stable measuring 4.1 x 3.8 cm. Moderate chronic ischemic and atrophic changes. Bones/joints: No significant abnormality. Soft tissues: No abnormality noted. CAROTID STENOSIS REFERENCE USING NASCET CRITERIA: % ICA stenosis = (1 - narrowest ICA diameter/diameter of distal cervical ICA) x 100. Mild - <50% stenosis. Moderate - 50-69% stenosis. Severe - 70-94% stenosis. Near occlusion - 95-99% stenosis. Occluded - 100% stenosis. IMPRESSION: 1. No large vessel occlusion, aneurysm or dissection in the head or neck. 2. High-grade stenosis cervical right internal carotid bulb and proximal segment of at least 80%. 3. Left cervical internal carotid stenosis of up to 50%. 4. Stable midline meningioma. ACT 112: N/A Electronically signed by Piper Landa 06-14-2025 09:05 AM Neck CTA 06/14/25 08:25 EXAM: CT Angiography Head and Neck With Intravenous Contrast INDICATION: Left-sided weakness and unresponsive. TECHNIQUE: [place] [facility] [place]/head and neck CT angiography protocol performed with intravenous contrast. Sagittal and coronal reformatted images were created and reviewed. This CT exam was performed using one or more of the following dose reduction techniques: automated exposure control, adjustment of the mA and/or kV according to patient size, and/or use of iterative reconstruction technique. MIP reconstructed images were created and reviewed. CONTRAST: 119 ml of Optiray 320 was administered intravenously. COMPARISON: None. FINDINGS: HEAD: Right anterior cerebral artery: No abnormality noted. No occlusion or significant stenosis. Anterior communicating artery is present. No aneurysm. Right middle cerebral artery: No abnormality noted. No occlusion or significant stenosis. No aneurysm. Right posterior cerebral artery: No abnormality noted. No occlusion or significant stenosis. No aneurysm. Right intracranial internal carotid artery: No abnormality noted. No significant stenosis. No dissection or occlusion. Right intracranial vertebral artery: Mild scattered calcific plaque. No stenosis, dissection or occlusion. Left anterior cerebral artery: No abnormality noted. No occlusion or significant stenosis. No aneurysm. Left middle cerebral artery: No abnormality noted. No occlusion or significant stenosis. No aneurysm. Left posterior cerebral artery: No abnormality noted. No occlusion or significant stenosis. No aneurysm. Left intracranial internal carotid artery: No abnormality noted. No significant stenosis. No dissection or occlusion. Left intracranial vertebral artery: No abnormality noted. No significant stenosis. No dissection or occlusion. Basilar artery: No abnormality noted. No occlusion or significant stenosis. No aneurysm. Other vasculature: No vascular malformation. NECK: Right common carotid artery: Minimal scattered plaque. No significant stenosis. No dissection or occlusion. Right extracranial internal carotid artery: There is marked atherosclerosis of the bulb and proximal segment with stenosis of up to 80%. No dissection. Right external carotid artery: No abnormality noted. No occlusion. Right extracranial vertebral artery: No abnormality noted. No significant stenosis. No dissection or occlusion. Left common carotid artery: Minimal scattered plaque. No significant stenosis. No dissection or occlusion. Left extracranial internal carotid artery: There is moderate calcific plaque with up to 50% stenosis of the bulb and proximal segment. No dissection or occlusion. Left external carotid artery: No abnormality noted. No occlusion. Left extracranial vertebral artery: No abnormality noted. No significant stenosis. No dissection or occlusion. Lung apices: Bilateral moderate airspace consolidation noted in the upper lobes and superior segment of the left lower lobe left greater than right. There is a small layering left pleural effusion. No pneumothorax. Reactive mildly enlarged upper mediastinal nodes present. HEAD and NECK: Brain: Midline interhemispheric and inferior frontal meningioma grossly stable measuring 4.1 x 3.8 cm. Moderate chronic ischemic and atrophic changes. Bones/joints: No significant abnormality. Soft tissues: No abnormality noted. CAROTID STENOSIS REFERENCE USING NASCET CRITERIA: % ICA stenosis = (1 - narrowest ICA diameter/diameter of distal cervical ICA) x 100. Mild - <50% stenosis. Moderate - 50-69% stenosis. Severe - 70-94% stenosis. Near occlusion - 95-99% stenosis. Occluded - 100% stenosis. IMPRESSION: 1. No large vessel occlusion, aneurysm or dissection in the head or neck. 2. High-grade stenosis cervical right internal carotid bulb and proximal segment of at least 80%. 3. Left cervical internal carotid stenosis of up to 50%. 4. Stable midline meningioma. ACT 112: N/A Electronically signed by Piper Landa 06-14-2025 09:05 AM Chest X-Ray 06/20/25 07:00 XR chest 1V portable CLINICAL HISTORY: Pneumonia. COMPARISON STUDY: Chest radiograph June 16, 2025. FINDINGS: Left subclavian pacer/AICD remains in place. Cardiomegaly is noted. There is no pneumothorax. Trace bilateral pleural effusions are again noted. Interstitial thickening persists. Bibasilar and right perihilar opacities persist. IMPRESSION: 1. Cardiomegaly with mild interstitial pulmonary edema, similar to prior exam. 2. Persistent bibasilar and right perihilar opacities suggestive of pneumonia. Radiographic follow-up to ensure resolution is recommended. ACT 112: Negative or not required by law. Electronically signed by: Emerson Perez M.D. 06/20/2025 8:16 AM KUB X-Ray 06/20/25 12:05 KUB CLINICAL HISTORY: Abdominal pain. COMPARISON STUDY: CT of the abdomen and pelvis June 13, 2025. FINDINGS: Pacer/AICD leads are partially imaged. There is extensive atherosclerotic plaque within the abdominal aorta. The bowel gas pattern is normal. There is no radiographic evidence for free air on supine exam. The amount of stool is within normal limits. IMPRESSION: No evidence for a bowel obstruction. ACT 112: Negative or not required by law. Electronically signed by: Emerson Perez M.D. 06/20/2025 12:39 PM Medications Administered Current Inpatient Medications Acetaminophen (Acetaminophen 500 Mg Tab) 1,000 mg PO Q8H PRN PRN Reason: Pain Stop: 07/15/25 08:29 Last Admin: 06/20/25 10:37 Dose: 1,000 mg Amiodarone HCl (Amiodarone 200 Mg Tab) 200 mg PO BIDM [facility] Stop: 07/18/25 09:29 Last Admin: 06/21/25 08:52 Dose: 200 mg Aspirin (Aspirin 81 Mg Ectab) 81 mg PO QAM [facility] Stop: 07/15/25 08:59 Last Admin: 06/21/25 08:54 Dose: 81 mg Atorvastatin Calcium (Atorvastatin 40 Mg Tab) 80 mg PO QAM [facility] Stop: 07/15/25 08:59 Last Admin: 06/21/25 08:56 Dose: 80 mg Bisacodyl (Bisacodyl 10 Mg Supp) 10 mg PA DAILY PRN PRN Reason: Constipation Stop: 07/14/25 17:02 Escitalopram Oxalate (Escitalopram Oxalate 10 Mg Tab) 5 mg PO DAILY [place] Stop: 07/14/25 08:59 Last Admin: 06/21/25 08:55 Dose: 5 mg Furosemide (Furosemide 20 Mg Tab) 20 mg PO QAM [facility] Stop: 07/18/25 08:59 Last Admin: 06/21/25 08:57 Dose: 20 mg Heparin Sodium (Porcine) (Heparin Sod 5,000 Unit/0.5 Ml Vial) 5,000 units SQ Q12 [facility] Stop: 07/16/25 20:59 Last Admin: 06/21/25 08:57 Dose: 5,000 units Piperacillin Sod/Tazobactam Sod (Zosyn) 4.5 gm in 100 mls @ 25 mls/hr IV Q8H [facility]; Protocol Stop: 06/24/25 15:59 Last Admin: 06/21/25 08:54 Dose: 25 mls/hr Lactobacillus Acidophilus (Advanced Probiotic 625 Mg Capsule) 1,250 mg PO DAILY [facility] Stop: 07/18/25 09:59 Last Admin: 06/21/25 08:57 Dose: 1,250 mg Loperamide HCl (Loperamide Hcl 2 Mg Cap) 2 mg PO Q6H PRN PRN Reason: Diarrhea Stop: 07/18/25 14:57 Last Admin: 06/20/25 19:44 Dose: 2 mg Metoprolol Succinate (Metoprolol Succ 25mg Ext Rel Tab) 25 mg PO [facility] Stop: 07/14/25 08:59 Last Admin: 06/21/25 08:58 Dose: 25 mg Olanzapine (Olanzapine 10 Mg/2.1 Ml Sdv) 2.5 mg IM Q4H PRN PRN Reason: Agitation Stop: 07/17/25 01:08 Last Admin: 06/21/25 05:46 Dose: 2.5 mg Ondansetron HCl (Ondansetron Inj 2 Mg/Ml 2 Ml Vial) 4 mg IV Q6H PRN PRN Reason: Nausea Stop: 07/14/25 00:58 Last Admin: 06/18/25 08:40 Dose: 4 mg Pantoprazole Sodium (Pantoprazole 40 Mg Tab) 40 mg PO [facility] Stop: 07/15/25 08:59 Last Admin: 06/21/25 08:58 Dose: 40 mg Prednisone (Prednisone 10 Mg Tablet) 10 mg PO DAILY [facility] Stop: 06/26/25 08:59 Last Admin: 06/21/25 08:58 Dose: 10 mg Tamsulosin HCl (Tamsulosin Hcl 0.4 Mg Cap) 0.4 mg PO [facility] Stop: 07/14/25 08:59 Last Admin: 06/21/25 08:58 Dose: 0.4 mg Zinc Acetate/Diphenhydramine (Diphenhydramine 2%/Zinc 0.1% Cream 28.4gm Tube) 1 appln EXT QID PRN PRN Reason: itchy skin Stop: 07/20/25 04:07 Last Admin: 06/20/25 15:35 Dose: 1 appln PG Care Time/CCT Total # of Minutes Spent Total Time Spent with Patient: Total time spent is greater than 50% in coordination of care (as documented) at patient's floor/unit and/or counseling patient: Advanced Care Planning 07878 Advanced Care Planning 30 [place] [address] IN/OBS CONSULT LVL 3,45M Patient Type New Medical Decision Making Low Complexity Diagnoses Palliative care by specialist Z51.5 Counseling regarding goals of care Z71.89 Additional Codes Advanced Care Planning - 28690 Advanced Care Planning 30 Min: 48402 Advanced Care Planning 30 Min ([id number])
--- NOTE | 2025-06-21 15:22 | Hospitalist Progress Note ---
Date of Service June 21, 2025 Assessment & Plan (1) Pneumonia: Plan: 89-year-old male with past medical history significant for gout, chronic systolic heart failure, nonischemic cardiomyopathy, status post biventricular ICD, left bundle branch block, hypertension, symptomatic stenosis of right carotid artery, benign esophageal stricture, CKD stage IIIb, spinal stenosis, pseudophakia who lives at home with his and ambulates with rollator walker for short distances was brought in because of nausea vomiting and weakness. Acute Metabolic Encephalopathy Less likely Seizure DD: Secondary to hypoxia Chronic meningioma Peripheral artery disease --Head/Neck CTA:No large vessel occlusion, aneurysm or dissection in the head or neck. High-grade stenosis cervical right internal carotid bulb and proximal segment of at least 80%. Left cervical internal carotid stenosis of up to 50%. Stable midline meningioma. -- EEG pending --MRI brain: Could not obtain MRI due to magnet being attached to ICD Intermittently confused Consideration for outpatient polysomnography Appreciate neurology input Delirium precautions Reorient frequently Mental status seem to be back to baseline Palliative care following to address goals of care Acute Hypoxic Respiratory Failure Aspiration Pneumonitis CAP --CXR:Cardiomegaly with interstitial pulmonary edema.Probable trace pleural effusions with bibasilar opacities favoring atelectasis. A mild pneumonitis could appear similarly. Evidence of asbestos-related pleural disease. 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 EF 35 to 40%. Grade 1 diastolic dysfunction. Moderate aortic stenosis. Grade 1 diastolic dysfunction. Moderate valvular aortic stenosis. Trace pulmonic valvular regurgitation. Mild mitral and tricuspid regurgitation. Akinesis of the basal and mid inferolateral and inferior vuong. Severe hypokinesis to akinesis of the basal and mid anterolateral vuong. --Cardiology discussed with patient and patient's family and are in agreement to deactivate ICD. BiV pacing remains unchanged. --Continue amiodarone drip>> transition to amiodarone 200 mg twice a day -- Continue metoprolol Monitor and replete electrolytes as needed Appreciate cardiology input IV Lasix as needed Continue aspirin, statin Continue Lasix 20 mg daily Diarrhea Likely secondary to antibiotics Stool for C. difficile negative Imodium as needed Hypokalemia Hypophosphatemia Replace and monitor GERD continue pantoprazole 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 -likely in setting of ATN Bladder scan as needed Received IV fluids Monitor volume status closely Avoid nephrotoxic agents as able Creatinine 1.2 today Septic Shock Continue antibiotics as above Received IV fluid Resolved Contact dermatitis Continue low-dose prednisone Monitor DVT Px: Heparin SQ CODE STATUS DNR/DNI Disposition To be determined Admission and Anticipated Discharge Date Admission Date: June 13, 2025 Subjective Patient is seen and examined at bedside Subjectively feels his rash/itchiness is getting better States having poor appetite No other complaints today Discussed with palliative care Denies any chest pain, dyspnea, nausea, vomiting, abdominal pain Review of Systems Review of Systems: All systems reviewed & are unremarkable except as noted in Subjective Physical Exam Physical Exam: Physical Exam: Vitals signs as noted above General Appearance:Moderately built and nourished, Chronic ill appearing, no apparent distress, Elderly Head: normocephalic, Atraumatic Eyes: normal inspection, EOMI Neck: supple, Trachea midline Respiratory/Chest: Decreased breath sounds, No accessory muscle use Cardiovascular: S1, S2, + murmur Abdomen/GI:Soft, Non tender, Bowel sounds present Extremities/Musculoskeletal:normal inspection, no edema Neurologic/Psych:AAOX2, grossly no focal neurological deficits Skin: normal color, warm Results & Data Results & Data Vital Signs (Past 12 Hours) Vital Signs Temp Pulse Resp BP Pulse Ox O2 Del Method 06/21/25 11:12 36.3 C L 83 20 159/78 H 91 Room Air 06/21/25 07:39 36.5 C 83 16 174/82 H 91 Room Air Laboratory Results Short CBC 06/21/25 Range/Units 07:01 WBC 9.40 (4.8-10.8) K/ul Hgb 14.2 (14.0-18.0) g/dl Hct 43.8 (42.0-52.0) % Plt Count 214 (130-400) K/uL BMP 06/21/25 07:01 Sodium 141 Potassium 3.6 Chloride 104 Carbon Dioxide 27 BUN 23 Creatinine 1.29 Glucose 106 H Calcium 9.4
[2025-06-21] MEDS: MELATONIN 3 MG TAB PO PRN (20:20)
[2025-06-22 06:48] LABS: Hematocrit (blood only) 42.3 % (42.0-52.0); Hemoglobin 13.8 g/dl (14.0-18.0); Mean Corpuscular Hemoglobin 26.6 pg (25.0-34.0); Mean Corpuscular Volume 81.5 fL (80.0-100.0); Platelet Count 229 K/uL (130-400); RDW Standard Deviation 53.3 fL (36.4-46.3); Red Blood Count 5.19 M/uL (4.70-6.10); White Blood Count 9.96 K/ul (4.8-10.8)
[2025-06-22 07:11] LABS: Anion Gap 10.0 (3-11); Blood Urea Nitrogen 25.0 mg/dl (6-23); Calcium 9.2 mg/dl (8.6-10.3); Carbon Dioxide 27.0 mmol/L (21-32); Chloride 105.0 mmol/L (98-107); Creatinine Clr Calc Pharmacy 29.9 ml/min; Glucose 97.0 mg/dl (70-99(Fasting)); Potassium 3.4 mmol/L (3.5-5.1); Sodium 142.0 mmol/L (136-145)
[2025-06-22 07:47] VITALS: RESP 17; TEMP 97.3
[2025-06-22] MEDS: POTASSIUM CHLORIDE 20 MEQ/15 ML UDC PO ONE (08:51)
[2025-06-22 10:46] VITALS: O2SAT 92
--- NOTE | 2025-06-22 11:09 | Palliative Family Discussion ---
Date of Service June 22, 2025 Patient Directed Conference Time of Meetin:30 - 10:15 Participants: Berenice Garland AGACNP Patient participation: yes Patient Support System: son Dimple Leon Other Healthcare Provider Participation: None Meeting Location: bedside Advanced Directive available: no If yes, descriptors: The patient's surrogate medical decision maker participated: no Legally authorized health care proxy: Patient exhibits current lack of decisional capacity. Hospital does not have written documentation of patient wishes concerning his chosen proxy for medical decisions. Per PA [id number], in absence of written documentation of patient wishes, pt's proxy for medical decisions would be his Manisha Leon. Other surrogate: n/a A family meeting was held for LILIANA LEON. This meeting was necessary for determining the appropriate course of treatment. Topics of Discussion Topics of Discussion: 1. pt values and goals 2. delirium vs dementia 3. comfort directed care Other Content of Meetin. Opportunity given for participants to speak and ask questions. 2. Participants were assured of attention to patient comfort. 3. Reassurance provided. 4. Support was provided for informed, good-abe decisions. 5. Emotions expressed by family were acknowledged and addressed. 6. Follow-up Outpatient: n/a 7. Plan of Care: DNR/DNI, continue all other life prolonging therapies. Met with pt and his son today to reinforce prior ACP discussions (see full consult note dated 06/21/25). Both patient and his son emphasized desire for PT/OT to optimize strength and functional independence after discharge. Dimple shared that he had discussed this plan with his mother and she is in agreement. Dimple confirmed patient's 's concerns for a gradually progressive decline in patient's cognitive function of past several months. He shared that it did get acutely worse prior to this admission, however memory loss and confusion are patient's baseline for several months. He shared concern for pt's safety, given the nature of his confusion. 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 Dimple shared concern that his mother is in denial of the pt's need for nursing care and hopes that she is coming to acceptance. He shared concern that the patient will not be safe to live independently again. We discussed the pt's heart disease and advanced CKD and difficulty treating HF iso CKD. Discussed and helped Dimple differentiate delirium vs dementia. Explained that unfortunately there are no known medications to cure or shorten the duration of delirium; rather PRN antipsychotics are recommended to help with sleep/appetite/psychomotor agitation and hallucinations if these symptoms are causing significant distress and/or interfering with acute safety. Encouraged frequent reorientation and consistency in daily routine to minimize effect fo delirium. Duration of delirium varies broadly with persistent delirium (defined as lasting for weeks or months) occurring frequently with many patients exhi biting some symptoms of delirium at 6 months after symptom onset. We discussed Dimple and pt's 's plan for discharge to [facility] for rehab followed by likely admission to SNF for jail care and possibly hospice care if pt does not benefit from rehab. Dimple was thankful for information shared and stated that he will discuss plan more with his mother when she arrives. We will sign off on this patient as goals of care are clearly established for DNR/DNI but continue all other life prolonging therapies Thank you for including Palliative Care in the management of this patient. Please call with any questions or concerns regarding this consultation. Time Involved in Meeting: I spent 70 minutes overall addressing this case: 5 in medical data review/discussion with referring provider(s) and/or preparation for the visit 45 in direct interaction with the patient and his son 45 Advance Care Planning/Goals of Care discussions as detailed above in note (must be >16min) 10 in subsequent review and synthesis of assessment and plan 10 in communicating with other providers regarding the patient's case: Dr Mcdonough, CM, BSRN and Jose Burks
--- NOTE | 2025-06-22 12:09 | Hospitalist Progress Note ---
Date of Service June 22, 2025 Assessment & Plan (1) Pneumonia: Plan: 89-year-old male with past medical history significant for gout, chronic systolic heart failure, nonischemic cardiomyopathy, status post biventricular ICD, left bundle branch block, hypertension, symptomatic stenosis of right carotid artery, benign esophageal stricture, CKD stage IIIb, spinal stenosis, pseudophakia who lives at home with his and ambulates with rollator walker for short distances was brought in because of nausea vomiting and weakness. Acute Metabolic Encephalopathy Less likely Seizure DD: Secondary to hypoxia Chronic meningioma Peripheral artery disease --Head/Neck CTA:No large vessel occlusion, aneurysm or dissection in the head or neck. High-grade stenosis cervical right internal carotid bulb and proximal segment of at least 80%. Left cervical internal carotid stenosis of up to 50%. Stable midline meningioma. -- EEG pending --MRI brain: Could not obtain MRI due to magnet being attached to ICD Intermittently confused Consideration for outpatient polysomnography Appreciate neurology input Delirium precautions Reorient frequently Mental status seem to be back to baseline Appreciate palliative care input Plan to discharge to rehab facility today Acute Hypoxic Respiratory Failure Aspiration Pneumonitis CAP --CXR:Cardiomegaly with interstitial pulmonary edema.Probable trace pleural effusions with bibasilar opacities favoring atelectasis. A mild pneumonitis could appear similarly. Evidence of asbestos-related pleural disease. 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 EF 35 to 40%. Grade 1 diastolic dysfunction. Moderate aortic stenosis. Grade 1 diastolic dysfunction. Moderate valvular aortic stenosis. Trace pulmonic valvular regurgitation. Mild mitral and tricuspid regurgitation. Akinesis of the basal and mid inferolateral and inferior vuong. Severe hypokinesis to akinesis of the basal and mid anterolateral vuong. --Cardiology discussed with patient and patient's family and are in agreement to deactivate ICD. BiV pacing remains unchanged. --Continue amiodarone drip>> transition to amiodarone 200 mg twice a day -- Continue metoprolol Monitor and replete electrolytes as needed Appreciate cardiology input IV Lasix as needed Continue aspirin, statin Hold Lasix today given rising creatinine level Diarrhea Likely secondary to antibiotics Stool for C. difficile negative Imodium as needed Hypokalemia Hypophosphatemia Replace and monitor GERD continue pantoprazole 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 -likely in setting of ATN Bladder scan as needed Received IV fluids Monitor volume status closely Avoid nephrotoxic agents as able Mild increase in creatinine level Septic Shock Continue antibiotics as above Received IV fluid Resolved Contact dermatitis Continue low-dose prednisone Monitor DVT Px: Heparin SQ CODE STATUS DNR/DNI Disposition Acute rehab Admission and Anticipated Discharge Date Admission Date: June 13, 2025 Subjective Patient is seen and examined at bedside Discussed in detail with patient's son and palliative care at bedside Offers no new complaints today Denies any chest pain, dyspnea, nausea, vomiting, abdominal pain Plan to discharge to rehab facility today Review of Systems Review of Systems: All systems reviewed & are unremarkable except as noted in Subjective Physical Exam Physical Exam: Physical Exam: Vitals signs as noted above General Appearance:Moderately built and nourished, Chronic ill appearing, no apparent distress, Elderly Head: normocephalic, Atraumatic Eyes: normal inspection, EOMI Neck: supple, Trachea midline Respiratory/Chest: Decreased breath sounds, No accessory muscle use Cardiovascular: S1, S2, + murmur Abdomen/GI:Soft, Non tender, Bowel sounds present Extremities/Musculoskeletal:normal inspection, no edema Neurologic/Psych:AAOX2, grossly no focal neurological deficits Skin: normal color, warm Results & Data Results & Data Vital Signs (Past 12 Hours) Vital Signs Temp Pulse Resp BP BP Pulse Ox O2 Del Method 06/22/25 10:45 36.3 C L 70 17 149/69 H 92 Room Air 06/22/25 07:46 36.3 C L 69 17 158/63 H 90 Room Air 06/22/25 03:19 36.4 C L 65 16 163/84 H 92 Room Air Laboratory Results Short CBC 06/22/25 Range/Units 06:22 WBC 9.96 (4.8-10.8) K/ul Hgb 13.8 L (14.0-18.0) g/dl Hct 42.3 (42.0-52.0) % Plt Count 229 (130-400) K/uL BMP 06/22/25 06:22 Sodium 142 Potassium 3.4 L Chloride 105 Carbon Dioxide 27 BUN 25 H Creatinine 1.51 H Glucose 97 Calcium 9.2
--- NOTE | 2025-06-22 12:33 | Discharge Summary ---
Date of Service June 22, 2025 Admission HPI Per Admitting Provider 89-year-old male with past medical history significant for gout, chronic systolic heart failure, nonischemic cardiomyopathy, status post biventricular ICD, left bundle branch block, hypertension, symptomatic stenosis of right carotid artery, benign esophageal stricture, CKD stage IIIb, spinal stenosis, pseudophakia who lives at home with his and ambulates with rollator walker for short distances was brought in because of nausea vomiting and weakness. and son in the room. Nausea and vomiting started today. No diarrhea. Had fevers at home. For last couple of days he is having cough and sometimes bringing up phlegm. No chest pain or shortness of breath. No headache. Has some runny nose. No sore throat. Eats and drinks okay and swallows okay as per . Currently sleepy. Could tell his name. Knows that he is in the hospital. But could not tell current dates. As per patient during nighttime gets confused and gets hallucinations. Hemodynamics are okay. Past medical history. As mentioned above Past surgical history. Bilateral carotic artery catheter placement. Colonoscopy with biopsy. EGD. Cataracts. Biventricular ICD. Social history. . Quit smoking 1982. Smoked 1.5 pack a day for 30 years. No alcohol currently. No drug use. Family history. Mother had COPD. Hypertension. Smoking. Admission Exam Per Admitting Provider General- Sleepy Head- atraumatic Eyes- Pupils pinpoint and sluggish to react ENT- oropharynx clear Neck- supple, no JVD. Lungs- clear to auscultation no wheezing or crackles Heart- regular rhythm; no murmur, no gallop. Abdomen- normal bowel sounds, soft, nontender, no distension Extremities- no pretibial edema, no erythema seen Neuro-sleepy oriented x 2; ; no facial palsy; no dysarthria; moves extremities Principal Diagnosis Acute Metabolic Encephalopathy Aspiration pneumonia Acute hypoxic respiratory failure--resolved Ventricular Tachycardia 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 Sepsis Contact dermatitis ICD discharge--deactivated Discharge Data Allergies Allergy/AdvReac Type Severity Reaction Status Date / Time codeine Allergy Intermediate Hives Verified 06/13/25 21:05 Sulfa (Sulfonamide Allergy Intermediate Itching Verified 06/13/25 21:05 Antibiotics) sulfamethoxazole Allergy Intermediate Itching Verified 06/13/25 21:05 [From Bactrim] trimethoprim [From Bactrim] Allergy Intermediate Itching Verified 06/13/25 21:05 IZABELA Inhibitors AdvReac Intermediate Cough Verified 06/13/25 21:05 losartan AdvReac Intermediate Dizziness Verified 06/13/25 21:05 Consultations 06/13/25 22:05 ED Decision to Admit Stat 06/15/25 08:27 Consult Cardiology Routine 06/15/25 08:36 Consult Neurology Routine 06/21/25 07:00 Consult Palliative Care Routine Procedures Performed Laboratory Results WBC 9.96 K/ul (4.8-10.8) 06/22/25 06:22 RBC 5.19 M/uL (4.70-6.10) 06/22/25 06:22 Hgb 13.8 g/dl (14.0-18.0) L 06/22/25 06:22 POC Hgb 15.6 g/dl (14.0-18.0) 06/14/25 08:17 Hct 42.3 % (42.0-52.0) 06/22/25 06:22 POC Hct 46 % (42-52) 06/14/25 08:17 MCV 81.5 fL (80.0-100.0) 06/22/25 06:22 MCH 26.6 pg (25.0-34.0) 06/22/25 06:22 MCHC 32.6 g/dL (32.0-36.0) 06/22/25 06:22 RDW Std Deviation 53.3 fL (36.4-46.3) H 06/22/25 06:22 RDW Coeff of Dmitriy 19.1 % (11.5-14.5) H 06/22/25 06:22 Plt Count 229 K/uL (130-400) 06/22/25 06:22 MPV 11.4 fL (9.4-12.4) 06/22/25 06:22 Immature Gran % (Auto) 0.3 % 06/15/25 08:48 Neut % (Auto) 86.1 % 06/15/25 08:48 Lymph % (Auto) 10.4 % 06/15/25 08:48 [place] % (Auto) 2.9 % 06/15/25 08:48 Eos % (Auto) 0.1 % 06/15/25 08:48 Baso % (Auto) 0.2 % 06/15/25 08:48 Neut # (Auto) 10.20 K/uL (1.40-6.50) H 06/15/25 08:48 Lymph # (Auto) 1.23 K/uL (1.20-3.40) 06/15/25 08:48 [place] # (Auto) 0.34 K/uL (0.11-0.59) 06/15/25 08:48 Eos # (Auto) 0.01 K/uL (0.00-0.50) 06/15/25 08:48 Baso # (Auto) 0.02 K/uL (0.00-0.20) 06/15/25 08:48 Immature Gran # (Auto) 0.04 K/uL (0.01-0.20) 06/15/25 08:48 PT 12.7 Seconds (9.0-12.0) H 06/15/25 08:48 INR 1.2 (0.9-1.1) H 06/15/25 08:48 APTT 31 Seconds (21-31) 06/14/25 09:27 PTT Ratio 1.2 06/14/25 09:27 Specimen Type Arterial 06/14/25 08:17 Sample Site R Radial 06/14/25 08:17 POC pH 7.41 (7.35-7.45) 06/14/25 08:17 POC pCO2 33 mmHg (35-46) L 06/14/25 08:17 POC pO2 46 mmHg (80-95) L 06/14/25 08:17 POC HCO3 21 jerod/L (19-24) 06/14/25 08:17 POC Total CO2 22 mmol/L (24-31) L 06/14/25 08:17 POC Base Excess -4.0 jerod/L (-9-1.8) 06/14/25 08:17 O2 Sat Pulse Oximetry 87 06/14/25 08:17 ABG pH (Temp Correct) 7.407 (7.35-7.45) 06/14/25 08:17 ABG pCO2 (Temp Corrct 33 mmHg (35-46) L 06/14/25 08:17 POC ABG pO2 at Pt Temp 46 06/14/25 08:17 POC ABG O2 Sat 82.0 % (90-95) L 06/14/25 08:17 Davide Test Pass 06/14/25 08:17 O2 Delivery Device Other 06/14/25 08:17 POC Sodium 135 mmol/L (135-144) 06/14/25 08:17 Sodium 142 mmol/L (136-145) 06/22/25 06:22 POC Potassium 4.3 mmol/L (3.3-5.0) 06/14/25 08:17 Potassium 3.4 mmol/L (3.5-5.1) L 06/22/25 06:22 POC Chloride 102 mmol/L (101-112) 06/13/25 20:11 Chloride 105 mmol/L (98-107) 06/22/25 06:22 Carbon Dioxide 27 mmol/L (21-32) 06/22/25 06:22 POC Total CO2 22 mmol/L (24-31) L 06/13/25 20:11 Anion Gap 10 (3-11) 06/22/25 06:22 POC Anion Gap 19.0 mmol/L (16-25) 06/13/25 20:11 POC BUN 29 mg/dl (7-18) H 06/13/25 20:11 BUN 25 mg/dl (6-23) H 06/22/25 06:22 Creatinine 1.51 mg/dl (0.6-1.4) H 06/22/25 06:22 POC Creatinine 2.5 mg/dl (0.6-1.3) H 06/13/25 20:11 Est Cr Clr Drug Dosing 29.9 ml/min 06/22/25 06:22 eGFR 43.88 06/22/25 06:22 BUN/Creatinine Ratio 16.6 (10-20) 06/22/25 06:22 Glucose 97 mg/dl (70-99(Fasting)) 06/22/25 06:22 POC Glucose 158 mg/dl (70-99) H 06/14/25 14:51 POC Glucose (other) 144 mg/dl (70-99) H 06/13/25 20:11 Lactate 1.9 mmol/L (0.4-2.0) 06/15/25 08:48 Calcium 9.2 mg/dl (8.6-10.3) 06/22/25 06:22 POC Ioniz Calcium [place] 1.16 mmol/l (1.12-1.32) 06/13/25 20:11 Ionized Calcium 1.10 mmol/L (1.12-1.32) L 06/15/25 08:48 Phosphorus 2.5 mg/dl (2.5-4.9) 06/20/25 06:41 Magnesium 2.0 mg/dl (1.7-2.4) 06/20/25 06:41 Total Bilirubin 1.3 mg/dl (0.2-1.0) H 06/14/25 09:27 AST 23 U/L (13-39) 06/14/25 09:27 ALT 18 U/L (7-52) 06/14/25 09:27 Alkaline Phosphatase 81 U/L (34-104) 06/14/25 09:27 Total Creatine Kinase 72 U/L (30-223) 06/15/25 08:48 Troponin I High Sens 357.7 pg/ml (0-20) H* 06/15/25 11:27 Total Protein 6.4 gm/dl (6.0-8.3) 06/14/25 09:27 Albumin 3.7 gm/dl (3.4-5.0) 06/14/25 09:27 Globulin 2.7 gm/dl (2.5-4.0) 06/14/25 09:27 Albumin/Globulin Ratio 1.4 (0.9-2) 06/14/25 09:27 Lipase 60 U/L (11-82) 06/13/25 19:50 Procalcitonin 0.48 ng/ml (0-0.5) 06/19/25 06:30 TSH 0.690 uIu/ml (0.300-4.500) 06/13/25 19:50 Urine Color Yellow 06/14/25 12:52 Urine Appearance Clear (Clear) 06/14/25 12:52 Urine pH 5.5 (4.5-7.5) 06/14/25 12:52 Ur Specific [place] > 1.045 (1.000-1.030) H 06/14/25 12:52 Urine Protein 3+ (Negative) H 06/14/25 12:52 Urine Glucose (UA) Negative (Negative) 06/14/25 12:52 Urine Ketones Negative (Negative) 06/14/25 12:52 Urine Blood Negative (Negative) 06/14/25 12:52 Urine Nitrite Negative (Negative) 06/14/25 12:52 Urine Bilirubin Negative (Negative) 06/14/25 12:52 Urine Urobilinogen Negative (Negative) 06/14/25 12:52 Ur Leukocyte Esterase Negative (Negative) 06/14/25 12:52 Urine WBC (Auto) 0-5 /hpf (0-5) 06/14/25 12:52 Urine RBC (Auto) 0-2 /hpf (0-2) 06/14/25 12:52 U Hyaline Cast (Auto) 0-2 /lpf (0-2) 06/14/25 12:52 U Epithel Cells (Auto) 0-2 /hpf (0-2) 06/14/25 12:52 Urine Bacteria (Auto) None Seen (None Seen) 06/14/25 12:52 Urine Comment 06/14/25 12:52 Nasal Screen MRSA (PCR) Negative (Negative) 06/14/25 11:30 Stl C. diff Tox B Gene Negative Cdiff Gene (Neg) 06/18/25 Unknown Stl C. diff [id number] NEGATIVE 06/18/25 Unknown Adenovirus (PCR) Not Detected (NotDetected) 06/13/25 21:48 B. pertussis DNA (PCR) Not Detected (NotDetected) 06/13/25 21:48 B.parapertussis DNA PCR Not Detected (NotDetected) 06/13/25 21:48 C. pneumoniae DNA (PCR) Not Detected (NotDetected) 06/13/25 21:48 Coronavirus OC43 (PCR) Not Detected (NotDetected) 06/13/25 21:48 Coronavirus HKU1 (PCR) Not Detected (NotDetected) 06/13/25 21:48 Coronavirus 229E (PCR) Not Detected (NotDetected) 06/13/25 21:48 SARS-CoV-2 (PCR) Not Detected (NotDetected) 06/13/25 21:48 Coronavirus NL63 (PCR) Not Detected (NotDetected) 06/13/25 21:48 Human Metapneumovir PCR Not Detected (NotDetected) 06/13/25 21:48 Influenza Type A (PCR) Not Detected (NotDetected) 06/13/25 21:48 Influenza Type B (PCR) Not Detected (NotDetected) 06/13/25 21:48 M. pneumoniae (PCR) Not Detected (NotDetected) 06/13/25 21:48 Parainfluenza 1 (PCR) Not Detected (NotDetected) 06/13/25 21:48 Parainfluenza 2 (PCR) Not Detected (NotDetected) 06/13/25 21:48 Parainfluenza 3 (PCR) Not Detected (NotDetected) 06/13/25 21:48 Parainfluenza 4 (PCR) Not Detected (NotDetected) 06/13/25 21:48 RSV (PCR) Not Detected (NotDetected) 06/13/25 21:48 Entero/Rhino (PCR) Not Detected (NotDetected) 06/13/25 21:48 Impressions Abdomen/Pelvis CT 06/13/25 21:16 Exam(s): CT ABDOMEN + PELVIS Without Contrast EXAM: CT Abdomen and Pelvis Without Intravenous Contrast CLINICAL HISTORY: Reason for exam: n/v. TECHNIQUE: Axial computed tomography images of the abdomen and pelvis without intravenous contrast. CTDI is 23.59 mGy and DLP is 1717.76 mGy-cm. Automated exposure control was utilized for the study. A dose lowering technique was utilized adhering to the principles of ALARA. COMPARISON: No relevant prior studies available. FINDINGS: Lung bases: Consolidation in the lower lobes bilaterally consistent with pneumonia. ABDOMEN: Liver: Unremarkable. Gallbladder and bile ducts: Unremarkable. Pancreas: Unremarkable. Spleen: Unremarkable. Adrenals: Unremarkable. Kidneys and ureters: Cortical cysts in the left kidney. No ureteral stones. No hydronephrosis. Stomach and bowel: No bowel obstruction or inflammatory changes. Sigmoid diverticulosis without diverticulitis. PELVIS: Appendix: No findings to suggest acute appendicitis. Bladder: Unremarkable. Reproductive: Prostate enlarged up to 5 cm. ABDOMEN and PELVIS: Intraperitoneal space: Unremarkable. No free air. No significant fluid collection. Bones/joints: Severe degenerative changes in the lumbar spine. Soft tissues: Unremarkable. Vasculature: Aortobiiliac atherosclerotic calcifications. Lymph nodes: Unremarkable. IMPRESSION: 1. Consolidation in the lower lobes bilaterally consistent with pneumonia. 2. No acute abnormality along the GI tract. Electronically signed by: Gio Caruso MD 06/13/25 22:[address] 06/14/25 08:25 EXAM: CT Head Without Intravenous Contrast INDICATION: Left-sided weakness. Stroke alert. TECHNIQUE: Axial computed tomography images of the head/brain without intravenous contrast. Sagittal and/or coronal reformats are provided. Sagittal and coronal reformatted images were created and reviewed. This CT exam was performed using one or more of the following dose reduction techniques: automated exposure control, adjustment of the mA and/or kV according to patient size, and/or use of iterative reconstruction technique. COMPARISON: 05/04/2025 FINDINGS: Limitations: None. Brain and extra-axial spaces: Midline anterior parafalcine slightly echogenic mass likely meningioma measures 3.9 cm transverse by 4.3 cm AP by 2.9 cm long unchanged. There is moderate to marked diffuse chronic small vessel ischemic gliosis and cortical atrophy. No acute territorial infarct. No hemorrhage. No extra-axial fluid collection. Bones/joints: No acute changes. Soft tissues: No significant abnormality noted. Vasculature: No acute abnormality noted. Sinuses: There is trace chronic mucosal thickening right maxillary sinus. Mastoid air cells: No mastoid effusion. Orbits: No significant abnormality noted. IMPRESSION: 1. No acute abnormality. 2. Stable midline anterior parafalcine mass most likely meningioma. ACT 112: N/A Electronically signed by Piper Landa 06-14-2025 09:08 AM Head CTA 06/14/25 08:25 EXAM: CT Angiography Head and Neck With Intravenous Contrast INDICATION: Left-sided weakness and unresponsive. TECHNIQUE: [place] [facility]/head and neck CT angiography protocol performed with intravenous contrast. Sagittal and coronal reformatted images were created and reviewed. This CT exam was performed using one or more of the following dose reduction techniques: automated exposure control, adjustment of the mA and/or kV according to patient size, and/or use of iterative reconstruction technique. MIP reconstructed images were created and reviewed. CONTRAST: 119 ml of Optiray 320 was administered intravenously. COMPARISON: None. FINDINGS: HEAD: Right anterior cerebral artery: No abnormality noted. No occlusion or significant stenosis. Anterior communicating artery is present. No aneurysm. Right middle cerebral artery: No abnormality noted. No occlusion or significant stenosis. No aneurysm. Right posterior cerebral artery: No abnormality noted. No occlusion or significant stenosis. No aneurysm. Right intracranial internal carotid artery: No abnormality noted. No significant stenosis. No dissection or occlusion. Right intracranial vertebral artery: Mild scattered calcific plaque. No stenosis, dissection or occlusion. Left anterior cerebral artery: No abnormality noted. No occlusion or significant stenosis. No aneurysm. Left middle cerebral artery: No abnormality noted. No occlusion or significant stenosis. No aneurysm. Left posterior cerebral artery: No abnormality noted. No occlusion or significant stenosis. No aneurysm. Left intracranial internal carotid artery: No abnormality noted. No significant stenosis. No dissection or occlusion. Left intracranial vertebral artery: No abnormality noted. No significant stenosis. No dissection or occlusion. Basilar artery: No abnormality noted. No occlusion or significant stenosis. No aneurysm. Other vasculature: No vascular malformation. NECK: Right common carotid artery: Minimal scattered plaque. No significant stenosis. No dissection or occlusion. Right extracranial internal carotid artery: There is marked atherosclerosis of the bulb and proximal segment with stenosis of up to 80%. No dissection. Right external carotid artery: No abnormality noted. No occlusion. Right extracranial vertebral artery: No abnormality noted. No significant stenosis. No dissection or occlusion. Left common carotid artery: Minimal scattered plaque. No significant stenosis. No dissection or occlusion. Left extracranial internal carotid artery: There is moderate calcific plaque with up to 50% stenosis of the bulb and proximal segment. No dissection or occlusion. Left external carotid artery: No abnormality noted. No occlusion. Left extracranial vertebral artery: No abnormality noted. No significant stenosis. No dissection or occlusion. Lung apices: Bilateral moderate airspace consolidation noted in the upper lobes and superior segment of the left lower lobe left greater than right. There is a small layering left pleural effusion. No pneumothorax. Reactive mildly enlarged upper mediastinal nodes present. HEAD and NECK: Brain: Midline interhemispheric and inferior frontal meningioma grossly stable measuring 4.1 x 3.8 cm. Moderate chronic ischemic and atrophic changes. Bones/joints: No significant abnormality. Soft tissues: No abnormality noted. CAROTID STENOSIS REFERENCE USING NASCET CRITERIA: % ICA stenosis = (1 - narrowest ICA diameter/diameter of distal cervical ICA) x 100. Mild - <50% stenosis. Moderate - 50-69% stenosis. Severe - 70-94% stenosis. Near occlusion - 95-99% stenosis. Occluded - 100% stenosis. IMPRESSION: 1. No large vessel occlusion, aneurysm or dissection in the head or neck. 2. High-grade stenosis cervical right internal carotid bulb and proximal segment of at least 80%. 3. Left cervical internal carotid stenosis of up to 50%. 4. Stable midline meningioma. ACT 112: N/A Electronically signed by Piper Landa 06-14-2025 09:05 AM Neck CTA 06/14/25 08:25 EXAM: CT Angiography Head and Neck With Intravenous Contrast INDICATION: Left-sided weakness and unresponsive. TECHNIQUE: [place] [facility]/head and neck CT angiography protocol performed with intravenous contrast. Sagittal and coronal reformatted images were created and reviewed. This CT exam was performed using one or more of the following dose reduction techniques: automated exposure control, adjustment of the mA and/or kV according to patient size, and/or use of iterative reconstruction technique. MIP reconstructed images were created and reviewed. CONTRAST: 119 ml of Optiray 320 was administered intravenously. COMPARISON: None. FINDINGS: HEAD: Right anterior cerebral artery: No abnormality noted. No occlusion or significant stenosis. Anterior communicating artery is present. No aneurysm. Right middle cerebral artery: No abnormality noted. No occlusion or significant stenosis. No aneurysm. Right posterior cerebral artery: No abnormality noted. No occlusion or significant stenosis. No aneurysm. Right intracranial internal carotid artery: No abnormality noted. No significant stenosis. No dissection or occlusion. Right intracranial vertebral artery: Mild scattered calcific plaque. No stenosis, dissection or occlusion. Left anterior cerebral artery: No abnormality noted. No occlusion or significant stenosis. No aneurysm. Left middle cerebral artery: No abnormality noted. No occlusion or significant stenosis. No aneurysm. Left posterior cerebral artery: No abnormality noted. No occlusion or significant stenosis. No aneurysm. Left intracranial internal carotid artery: No abnormality noted. No significant stenosis. No dissection or occlusion. Left intracranial vertebral artery: No abnormality noted. No significant stenosis. No dissection or occlusion. Basilar artery: No abnormality noted. No occlusion or significant stenosis. No aneurysm. Other vasculature: No vascular malformation. NECK: Right common carotid artery: Minimal scattered plaque. No significant stenosis. No dissection or occlusion. Right extracranial internal carotid artery: There is marked atherosclerosis of the bulb and proximal segment with stenosis of up to 80%. No dissection. Right external carotid artery: No abnormality noted. No occlusion. Right extracranial vertebral artery: No abnormality noted. No significant stenosis. No dissection or occlusion. Left common carotid artery: Minimal scattered plaque. No significant stenosis. No dissection or occlusion. Left extracranial internal carotid artery: There is moderate calcific plaque with up to 50% stenosis of the bulb and proximal segment. No dissection or occlusion. Left external carotid artery: No abnormality noted. No occlusion. Left extracranial vertebral artery: No abnormality noted. No significant stenosis. No dissection or occlusion. Lung apices: Bilateral moderate airspace consolidation noted in the upper lobes and superior segment of the left lower lobe left greater than right. There is a small layering left pleural effusion. No pneumothorax. Reactive mildly enlarged upper mediastinal nodes present. HEAD and NECK: Brain: Midline interhemispheric and inferior frontal meningioma grossly stable measuring 4.1 x 3.8 cm. Moderate chronic ischemic and atrophic changes. Bones/joints: No significant abnormality. Soft tissues: No abnormality noted. CAROTID STENOSIS REFERENCE USING NASCET CRITERIA: % ICA stenosis = (1 - narrowest ICA diameter/diameter of distal cervical ICA) x 100. Mild - <50% stenosis. Moderate - 50-69% stenosis. Severe - 70-94% stenosis. Near occlusion - 95-99% stenosis. Occluded - 100% stenosis. IMPRESSION: 1. No large vessel occlusion, aneurysm or dissection in the head or neck. 2. High-grade stenosis cervical right internal carotid bulb and proximal segment of at least 80%. 3. Left cervical internal carotid stenosis of up to 50%. 4. Stable midline meningioma. ACT 112: N/A Electronically signed by Piper Landa 06-14-2025 09:05 AM Chest X-Ray 06/20/25 07:00 XR chest 1V portable CLINICAL HISTORY: Pneumonia. COMPARISON STUDY: Chest radiograph June 16, 2025. FINDINGS: Left subclavian pacer/AICD remains in place. Cardiomegaly is noted. There is no pneumothorax. Trace bilateral pleural effusions are again noted. Interstitial thickening persists. Bibasilar and right perihilar opacities persist. IMPRESSION: 1. Cardiomegaly with mild interstitial pulmonary edema, similar to prior exam. 2. Persistent bibasilar and right perihilar opacities suggestive of pneumonia. Radiographic follow-up to ensure resolution is recommended. ACT 112: Negative or not required by law. Electronically signed by: Emerson Perez M.D. 06/20/2025 8:16 AM KUB X-Ray 06/20/25 12:05 KUB CLINICAL HISTORY: Abdominal pain. COMPARISON STUDY: CT of the abdomen and pelvis June 13, 2025. FINDINGS: Pacer/AICD leads are partially imaged. There is extensive atherosclerotic plaque within the abdominal aorta. The bowel gas pattern is normal. There is no radiographic evidence for free air on supine exam. The amount of stool is within normal limits. IMPRESSION: No evidence for a bowel obstruction. ACT 112: Negative or not required by law. Electronically signed by: Emerson Perez M.D. 06/20/2025 12:39 PM Ordered Studies 06/13/25 21:16 CT abd pelvis wo con Stat CT head/brain wo con Stat 06/14/25 08:25 CT angio head w con Stat CT angio neck with con Stat CT head/brain wo con Stat Hospital Course (1) Pneumonia: 89-year-old male with past medical history significant for gout, chronic systolic heart failure, nonischemic cardiomyopathy, status post biventricular ICD, left bundle branch block, hypertension, symptomatic stenosis of right carotid artery, benign esophageal stricture, CKD stage IIIb, spinal stenosis, pseudophakia who lives at home with his and ambulates with rollator walker for short distances was brought in because of nausea vomiting and weakness. Acute Metabolic Encephalopathy Less likely Seizure DD: Secondary to hypoxia Chronic meningioma Peripheral artery disease --Head/Neck CTA:No large vessel occlusion, aneurysm or dissection in the head or neck. High-grade stenosis cervical right internal carotid bulb and proximal segment of at least 80%. Left cervical internal carotid stenosis of up to 50%. Stable midline meningioma. -- EEG pending --MRI brain: Could not obtain MRI due to magnet being attached to ICD Intermittently confused Consideration for outpatient polysomnography Appreciate neurology input Delirium precautions Reorient frequently Mental status seem to be back to baseline Appreciate palliative care input Plan to discharge to rehab facility today Acute Hypoxic Respiratory Failure Aspiration Pneumonitis CAP --CXR:Cardiomegaly with interstitial pulmonary edema.Probable trace pleural effusions with bibasilar opacities favoring atelectasis. A mild pneumonitis could appear similarly. Evidence of asbestos-related pleural disease. 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 EF 35 to 40%. Grade 1 diastolic dysfunction. Moderate aortic stenosis. Grade 1 diastolic dysfunction. Moderate valvular aortic stenosis. Trace pulmonic valvular regurgitation. Mild mitral and tricuspid regurgitation. Akinesis of the basal and mid inferolateral and inferior vuong. Severe hypokinesis to akinesis of the basal and mid anterolateral vuong. --Cardiology discussed with patient and patient's family and are in agreement to deactivate ICD. BiV pacing remains unchanged. --Continue amiodarone drip>> transition to amiodarone 200 mg twice a day -- Continue metoprolol Monitor and replete electrolytes as needed Appreciate cardiology input IV Lasix as needed Continue aspirin, statin Hold Lasix today given rising creatinine level Diarrhea Likely secondary to antibiotics Stool for C. difficile negative Imodium as needed Hypokalemia Hypophosphatemia Replace and monitor GERD continue pantoprazole 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 -likely in setting of ATN Bladder scan as needed Received IV fluids Monitor volume status closely Avoid nephrotoxic agents as able Mild increase in creatinine level Septic Shock Continue antibiotics as above Received IV fluid Resolved Contact dermatitis Continue low-dose prednisone Monitor DVT Px: Heparin SQ CODE STATUS DNR/DNI Disposition Acute rehab Total Time Total Time Spent Total Time Spent (In Minutes): 53 minutes Discharge Plan Discharge Items Patient Disposition: Transfer Inpatient Rehab Fac Reason For Visit: N/V, PNEUMONIA Discharge Diagnosis: Acute Metabolic Encephalopathy Aspiration pneumonia Acute hypoxic respiratory failure--resolved Ventricular Tachycardia 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 Sepsis Contact dermatitis ICD discharge--deactivated Condition on Discharge: Fair Activity: Per Instructions section Exercise/Sports: Gradually increase as tolerated Non-emergency contact: Primary Care Provider and Driver [employer] Call non-emergency contact if: you have any medication questions, your symptoms worsen, your pain is concerning for you and you have a fever Follow-up/Referrals: Sophie Bourne PA-C [Primary Care Provider] - Diet: Heart Healthy Diet Texture: Easy to Chew Addtl Attending Provider Instructions: -- Follow-up with your primary care physician Sophie Bourne PA-C in 1 week upon discharge from rehab facility --Follow-up with your records analyst Dr. Zazueta in 3 to 4 weeks as recommended --Complete the antibiotic course Augmentin for 3 more days as prescribed --Continue prednisone for 3 more days --Hold Lasix for 2 days and get repeat blood test BMP to monitor your renal function prior to resuming Lasix. -- Continue aspiration precautions as recommended by speech therapy Seek immediate medical attention if your symptoms reoccur or worsen Please review medication list provided on discharge for any medication changes as instructed. Please call if you have any questions or problems. You can reach a Daljit lott ospitalist on duty at [facility] 24 hours a day by calling [phone] Pending Studies at Discharge: No Stand-Alone Forms: My [facility] Skilled Items Patient informed of condition?: Yes DNR: Yes Discharge Level of Care: Acute rehab Communicable Disease: No Discharge Prognosis: Stable Lines: None Urinary Catheter: No Medications and DC Order Prescriptions: New amiodarone 200 mg Tablet 200 mg PO BIDM Qty: 60 0RF prednisone 10 mg Tablet 10 mg PO DAILY Qty: 3 0RF furosemide 20 mg Tablet 20 mg PO QAM Qty: 30 0RF amoxicillin-pot clavulanate [Augmentin] 500-125 mg tablet 1 tab PO BID Qty: 6 0RF Advanced Probiotic 625 mg (10 billion cell) Capsule 1 cap PO DAILY Qty: 7 0RF Continued atorvastatin 40 mg tablet 40 mg PO DAILY omeprazole 20 mg Capsule,Delayed Release(Dr/Ec) 20 mg PO DAILY escitalopram oxalate [Lexapro] 5 mg Tablet 5 mg PO DAILY diclofenac sodium [Voltaren] 1 % Gel 2 g TOPICAL QID PRN (Reason: Pain) mirabegron [Myrbetriq] 50 mg Tablet Extended Release 24 Hr 50 mg PO DAILY allopurinol 300 mg tablet 300 mg PO DAILY metoprolol succinate 25 mg tablet extended release 24 hr 25 mg PO QAM finasteride 5 mg tablet 5 mg PO QAM aspirin 81 mg Tablet,Delayed Release (Dr/Ec) 81 mg PO QAM cholecalciferol (vitamin D3) [Vitamin D3] 25 mcg (1,000 unit) Tablet 2,000 unit PO Q OTHER DAY omega [id number] oil [Fish Oil] 1,200 (144-216) mg Capsule 1 cap PO BID cyanocobalamin (vitamin B-12) [Vitamin B-12] 1,000 mcg Tablet 1,000 mcg PO Q OTHER DAY tamsulosin 0.4 mg Capsule 0.4 mg PO QAM Qty: 30 0RF Rx Instructions: PER EXT MED HX, PER [facility] 0.8 MG DAILY. Held hydroxyurea 500 mg capsule 500 mg PO DAILY Hold Instructions: Until further recommendations from your primary care physician magnesium oxide 420 mg Tablet 420 mg PO DAILY Hold Instructions: Until your diarrhea improves gabapentin 100 mg Capsule 200 mg PO TID Qty: 180 0RF Hold Instructions: Until further recommendations from your primary care physician Discontinued albendazole 200 mg Tablet 400 mg PO QAM Discharge Orders: Discharge Order (Routine); Ordered 06/22/25 Ordered By: Darryn Mcdonough Admission Data Admit Date/Time: 06/13/25 23:10 Attending Provider: Darryn Mcdonough Admit Provider: Juan Miguel Ferro Primary Care Provider: Sophie Bourne Other Providers: Juan Miguel Ferro; Subhash Garrett; [facility]
[2025-06-22 12:50] VITALS: BP 163/84; PULSE 84
== END 2025-06-22 14:19 | DRG 871 ==
LOC: ED 19:44 → 2N 23:10 → SUATTDRO 23:10 → 2N 06-14 00:22 → 2S 06-14 08:51
DX: R65.21 Severe sepsis with septic shock; G93.41 Metabolic encephalopathy; E78.5 Hyperlipidemia, unspecified; G62.9 Polyneuropathy, unspecified; Z66 Do not resuscitate; I42.8 Other cardiomyopathies; Z88.1 Allergy status to other antibiotic agents; N40.0 Benign prostatic hyperplasia without lower urinary tract symptoms; I25.10 Atherosclerotic heart disease of native coronary artery without angina pectoris; N39.41 Urge incontinence; E83.39 Other disorders of phosphorus metabolism; Z79.899 Other long term (current) drug therapy; I47.20 Ventricular tachycardia, unspecified; Z88.8 Allergy status to other drugs, medicaments and biological substances; Z91.199 Patient's noncompliance with other medical treatment and regimen due to unspecified reason; E87.6 Hypokalemia; N17.9 Acute kidney failure, unspecified; D75.839 Thrombocytosis, unspecified; Z95.810 Presence of automatic (implantable) cardiac defibrillator; Z79.82 Long term (current) use of aspirin; N18.32 Chronic kidney disease, stage 3b; F32.A Depression, unspecified; T78.40XA Allergy, unspecified, initial encounter; I65.21 Occlusion and stenosis of right carotid artery; Z88.5 Allergy status to narcotic agent; G40.209 Localization-related (focal) (partial) symptomatic epilepsy and epileptic syndromes with complex partial seizures, not intractable, without status epilepticus; T36.0X5A Adverse effect of penicillins, initial encounter; I12.9 Hypertensive chronic kidney disease with stage 1 through stage 4 chronic kidney disease, or unspecified chronic kidney disease; I21.A1 Myocardial infarction type 2; Z51.5 Encounter for palliative care; R21 Rash and other nonspecific skin eruption; Z87.891 Personal history of nicotine dependence; G47.33 Obstructive sleep apnea (adult) (pediatric); K52.1 Toxic gastroenteritis and colitis; A41.9 Sepsis, unspecified organism; J96.01 Acute respiratory failure with hypoxia; K21.9 Gastro-esophageal reflux disease without esophagitis; J69.0 Pneumonitis due to inhalation of food and vomit; I50.42 Chronic combined systolic (congestive) and diastolic (congestive) heart failure; Z77.22 Contact with and (suspected) exposure to environmental tobacco smoke (acute) (chronic); Z88.2 Allergy status to sulfonamides; M10.9 Gout, unspecified